=== PATIENT | female | born 2000 | race Caucasian/White ===

== ENCOUNTER 2020-04-26 14:09 | Emergency (ER) | payer MEDICAID, SELFPAY ==
[2020-04-26 14:16] VITALS: PULSE 144; RESP 32; TEMP 36.6; O2SAT 96; BMI 35.7
[2020-04-26 14:23] VITALS: BP 113/53; PULSE 129; RESP 22; O2SAT 96
--- NOTE | 2020-04-26 14:35 | XR_ITS ---
EXAMINATION: XR CHEST CLINICAL INFORMATION: Shortness of breath, wheezing COMPARISON: Chest radiographs 01/05/2020, 10/06/2019 TECHNIQUE: Portable upright AP view of the chest was obtained. FINDINGS: The lungs are clear. The vascularity is normal. There is no overt hyperinflation. No coarsening bronchiolar markings. There is no airspace consolidation or definite groundglass opacity. The costophrenic sulci are clear. The heart is normal in size. The hilar and mediastinal contours and bony structures are unremarkable. XR/XR chest 1V IMPRESSION: Unremarkable examination.
[2020-04-26] MEDS: Albuterol Sulfate (0.083%) 2.5 MG/3 ML VIAL.NEB 7.5 MG INHALE (14:44)
[2020-04-26] MEDS: Ipratropium Bromide 0.5 MG/2.5 ML SOLUTION INHALE (14:44)
[2020-04-26 14:45] VITALS: PULSE 127; O2SAT 93
--- NOTE | 2020-04-26 14:50 | PC.NURSE ---
Patient complaining of asthma exacerbation. Working to breath. Wheezing heard throughout. Patient tried using inhaler and neds at home, but with no improvement. O2 sat high 90s on room air. Skin PWD. Patient alert and oriented. IV established. Patient medicated with solumedrol. RT called for updraft. Swabbed for respiratory panel.
[2020-04-26] MEDS: methylPREDNISolone Sod Succ/PF 125 MG/2 ML VIAL IVPUSH (15:04)
--- NOTE | 2020-04-26 15:14 | ED.ASTHMA ---
HPI - Asthma General Chief Complaint: Asthma Stated Complaint: asthma Time Seen by Provider: 04/26/20 14:34 Source: patient Mode of arrival: ambulatory Limitations: no limitations History of Present Illness HPI Narrative: 20 y/o female with history of asthma who presents with shortness of breath and wheezing that started after she bathed her dog earlier today. She states she usually only requires PRN albuterol for her asthma and that it is relatively well controlled. She she blew dry her dog she started wheezing and coughing. She denies fever, chills, chest pain, COVID exposure. Up to date on flu shot this year. complaint: asthma attack Related Data Previous Rx's Medication Instructions Recorded albuterol sulfate 1.25 mg INHALATION Q8H PRN #15 ml 04/26/20 prednisone 40 mg PO DAILY #10 tab 04/26/20 Allergies Allergy/AdvReac Type Severity Reaction Status Date / Time No Known Allergies Allergy Unverified 02/18/20 16:47 Review of Systems Review of Systems: Constitutional: No Fever, No Chills ENT/Mouth: No sore throat, No Rhinorrhea, No Swallowing Difficulty Cardiovascular: No Chest Pain, No SOB, No Orthopnea, No Edema Respiratory: + Cough, No Sputum, + Wheezing, + dyspnea Gastrointestinal: No Nausea, No Vomiting, No Diarrhea, No abdominal Pain Musculoskeletal: No joint pain, No Myalgias Skin: No Skin Lesions, No rash Neuro: No Weakness, No Numbness, No Dizziness, No Headache Heme/Lymph: No Bruising, No Lymphadenopathy PMFSH Past Medical History Attestation statement: The following information was validated with the patient. Medical History Asthma Social History Social History Alcohol intake: never Smoking Status: Light tobacco smoker Use of substances other than those prescribed or required for medical reasons: No Advance Directives: No Advance Directives Information Provided: Yes Physical Exam Vital Signs: Vital Signs: Last Vital Signs Temp 98 F 04/26/20 14:16 Pulse 127 H 04/26/20 14:45 Resp 22 H 04/26/20 14:23 BP 113/53 L 04/26/20 14:23 Pulse Ox 96 04/26/20 14:23 Body Mass Index 35.7 Appearance: Alert. Oriented X3. No acute distress. Eyes: Pupils equal, round and reactive to light. ENT: Pharynx normal. Neck: Normal inspection. Neck supple. CVS: tachycardic, regular rhythm. Pulses normal. Respiratory: No respiratory distress. end expiratory wheeze in the right middle lobe Abdomen: Soft and nontender. +BS x4 Skin: Skin warm and dry. Normal skin color. Normal skin turgor. No rashes. Extremities: No lower extremity edema. Negative Alli's sign Neuro: Oriented X 3. Non-focal Course Course Course Narrative: 20 y/o female with hx asthma presenting with acute asthma exacerbation provoked by washing her dog. Significant improvement after steroids and hour long nebulizer. CXR negative. She has a neb machine at home but needs some refills. She is stable for discharge. MDM - Asthma Lab Data Labs: Lab Results 04/26/20 Range/Units 15:05 Coronavirus (PCR) NEGATIVE (Negative) Influenza Type A (PCR) NEGATIVE (Negative) Influenza Type B (PCR) NEGATIVE (Negative) RSV RNA Qual (PCR) NEGATIVE (Negative) Critical Care Time Critical Care Time Critical Care Time: No Discharge Plan Discharge Clinical Impression: Asthma with acute exacerbation Patient Disposition: Home, Self-Care Instructions: Asthma (ED) Additional Instructions: Your chest x-ray was negative. Your COVID and influenza tests were negative. You asthma flare was provoked by washing your dog; recommend against this in the future. Take the prescibed steroids to help with the inflammation in your lungs. Use your nebulizer every 4-6 hours as needed at home. Follow up with your doctor this week. If you develop recurrent shortness of breath or difficulty breathing, call 911 or come back to the ER for further evaluation. Prescriptions: New prednisone 20 mg tablet 40 mg PO DAILY Qty: 10 RF: 0 albuterol sulfate 1.25 mg/3 mL solution for nebulization 1.25 mg inhalation Q8H PRN (Reason: shortness of breath or wheezing) Qty: 15 RF: 0
[2020-04-26 15:58] LABS: Influenza A PCR NEGATIVE (Negative); Influenza B PCR NEGATIVE (Negative); Resp Syncy Virus RNA Qual PCR NEGATIVE (Negative); SARS COV2 PCR INHOUSE NEGATIVE (Negative)
[2020-04-26 16:00] VITALS: BP 135/86; PULSE 120; RESP 18; O2SAT 99
--- NOTE | 2020-04-26 16:00 | PC.NURSE ---
Patient with significant improvement in wheezes throughout. Reports feeling much better. Now has regular, even, and nonlabored respirations. Skin pwd. Awaiting discharge.
[2020-04-26 16:23] VITALS: BP 100/66; PULSE 115; RESP 18; O2SAT 96
== END 2020-04-26 16:30 | disposition home or self-care (01) ==
PROVIDERS: Physician Assistant; Emergency Provider Emergency Medicine Emergency Medical Services
DX: J45.901 Unspecified asthma with (acute) exacerbation (principal); Z79.899 Other long term (current) drug therapy; F17.200 Nicotine dependence, unspecified, uncomplicated; Z71.6 Tobacco abuse counseling; Z20.828 Contact with and (suspected) exposure to other viral communicable diseases
CPT/HCPCS: 0241U; 71045; 94640; 94644; 96374; 99284; J2930

== ENCOUNTER 2020-05-26 00:31 | Emergency (ER) | payer MEDICAID, SELFPAY ==
--- NOTE | 2020-05-26 01:20 | ED.ASTHMA ---
HPI - Asthma General Chief Complaint: Dyspnea Stated Complaint: Asthma Time Seen by Provider: 05/26/20 01:18 Source: patient Mode of arrival: ambulatory Limitations: no limitations History of Present Illness HPI Narrative: 20-year-old female with history of longstanding asthma presented with wheezing started about 1 hour ago, no trigger factor, patient used her home medication at home with no relief of wheezing, patient declined any cough, no sneezing, no fever, no chills. Patient also declined any recent travel or hospitalization or prolonged immobilization. Related Data Previous Rx's Medication Instructions Recorded albuterol sulfate 1.25 mg INHALATION Q8H PRN #15 ml 04/26/20 prednisone 40 mg PO DAILY #10 tab 04/26/20 albuterol sulfate 2 puff INHALATION Q6H PRN #8.5 g 05/26/20 albuterol sulfate 2.5 mg INHALATION QID PRN #75 ml 05/26/20 prednisone 20 mg PO BID #10 tab 05/26/20 Allergies Allergy/AdvReac Type Severity Reaction Status Date / Time No Known Allergies Allergy Unverified 02/18/20 16:47 Review of Systems Review of Systems: All other systems are reviewed and are negative Constitutional: Reports as per HPI and Reports no additional constitutional complaints Eyes: Reports as per HPI and Reports no additional eye complaints Reports system reviewed and no additional complaints, except as documented Cardiovascular: Reports as per HPI and Reports no additional cardiovascular complaints Respiratory: Reports as per HPI and Reports no additional respiratory complaints Gastrointestinal: Reports as per HPI and Reports no additional gastrointestinal complaints Genitourinary: Reports no additional female genitourinary complaints Musculoskeletal: Reports no additional musculoskeletal complaints Skin/Breast: Reports system reviewed and no additional complaints, except as docu Psychiatric: Reports no additional psychiatric complaints Endocrine: Reports no additional endocrine complaints Hematologic/Lymphatic: Reports no additional hematologic/lymphatic complaints Allergic/Immunologic: Reports no additional allergic/immunologic complaints Reports system reviewed and no additional complaints, except as documented and Reports Abnormal speech present [facility] Past Medical History Medical History Asthma Social History Social History Alcohol intake: never Smoking Status: Light tobacco smoker Advance Directives: No Advance Directives Information Provided: No Physical Exam Vital Signs: Vital Signs: Vital signs have been reviewed as normal and appeared to be correct. Blood pressure normal. Heart rate normal. Respiration rate normal. Temperature normal. Oxygen saturation normal. Appearance: Alert. Oriented X3. No acute distress. Head: Normal external exam. Normocephalic. Atraumatic. No Gomez signs noted. No raccoon eyes noted Eyes: PERRLA. EOMI. Conjunctiva and sclera normal. Eyelids normal. ENT: EAC normal. TM's Normal. Pharynx normal. Uvula midline. Moist mucous membranes. No trismus noted. No drooling noted. No muffled voice noted. Neck: Normal inspection. Neck supple. FROM. No adenopathy. Thyroid Normal. No meningeal signs. No neck mass noted. CVS: Normal heart rate and rhythm. Heart sound normal. No murmurs noted. Pulses normal throughout. Respiratory: No respiratory distress. Painless inspiration. Breath sounds normal. Mild diffuse expiratory wheezing with prolonged expiration, No rales/rhonchi noted. Chest nontender. No accessory muscle usage noted or decreased air movement noted. Abdomen: Soft and nontender. Bowel sounds normal in all 4 quadrants. No distention noted. No organomegaly noted. No visible injury noted. Back: No CVA tenderness. Full range of motion noted. Skin: Skin warm and dry. Normal skin color. Normal skin turgor. No rashes/lesions/lacerations noted. Extremities: No lower extremity edema. Extremities exhibit normal range of motion. Extremities nontender. Neuro: Oriented X 3. No motor deficit. No sensory deficit. Reflexes normal. MDM - Asthma MDM Narrative Medical decision making narrative: Assessment and plan. 20-year-old female with longstanding history of asthma came in with asthma exacerbation. Patient used home medication with no relief. Will start the patient on prednisone/albuterol discharged home to follow-up with PCP. Discharge Plan Discharge Clinical Impression: Asthma with exacerbation Qualifiers: Asthma severity: mild Asthma persistence: unspecified Qualified Code(s): J45.901 - Unspecified asthma with (acute) exacerbation Patient Disposition: Home, Self-Care Instructions: Asthma (ED) Prescriptions: New albuterol sulfate 90 mcg/actuation HFA aerosol inhaler 2 puff inhalation Q6H PRN (Reason: shortness of breath or wheezing) Qty: 8.5 RF: 0 albuterol sulfate 2.5 mg /3 mL (0.083 %) solution for nebulization 2.5 mg inhalation QID PRN (Reason: shortness of breath or wheezing) Qty: 75 RF: 0 prednisone 20 mg tablet 20 mg PO BID Qty: 10 RF: 0 No Action prednisone 20 mg tablet 40 mg PO DAILY Qty: 10 RF: 0 albuterol sulfate 1.25 mg/3 mL solution for nebulization 1.25 mg inhalation Q8H PRN (Reason: shortness of breath or wheezing) Qty: 15 RF: 0 Referrals: Physician,Unknown [Primary Care Provider] - 2 days
[2020-05-26 01:22] VITALS: PULSE 100; RESP 18; TEMP 36.6; O2SAT 100; BMI 39.2
[2020-05-26] MEDS: predniSONE 20 MG TABLET 60 MG PO (01:29)
[2020-05-26 01:51] VITALS: PULSE 92; O2SAT 99
[2020-05-26] MEDS: Albuterol/Iprat 2.5/0.5MG 3 ML AMPUL.NEB INHALE (01:51)
[2020-05-26] MEDS: Albuterol Sulfate (0.083%) 2.5 MG/3 ML VIAL.NEB 5 MG INHALE (01:51)
[2020-05-26 01:58] VITALS: PULSE 100; RESP 18
== END 2020-05-26 02:58 | disposition home or self-care (01) ==
PROVIDERS: Emergency Provider Emergency Medicine
DX: J45.901 Unspecified asthma with (acute) exacerbation (principal); F17.210 Nicotine dependence, cigarettes, uncomplicated; Z79.899 Other long term (current) drug therapy
CPT/HCPCS: 94640; 99284

== ENCOUNTER → 2020-09-08 10:03 | Outpatient (BNVA) | payer MEDICAID, SELFPAY | PROVIDERS: PCP Nurse Practitioner Family; Visit Provider Internal Medicine Pulmonary Disease | DX: J45.909 Unspecified asthma, uncomplicated (principal); Z91.09 Other allergy status, other than to drugs and biological substances | CPT/HCPCS: 99202 ==

== ENCOUNTER 2020-10-03 08:42 | Outpatient (REF) | payer MEDICAID, SELFPAY ==
[2020-10-03 11:32] LABS: MANUAL DIFF FLAG NO
[2020-10-03 11:41] LABS: Basophils Absolute Auto 0.1 X10*3/uL (0.0-0.2); Basophils Percent Auto 0.7 % (0-2); Eosinophils Absolute Auto 0.4 X10*3/uL (0.0-0.4); Eosinophils Percent Auto 5.9 % (0-4); Hematocrit 40.8 % (37-47); Hemoglobin 13.4 g/dl (12.0-16.0); Imm Gran Abs Auto 0.04 X10*3/uL (0.00-0.03); Imm Gran Pct Auto 0.5 % (0.0-0.4); Lymphocytes Absolute Auto 2.2 X10*3/uL (1.2-4.9); Mean Corpuscular HGB Conc 32.8 g/dl (31.0-35.0); Mean Corpuscular Hemoglobin 28.7 pg (27.0-33.0); Mean Corpuscular Volume 87.4 fL (80-98); Mean Platelet Volume 10.5 fL (9.4-12.3); Monocytes Absolute Auto 0.5 X10*3/uL (0.1-1.2); Monocytes Percent Auto 6.6 % (2-11); Neutrophils Absolute Auto 4.3 X10*3/uL (2.0-8.3); Neutrophils Percent Auto 57.3 % (45-73); Platelet Count 249 X10*3/uL (160-400); Red Blood Count 4.67 X10*6/uL (4.20-5.50); Red Cell Distribution Width 12.6 % (11.0-16.0); White Blood Count 7.5 X10*3/uL (4.8-10.8)
--- NOTE | 2020-10-03 17:36 | PFT_ITS ---
INDICATION: Asthma. SPIROMETRY: The FEV1 to FVC 54% with an FEV1 of 2.25 L, which is 64% predicted and FVC of 4.15 L, which is 104% predicted. Post bronchodilators, the patient did have a significant improvement both in the FVC and the FEV1. The [id number] decreased to 22% predicted prior to bronchodilators. Maximum voluntary ventilation 59% predicted. LUNG VOLUMES: Total lung capacity 113% predicted with a residual volume of 146% predicted. Expiratory reserve volume is 57% predicted, likely secondary to an elevated BMI. DIFFUSION CAPACITY: DLCO 91% predicted. INTERPRETATION: There is an obstructive ventilatory defect consistent with moderate COPD in this case, likely related to uncontrolled severe asthma. The patient did have a significant response to bronchodilators noted. In addition to that, severe small airways disease due to her asthma severity. The patient also has a moderate decrease in maximum voluntary ventilation secondary to deconditioning, also worsening dynamic inspiratory capacity. Lung volumes demonstrate a trend of hyperinflation and significant air trapping due to her significant obstructive airway disease. The decrease in the expiratory reserve volume likely secondary to an elevated BMI. Diffusion capacity is within normal limits. Clinical correlation is warranted. MD ALBERTA Fairbanks/MODL / [id number]
== END 2020-10-03 08:43 | disposition home or self-care (01) ==
LOC: HO.RESP 08:42
PROVIDERS: Visit Provider Internal Medicine Pulmonary Disease
DX: J45.909 Unspecified asthma, uncomplicated (principal); Z91.09 Other allergy status, other than to drugs and biological substances
CPT/HCPCS: 36415; 82785; 85025; 86003; 94060; 94727; 94729; 99212

== ENCOUNTER 2020-11-15 15:06 | Emergency (ER) | payer MEDICAID, SELFPAY ==
--- NOTE | ~2020-11-15 | XR_ITS ---
EXAMINATION: XR CHEST CLINICAL INFORMATION: Cough and shortness of breath. Rule out pneumonia. COMPARISON: Previous chest x-ray April 2020 TECHNIQUE: Frontal view of the chest was obtained. FINDINGS: No significant abnormality is noted involving the heart, lungs, mediastinum, bony thorax or soft tissues. XR/XR chest 1V IMPRESSION: Unremarkable examination.
--- NOTE | 2020-11-15 15:08 | ED.GENADULT ---
HPI - General Adult General Chief complaint: Dyspnea <Elizabeth Arguelles NP - Last Filed: 11/15/20 18:56> Stated complaint: asthma <Elizabeth Arguelles NP - Last Filed: 11/15/20 18:56> Time Seen by Provider: 11/15/20 15:07 <Elizabeth Arguelles NP - Last Filed: 11/15/20 18:56> Source: patient <Elizabeth Arguelles NP - Last Filed: 11/15/20 18:56> Mode of arrival: ambulatory <Elizabeth Arguelles NP - Last Filed: 11/15/20 18:56> Limitations: no limitations <Elizabeth Arguelles NP - Last Filed: 11/15/20 18:56> History of Present Illness HPI narrative: 20 yo female with past medical history of asthma here with complaints of asthma symptoms x 24 hrs which consist of SOB, wheezing and dry cough. History of admissions over once. No history of intubations. No chest pain, leg swelling or pain. No recent travel. No fevers, chills or body aches. She has not received a COVID vaccine <Elizabeth Arguelles NP - Last Filed: 11/15/20 18:56> Related Data Home medications: Previous Rx's Medication Instructions Recorded albuterol sulfate 1.25 mg INHALATION Q8H PRN #15 ml 04/26/20 fluticasone propionate 115 2 puff INHALATION BID 30 Days #1 ea 11/19/20 mcg-salmeterol 21 mcg/actuation HFA inhaler <ANAID Ma Last Filed: 11/15/20 18:56> Allergies/adverse reactions: Allergies Allergy/AdvReac Type Severity Reaction Status Date / Time No Known Allergies Allergy Verified 10/03/20 10:02 <ANAID Ma Last Filed: 11/15/20 18:56> Review of Systems Review of Systems: Yes all other systems are reviewed and are negative <ANAID Ma Last Filed: 11/15/20 18:56> Constitutional: Constitutional: Reports no additional constitutional complaints, Denies body ache(s), Denies chills, Denies fever(s), Denies headache(s) and Denies weakness <Elizabeth Arguelles NP - Last Filed: 11/15/20 18:56> Eyes: Eyes: Reports no additional eye complaints and Denies change in vision <Elizabeth Arguelles NP - Last Filed: 11/15/20 18:56> ENT: Reports system reviewed and no additional complaints, except as documented, Denies dizziness, Denies headache(s), Denies nasal congestion, Denies nasal discharge and Denies neck pain <Elizabeth Arguelles ANGER CONTROL COUNSELOR - Last Filed: 11/15/20 18:56> Cardiovascular: Cardiovascular: Reports no additional cardiovascular complaints, Denies chest pain, Denies leg edema and Reports dyspnea <Elizabeth Arguelles NP - Last Filed: 11/15/20 18:56> Respiratory: Respiratory: Reports no additional respiratory complaints, Reports cough and Reports dyspnea <Elizabeth Arguelles NP - Last Filed: 11/15/20 18:56> Gastrointestinal: Gastrointestinal: Reports no additional gastrointestinal complaints, Denies abdominal pain, Denies diarrhea, Denies nausea and Denies vomiting <Elizabeth Arguelles NP - Last Filed: 11/15/20 18:56> Genitourinary: Genitourinary: Reports no additional female genitourinary complaints and Denies urinary incontinence <Elizabeth Arguelles NP - Last Filed: 11/15/20 18:56> Musculoskeletal: Musculoskeletal: Reports no additional musculoskeletal complaints, Denies back pain, Denies arthralgias, Denies joint swelling, Denies neck pain, Denies numbness and Denies tingling <Elizabeth Arguelles NP - Last Filed: 11/15/20 18:56> Integumentary/Breasts: Skin/Breast: Reports system reviewed and no additional complaints, except as docu and Denies rash <Elizabeth Arguelles NP - Last Filed: 11/15/20 18:56> Neurologic: Reports system reviewed and no additional complaints, except as documented, Denies Abnormal speech present, Denies dizziness, Denies headache(s), Denies numbness, Denies tingling and Denies weakness <Elizabeth Arguelles NP - Last Filed: 11/15/20 18:56> FORMERLY [facility] Past Medical History Attestation statement: The following information was validated with the patient. <Elizabeth Arguelles NP - Last Filed: 11/15/20 18:56> Source: old records reviewed and nursing notes reviewed <Elizabeth Arguelles NP - Last Filed: 11/15/20 18:56> Medical History: Medical History Asthma <Elizabeth Arguelles NP - Last Filed: 11/15/20 18:56> Social History Social History: Social History Alcohol intake: never Patient Tobacco Use Status: Never used Tobacco Use of substances other than those prescribed or required for medical reasons: No Advance Directives: No Advance Directives Information Provided: No Patient : No <Elizabeth Arguelles NP - Last Filed: 11/15/20 18:56> Physical Exam Vital Signs: Vital Signs: Last Vital Signs Temp 98.8 F 11/15/20 15:09 Pulse 99 11/15/20 17:57 Resp 16 11/15/20 17:15 BP 108/65 11/15/20 17:15 Pulse Ox 96 11/15/20 17:15 Body Mass Index 29.9 <Elizabeth Arguelles NP - Last Filed: 11/15/20 18:56> Vital Signs: Last Vital Signs Temp 98.8 F 11/15/20 15:09 Pulse 99 11/15/20 17:57 Resp 16 11/15/20 17:15 BP 108/65 11/15/20 17:15 Pulse Ox 96 11/15/20 17:15 Body Mass Index 29.9 <Nito Kumar MD - Last Filed: 12/24/20 08:57> Const: General: cooperative and in distress (resp distress ) <Elizabeth Arguelles NP - Last Filed: 11/15/20 18:56> Orientation/consciousness: patient oriented x3 <Elizabeth Arguelles NP - Last Filed: 11/15/20 18:56> Limitations: no limitations <Elizabeth Arguelles NP - Last Filed: 11/15/20 18:56> HENMT: Head: Yes normal to inspection <Elizabeth Arguelles NP - Last Filed: 11/15/20 18:56> Ears: hearing grossly normal bilaterally <Elizabeth Arguelles ANGER CONTROL COUNSELOR - Last Filed: 11/15/20 18:56> General nose exam: Normal external nose present <Elizabeth Arguelles NP - Last Filed: 11/15/20 18:56> Face and sinus: Yes normal facial exam <Elizabeth Arguelles ANGER CONTROL COUNSELOR - Last Filed: 11/15/20 18:56> Mouth: Normal oral and palatal mucosa present <Elizabeth Arguelles NP - Last Filed: 11/15/20 18:56> Throat: Yes posterior oropharynx normal <Elizabeth Arguelles NP - Last Filed: 11/15/20 18:56> Eyes: General: appearance normal, both eyes and all related structures <Elizabeth Arguelles NP - Last Filed: 11/15/20 18:56> Pupils: Equal, round and reactive pupils present <Elizabeth Arguelles ANGER CONTROL COUNSELOR - Last Filed: 11/15/20 18:56> Neck: Neck: Yes normal visual inspection <Elizabeth Arguelles NP - Last Filed: 11/15/20 18:56> Chest: Chest palpation & inspection: normal inspection of the chest <Elizabeth Arguelles NP - Last Filed: 11/15/20 18:56> Resp: Other: Leaning forward, speaking short phrases, concern is for wheezing throughout, accessory muscle use <Elizabeth Arguelles ANGER CONTROL COUNSELOR - Last Filed: 11/15/20 18:56> Cardio: Rate: regular rate <Elizabeth Arguelles NP - Last Filed: 11/15/20 18:56> Rhythm: regular rhythm <Elizabeth Arguelles NP - Last Filed: 11/15/20 18:56> Peripheral pulses: Peripheral pulses 2+ throughout <Elizabeth Arguelles NP - Last Filed: 11/15/20 18:56> GI: Inspection: Yes normal to inspection <Elizabeth Arguelles ANGER CONTROL COUNSELOR - Last Filed: 11/15/20 18:56> Palpation (GI): Soft to palpation and nontender <Elizabeth Arguelles NP - Last Filed: 11/15/20 18:56> Auscultation: normal bowel sounds <Elizabeth Arguelles NP - Last Filed: 11/15/20 18:56> Back/Spine/Pelvis: Thoracic/Lumbar Spine: thoracic and lumbar spine normal to inspection <Elizabeth Arguelles NP - Last Filed: 11/15/20 18:56> Skin: General skin exam: no rashes or lesions noted <Elizabeth Arguelles NP - Last Filed: 11/15/20 18:56> Neuro: General: patient oriented x3, no focal motor deficits and normal sensation to monofilament <Elizabeth Arguelles NP - Last Filed: 11/15/20 18:56> Cranial nerves: Yes Equal, round and reactive pupils present <Elizabeth Arguelles NP - Last Filed: 11/15/20 18:56> Cognition (Neuro): normal cognition <Elizabeth Arguelles NP - Last Filed: 11/15/20 18:56> Speech: No Abnormal speech present <Elizabeth Arguelles NP - Last Filed: 11/15/20 18:56> Gait exam (Neuro): Normal gait present <Elizabeth Arguelles NP - Last Filed: 11/15/20 18:56> Motor exam (neuro): 5/5 motor strength present throughout <Elizabeth Arguelles NP - Last Filed: 11/15/20 18:56> Extrem: General: Yes normal to inspection, Yes no pedal edema and Yes no calf tenderness <Elizabeth Arguelles NP - Last Filed: 11/15/20 18:56> Course Course Course Narrative: 1509-Asthma symptoms x 24 hrs unrelieved with home meds. RA saturation 83% improved on 2LNC. I:E wheezing throughout, leaning forward speaking short phrases. Will need immediate bedding. Charge nurse aware. Will order labs, chest x-ray, COVID screen, nebulizer, Solu-Medrol and magnesium. 1630-PATIENT FEELING IMPROVED. OXYGEN SATURATION 96 ON ROOM AIR. WILL MONITOR AND REASSESS 1715-patient ambulated around the ER with oxygen saturation 97% on room air. She is feeling much improved. She tells me her primary care doctor called her and refills for her nebulizer machine. Will send home with prednisone course and refill for her MDI. Reviewed worrisome signs and symptoms and when to return to the emergency department. Comfortable discharge home. <Elizabeth Arguelles NP - Last Filed: 11/15/20 18:56> I have reviewed the chart <Nito Kumar MD - Last Filed: 12/24/20 08:57> Medical Decision Making Medical Records Medical records reviewed: Yes I reviewed the patient's medical records. <Elizabeth Arguelles NP - Last Filed: 11/15/20 18:56> Lab Data Lab results reviewed: Yes I reviewed the patient's lab results. <Elizabeth Arguelles NP - Last Filed: 11/15/20 18:56> Result diagrams: : 11/15/20 15:25 11/15/20 15:25 <Elizabeth Arguelles NP - Last Filed: 11/15/20 18:56> Labs: Lab Results 11/15/20 11/15/20 11/15/20 Range/Units 15:25 15:25 15:28 WBC 8.3 (4.8-10.8) X10*3/uL RBC 4.82 (4.20-5.50) X10*6/uL Hgb 13.8 (12.0-16.0) g/dl Hct 42.4 (37-47) % MCV 88.0 (80-98) fL MCH 28.6 (27.0-33.0) pg MCHC 32.5 (31.0-35.0) g/dl RDW 12.3 (11.0-16.0) % Plt Count 243 (160-400) X10*3/uL MPV 10.0 (9.4-12.3) fL Immature Gran % (Auto) 0.1 (0.0-0.4) % Neut % (Auto) 71.5 (45-73) % Lymph % (Auto) 16.2 L (20-40) % [place] % (Auto) 8.3 (2-11) % Eos % (Auto) 3.4 (0-4) % Baso % (Auto) 0.5 (0-2) % Lymph # (Auto) 1.4 (1.2-4.9) X10*3/uL [place] # (Auto) 0.7 (0.1-1.2) X10*3/uL Eos # (Auto) 0.3 (0.0-0.4) X10*3/uL Baso # (Auto) 0.0 (0.0-0.2) X10*3/uL Abs Immat Gran (auto) 0.01 (0.00-0.03) X10*3/uL Absolute Neuts (auto) 6.0 (2.0-8.3) X10*3/uL Absolute Nucleated RBC 0.000 (0.0-0.012) X10*3/uL Nucleated RBC % (auto) 0.0 (0.0-0.2) /100WBC Sodium 142 (135-145) mmol/L Potassium 4.2 (3.3-5.1) mmol/L Chloride 107 (96-108) mmol/L Carbon Dioxide 26 (22-29) mmol/L Anion Gap 13 (12-20) BUN 7 L (9-16) mg/dL Creatinine 0.73 (0.5-1.4) mg/dL Estim Creat Clear Calc 128.6 Estimated GFR > 60 Random Glucose 91 (60-115) mg/dL Calcium 9.5 (8.4-10.2) mg/dL COVID-19 (MARGRET) Negative (Negative) COVID-19 Clin Com See Note <Elizabeth Arguelles, ANGER CONTROL COUNSELOR - Last Filed: 11/15/20 18:56> Lab Results 11/15/20 11/15/20 11/15/20 Range/Units 15:25 15:25 15:28 WBC 8.3 (4.8-10.8) X10*3/uL RBC 4.82 (4.20-5.50) X10*6/uL Hgb 13.8 (12.0-16.0) g/dl Hct 42.4 (37-47) % MCV 88.0 (80-98) fL MCH 28.6 (27.0-33.0) pg MCHC 32.5 (31.0-35.0) g/dl RDW 12.3 (11.0-16.0) % Plt Count 243 (160-400) X10*3/uL MPV 10.0 (9.4-12.3) fL Immature Gran % (Auto) 0.1 (0.0-0.4) % Neut % (Auto) 71.5 (45-73) % Lymph % (Auto) 16.2 L (20-40) % [place] % (Auto) 8.3 (2-11) % Eos % (Auto) 3.4 (0-4) % Baso % (Auto) 0.5 (0-2) % Lymph # (Auto) 1.4 (1.2-4.9) X10*3/uL [place] # (Auto) 0.7 (0.1-1.2) X10*3/uL Eos # (Auto) 0.3 (0.0-0.4) X10*3/uL Baso # (Auto) 0.0 (0.0-0.2) X10*3/uL Abs Immat Gran (auto) 0.01 (0.00-0.03) X10*3/uL Absolute Neuts (auto) 6.0 (2.0-8.3) X10*3/uL Absolute Nucleated RBC 0.000 (0.0-0.012) X10*3/uL Nucleated RBC % (auto) 0.0 (0.0-0.2) /100WBC Sodium 142 (135-145) mmol/L Potassium 4.2 (3.3-5.1) mmol/L Chloride 107 (96-108) mmol/L Carbon Dioxide 26 (22-29) mmol/L Anion Gap 13 (12-20) BUN 7 L (9-16) mg/dL Creatinine 0.73 (0.5-1.4) mg/dL Estim Creat Clear Calc 128.6 Estimated GFR > 60 Random Glucose 91 (60-115) mg/dL Calcium 9.5 (8.4-10.2) mg/dL COVID-19 (MARGRET) Negative (Negative) COVID-19 Clin Com See Note <Nito Kumar MD - Last Filed: 12/24/20 08:57> Imaging Data Chest x-ray: Attestation: I personally reviewed and interpreted this imaging study as follows: <Elizabeth Arguelles NP - Last Filed: 11/15/20 18:56> Radiologist's impression: [address] [id number] ReportSigned Patient: Marley Servin#: [id number]: 2000Acct:[id number]/Sex: 20 / FADM Date: 11/15/20Loc: HO.EDAttending Dr: Ordering Physician: ELIZABETH ARGUELLES NP Date of Service: 11/15/20 Procedure(s): XR chest 1V Accession Number(s): [id number] cc: ELIZABETH ARGUELLES NP~ EXAMINATION: XR CHEST CLINICAL INFORMATION: Cough and shortness of breath. Rule out pneumonia. COMPARISON: Previous chest x-ray April 2020 TECHNIQUE: Frontal view of the chest was obtained. FINDINGS: No significant abnormality is noted involving the heart, lungs, mediastinum, bony thorax or soft tissues. XR/XR chest 1V IMPRESSION: Unremarkable examination. <Elizabeth Arguelles NP - Last Filed: 11/15/20 18:56> Discharge Plan Discharge Clinical Impression: Asthma with exacerbation <Elizabeth Arguelles NP - Last Filed: 11/15/20 18:56> Patient Disposition: Home, Self-Care <Elizabeth Arguelles NP - Last Filed: 11/15/20 18:56> Instructions: Asthma (ED) <Elizabeth Arguelles NP - Last Filed: 11/15/20 18:56> Additional Instructions: Increase fluids, rest Start prednisone tomorrow <Elizabeth Arguelles NP - Last Filed: 11/15/20 18:56> Prescriptions: No Action Advair HFA 115-21 mcg/actuation HFA aerosol inhaler 2 puff inhalation BID 30 Days Qty: 1 RF: 6 albuterol sulfate 1.25 mg/3 mL solution for nebulization 1.25 mg inhalation Q8H PRN (Reason: shortness of breath or wheezing) Qty: 15 RF: 0 <Elizabeth Arguelles NP - Last Filed: 11/15/20 18:56> Referrals: [facility] [Primary Care Provider] - 2 days <Elizabeth Arguelles NP - Last Filed: 11/15/20 18:56> Interventions: ED Discharge Assessment Last Done: 11/15/20 18:09 <Elizabeth Arguelles NP - Last Filed: 11/15/20 18:56> Discharge Date/Time: 11/15/20 18:11 <Elizabeth Arguelles NP - Last Filed: 11/15/20 18:56>
[2020-11-15 15:09] VITALS: BP 000/000; PULSE 87; RESP 26; TEMP 37.1; O2SAT 83; BMI 29.9
[2020-11-15] MEDS: Albuterol/Iprat 2.5/0.5MG 3 ML AMPUL.NEB INHALE (15:24)
[2020-11-15 15:30] VITALS: PULSE 99; O2SAT 95
[2020-11-15] MEDS: Albuterol Sulfate (0.083%) 2.5 MG/3 ML VIAL.NEB 7.5 MG INHALE (15:32)
[2020-11-15 15:34] LABS: MANUAL DIFF FLAG NO
[2020-11-15] MEDS: methylPREDNISolone Sod Succ 125 MG/2 ML VIAL IVPUSH (15:36)
[2020-11-15] MEDS: Magnesium Sulfate/H2O 2 GM/50 ML PIGGYBACK IV (15:37)
[2020-11-15 15:44] LABS: Basophils Percent Auto 0.5 % (0-2); Eosinophils Absolute Auto 0.3 X10*3/uL (0.0-0.4); Eosinophils Percent Auto 3.4 % (0-4); Hematocrit 42.4 % (37-47); Hemoglobin 13.8 g/dl (12.0-16.0); Imm Gran Abs Auto 0.01 X10*3/uL (0.00-0.03); Imm Gran Pct Auto 0.1 % (0.0-0.4); Lymphocytes Absolute Auto 1.4 X10*3/uL (1.2-4.9); Lymphocytes Percent Auto 16.2 % (20-40); Mean Corpuscular HGB Conc 32.5 g/dl (31.0-35.0); Mean Corpuscular Hemoglobin 28.6 pg (27.0-33.0); Monocytes Absolute Auto 0.7 X10*3/uL (0.1-1.2); Monocytes Percent Auto 8.3 % (2-11); Neutrophils Percent Auto 71.5 % (45-73); Platelet Count 243 X10*3/uL (160-400); Red Blood Count 4.82 X10*6/uL (4.20-5.50); Red Cell Distribution Width 12.3 % (11.0-16.0); White Blood Count 8.3 X10*3/uL (4.8-10.8)
[2020-11-15 15:46] VITALS: PULSE 87; RESP 16; O2SAT 98
[2020-11-15 15:52] LABS: COVID-19 Test Negative (Negative)
[2020-11-15 15:58] LABS: Anion Gap 13 (12-20); Blood Urea Nitrogen 7 mg/dL (9-16); Calcium 9.5 mg/dL (8.4-10.2); Carbon Dioxide 26 mmol/L (22-29); Chloride 107 mmol/L (96-108); Creatinine Clr Calc Pharmacy 128.6; Estimated Glomerular Filt Rate > 60; Glucose Random 91 mg/dL (60-115); Potassium 4.2 mmol/L (3.3-5.1); Sodium 142 mmol/L (135-145)
[2020-11-15 17:15] VITALS: BP 108/65; PULSE 98; RESP 16; O2SAT 96
--- NOTE | 2020-11-15 17:20 | PC.NURSE ---
WALKING 02 SAT AROUND ED REMAINED 96%-98%.
[2020-11-15 17:57] VITALS: PULSE 99; O2SAT 96
[2020-11-15] MEDS: Albuterol Sulfate 90 MCG 8 GM INHALER 2 PUFF INHALE (17:57)
== END 2020-11-15 18:11 | disposition home or self-care (01) ==
PROVIDERS: Nurse Practitioner Family; Emergency Provider Emergency Medicine
DX: J45.901 Unspecified asthma with (acute) exacerbation (principal); Z20.822 Contact with and (suspected) exposure to COVID-19
CPT/HCPCS: 36415; 71045; 80048; 85025; 87635; 94640; 94644; 96365; 96366; 99284; 99285; J2930; J3475

== ENCOUNTER 2021-05-06 19:12 | Emergency (ER) | payer MEDICAID, SELFPAY ==
[2021-05-06 19:44] VITALS: BP 145/81; PULSE 110; RESP 20; TEMP 38.3; O2SAT 98; BMI 31.6
[2021-05-06 20:23] LABS: COVID-19 Test Negative (Negative)
[2021-05-06] MEDS: 0.9 % Sodium Chloride 1,000 ML 999 ML IV (23:53)
[2021-05-06] MEDS: ondansetron HCL 4 MG/2 ML VIAL IVPUSH (23:53)
--- NOTE | 2021-05-06 23:56 | PC.NURSE ---
Iv placed, medicated per Mar.
[2021-05-07 00:22] LABS: Basophils Percent Auto 0.3 % (0-2); Eosinophils Percent Auto 0.3 % (0-4); Hematocrit 37.3 % (37.0-47.0); Hemoglobin 12.2 g/dl (12.0-16.0); Imm Gran Abs Auto 0.03 X10*3/uL (0.00-0.03); Imm Gran Pct Auto 0.3 % (0.0-0.4); Lymphocytes Absolute Auto 2.1 X10*3/uL (1.2-4.9); Lymphocytes Percent Auto 21.5 % (20-40); MANUAL DIFF FLAG NO; Mean Corpuscular HGB Conc 32.7 g/dl (31.0-35.0); Mean Corpuscular Hemoglobin 28.2 pg (27.0-33.0); Mean Corpuscular Volume 86.1 fL (80.0-98.0); Monocytes Absolute Auto 1.2 X10*3/uL (0.1-1.2); Monocytes Percent Auto 11.9 % (2-11); Neutrophils Absolute Auto 6.3 x10*3/uL (2.0-8.3); Neutrophils Percent Auto 65.7 % (45-73); Platelet Count 220 X10*3/uL (160-400); Red Blood Count 4.33 X10*6/uL (4.20-5.50); Red Cell Distribution Width 12.7 % (11.0-16.0); White Blood Count 9.6 X10*3/uL (4.8-10.8)
--- NOTE | 2021-05-07 00:35 | PC.NURSE ---
pt given orange juice po. pt tolerated medication well .
[2021-05-07 00:41] LABS: Alanine Aminotransferase 9 U/L (0-31); Albumin Level 3.8 g/dL (3.5-5.0); Alkaline Phosphatase 53 U/L (39-117); Anion Gap 14 (12-20); Aspartate Amino Transferase 14 U/L (5-31); Bilirubin Total 0.6 mg/dL (0.0-1.0); Blood Urea Nitrogen 9 mg/dL (9-16); Calcium 8.6 mg/dL (8.4-10.2); Carbon Dioxide 21 mmol/L (22-29); Chloride 106 mmol/L (96-108); Creatinine Clr Calc Pharmacy 127.6; Estimated Glomerular Filt Rate > 60; Glucose Random 87 mg/dL (60-115); Potassium 3.4 mmol/L (3.3-5.1); Sodium 138 mmol/L (135-145); Total Protein 6.5 g/dL (6.5-8.0)
--- NOTE | 2021-05-07 01:01 | ED_ITS ---
HPI - Nausea/Vomiting/Diarrhea General Chief complaint: Nausea/Vomiting/Diarrhea Stated complaint: ?Food poisoning/Vomiting Time Seen by Provider: 05/06/21 23:43 Source: patient Mode of arrival: ambulatory Limitations: no limitations History of Present Illness HPI Narrative: Patient comes to the emergency room complaining of nausea, vomiting, diarrhea for 2 days. Patient states it started a few hours after she had [employer] for lunch. Patient states no one else got sick. Patient states that she cannot eat much because her throat hurts but she has been trying to keep up with fluids. However, she has had multiple episodes of vomiting and diarrhea. Related Data Previous Rx's Medication Instructions Recorded albuterol sulfate 1.25 mg/3 mL 1.25 mg (3 mL) INHALATION Q8H PRN 04/26/20 solution for nebulization #15 ml fluticasone propionate 115 2 puff INHALATION BID 30 Days #1 ea 11/19/20 mcg-salmeterol 21 mcg/actuation HFA inhaler (Advair HFA) amoxicillin 875 mg-potassium 1 tab PO BID #19 tab 05/07/21 clavulanate 125 mg tablet (Augmentin) Allergies Allergy/AdvReac Type Severity Reaction Status Date / Time No Known Allergies Allergy Verified 10/03/20 10:02 Review of Systems Review of Systems: Constitutional : No Weight loss, No Fever, No Chills, No Night Sweats, No Fatigue, No Malaise ENT/Mouth : No Hearing loss, No Ear Pain, No Nasal Congestion, No Sinus Pain, No Hoarseness, complaining of sore throat, No Rhinorrhea, No Swallowing Difficulty Eyes: No Eye Pain, No Swelling, No Redness, No Foreign Body, No Discharge, No Vision Changes Cardiovascular : No Chest Pain, No SOB, No Dyspnea on Exertion, No Orthopnea, No Edema, No Palpitations Respiratory : No Cough, No Sputum, No Wheezing, No Smoke Exposure, No Dyspnea Gastrointestinal : Complaining of nausea, vomiting and diarrhea. No Constipation, No abdominal Pain, No Hematochezia, No Melena Genitourinary : no irregular bleeding, No Dysuria, No Urinary Frequency, No Hematuria, No Urinary Incontinence, No Urgency, No Flank Pain, No Urinary Flow Changes, No Hesitancy Musculoskeletal : No joint pain, No Myalgias, No Joint Swelling Skin : No Skin Lesions, No rash Neuro : No Weakness, No Numbness, No Paresthesias, No Loss of Consciousness, No Dizziness, No Headache Psych : No Anxiety/Panic, No Depression, No SI/HI/AH/VH, No Social Issues, Heme/Lymph: No Bruising, No Bleeding,No Lymphadenopathy Endocrine : No Polyuria, No Polydipsia, No Temperature Intolerance PMF Past Medical History Medical History Asthma Social History Social History Alcohol intake: never Patient Tobacco Use Status: Never used Tobacco Use of substances other than those prescribed or required for medical reasons: No Advance Directives: No Advance Directives Information Provided: Yes Patient : No Physical Exam Vital Signs: Vital Signs: Last Vital Signs Temp 98.9 F 05/07/21 01:12 Pulse 89 05/07/21 01:12 Resp 20 05/06/21 19:44 BP 115/51 L 05/07/21 01:12 Pulse Ox 99 05/07/21 01:12 BMI result Body Mass Index 31.6 Const: Other: Appearance: Alert. Oriented X3. No acute distress. Well- appearing Eyes: Pupils equal, round and reactive to light. ENT: Pharynx normal. Neck: Normal inspection. Neck supple. No lymph nodes noted. No crepitus CVS: Normal heart rate and rhythm. Pulses normal. Normal S1 and S2 Respiratory: No respiratory distress. Breath sounds normal. No Wheezing. No rales Abdomen: Soft and nontender. No rigidity. No distention. good BS x4 Skin: Skin warm and dry. Normal skin color. Normal skin turgor. Extremities: No lower extremity edema. No Lacerations. No Rash Neuro: Oriented X 3. No motor deficit. No sensory deficit. Moving all extermities. No slurred speech. Course Course Course Narrative: Patient's rapid strep is negative. However, on physical exam patient has exits. At this time, I do not suspect the patient has mononucleosis. We will go ahead and treat her with antibiotics. Patient received 1 dose of Augmentin in the emergency room, dexamethasone p.o. and viscous lidocaine. I discussed with the patient that the patient's throat cultures come back positive, and she received a phone call, she is already being treated. MDM - Nausea/Vomiting/Diarrhea Lab Data Result diagrams: 05/07/21 00:04 05/07/21 00:04 Labs: Lab Results 05/06/21 05/07/21 05/07/21 Range/Units 19:49 00:04 00:04 WBC 9.6 (4.8-10.8) X10*3/uL RBC 4.33 (4.20-5.50) X10*6/uL Hgb 12.2 (12.0-16.0) g/dl Hct 37.3 (37.0-47.0) % MCV 86.1 (80.0-98.0) fL MCH 28.2 (27.0-33.0) pg MCHC 32.7 (31.0-35.0) g/dl RDW 12.7 (11.0-16.0) % Plt Count 220 (160-400) X10*3/uL MPV 10.0 (9.4-12.3) fL Immature Gran % (Auto) 0.3 (0.0-0.4) % Neut % (Auto) 65.7 (45-73) % Lymph % (Auto) 21.5 (20-40) % [place] % (Auto) 11.9 H (2-11) % Eos % (Auto) 0.3 (0-4) % Baso % (Auto) 0.3 (0-2) % Lymph # (Auto) 2.1 (1.2-4.9) X10*3/uL [place] # (Auto) 1.2 (0.1-1.2) X10*3/uL Eos # (Auto) 0.0 (0.0-0.4) X10*3/uL Baso # (Auto) 0.0 (0.0-0.2) X10*3/uL Abs Immat Gran (auto) 0.03 (0.00-0.03) X10*3/uL Absolute Neuts (auto) 6.3 (2.0-8.3) x10*3/uL Absolute Nucleated RBC 0.000 (0.0-0.012) X10*3/uL Nucleated RBC % (auto) 0.0 (0.0-0.2) /100WBC Sodium 138 (135-145) mmol/L Potassium 3.4 (3.3-5.1) mmol/L Chloride 106 (96-108) mmol/L Carbon Dioxide 21 L (22-29) mmol/L Anion Gap 14 (12-20) BUN 9 (9-16) mg/dL Creatinine 0.75 (0.5-1.4) mg/dL Estim Creat Clear Calc 127.6 Estimated GFR > 60 Random Glucose 87 (60-115) mg/dL Calcium 8.6 D (8.4-10.2) mg/dL Total Bilirubin 0.6 (0.0-1.0) mg/dL AST 14 (5-31) U/L ALT 9 (0-31) U/L Alkaline Phosphatase 53 (39-117) U/L Total Protein 6.5 (6.5-8.0) g/dL Albumin 3.8 (3.5-5.0) g/dL Urine Color Urine Appearance Urine pH (5.0-8.0) Ur Specific [place] (1.005-1.025) Urine Protein (NEG-TRACE) MG/DL Urine Glucose (UA) (NEG) MG/DL Urine Ketones (NEG) MG/DL Urine Blood (NEG) Urine Nitrite (NEG) Ur Leukocyte Esterase (NEG) Urine Test (NEGATIVE) COVID-19 (MARGRET) Negative (Negative) COVID-19 Clin Com See Note S. pyogenes GrpA [place] (Negative) 05/07/21 05/07/21 05/07/21 Range/Units 00:57 00:57 01:21 WBC (4.8-10.8) X10*3/uL RBC (4.20-5.50) X10*6/uL Hgb (12.0-16.0) g/dl Hct (37.0-47.0) % MCV (80.0-98.0) fL MCH (27.0-33.0) pg MCHC (31.0-35.0) g/dl RDW (11.0-16.0) % Plt Count (160-400) X10*3/uL MPV (9.4-12.3) fL Immature Gran % (Auto) (0.0-0.4) % Neut % (Auto) (45-73) % Lymph % (Auto) (20-40) % [place] % (Auto) (2-11) % Eos % (Auto) (0-4) % Baso % (Auto) (0-2) % Lymph # (Auto) (1.2-4.9) X10*3/uL [place] # (Auto) (0.1-1.2) X10*3/uL Eos # (Auto) (0.0-0.4) X10*3/uL Baso # (Auto) (0.0-0.2) X10*3/uL Abs Immat Gran (auto) (0.00-0.03) X10*3/uL Absolute Neuts (auto) (2.0-8.3) x10*3/uL Absolute Nucleated RBC (0.0-0.012) X10*3/uL Nucleated RBC % (auto) (0.0-0.2) /100WBC Sodium (135-145) mmol/L Potassium (3.3-5.1) mmol/L Chloride (96-108) mmol/L Carbon Dioxide (22-29) mmol/L Anion Gap (12-20) BUN (9-16) mg/dL Creatinine (0.5-1.4) mg/dL Estim Creat Clear Calc Estimated GFR Random Glucose (60-115) mg/dL Calcium (8.4-10.2) mg/dL Total Bilirubin (0.0-1.0) mg/dL AST (5-31) U/L ALT (0-31) U/L Alkaline Phosphatase (39-117) U/L Total Protein (6.5-8.0) g/dL Albumin (3.5-5.0) g/dL Urine Color DK YELLOW Urine Appearance HAZY Urine pH 6.0 (5.0-8.0) Ur Specific [place] 1.020 (1.005-1.025) Urine Protein TRACE (NEG-TRACE) MG/DL Urine Glucose (UA) NEG (NEG) MG/DL Urine Ketones >=80 (NEG) MG/DL Urine Blood NEG (NEG) Urine Nitrite NEG (NEG) Ur Leukocyte Esterase NEG (NEG) Urine Test NEGATIVE (NEGATIVE) COVID-19 (MARGRET) (Negative) COVID-19 Clin Com S. pyogenes GrpA [place] Negative (Negative) Discharge Plan Discharge Clinical Impression: Nausea vomiting and diarrhea Pharyngitis Qualifiers: Pharyngitis/tonsillitis etiology: unspecified etiology Qualified Code(s): J02.9 - Acute pharyngitis, unspecified Patient Disposition: Home, Self-Care Instructions: Pharyngitis (ED), Acute Nausea and Vomiting (ED) Additional Instructions: Please follow-up with your primary care physician tomorrow. If you have any worsening or new symptoms, please return to the emergency room or call 911 Prescriptions: New amoxicillin-pot clavulanate [Augmentin] 875-125 mg tablet 1 tab PO BID Qty: 19 RF: 0 No Action Advair HFA 115-21 mcg/actuation HFA aerosol inhaler 2 puff inhalation BID 30 Days Qty: 1 RF: 6 albuterol sulfate 1.25 mg/3 mL solution for nebulization 1.25 mg inhalation Q8H PRN (Reason: shortness of breath or wheezing) Qty: 15 RF: 0
[2021-05-07 01:07] LABS: Appearance Urine HAZY; Color Urine DK YELLOW; Glucose Urine UA NEG (NEG); Leukocyte Esterase Urine NEG (NEG); Nitrite Urine NEG (NEG); Urine Blood NEG (NEG); Urine Ketones >=80 MG/DL (NEG); Urine Protein TRACE MG/DL (NEG-TRACE)
[2021-05-07 01:10] LABS: UPreg QC Valid YES; Urine Pregnancy NEGATIVE (NEGATIVE)
[2021-05-07 01:12] VITALS: BP 115/51; PULSE 89; TEMP 37.2; O2SAT 99
[2021-05-07 01:41] LABS: Strep A Nucleic Acid Negative (Negative)
[2021-05-07] MEDS: dexAMETHasone sod phosphate 4 MG/ML VIAL 6 MG IVPUSH (02:12)
[2021-05-07] MEDS: Amoxicillin/Potassium Clav 875 MG TABLET PO (02:12)
[2021-05-07] MEDS: Lidocaine HCl Viscous 2 % 15 ML SOLUTION MUCOUS MEM (02:13)
[2021-05-07 02:18] VITALS: BP 103/61; PULSE 87; RESP 16; O2SAT 94
== END 2021-05-07 02:25 | disposition home or self-care (01) ==
PROVIDERS: Emergency Provider Emergency Medicine
DX: R11.2 Nausea with vomiting, unspecified (principal); R19.7 Diarrhea, unspecified; Z20.822 Contact with and (suspected) exposure to COVID-19
CPT/HCPCS: 36415; 80053; 81003; 81025; 85025; 87635; 87651; 96361; 96374; 96375; 99284; J1100; J2405

== ENCOUNTER 2021-06-04 02:54 | Emergency (ER) | payer MEDICAID, SELFPAY ==
--- NOTE | ~2021-06-04 | XR_ITS ---
EXAMINATION: XR CHEST CLINICAL INFORMATION: Shortness of breath, cough COMPARISON: 11/15/2020 TECHNIQUE: Frontal view of the chest was obtained. FINDINGS: The lungs are clear with no focal consolidation. No evidence of pneumothorax, pulmonary edema, or pleural effusions. The cardiomediastinal silhouette is unremarkable. No acute osseous findings. XR/XR chest 1V IMPRESSION: No acute cardiopulmonary findings.
[2021-06-04 03:00] VITALS: BP 123/92; PULSE 120; RESP 28; TEMP 36.6; O2SAT 97; BMI 18.1
--- NOTE | 2021-06-04 03:15 | ED_ITS ---
HPI - SOB/Dyspnea General Chief Complaint: Dyspnea Stated Complaint: Diff Breathing Asthma Time Seen by Provider: 06/04/21 03:10 Source: patient Mode of arrival: ambulatory Limitations: no limitations History of Present Illness HPI Narrative: Patient comes emergency room complaining of an asthma exacerbation. Patient states that she has been trying her nebulization treatments at home with no relief. Patient admits to using marijuana prior to arrival. Patient reports not being vaccinated for COVID. Patient also complained of coughing. Patient denies any sick contacts. Related Data Previous Rx's Medication Instructions Recorded albuterol sulfate 1.25 mg/3 mL 1.25 mg (3 mL) INHALATION Q8H PRN 04/26/20 solution for nebulization #15 ml fluticasone propionate 115 2 puff INHALATION BID 30 Days #1 ea 11/19/20 mcg-salmeterol 21 mcg/actuation HFA inhaler (Advair HFA) amoxicillin 875 mg-potassium 1 tab PO BID #19 tab 05/07/21 clavulanate 125 mg tablet (Augmentin) albuterol sulfate 2.5 mg (3 mL) INHALATION Q4-6H PRN 06/04/21 #15 ml albuterol sulfate 90 mcg/actuation 2 puff INHALATION Q4-6H PRN #6.7 g 06/04/21 aerosol inhaler (ProAir HFA) prednisone 50 mg tablet 50 mg PO DAILY #5 tab 06/04/21 Allergies Allergy/AdvReac Type Severity Reaction Status Date / Time No Known Allergies Allergy Verified 06/04/21 02:59 Review of Systems Review of Systems: Constitutional : No Weight loss, No Fever, No Chills, No Night Sweats, No Fatigue, No Malaise ENT/Mouth : No Hearing loss, No Ear Pain, No Nasal Congestion, No Sinus Pain, No Hoarseness, No sore throat, No Rhinorrhea, No Swallowing Difficulty Eyes: No Eye Pain, No Swelling, No Redness, No Foreign Body, No Discharge, No Vision Changes Cardiovascular : No Chest Pain, no orthopnea no palpitations Respiratory : Complaining of cough, wheezing, shortness of breath Gastrointestinal : No Nausea, No Vomiting, No Diarrhea, No Constipation, No abdominal Pain, No Hematochezia, No Melena Genitourinary : no irregular bleeding, No Dysuria, No Urinary Frequency, No Hematuria, No Urinary Incontinence, No Urgency, No Flank Pain, No Urinary Flow Changes, No Hesitancy Musculoskeletal : No joint pain, No Myalgias, No Joint Swelling Skin : No Skin Lesions, No rash Neuro : No Weakness, No Numbness, No Paresthesias, No Loss of Consciousness, No Dizziness, No Headache Psych : No Anxiety/Panic, No Depression, No SI/HI/AH/VH, admits to smoking mar christiana prior to arrival Heme/Lymph: No Bruising, No Bleeding,No Lymphadenopathy Endocrine : No Polyuria, No Polydipsia, No Temperature Intolerance [facility] Past Medical History Medical History Asthma Social History Social History Alcohol intake: never Patient Tobacco Use Status: Never used Tobacco Advance Directives: No Advance Directives Information Provided: No Patient : Yes Physical Exam Vital Signs: Vital Signs: Last Vital Signs Temp 97.9 F 06/04/21 03:00 Pulse 100 06/04/21 03:32 Resp 26 H 06/04/21 03:32 BP 123/92 H 06/04/21 03:00 Pulse Ox 97 06/04/21 03:00 BMI result Body Mass Index 18.1 Const: Other: Appearance: Alert. Oriented X3. Eyes: Pupils equal, round and reactive to light. ENT: Pharynx normal. Neck: Normal inspection. Neck supple. No lymph nodes noted. No crepitus CVS: Normal heart rate and rhythm. Pulses normal. Normal S1 and S2 Respiratory: Moderate respiratory distress, oxygen saturation 97%. Bilateral wheezing, decreased breath sounds bilaterally Abdomen: Soft and nontender. No rigidity. No distention. Skin: Skin warm and dry. Normal skin color. Normal skin turgor. Extremities: No lower extremity edema. No lower extremity edema. No Lacerations. No Rash Neuro: Oriented X 3. No motor deficit. No sensory deficit. Moving all extermities. No slurred speech. Course Course Course Narrative: Patient received IV magnesium, Solu-Medrol, hour long nebulization treatment. Patient's oxygen saturation 98% on room air, asymptomatic. On physical exam prior to discharge patient is not wheezing at all . patient states that she has enough albuterol for today. Patient wants medication to be sent to [facility] which is closed today. Patient states that the only medication that wants to be sent to a [facility] is prednisone. Otherwise she is good until tomorrow MDM - SOB/Dyspnea Lab Data Labs: Lab Results 06/04/21 Range/Units 03:00 COVID-19 (MARGRET) Negative (Negative) COVID-19 Clin Com See Note Imaging Data Chest x-ray: Radiologist's impression: The lungs are clear with no focal consolidation. No evidence of pneumothorax, pulmonary edema, or pleural effusions. The cardiomediastinal silhouette is unremarkable. No acute osseous findings. XR/XR chest 1V IMPRESSION: No acute cardiopulmonary findings. ? Discharge Plan Discharge Clinical Impression: Asthma with exacerbation Patient Disposition: Home, Self-Care Instructions: Asthma (ED) Additional Instructions: Please follow-up with your primary care physician tomorrow. If you have any worsening or new symptoms, please return to the emergency room or call 911 Prescriptions: New albuterol sulfate [ProAir HFA] 90 mcg/actuation HFA aerosol inhaler 2 puff inhalation Q4-6H PRN (Reason: shortness of breath or wheezing) Qty: 6.7 RF: 1 albuterol sulfate 2.5 mg /3 mL (0.083 %) solution for nebulization 2.5 mg inhalation Q4-6H PRN (Reason: shortness of breath or wheezing) Qty: 15 RF: 0 prednisone 50 mg tablet 50 mg PO DAILY Qty: 5 RF: 0 No Action Advair HFA 115-21 mcg/actuation HFA aerosol inhaler 2 puff inhalation BID 30 Days Qty: 1 RF: 6 albuterol sulfate 1.25 mg/3 mL solution for nebulization 1.25 mg inhalation Q8H PRN (Reason: shortness of breath or wheezing) Qty: 15 RF: 0 amoxicillin-pot clavulanate [Augmentin] 875-125 mg tablet 1 tab PO BID Qty: 19 RF: 0
[2021-06-04 03:24] LABS: COVID-19 Test Negative (Negative)
[2021-06-04] MEDS: methylPREDNISolone Sod Succ 125 MG/2 ML VIAL IVPUSH (03:27)
[2021-06-04] MEDS: Magnesium Sulfate/H2O 2 GM/50 ML PIGGYBACK IV (03:29)
[2021-06-04] MEDS: Albuterol Sulfate (0.083%) 2.5 MG/3 ML VIAL.NEB 10 MG INHALE (03:30)
[2021-06-04 03:32] VITALS: PULSE 100; RESP 26; O2SAT 97
[2021-06-04 05:14] VITALS: BP 104/59; PULSE 119; RESP 16; TEMP 36.6; O2SAT 97
== END 2021-06-04 05:21 | disposition home or self-care (01) ==
PROVIDERS: Emergency Provider Emergency Medicine
DX: J45.901 Unspecified asthma with (acute) exacerbation (principal); Z79.899 Other long term (current) drug therapy; Z20.822 Contact with and (suspected) exposure to COVID-19
CPT/HCPCS: 36415; 71045; 87635; 94640; 94644; 96365; 96366; 96375; 99284; J2930; J3475

== ENCOUNTER 2021-07-02 23:51 | Emergency (ER) | payer MEDICAID, SELFPAY ==
--- NOTE | ~2021-07-02 | XR_ITS ---
EXAMINATION: XR CHEST CLINICAL INFORMATION: Asthma attack. COMPARISON: Chest x-ray 06/04/2019 TECHNIQUE: Frontal portable view of the chest was obtained. 12:27 AM FINDINGS: No significant abnormality is noted involving the heart, lungs, mediastinum, bony thorax or soft tissues. XR/XR chest 1V IMPRESSION: Unremarkable examination.
[2021-07-03 00:03] VITALS: BP 123/91; PULSE 127; RESP 24; TEMP 36.9; O2SAT 97; BMI 31.6
--- NOTE | 2021-07-03 00:16 | ED_ITS ---
HPI - Asthma General Chief Complaint: Asthma Stated Complaint: SoB, Asthma Time Seen by Provider: 07/03/21 00:13 Source: patient Mode of arrival: ambulatory Limitations: no limitations History of Present Illness HPI Narrative: Patient is a 21 year old female presenting to the emergency department today with difficulty breathing. Patient states that she has an extensive history of asthma, and has to be seen here often for steroids and a breathing treatment. Patient states she is currently out of her inhaler at home. Patient denies any current dizziness, lightheadedness, abdominal pain, nausea, vomiting, fever, chills, blurry vision, double vision, loss of vision, chest pain, back pain, night sweats, pain with urination, increased urinary frequency, increased urinary urgency, blood in her urine or stool, syncope or a near syncopal episode, recent trauma or falls, bowel incontinence, bladder incontinence, bowel retention, bladder retention, or any other complaints at this time. MD complaint: asthma attack , shortness of breath and wheezing Onset (ago): minute(s) Severity: moderate Context: ran out of meds Associated symptoms: none Asthma History: childhood onset, history of frequent attacks, history of prior ED visit and followed by specialist Related Data Current Asthma Therapy: inhaled bronchodilator Previous Rx's Medication Instructions Recorded albuterol sulfate 1.25 mg/3 mL 1.25 mg (3 mL) INHALATION Q8H PRN 04/26/20 solution for nebulization #15 ml fluticasone propionate 115 2 puff INHALATION BID 30 Days #1 11/19/20 ea mcg-salmeterol 21 mcg/actuation HFA inhaler (Advair HFA) amoxicillin 875 mg-potassium 1 tab PO BID #19 tab 05/07/21 clavulanate 125 mg tablet (Augmentin) albuterol sulfate 2.5 mg (3 mL) INHALATION Q4-6H 06/04/21 PRN #15 ml albuterol sulfate 90 mcg/actuation 2 puff INHALATION Q4-6H PRN #6.7 06/04/21 g aerosol inhaler (ProAir HFA) prednisone 50 mg tablet 50 mg PO DAILY #5 tab 06/04/21 albuterol sulfate 2.5 mg (3 mL) INHALATION Q4-6H 07/03/21 PRN #180 ml albuterol sulfate 90 mcg/actuation 2 inh INHALATION Q6-8H PRN #8.5 g 07/03/21 aerosol inhaler ipratropium 0.5 mg-albuterol 3 mg 3 ml INHALATION Q4-6H PRN #180 ml 07/03/21 (2.5 mg base)/3 mL nebulization soln Allergies Allergy/AdvReac Type Severity Reaction Status Date / Time No Known Allergies Allergy Verified 07/03/21 00:03 Review of Systems Verdana 4l Constitutional: Verdana 4d Constitutional: Verdana 4d Verdana 4d Reports no additional constitutional complaints, Denies chills, Denies fever(s) and Denies night sweats Verdana 4l Eyes: Verdana 4d Verdana 4d Eyes: Verdana 4d Reports no additional eye complaints, Denies blurry vision, Denies change in vision, Denies diplopia, Denies eye discharge, Denies loss of vision and Denies eye pain Verdana 4l ENT: Verdana 4d Denies dizziness Verdana 4l Cardiovascular: Verdana 4d Cardiovascular: Verdana 4d Verdana 4d Reports no additional cardiovascular complaints, Denies chest pain, Denies lightheadedness, Denies Loss of Consciousness and Reports dyspnea Verdana 4l Respiratory: Verdana 4d Verdana 4d Respiratory: Verdana 4d Reports no additional respiratory complaints, Reports dyspnea and Reports wheezing Verdana 4l Gastrointestinal: Verdana 4d Gastrointestinal: Verdana 4d Verdana 4d Reports no additional gastrointestinal complaints, Denies abdominal pain, Denies melena, Denies hematochezia, Denies change in bowel habits and Denies change in stool character Verdana 4l Genitourinary: Verdana 4d Verdana 4d Genitourinary: Verdana 4d Denies hematuria, Denies urinary frequency, Denies dysuria, Denies urinary incontinence, Denies urinary hesitancy and Denies urinary urgency Verdana 4l Musculoskeletal: Verdana 4d Musculoskeletal: Verdana 4d Verdana 4d Reports no additional musculoskeletal complaints, Denies numbness and Denies tingling Verdana 4l Neurologic: Verdana 4d Denies dizziness, Denies loss of vision, Denies numbness and Denies tingling Verdana 4l Psychiatric: Verdana 4d Verdana 4d Psychiatric: Verdana 4d Reports no additional psychiatric complaints Verdana 4l Endocrine: Verdana 4d Verdana 4d Endocrine: Verdana 4d Reports no additional endocrine complaints Verdana 4l Hematologic/Lymphatic: Verdana 4d Hematologic/Lymphatic: Verdana 4d Verdana 4d Reports no additional hematologic/lymphatic complaints Verdana 4l Allergic/Immunologic: Verdana 4d Allergic/Immunologic: Verdana 4d Verdana 4d Reports no additional allergic/immunologic complaints and Reports wheezing PMFSH Past Medical History Attestation statement: The following information was validated with the patient. Source: old records reviewed Medical History Asthma Social History Social History Alcohol intake: never Patient Tobacco Use Status: Never used Tobacco Advance Directives: No Advance Directives Information Provided: Yes Patient : No Physical Exam Verdana 4l Vital Signs: Verdana 4d Verdana 4d Vital Signs: Verdana 4d Verdana 4Bd Last Vital Signs Verdana 4d [employer] New 4d [employer]ite [employer]per New 4d Temp 98.4 F 07/03/21 00:03 [employer]ite [employer]per New 4d Pulse 120 H 07/03/21 00:19 [employer]ite [employer]per New 4d Resp 20 07/03/21 00:19 BP 123/91 H 07/03/21 00:03 Pulse Ox 97 07/03/21 00:03 BMI result Body Mass Index 31.6 Const: General: cooperative, no acute distress, alert and awake Nutritional Appearance: well nourished Orientation/consciousness: patient oriented x3 Limitations: no limitations HENMT: Head: Yes normal to inspection and Yes atraumatic Ears: hearing grossly normal bilaterally and external ears normal General nose exam: Normal external nose present, no nasal discharge noted and no epistaxis Face and sinus: Yes normal facial exam, No abrasion and No laceration Mouth: Normal oral and palatal mucosa present, no drooling and no muffled voice Eyes: General: appearance normal, both eyes and all related structures Periorbital: periorbital findings normal Eyelids: Yes eyelids normal Conjunctivae: conjunctivae normal Pupils: Equal, round and reactive pupils present EOM: EOMs intact bilaterally Neck: Neck: Yes normal visual inspection, Yes full ROM and Yes no lymphadenopathy Chest: Chest palpation & inspection: normal inspection of the chest Resp: Effort & Inspection: abnormal respiratory pattern, audible wheezes, labored and tachypneic Auscultation: wheezes scattered wheezes and throughout Cardio: Rate: regular rate Rhythm: regular rhythm GI: Inspection: Yes normal to inspection Neuro: General: patient oriented x3 and moves all extremities Cranial nerves: Yes Equal, round and reactive pupils present Cognition (Neuro): normal cognition Motor exam (neuro): 5/5 motor strength present throughout Sensory Exam: Normal double simultaneous stimulation for sensation Coordination: [id number] test normal Extrem: General: Yes normal to inspection, Yes full ROM and Yes capillary refill normal Psych: Appearance: grossly normal Mental Status: mental status grossly normal Affect: normal affect Attitude: cooperative Thought process: Normal thought process present Thought content: Normal thought content present Insight: Good insight present (Psych) Course Course Course Narrative: Patient's chest x-ray was interpreted by the radiologist as no acute chest process MDM - Asthma MDM Narrative Medical decision making narrative: Patient is a 21 year old female presenting to the emergency department today with an acute asthma attack. Patient's physical exam initially, showed a 21-year-old female in acute respiratory distress, with audible wheezes bilaterally and diffusely. Patient immediately received IV Solu-Medrol, IV magnesium, and an hour long breathing treatment. Patient was markedly improved, with no wheezes upon re-evaluation. Patient's prescription for DuoNeb nebulizer, albuterol nebulizer, and albuterol inhaler were sent in. Patient's chest x-ray showed no acute process. I explained my physical exam findings as well as all test results to the patient. I answered all questions asked by the patient. I stressed the importance of the patient taking her medication as prescribed. I stressed the importance of the patient following up with her primary care provider. I stressed the importance of the patient returning to the emergency department immediately if her symptoms were to worsen or if she were to develop any dizziness, shortness of breath, difficulty breathing, chest pain, blurry vision, loss of vision, nausea, vomiting, abdominal pain, fever, chills, back pain, or any other complaints. Patient verbalized agreement and understanding with this treatment plan and discharge. Differential Diagnosis Differential diagnosis: Likely Acute exacerbation and Acute asthmatic bronchitis Medical Records Attestation: I reviewed the patient's medical records. Discharge Plan Discharge Clinical Impression: Asthma attack Patient Disposition: Home, Self-Care Instructions: Asthma (ED), Asthma (DC) Prescriptions: New albuterol sulfate 90 mcg/actuation HFA aerosol inhaler 2 inh inhalation Q6-8H PRN (Reason: shortness of breath or wheezing) Qty: 8.5 0RF ipratropium-albuterol 0.5 mg-3 mg(2.5 mg base)/3 mL solution for nebulization 3 ml inhalation Q4-6H PRN (Reason: shortness of breath or wheezing) Qty: 180 0RF albuterol sulfate 2.5 mg /3 mL (0.083 %) solution for nebulization 2.5 mg inhalation Q4-6H PRN (Reason: shortness of breath or wheezing) Qty: 180 0RF No Action Advair HFA 115-21 mcg/actuation HFA aerosol inhaler 2 puff inhalation BID 30 Days Qty: 1 6RF Rx Instructions: administer with spacer albuterol sulfate 1.25 mg/3 mL solution for nebulization 1.25 mg inhalation Q8H PRN (Reason: shortness of breath or wheezing) Qty: 15 0RF albuterol sulfate [ProAir HFA] 90 mcg/actuation HFA aerosol inhaler 2 puff inhalation Q4-6H PRN (Reason: shortness of breath or wheezing) Qty: 6.7 1RF albuterol sulfate 2.5 mg /3 mL (0.083 %) solution for nebulization 2.5 mg inhalation Q4-6H PRN (Reason: shortness of breath or wheezing) Qty: 15 0RF prednisone 50 mg tablet 50 mg PO DAILY Qty: 5 0RF amoxicillin-pot clavulanate [Augmentin] 875-125 mg tablet 1 tab PO BID Qty: 19 0RF Referrals: [facility] [Primary Care Provider] - 2 days Print Language: Icelandic
[2021-07-03 00:19] VITALS: PULSE 120; RESP 20; O2SAT 97
[2021-07-03] MEDS: methylPREDNISolone Sod Succ 125 MG/2 ML VIAL 120 MG IM (00:23)
[2021-07-03] MEDS: Magnesium Sulfate/H2O 2 GM/50 ML PIGGYBACK IV (00:23)
[2021-07-03] MEDS: Albuterol/Iprat 2.5/0.5MG 3 ML AMPUL.NEB INHALE (00:32)
[2021-07-03] MEDS: Albuterol Sulfate (0.083%) 2.5 MG/3 ML VIAL.NEB 7.5 MG INHALE (00:32)
[2021-07-03 01:43] VITALS: BP 130/72; PULSE 127; RESP 19; O2SAT 99
== END 2021-07-03 01:51 | disposition home or self-care (01) ==
PROVIDERS: Emergency Provider Internal Medicine
DX: J45.901 Unspecified asthma with (acute) exacerbation (principal); R06.02 Shortness of breath; Z79.899 Other long term (current) drug therapy
CPT/HCPCS: 71045; 94640; 94644; 96365; 96372; 99284; J2930; J3475

== ENCOUNTER 2021-07-17 13:30 | Emergency (ER) | payer MEDICAID, SELFPAY ==
[2021-07-17 13:40] VITALS: BP 147/80; PULSE 116; RESP 22; TEMP 36.8; O2SAT 99; BMI 31.4
[2021-07-17] MEDS: Albuterol Sulfate (0.083%) 2.5 MG/3 ML VIAL.NEB 10 MG INHALE (13:47)
[2021-07-17 13:49] VITALS: PULSE 113; RESP 14; O2SAT 99
[2021-07-17] MEDS: methylPREDNISolone Sod Succ 125 MG/2 ML VIAL IVPUSH (13:49)
[2021-07-17] MEDS: Magnesium Sulfate/H2O 2 GM/50 ML PIGGYBACK IV (13:49)
--- NOTE | 2021-07-17 13:49 | ED_ITS ---
HPI - SOB/Dyspnea General Chief Complaint: Dyspnea Stated Complaint: diff breathing Time Seen by Provider: 07/17/21 13:31 Source: patient Mode of arrival: wheelchair Limitations: no limitations History of Present Illness HPI Narrative: 21-year-old female with a history of asthma here with reports of cough and wheez ing which began this morning. She has associated shortness of breath. No chest pain, fever, leg swelling or pain. Using her inhaler and nebulizer at home with continued symptoms. No recent cough or fever or recent illnesses. Of note patient has had several ER visits for similar symptoms most recently 07/03/2021 requiring a 5 day course of prednisone. Related Data Previous Rx's Medication Instructions Recorded albuterol sulfate 1.25 mg/3 mL 1.25 mg (3 mL) INHALATION Q8H PRN 04/26/20 solution for nebulization #15 ml fluticasone propionate 115 2 puff INHALATION BID 30 Days #1 ea 11/19/20 mcg-salmeterol 21 mcg/actuation HFA inhaler (Advair HFA) amoxicillin 875 mg-potassium 1 tab PO BID #19 tab 05/07/21 clavulanate 125 mg tablet (Augmentin) albuterol sulfate 2.5 mg (3 mL) INHALATION Q4-6H PRN 06/04/21 #15 ml albuterol sulfate 90 mcg/actuation 2 puff INHALATION Q4-6H PRN #6.7 g 06/04/21 aerosol inhaler (ProAir HFA) prednisone 50 mg tablet 50 mg PO DAILY #5 tab 06/04/21 albuterol sulfate 2.5 mg (3 mL) INHALATION Q4-6H PRN 07/03/21 #180 ml albuterol sulfate 90 mcg/actuation 2 inh INHALATION Q6-8H PRN #8.5 g 07/03/21 aerosol inhaler ipratropium 0.5 mg-albuterol 3 mg 3 ml INHALATION Q4-6H PRN #180 ml 07/03/21 (2.5 mg base)/3 mL nebulization soln prednisone 20 mg tablet 60 mg PO DAILY 4 Days #12 tab 07/17/21 Allergies Allergy/AdvReac Type Severity Reaction Status Date / Time No Known Allergies Allergy Verified 07/03/21 00:03 Review of Systems Review of Systems: Yes all other systems are reviewed and are negative Constitutional: Constitutional: Reports no additional constitutional complaints, Denies body ache(s), Denies chills, Denies fever(s), Denies headache(s) and Denies weakness Eyes: Eyes: Reports no additional eye complaints and Denies change in vision ENT: Reports system reviewed and no additional complaints, except as documented, Denies dizziness, Denies headache(s), Denies nasal congestion, Denies nasal discharge and Denies neck pain Cardiovascular: Cardiovascular: Reports no additional cardiovascular complaints, Denies chest pain, Denies leg edema and Reports dyspnea Respiratory: Respiratory: Reports no additional respiratory complaints, Reports cough, Reports dyspnea and Reports wheezing Gastrointestinal: Gastrointestinal: Reports no additional gastrointestinal complaints, Denies abdominal pain, Denies diarrhea, Denies nausea and Denies vomiting Genitourinary: Genitourinary: Reports no additional female genitourinary complaints and Denies urinary incontinence Musculoskeletal: Musculoskeletal: Reports no additional musculoskeletal complaints, Denies back pain, Denies arthralgias, Denies joint swelling, Denies neck pain, Denies numbness and Denies tingling Integumentary/Breasts: Skin/Breast: Reports system reviewed and no additional complaints, except as docu and Denies rash Neurologic: Reports system reviewed and no additional complaints, except as documented, Denies Abnormal speech present, Denies dizziness, Denies headache (s), Denies numbness, Denies tingling and Denies weakness Allergic/Immunologic: Allergic/Immunologic: Reports wheezing PMFSH Past Medical History Attestation statement: The following information was validated with the patient. Source: old records reviewed and nursing notes reviewed Medical History Asthma Social History Social History Alcohol intake: never Patient Tobacco Use Status: Never used Tobacco Advance Directives: No Advance Directives Information Provided: Yes Physical Exam Vital Signs: Vital Signs: Last Vital Signs Temp 98.2 F 07/17/21 13:40 Pulse 113 H 07/17/21 13:49 Resp 14 07/17/21 13:49 BP 147/80 H 07/17/21 13:40 Pulse Ox 99 07/17/21 13:40 Oxygen Flow Rate 2 07/17/21 13:40 BMI result Body Mass Index 31.4 Const: General: alert and in distress Orientation/consciousness: patient oriented x3 Limitations: no limitations HENMT: Head: Yes normal to inspection Ears: hearing grossly normal bilaterally General nose exam: Normal external nose present Face and sinus: Yes normal facial exam Mouth: Normal oral and palatal mucosa present Throat: Yes posterior oropharynx normal Eyes: General: appearance normal, both eyes and all related structures Pupils: Equal, round and reactive pupils present Neck: Neck: Yes normal visual inspection Chest: Chest palpation & inspection: normal inspection of the chest Resp: Other: Inspiratory and expiratory wheezing throughout 1 word sentences Tripod position Cardio: Rate: regular rate Rhythm: regular rhythm Peripheral pulses: Peripheral pulses 2+ throughout GI: Inspection: Yes normal to inspection Palpation (GI): Soft to palpation and nontender Auscultation: normal bowel sounds Back/Spine/Pelvis: Thoracic/Lumbar Spine: thoracic and lumbar spine normal to inspection Skin: General skin exam: no rashes or lesions noted Neuro: General: patient oriented x3, no focal motor deficits and normal sensation to monofilament Cranial nerves: Yes Equal, round and reactive pupils present Cognition (Neuro): normal cognition Speech: No Abnormal speech present Gait exam (Neuro): Normal gait present Motor exam (neuro): 5/5 motor strength present throughout Extrem: General: Yes normal to inspection Course Course Course Narrative: 21-year-old female with history of asthma here with reports of cough, wheezing and shortness of breath which began this morning. On arrival the patient is in respiratory distress with wheezing throughout, tripod positioning and speaking 1 word sentences. She was immediately placed into a room. She was given 10 mg of albuterol, 125 mg of Solu-Medrol, magnesium 2G. Will check labs, COVID screen. 1515-patient feeling improved overall. Patient has some mild tachycardia which is secondary to albuterol use. Her respiratory rate is now 16. She is able to speak full sentences. She has mild expiratory wheezing throughout but overall improved aeration. Her oxygen saturation is 98% on room air. Patient reports she has asthma triggers of stress, cold, allergies. She is taking an allergy medication daily. She is also taking Singulair daily. She is not on any daily controlling medications and uses albuterol MDI and nebulizer as needed. She has been referred to pulmonology in the past but did not follow-up. I will refer her back to pulmonology. Will give her brief course of prednisone. She has adequate refills on her other medications. We discussed avoiding triggers. She was also given a resource to follow-up with [facility]. -reviewed worrisome signs and symptoms of when to return to the emergency department. Comfortable discharge home. MDM - SOB/Dyspnea Differential Diagnosis Differential diagnosis: Likely asthma with exacerbation Medical Records Attestation: I reviewed the patient's medical records. Lab Data Attestation: I reviewed the patient's lab results. Result diagrams: 07/17/21 13:48 07/17/21 13:48 Labs: Lab Results 07/17/21 07/17/21 07/17/21 Range/Units 13:48 13:48 13:55 WBC 7.7 (4.8-10.8) X10*3/uL RBC 4.73 (4.20-5.50) X10*6/uL Hgb 13.2 (12.0-16.0) g/dl Hct 41.0 (37.0-47.0) % MCV 86.7 (80.0-98.0) fL MCH 27.9 (27.0-33.0) pg MCHC 32.2 (31.0-35.0) g/dl RDW 13.4 (11.0-16.0) % Plt Count 237 (160-400) X10*3/uL MPV 9.8 (9.4-12.3) fL Immature Gran % (Auto) 0.3 (0.0-0.4) % Neut % (Auto) 59.5 (45-73) % Lymph % (Auto) 27.0 (20-40) % [place] % (Auto) 6.8 (2-11) % Eos % (Auto) 6.0 H (0-4) % Baso % (Auto) 0.4 (0-2) % Lymph # (Auto) 2.1 (1.2-4.9) X10*3/uL [place] # (Auto) 0.5 (0.1-1.2) X10*3/uL Eos # (Auto) 0.5 H (0.0-0.4) X10*3/uL Baso # (Auto) 0.0 (0.0-0.2) X10*3/uL Abs Immat Gran (auto) 0.02 (0.00-0.03) X10*3/uL Absolute Neuts (auto) 4.6 (2.0-8.3) x10*3/uL Absolute Nucleated RBC 0.000 (0.0-0.012) X10*3/uL Nucleated RBC % (auto) 0.0 (0.0-0.2) /100WBC Sodium 144 (135-145) mmol/L Potassium 3.8 (3.3-5.1) mmol/L Chloride 108 (96-108) mmol/L Carbon Dioxide 29 (22-29) mmol/L Anion Gap 11 L (12-20) BUN 10 (9-16) mg/dL Creatinine 0.75 (0.5-1.4) mg/dL Estim Creat Clear Calc 127.2 Estimated GFR > 60 Random Glucose 104 (60-115) mg/dL Calcium 9.5 D (8.4-10.2) mg/dL COVID-19 (MARGRET) Negative (Negative) COVID-19 Clin Com See Note Discharge Plan Discharge Clinical Impression: Asthma with exacerbation Patient Disposition: Home, Self-Care Instructions: Asthma (DC) Additional Instructions: Start prednisone tomorrow Continue your home medications Follow-up with a director of email marketing as discussed You were given a referral sheet to set up outpatient therapy Prescriptions: New prednisone 20 mg tablet 60 mg PO DAILY 4 Days Qty: 12 0RF No Action Advair HFA 115-21 mcg/actuation HFA aerosol inhaler 2 puff inhalation BID 30 Days Qty: 1 6RF Rx Instructions: administer with spacer albuterol sulfate 1.25 mg/3 mL solution for nebulization 1.25 mg inhalation Q8H PRN (Reason: shortness of breath or wheezing) Qty: 15 0RF albuterol sulfate [ProAir HFA] 90 mcg/actuation HFA aerosol inhaler 2 puff inhalation Q4-6H PRN (Reason: shortness of breath or wheezing) Qty: 6.7 1RF albuterol sulfate 2.5 mg /3 mL (0.083 %) solution for nebulization 2.5 mg inhalation Q4-6H PRN (Reason: shortness of breath or wheezing) Qty: 15 0RF prednisone 50 mg tablet 50 mg PO DAILY Qty: 5 0RF amoxicillin-pot clavulanate [Augmentin] 875-125 mg tablet 1 tab PO BID Qty: 19 0RF albuterol sulfate 90 mcg/actuation HFA aerosol inhaler 2 inh inhalation Q6-8H PRN (Reason: shortness of breath or wheezing) Qty: 8.5 0RF ipratropium-albuterol 0.5 mg-3 mg(2.5 mg base)/3 mL solution for nebulization 3 ml inhalation Q4-6H PRN (Reason: shortness of breath or wheezing) Qty: 180 0RF albuterol sulfate 2.5 mg /3 mL (0.083 %) solution for nebulization 2.5 mg inhalation Q4-6H PRN (Reason: shortness of breath or wheezing) Qty: 180 0RF Referrals: Miguel Carmen MD [Physician] - 1 week Stand Alone Forms: Work/School Release
[2021-07-17 13:55] LABS: MANUAL DIFF FLAG NO
[2021-07-17 13:58] LABS: Basophils Percent Auto 0.4 % (0-2); Eosinophils Absolute Auto 0.5 X10*3/uL (0.0-0.4); Hemoglobin 13.2 g/dl (12.0-16.0); Imm Gran Abs Auto 0.02 X10*3/uL (0.00-0.03); Imm Gran Pct Auto 0.3 % (0.0-0.4); Lymphocytes Absolute Auto 2.1 X10*3/uL (1.2-4.9); Mean Corpuscular HGB Conc 32.2 g/dl (31.0-35.0); Mean Corpuscular Hemoglobin 27.9 pg (27.0-33.0); Mean Corpuscular Volume 86.7 fL (80.0-98.0); Mean Platelet Volume 9.8 fL (9.4-12.3); Monocytes Absolute Auto 0.5 X10*3/uL (0.1-1.2); Monocytes Percent Auto 6.8 % (2-11); Neutrophils Absolute Auto 4.6 x10*3/uL (2.0-8.3); Neutrophils Percent Auto 59.5 % (45-73); Platelet Count 237 X10*3/uL (160-400); Red Blood Count 4.73 X10*6/uL (4.20-5.50); Red Cell Distribution Width 13.4 % (11.0-16.0); White Blood Count 7.7 X10*3/uL (4.8-10.8)
[2021-07-17 14:10] LABS: Anion Gap 11 (12-20); Blood Urea Nitrogen 10 mg/dL (9-16); Calcium 9.5 mg/dL (8.4-10.2); Carbon Dioxide 29 mmol/L (22-29); Chloride 108 mmol/L (96-108); Creatinine Clr Calc Pharmacy 127.2; Estimated Glomerular Filt Rate > 60; Glucose Random 104 mg/dL (60-115); Potassium 3.8 mmol/L (3.3-5.1); Sodium 144 mmol/L (135-145)
[2021-07-17 14:17] LABS: IDNOW Serial# 55D5AD1C
[2021-07-17 14:18] LABS: COVID-19 Test Negative (Negative)
== END 2021-07-17 15:42 | disposition home or self-care (01) ==
PROVIDERS: Nurse Practitioner Family; Emergency Provider Emergency Medicine
DX: J45.901 Unspecified asthma with (acute) exacerbation (principal); Z20.822 Contact with and (suspected) exposure to COVID-19; Z79.52 Long term (current) use of systemic steroids; Z79.51 Long term (current) use of inhaled steroids
CPT/HCPCS: 36415; 80048; 85025; 87635; 94640; 94644; 96365; 96366; 96375; 99283; 99284; J2930; J3475

== ENCOUNTER → 2021-09-01 14:48 | Outpatient (BNVA) | payer MEDICAID, SELFPAY | PROVIDERS: PCP Nurse Practitioner; Visit Provider Internal Medicine Pulmonary Disease | DX: J45.909 Unspecified asthma, uncomplicated (principal); Z91.09 Other allergy status, other than to drugs and biological substances | CPT/HCPCS: 99212 ==

== ENCOUNTER 2021-10-04 10:41 | Outpatient (REF) | payer MEDICAID, SELFPAY | END 2021-10-04 10:42 | disposition home or self-care (01) | LOC: HO.MDS 10:41 | PROVIDERS: Visit Provider Internal Medicine Pulmonary Disease | DX: J45.50 Severe persistent asthma, uncomplicated (principal) | CPT/HCPCS: 96372; J2357 ==

== ENCOUNTER 2021-11-01 12:58 | Outpatient (REF) | payer MEDICAID, SELFPAY | END 2021-11-01 12:59 | disposition home or self-care (01) | LOC: HO.MDS 12:58 | PROVIDERS: Visit Provider Internal Medicine Pulmonary Disease | DX: J45.50 Severe persistent asthma, uncomplicated (principal) | CPT/HCPCS: 96372; J2357 ==

== ENCOUNTER 2021-11-05 02:26 | Emergency (ER) | payer MEDICAID, SELFPAY ==
[2021-11-05 02:28] VITALS: BP 147/84; PULSE 114; RESP 30; TEMP 36.2; O2SAT 94; BMI 31.6
[2021-11-05] MEDS: Albuterol Sulfate (0.083%) 2.5 MG/3 ML VIAL.NEB 10 MG INHALE (02:43)
[2021-11-05 02:44] VITALS: PULSE 93; RESP 18; O2SAT 94
--- NOTE | 2021-11-05 03:26 | ED.ASTHMA ---
HPI - Asthma General Chief Complaint: Asthma Stated Complaint: Asthmatic Time Seen by Provider: 11/05/21 02:29 History of Present Illness HPI Narrative: 21-year-old female with a history of asthma history of coughing generalized malaise wheezing patient has been admitted to the hospital few years ago. Patient has no history of smoking. Not vaccinated for COVID. She is from home. Does not think she is . History of similar symptoms in the past. No fever no chills. No headache. No GI symptoms. Patient is from home. No travel history not smoking Related Data Previous Rx's Medication Instructions Recorded fluticasone propionate 115 2 puff INHALATION BID 30 Days #1 ea 11/19/20 mcg-salmeterol 21 mcg/actuation HFA inhaler (Advair HFA) albuterol sulfate 2.5 mg (3 mL) INHALATION Q4-6H PRN 07/03/21 #180 ml albuterol sulfate 90 mcg/actuation 2 inh INHALATION Q6-8H PRN #8.5 g 07/03/21 aerosol inhaler ipratropium 0.5 mg-albuterol 3 mg 3 ml INHALATION Q4-6H PRN #180 ml 07/03/21 (2.5 mg base)/3 mL nebulization soln omalizumab 150 mg subcutaneous 300 mg SUBCUT Q4W 28 Days #2 ea 09/26/21 solution (Xolair) prednisone 20 mg tablet 40 mg PO DAILY #10 tab 11/05/21 Allergies Allergy/AdvReac Type Severity Reaction Status Date / Time No Known Allergies Allergy Verified 09/01/21 14:50 Review of Systems Review of Systems: Positive wheezing Positive coughing upper respiratory symptoms Yes all other systems are reviewed and are negative [facility] Past Medical History Attestation statement: The following information was validated with the patient. Medical History Asthma Social History Social History Alcohol intake: never Patient Tobacco Use Status: Never used Tobacco Advance Directives: No Advance Directives Information Provided: No Physical Exam Vital Signs: Vital Signs: Last Vital Signs Temp 97.2 F 11/05/21 02:28 Pulse 93 11/05/21 02:44 Resp 18 11/05/21 02:44 BP 147/84 H 11/05/21 02:28 Pulse Ox 94 11/05/21 02:28 BMI result Body Mass Index 31.6 Appearance: Alert. Oriented X3. No acute distress. Eyes: Pupils equal, round and reactive to light. ENT: Pharynx normal. Neck: Normal inspection. Neck supple. No lymph nodes noted. No crepitus CVS: Normal heart rate and rhythm. Pulses normal. Normal S1 and S2 Respiratory: No respiratory distress. Breath sounds normal. Positive Wheezing. No rales Abdomen: Soft and nontender. No rigidity. No distention. good BS x4 Skin: Skin warm and dry. Normal skin color. Normal skin turgor. Extremities: No lower extremity edema. Neurovascular intact to all extremities. No Lacerations. No Rash Neuro: Oriented X 3. No motor deficit. No sensory deficit. Moving all extermities. No slurred speech MDM - Asthma MDM Narrative Medical decision making narrative: Patient given albuterol treatment steroid with good results. On repeat check patient's lungs are clear. Feels comfortable being discharged. COVID test was negative. In stable condition Lab Data Attestation: I reviewed the patient's lab results. Labs: Lab Results 11/05/21 Range/Units 04:08 Influenza Type A (PCR) NEGATIVE (Negative) Influenza Type B (PCR) NEGATIVE (Negative) RSV RNA Qual (PCR) NEGATIVE (Negative) SARS-CoV-2 RNA (RT-PCR) NEGATIVE (Negative) Discharge Plan Discharge Clinical Impression: Asthma Patient Disposition: Home, Self-Care Instructions: Asthma (ED) Prescriptions: New prednisone 20 mg tablet 40 mg PO DAILY Qty: 10 0RF No Action Advair HFA 115-21 mcg/actuation HFA aerosol inhaler 2 puff inhalation BID 30 Days Qty: 1 6RF Rx Instructions: administer with spacer Xolair 150 mg recon soln 300 mg subcut Q4W 28 Days Qty: 2 12RF Rx Instructions: requires multiple injection sites; do not exceed 150 mg per injection site albuterol sulfate 90 mcg/actuation HFA aerosol inhaler 2 inh inhalation Q6-8H PRN (Reason: shortness of breath or wheezing) Qty: 8.5 0RF ipratropium-albuterol 0.5 mg-3 mg(2.5 mg base)/3 mL solution for nebulization 3 ml inhalation Q4-6H PRN (Reason: shortness of breath or wheezing) Qty: 180 0RF albuterol sulfate 2.5 mg /3 mL (0.083 %) solution for nebulization 2.5 mg inhalation Q4-6H PRN (Reason: shortness of breath or wheezing) Qty: 180 0RF Referrals: Physician,Unknown J [Primary Care Provider] -
[2021-11-05] MEDS: predniSONE 20 MG TABLET 60 MG PO (04:07)
[2021-11-05 04:49] LABS: Influenza A PCR NEGATIVE (Negative); Influenza B PCR NEGATIVE (Negative); Resp Syncy Virus RNA Qual PCR NEGATIVE (Negative); SARS COV2 PCR INHOUSE NEGATIVE (Negative)
== END 2021-11-05 05:17 | disposition home or self-care (01) ==
PROVIDERS: Emergency Provider Emergency Medicine Emergency Medical Services
DX: J45.909 Unspecified asthma, uncomplicated (principal); Z20.822 Contact with and (suspected) exposure to COVID-19; R53.81 Other malaise
CPT/HCPCS: 0241U; 94640; 94644; 99284

== ENCOUNTER 2022-03-07 22:08 | Emergency (ER) | payer MEDICAID, SELFPAY ==
--- NOTE | ~2022-03-07 | XR_ITS ---
EXAMINATION: XR CHEST CLINICAL INFORMATION: COVID. COMPARISON: 07/03/2021 chest radiograph. TECHNIQUE: Frontal view of the chest was obtained. FINDINGS: No significant abnormality is noted involving the heart, lungs, mediastinum, bony thorax or soft tissues. XR/XR chest 1V IMPRESSION: No acute cardiopulmonary process.
[2022-03-07 22:10] VITALS: PULSE 130; RESP 26; O2SAT 89; BMI 32.4
[2022-03-07 22:17] VITALS: BP 158/127; PULSE 134; RESP 30; TEMP 36.6; O2SAT 94
--- NOTE | 2022-03-07 22:27 | PC.NURSE ---
Pt. wheezing and in active respiratory distress. Sats 88% on RA. 2L via NC applied and sats improved immediately to 94%. IV access x2 placed in [facility]. Awaiting MD at this time
[2022-03-07 22:29] LABS: COVID-19 Test Positive (Negative)
[2022-03-07 22:31] VITALS: BP 103/59; PULSE 111; RESP 18; O2SAT 92
--- NOTE | 2022-03-07 22:36 | ED.ASTHMA ---
HPI - Asthma General Chief Complaint: Asthma Stated Complaint: SOB Time Seen by Provider: 03/07/22 22:32 Source: patient Mode of arrival: ambulatory Limitations: no limitations History of Present Illness HPI Narrative: Patient With history of asthma with increased short of breath since early today with wheezing ran out of her nebulizing treatment use inhaler without response patient is not vaccinated against COVID no fever no chills occasional dry cough no other family member sick Related Data Previous Rx's Medication Instructions Recorded fluticasone propionate 115 2 puff inhalation BID 30 days #1 ea 11/19/20 mcg-salmeterol 21 mcg/actuation HFA inhaler (Advair HFA) albuterol sulfate 2.5 mg/3 mL 2.5 mg (3 mL) inhalation Q4-6H PRN 07/03/21 (0.083 %) solution for nebulization shortness of breath or wheezing #180 mL albuterol sulfate 90 mcg/actuation 2 inh inhalation Q6-8H PRN 07/03/21 aerosol inhaler shortness of breath or wheezing #8.5 grams ipratropium 0.5 mg-albuterol 3 mg 3 ml inhalation Q4-6H PRN 07/03/21 (2.5 mg base)/3 mL nebulization shortness of breath or wheezing soln #180 mL omalizumab 150 mg subcutaneous 300 mg subcut Q4W 28 days #2 ea 09/26/21 solution (Xolair) prednisone 20 mg tablet 40 mg PO DAILY #10 tabs 11/05/21 albuterol sulfate 2.5 mg/3 mL 2.5 mg (3 mL) inhalation Q4-6H PRN 03/08/22 (0.083 %) solution for nebulization shortness of breath or wheezing #180 mL dexamethasone 6 mg tablet 6 mg PO DAILY #7 tabs 03/08/22 (Decadron) Allergies Allergy/AdvReac Type Severity Reaction Status Date / Time No Known Allergies Allergy Verified 09/01/21 14:50 Review of Systems Review of Systems: Yes all other systems are reviewed and are negative PMFSH Past Medical History Medical History Asthma Social History Social History Alcohol intake: never Patient Tobacco Use Status: Never used Tobacco Use of substances other than those prescribed or required for medical reasons: No Advance Directives: No Advance Directives Information Provided: No Patient : No Physical Exam Vital Signs: Vital Signs: Last Vital Signs Temp 98.8 F 03/08/22 00:17 Pulse 114 H 03/08/22 01:00 Resp 20 03/08/22 01:00 BP 139/65 03/08/22 01:00 Pulse Ox 100 03/08/22 01:00 O2 Del Method 03/08/22 01:00 O2 Flow Rate 2 03/07/22 22:31 BMI result Body Mass Index 32.4 Appearance: Alert. Oriented X3. In moderate distress Eyes: PERRLA, No Nystagmus ENT: Pharynx normal. Oral Mucosa moist Neck: Normal inspection. Neck supple. CVS: Normal heart rate and rhythm. Pulses normal. Respiratory: Moderate respiratory distress. Equal air entry bilateral, bilateral wheezing Abdomen: Soft and nontender. Bowel sounds are present, no mass palpable, no CVA tenderness Skin: Skin warm and dry. Normal skin color. Normal skin turgor. Extremities: No lower extremity edema. No calf tenderness Neuro: Oriented X 3. MDM - Asthma MDM Narrative Medical decision making narrative: 2239 Patient COVID positive with history of asthma not vaccinated against COVID saturating 96% at room air but with distress get a chest x-ray IV steroids and IV magnesium Patient improved after 2 continues our long nebulizing treatment feeling much better now will discharge patient home Lab Data Attestation: I reviewed the patient's lab results. Labs: Lab Results 03/07/22 Range/Units 22:10 COVID-19 ([facility]ARGRET) Positive A (Negative) COVID-19 Clin Com See Note Critical Care Time Critical Care Time Total Critical Care Time: 55 Attestation: I spent 55 minutes of critical care, with interventions, assessments, speaking to patient, consultants, and family. Discharge Plan Discharge Clinical Impression: Asthma with acute exacerbation, COVID-19 Patient Disposition: Home, Self-Care Instructions: Asthma (ED), COVID-19 (Coronavirus Disease 2019) (ED) Additional Instructions: Continue to use nebulizing treatment every 4 hours as needed Social distancing as advised Decadron as prescribed Report to the ER if increased shortness of breath Prescriptions: New dexamethasone [Decadron] 6 mg tablet 6 mg PO DAILY Qty: 7 0RF albuterol sulfate 2.5 mg /3 mL (0.083 %) solution for nebulization 2.5 mg inhalation Q4-6H PRN (Reason: shortness of breath or wheezing) Qty: 180 0RF No Action Advair HFA 115-21 mcg/actuation HFA aerosol inhaler 2 puff inhalation BID 30 Days Qty: 1 6RF Rx Instructions: administer with spacer Xolair 150 mg recon soln 300 mg subcut Q4W 28 Days Qty: 2 12RF Rx Instructions: requires multiple injection sites; do not exceed 150 mg per injection site albuterol sulfate 90 mcg/actuation HFA aerosol inhaler 2 inh inhalation Q6-8H PRN (Reason: shortness of breath or wheezing) Qty: 8.5 0RF ipratropium-albuterol 0.5 mg-3 mg(2.5 mg base)/3 mL solution for nebulization 3 ml inhalation Q4-6H PRN (Reason: shortness of breath or wheezing) Qty: 180 0RF albuterol sulfate 2.5 mg /3 mL (0.083 %) solution for nebulization 2.5 mg inhalation Q4-6H PRN (Reason: shortness of breath or wheezing) Qty: 180 0RF prednisone 20 mg tablet 40 mg PO DAILY Qty: 10 0RF Interventions: ED Discharge Assessment Last Done: 03/08/22 01:07 Discharge Date/Time: 03/08/22 01:08
[2022-03-07] MEDS: Magnesium Sulfate/H2O 2 GM/50 ML PIGGYBACK IV (22:46)
[2022-03-07] MEDS: dexAMETHasone sod phosphate 10 MG/ML VIAL IVPUSH (22:46)
[2022-03-07] MEDS: Albuterol Sulfate 7.5 MG, Albuterol/Iprat 2.5/0.5MG 3 ML 3 ML INHALE (22:57)
[2022-03-07 22:58] VITALS: PULSE 117; RESP 20; O2SAT 97
[2022-03-08 00:17] VITALS: BP 127/74; PULSE 95; RESP 16; TEMP 37.1; O2SAT 95
[2022-03-08] MEDS: Albuterol Sulfate 2.5 MG, Albuterol Sulfate (0.083%) 2.5 MG 5 MG INHALE (00:39)
[2022-03-08 01:00] VITALS: BP 139/65; PULSE 114; RESP 20; O2SAT 100
== END 2022-03-08 01:08 | disposition home or self-care (01) ==
PROVIDERS: Emergency Provider Internal Medicine
DX: U07.1 COVID-19 (principal); J45.901 Unspecified asthma with (acute) exacerbation; R06.02 Shortness of breath; Z79.899 Other long term (current) drug therapy
CPT/HCPCS: 71045; 87635; 94640; 96365; 96375; 99284; 99285; J1100; J3475

== ENCOUNTER 2022-03-19 00:28 | Emergency (ER) | payer MEDICAID, SELFPAY ==
--- NOTE | ~2022-03-19 | XR_ITS ---
EXAMINATION: XR CHEST CLINICAL INFORMATION: Shortness of breath COMPARISON: 03/07/2022 TECHNIQUE: Frontal view of the chest was obtained. FINDINGS: The lungs are clear with no focal consolidation. No evidence of pneumothorax, pulmonary edema, or pleural effusions. The cardiomediastinal silhouette is unremarkable. No acute osseous findings. XR/XR chest 1V IMPRESSION: No acute cardiopulmonary findings.
[2022-03-19 00:34] VITALS: BP 170/74; PULSE 57; O2SAT 100
[2022-03-19] MEDS: methylPREDNISolone Sod Succ 125 MG/2 ML VIAL IVPUSH (00:36)
[2022-03-19 00:37] VITALS: PULSE 109; RESP 24; O2SAT 100
[2022-03-19] MEDS: Albuterol Sulfate 7.5 MG, Albuterol Sulfate (0.083%) 2.5 MG 10 MG INHALE ×3 (00:37→02:24)
[2022-03-19] MEDS: Magnesium Sulfate/H2O 2 GM/50 ML PIGGYBACK IV (00:41)
[2022-03-19 00:44] VITALS: BP 170/74; PULSE 113; RESP 24; O2SAT 99; BMI 32.4
[2022-03-19 01:07] LABS: Basophils Absolute Auto 0.1 X10*3/uL (0.0-0.2); Basophils Percent Auto 0.9 % (0-2); Eosinophils Absolute Auto 0.6 X10*3/uL (0.0-0.4); Eosinophils Percent Auto 5.8 % (0-4); Hematocrit 39.4 % (37.0-47.0); Hemoglobin 13.1 g/dl (12.0-16.0); Imm Gran Abs Auto 0.03 X10*3/uL (0.00-0.03); Imm Gran Pct Auto 0.3 % (0.0-0.4); Lymphocytes Absolute Auto 3.3 X10*3/uL (1.2-4.9); MANUAL DIFF FLAG NO; Mean Corpuscular HGB Conc 33.2 g/dl (31.0-35.0); Mean Corpuscular Hemoglobin 28.4 pg (27.0-33.0); Mean Corpuscular Volume 85.5 fL (80.0-98.0); Mean Platelet Volume 9.2 fL (9.4-12.3); Monocytes Absolute Auto 0.8 X10*3/uL (0.1-1.2); Monocytes Percent Auto 7.7 % (2-11); Neutrophils Percent Auto 51.3 % (45-73); Platelet Count 278 X10*3/uL (160-400); Red Blood Count 4.61 X10*6/uL (4.20-5.50); Red Cell Distribution Width 12.3 % (11.0-16.0); White Blood Count 9.7 X10*3/uL (4.8-10.8)
[2022-03-19 01:13] VITALS: PULSE 107; RESP 18; O2SAT 100
--- NOTE | 2022-03-19 01:13 | ED.ASTHMA ---
HPI - Asthma General Chief Complaint: Asthma Stated Complaint: asthma attack Time Seen by Provider: 03/19/22 00:32 Source: patient Mode of arrival: ambulatory History of Present Illness HPI Narrative: 21-year-old female who presents with acute respiratory distress, history of asthma with difficulty providing history. She is able to shake her head when questioned regarding fever or chills. Related Data Previous Rx's Medication Instructions Recorded fluticasone propionate 115 2 puff inhalation BID 30 days #1 ea 11/19/20 mcg-salmeterol 21 mcg/actuation HFA inhaler (Advair HFA) albuterol sulfate 2.5 mg/3 mL 2.5 mg (3 mL) inhalation Q4-6H PRN 07/03/21 (0.083 %) solution for nebulization shortness of breath or wheezing #180 mL albuterol sulfate 90 mcg/actuation 2 inh inhalation Q6-8H PRN 07/03/21 aerosol inhaler shortness of breath or wheezing #8.5 grams ipratropium 0.5 mg-albuterol 3 mg 3 ml inhalation Q4-6H PRN 07/03/21 (2.5 mg base)/3 mL nebulization shortness of breath or wheezing soln #180 mL omalizumab 150 mg subcutaneous 300 mg subcut Q4W 28 days #2 ea 09/26/21 solution (Xolair) prednisone 20 mg tablet 40 mg PO DAILY #10 tabs 11/05/21 albuterol sulfate 2.5 mg/3 mL 2.5 mg (3 mL) inhalation Q4-6H PRN 03/08/22 (0.083 %) solution for nebulization shortness of breath or wheezing #180 mL dexamethasone 6 mg tablet 6 mg PO DAILY #7 tabs 03/08/22 (Decadron) Allergies Allergy/AdvReac Type Severity Reaction Status Date / Time No Known Allergies Allergy Verified 09/01/21 14:50 Review of Systems Review of Systems: Pertinent positives and negatives as stated in HPI 10 point review of systems is otherwise negative. PMFSH Past Medical History Source: nursing notes reviewed Medical History Asthma Social History Social History Alcohol intake: never Patient Tobacco Use Status: Never used Tobacco Advance Directives: No Advance Directives Information Provided: No Physical Exam Vital Signs: Vital Signs: Last Vital Signs Pulse 98 03/19/22 02:24 Resp 16 03/19/22 02:24 BP 170/74 H 03/19/22 00:44 Pulse Ox 99 03/19/22 00:44 O2 Del Method 03/19/22 00:44 O2 Flow Rate 2 03/19/22 00:34 Oxygen Flow Rate 2 03/19/22 00:44 BMI result Body Mass Index 32.4 VITAL SIGNS: Reviewed. GENERAL: Well developed, well nourished, in no acute distress. HEAD: Normocephalic/atraumatic EYES: PERRLA, EOMI EARS: Ext canals without abnormality OROPHARYNX: no oral lesions noted, posterior pharynx clear LUNGS: Decreased breath sounds, increased work of breathing, retractions, tachypnea, unable to complete full sentences. SpO2<92> CARDIOVASCULAR: Regular rate and rhythm without noted murmurs ABDOMEN: Soft, non-tender, non-distended with bowel sounds. MUSCULOSKELETAL: No tenderness, deformities, or effusions noted on gross inspection. EXTREMITIES: No cyanosis, clubbing or edema. SKIN: Inspection of the skin reveals no rashes NEUROLOGIC: Alert and oriented x 4. Strength and sensation to light touch were grossly intact x 4. Course Course Course Narrative: 21-year-old female with history and clinical presentation consistent with acute asthma exacerbation. 10 mg albuterol, Solu-Medrol, magnesium sulfate started. Patient also placed on supplemental nasal cannula. 0125: On re-evaluation patient states that she feels much improved and clearly has improved respiratory rate but on auscultation of lungs there is bilateral expiratory wheeze. On review and re-evaluation patient has had 3 hour long albuterol treatments, steroids, magnesium sulfate and although she is able to complete full sentences and her work of breathing has significantly improved her oxygenation is borderline given her age at around 93-94%. I discussed this case with the inpatient hospitalist who accepts admission. MDM - Asthma Lab Data Result diagrams: 03/19/22 00:59 03/19/22 00:59 Labs: Lab Results 03/19/22 03/19/22 03/19/22 Range/Units 00:59 00:59 00:59 WBC 9.7 (4.8-10.8) X10*3/uL RBC 4.61 (4.20-5.50) X10*6/uL Hgb 13.1 (12.0-16.0) g/dl Hct 39.4 (37.0-47.0) % MCV 85.5 (80.0-98.0) fL MCH 28.4 (27.0-33.0) pg MCHC 33.2 (31.0-35.0) g/dl RDW 12.3 (11.0-16.0) % Plt Count 278 (160-400) X10*3/uL MPV 9.2 L (9.4-12.3) fL Immature Gran % (Auto) 0.3 (0.0-0.4) % Neut % (Auto) 51.3 (45-73) % Lymph % (Auto) 34.0 (20-40) % [place] % (Auto) 7.7 (2-11) % Eos % (Auto) 5.8 H (0-4) % Baso % (Auto) 0.9 (0-2) % Lymph # (Auto) 3.3 (1.2-4.9) X10*3/uL [place] # (Auto) 0.8 (0.1-1.2) X10*3/uL Eos # (Auto) 0.6 H (0.0-0.4) X10*3/uL Baso # (Auto) 0.1 (0.0-0.2) X10*3/uL Abs Immat Gran (auto) 0.03 (0.00-0.03) X10*3/uL Absolute Neuts (auto) 5.0 (2.0-8.3) x10*3/uL Absolute Nucleated RBC 0.000 (0.0-0.012) X10*3/uL Nucleated RBC % (auto) 0.0 (0.0-0.2) /100WBC Sodium 143 (135-145) mmol/L Potassium 3.8 (3.3-5.1) mmol/L Chloride 106 (96-108) mmol/L Carbon Dioxide 24 (22-29) mmol/L Anion Gap 17 (12-20) BUN 11 (9-16) mg/dL Creatinine 0.75 (0.5-1.4) mg/dL Estim Creat Clear Calc 129.2 Estimated GFR > 60 Random Glucose 114 (60-115) mg/dL Calcium 9.1 (8.4-10.2) mg/dL Total Bilirubin 0.5 (0.0-1.0) mg/dL AST 13 (5-31) U/L ALT 13 (0-31) U/L Alkaline Phosphatase 53 (39-117) U/L Total Protein 6.8 (6.5-8.0) g/dL Albumin 4.3 (3.5-5.0) g/dL COVID-19 (MARGRET) Negative (Negative) COVID-19 Clin Com See Note Critical Care Time Critical Care Time Critical Care Time: Yes Total Critical Care Time: 30 Attestation: I personally attest to this time spent taking care of the patient. Discharge Plan Discharge Clinical Impression: Acute asthma exacerbation Patient Disposition: Admitted As Inpatient Prescriptions: No Action Advair HFA 115-21 mcg/actuation HFA aerosol inhaler 2 puff inhalation BID 30 Days Qty: 1 6RF Rx Instructions: administer with spacer Xolair 150 mg recon soln 300 mg subcut Q4W 28 Days Qty: 2 12RF Rx Instructions: requires multiple injection sites; do not exceed 150 mg per injection site dexamethasone [Decadron] 6 mg tablet 6 mg PO DAILY Qty: 7 0RF albuterol sulfate 2.5 mg /3 mL (0.083 %) solution for nebulization 2.5 mg inhalation Q4-6H PRN (Reason: shortness of breath or wheezing) Qty: 180 0RF albuterol sulfate 90 mcg/actuation HFA aerosol inhaler 2 inh inhalation Q6-8H PRN (Reason: shortness of breath or wheezing) Qty: 8.5 0RF ipratropium-albuterol 0.5 mg-3 mg(2.5 mg base)/3 mL solution for nebulization 3 ml inhalation Q4-6H PRN (Reason: shortness of breath or wheezing) Qty: 180 0RF albuterol sulfate 2.5 mg /3 mL (0.083 %) solution for nebulization 2.5 mg inhalation Q4-6H PRN (Reason: shortness of breath or wheezing) Qty: 180 0RF prednisone 20 mg tablet 40 mg PO DAILY Qty: 10 0RF
[2022-03-19 01:20] LABS: COVID-19 Test Negative (Negative)
[2022-03-19 01:32] LABS: Alanine Aminotransferase 13 U/L (0-31); Albumin Level 4.3 g/dL (3.5-5.0); Alkaline Phosphatase 53 U/L (39-117); Anion Gap 17 (12-20); Aspartate Amino Transferase 13 U/L (5-31); Bilirubin Total 0.5 mg/dL (0.0-1.0); Blood Urea Nitrogen 11 mg/dL (9-16); Calcium 9.1 mg/dL (8.4-10.2); Carbon Dioxide 24 mmol/L (22-29); Chloride 106 mmol/L (96-108); Creatinine Clr Calc Pharmacy 129.2; Estimated Glomerular Filt Rate > 60; Glucose Random 114 mg/dL (60-115); Potassium 3.8 mmol/L (3.3-5.1); Sodium 143 mmol/L (135-145); Total Protein 6.8 g/dL (6.5-8.0)
[2022-03-19 02:24] VITALS: PULSE 98; RESP 16; O2SAT 99
--- NOTE | 2022-03-19 03:43 | PM.EVENT ---
Event Note Date of Service: 03/19/22 Event Note: This is a 21-year-old female with pertinent history of asthma who presented to the ER for dyspnea and tachypnea. Patient received DuoNebs, IV steroids and magnesium sulfate in the ER. Was asked to evaluate the patient by ER physician. Upon my examination, patient able to talk in full sentences without dyspnea or tachypnea. Maintaining normal oxygen saturation on room air. Patient is moving good air bilaterally and has minimal wheezing. Patient stated that she knows her body and she feels that she is back to baseline and wants to go home. Does not want to be admitted. This is reasonable and discussed with ER physician.
== END 2022-03-19 03:59 | disposition home or self-care (01) ==
PROVIDERS: Emergency Provider Student in an Organized Health Care Education/Training Program
DX: J45.901 Unspecified asthma with (acute) exacerbation (principal); Z20.822 Contact with and (suspected) exposure to COVID-19
CPT/HCPCS: 36415; 71045; 80053; 85025; 87635; 94640; 96365; 96366; 96375; 99284; 99285; J2930; J3475

== ENCOUNTER 2022-04-09 18:07 | Emergency (ER) | payer MEDICAID, SELFPAY ==
--- NOTE | ~2022-04-09 | XR_ITS ---
EXAMINATION: XR CHEST CLINICAL INFORMATION: Chest pain COMPARISON: 03/19/2022 TECHNIQUE: Frontal view of the chest was obtained. FINDINGS: No significant abnormality is noted involving the heart, lungs, mediastinum, bony thorax or soft tissues. XR/XR chest 1V IMPRESSION: Unremarkable examination.
[2022-04-09 18:08] VITALS: BP 130/80; PULSE 140; RESP 20; TEMP 36.8; O2SAT 94; BMI 31.4
--- NOTE | 2022-04-09 18:20 | ED.ASTHMA ---
HPI - Asthma General Chief Complaint: Asthma Stated Complaint: diff breathing Time Seen by Provider: 04/09/22 18:17 Source: patient Mode of arrival: ambulatory History of Present Illness HPI Narrative: This is a 22 years old female asthmatic arrived to the emergency department in acute respiratory distress tachycardic tachypneic unable to speak she was brought right away to treatment room 22, she was examined by me was started on continuous albuterol IV was established. The patient on several emergency room visits in the past for asthma exacerbation, she never been intubated. MD complaint: asthma attack Onset (ago): day(s) (1) Severity: severe Context: none known Associated symptoms: none Related Data Previous Rx's Medication Instructions Recorded fluticasone propionate 115 2 puff inhalation BID 30 days #1 ea 11/19/20 mcg-salmeterol 21 mcg/actuation HFA inhaler (Advair HFA) albuterol sulfate 2.5 mg/3 mL 2.5 mg (3 mL) inhalation Q4-6H PRN 07/03/21 (0.083 %) solution for nebulization shortness of breath or wheezing #180 mL albuterol sulfate 90 mcg/actuation 2 inh inhalation Q6-8H PRN 07/03/21 aerosol inhaler shortness of breath or wheezing #8.5 grams ipratropium 0.5 mg-albuterol 3 mg 3 ml inhalation Q4-6H PRN 07/03/21 (2.5 mg base)/3 mL nebulization shortness of breath or wheezing soln #180 mL omalizumab 150 mg subcutaneous 300 mg subcut Q4W 28 days #2 ea 09/26/21 solution (Xolair) prednisone 20 mg tablet 40 mg PO DAILY #10 tabs 11/05/21 albuterol sulfate 2.5 mg/3 mL 2.5 mg (3 mL) inhalation Q4-6H PRN 03/08/22 (0.083 %) solution for nebulization shortness of breath or wheezing #180 mL dexamethasone 6 mg tablet 6 mg PO DAILY #7 tabs 03/08/22 (Decadron) prednisone 50 mg tablet 50 mg PO DAILY 4 days #4 tabs 03/19/22 prednisone 20 mg tablet 60 mg PO DAILY #12 tabs 04/09/22 Allergies Allergy/AdvReac Type Severity Reaction Status Date / Time No Known Allergies Allergy Verified 09/01/21 14:50 Review of Systems Constitutional: Constitutional: Reports no additional constitutional complaints Eyes: Eyes: Reports no additional eye complaints Cardiovascular: Cardiovascular: Reports no additional cardiovascular complaints and Reports dyspnea Respiratory: Respiratory: Reports dyspnea and Reports wheezing Gastrointestinal: Gastrointestinal: Reports no additional gastrointestinal complaints Allergic/Immunologic: Allergic/Immunologic: Reports wheezing [facility] Past Medical History [facility] Narrative: asthma Medical History Asthma Social History Social History Alcohol intake: never Patient Tobacco Use Status: Never used Tobacco Advance Directives: No Advance Directives Information Provided: No Physical Exam Vital Signs: Vital Signs: Last Vital Signs Temp 98.2 F 04/09/22 21:46 Pulse 99 04/09/22 21:46 Resp 18 04/09/22 21:46 BP 107/54 L 04/09/22 21:46 Pulse Ox 94 04/09/22 21:46 O2 Del Method 04/09/22 21:46 BMI result Body Mass Index 31.4 Const: General: acute distress, in distress and anxious Nutritional Appearance: average body habitus and well nourished Orientation/consciousness: patient oriented x3 HEENT: Head: Yes normal to inspection General nose exam: Normal external nose present Face and sinus: Yes normal facial exam Mouth: Normal oral and palatal mucosa present Throat: Yes posterior oropharynx normal Neck: Neck: Yes normal visual inspection and Yes full ROM Chest: Chest palpation & inspection: normal inspection of the chest Resp: Auscultation: rhonchi and wheezes Cardio: Jugular venous distension: no JVD Rate: regular rate Rhythm: regular rhythm GI: Inspection: Yes normal to inspection Palpation (GI): Soft to palpation, not firm and nontender Skin: General skin exam: no rashes or lesions noted and elasticity normal Rashes: no rashes Neuro: General: patient oriented x3 Cranial nerves: Yes CN's II-XII intact bilaterally Course Reevaluation(s) Reevaluation #1: doing much better at this time able to talk full sentences Time: 19:28 Reevaluation #2: She is feeling back to the baseline , saturation is 94% on room air, lungs are clear now, she wants to go home she refused to be admitted Time: 21:33 Medications Administered Discontinued Medications Generic Name Dose Route Start Last Admin Trade Name Daylin PRN Reason Stop Dose Admin Albuterol Sulfate 7.5 mg/ 10 mg 04/09/22 18:17 04/09/22 18:26 Albuterol Sulfate 2.5 mg INHALE 04/09/22 18:18 10 mg ONCE ONE Administration Albuterol Sulfate 7.5 mg/ 10 mg 04/09/22 18:39 04/09/22 18:41 Albuterol Sulfate 2.5 mg INHALE 04/09/22 18:40 10 mg ONCE ONE Administration Magnesium Sulfate 2 gm in 50 mls @ 25 mls/hr 04/09/22 18:25 04/09/22 18:34 Magnesium Sulfate/H2o IV 04/09/22 20:24 25 mls/hr ONCE ONE Administration Methylprednisolone Sodium Succinate 125 mg 04/09/22 18:17 04/09/22 18:35 Methylprednisolone Sod Succ 125 Mg/2 Ml Vial IVPUSH 04/09/22 18:18 125 mg ONCE ONE Administration MDM - Asthma Lab Data Result diagrams: 04/09/22 18:23 04/09/22 18:23 Labs: Lab Results 04/09/22 04/09/22 04/09/22 Range/Units 18:23 18:23 18:23 WBC 8.8 (4.8-10.8) X10*3/uL RBC 4.34 (4.20-5.50) X10*6/uL Hgb 12.6 (12.0-16.0) g/dl Hct 37.4 (37.0-47.0) % MCV 86.2 (80.0-98.0) fL MCH 29.0 (27.0-33.0) pg MCHC 33.7 (31.0-35.0) g/dl RDW 12.8 (11.0-16.0) % Plt Count 251 (160-400) X10*3/uL MPV 9.5 (9.4-12.3) fL Immature Gran % (Auto) 0.2 (0.0-0.4) % Neut % (Auto) 48.7 (45-73) % Lymph % (Auto) 38.4 (20-40) % [place] % (Auto) 6.1 (2-11) % Eos % (Auto) 6.1 H (0-4) % Baso % (Auto) 0.5 (0-2) % Lymph # (Auto) 3.4 (1.2-4.9) X10*3/uL [place] # (Auto) 0.5 (0.1-1.2) X10*3/uL Eos # (Auto) 0.5 H (0.0-0.4) X10*3/uL Baso # (Auto) 0.0 (0.0-0.2) X10*3/uL Abs Immat Gran (auto) 0.02 (0.00-0.03) X10*3/uL Absolute Neuts (auto) 4.3 (2.0-8.3) x10*3/uL Absolute Nucleated RBC 0.000 (0.0-0.012) X10*3/uL Nucleated RBC % (auto) 0.0 (0.0-0.2) /100WBC VBG pH (7.32-7.43) VBG pCO2 mmHg VBG pO2 mmHg VBG HCO3 (22-26) mmol/L VBG O2 Saturation % VBG Base Excess mmol/L Sodium 146 H (135-145) mmol/L Potassium 4.0 (3.3-5.1) mmol/L Chloride 107 (96-108) mmol/L Carbon Dioxide 28 (22-29) mmol/L Anion Gap 15 (12-20) BUN 11 (9-16) mg/dL Creatinine 0.82 (0.5-1.4) mg/dL Estim Creat Clear Calc 115.3 Estimated GFR > 60 Random Glucose 105 (60-115) mg/dL Calcium 9.3 (8.4-10.2) mg/dL Total Bilirubin < 0.2 (0.0-1.0) mg/dL AST 13 (5-31) U/L ALT 16 (0-31) U/L Alkaline Phosphatase 55 (39-117) U/L Troponin I High Sens < 3.5 (<3.5-17.0) ng/L Total Protein 6.9 (6.5-8.0) g/dL Albumin 4.4 (3.5-5.0) g/dL 04/09/22 Range/Units 18:28 WBC (4.8-10.8) X10*3/uL RBC (4.20-5.50) X10*6/uL Hgb (12.0-16.0) g/dl Hct (37.0-47.0) % MCV (80.0-98.0) fL MCH (27.0-33.0) pg MCHC (31.0-35.0) g/dl RDW (11.0-16.0) % Plt Count (160-400) X10*3/uL MPV (9.4-12.3) fL Immature Gran % (Auto) (0.0-0.4) % Neut % (Auto) (45-73) % Lymph % (Auto) (20-40) % [place] % (Auto) (2-11) % Eos % (Auto) (0-4) % Baso % (Auto) (0-2) % Lymph # (Auto) (1.2-4.9) X10*3/uL [place] # (Auto) (0.1-1.2) X10*3/uL Eos # (Auto) (0.0-0.4) X10*3/uL Baso # (Auto) (0.0-0.2) X10*3/uL Abs Immat Gran (auto) (0.00-0.03) X10*3/uL Absolute Neuts (auto) (2.0-8.3) x10*3/uL Absolute Nucleated RBC (0.0-0.012) X10*3/uL Nucleated RBC % (auto) (0.0-0.2) /100WBC VBG pH 7.33 (7.32-7.43) VBG pCO2 53 mmHg VBG pO2 49 mmHg VBG HCO3 28 H (22-26) mmol/L VBG O2 Saturation 74.0 % VBG Base Excess 1.5 mmol/L Sodium (135-145) mmol/L Potassium (3.3-5.1) mmol/L Chloride (96-108) mmol/L Carbon Dioxide (22-29) mmol/L Anion Gap (12-20) BUN (9-16) mg/dL Creatinine (0.5-1.4) mg/dL Estim Creat Clear Calc Estimated GFR Random Glucose (60-115) mg/dL Calcium (8.4-10.2) mg/dL Total Bilirubin (0.0-1.0) mg/dL AST (5-31) U/L ALT (0-31) U/L Alkaline Phosphatase (39-117) U/L Troponin I High Sens (<3.5-17.0) ng/L Total Protein (6.5-8.0) g/dL Albumin (3.5-5.0) g/dL Imaging Data Chest x-ray: Radiologist's impression: EXAMINATION: XR CHEST CLINICAL INFORMATION: Chest pain COMPARISON: 03/19/2022 TECHNIQUE: Frontal view of the chest was obtained. FINDINGS: No significant abnormality is noted involving the heart, lungs, mediastinum, bony thorax or soft tissues. XR/XR chest 1V IMPRESSION: Unremarkable examination. ? Critical Care Time Critical Care Time Critical Care Time: Yes Total Critical Care Time: 60 Attestation: multiple nebs back to back Discharge Plan Discharge Clinical Impression: Asthma exacerbation Patient Disposition: Home, Self-Care Instructions: Asthma (ED) Additional Instructions: Follow-up with your primary care physician tomorrow return if you worse Prescriptions: New prednisone 20 mg tablet 60 mg PO DAILY Qty: 12 0RF No Action Advair HFA 115-21 mcg/actuation HFA aerosol inhaler 2 puff inhalation BID 30 Days Qty: 1 6RF Rx Instructions: administer with spacer Xolair 150 mg recon soln 300 mg subcut Q4W 28 Days Qty: 2 12RF Rx Instructions: requires multiple injection sites; do not exceed 150 mg per injection site dexamethasone [Decadron] 6 mg tablet 6 mg PO DAILY Qty: 7 0RF albuterol sulfate 2.5 mg /3 mL (0.083 %) solution for nebulization 2.5 mg inhalation Q4-6H PRN (Reason: shortness of breath or wheezing) Qty: 180 0RF prednisone 50 mg tablet 50 mg PO DAILY 4 Days Qty: 4 0RF albuterol sulfate 90 mcg/actuation HFA aerosol inhaler 2 inh inhalation Q6-8H PRN (Reason: shortness of breath or wheezing) Qty: 8.5 0RF ipratropium-albuterol 0.5 mg-3 mg(2.5 mg base)/3 mL solution for nebulization 3 ml inhalation Q4-6H PRN (Reason: shortness of breath or wheezing) Qty: 180 0RF albuterol sulfate 2.5 mg /3 mL (0.083 %) solution for nebulization 2.5 mg inhalation Q4-6H PRN (Reason: shortness of breath or wheezing) Qty: 180 0RF prednisone 20 mg tablet 40 mg PO DAILY Qty: 10 0RF Referrals: [place],[facility] [Primary Care Provider] - 1 day Stand Alone Forms: Work/School Release Interventions: ED Discharge Assessment Last Done: 04/09/22 21:50 Discharge Date/Time: 04/09/22 21:50
[2022-04-09] MEDS: Albuterol Sulfate 7.5 MG, Albuterol Sulfate (0.083%) 2.5 MG 10 MG INHALE ×2 (18:26→18:41)
[2022-04-09 18:27] VITALS: PULSE 123; RESP 22; O2SAT 96
[2022-04-09 18:28] LABS: MANUAL DIFF FLAG NO
[2022-04-09 18:31] LABS: Basophils Percent Auto 0.5 % (0-2); Eosinophils Absolute Auto 0.5 X10*3/uL (0.0-0.4); Eosinophils Percent Auto 6.1 % (0-4); Hematocrit 37.4 % (37.0-47.0); Hemoglobin 12.6 g/dl (12.0-16.0); Imm Gran Abs Auto 0.02 X10*3/uL (0.00-0.03); Imm Gran Pct Auto 0.2 % (0.0-0.4); Lymphocytes Absolute Auto 3.4 X10*3/uL (1.2-4.9); Lymphocytes Percent Auto 38.4 % (20-40); Mean Corpuscular HGB Conc 33.7 g/dl (31.0-35.0); Mean Corpuscular Volume 86.2 fL (80.0-98.0); Mean Platelet Volume 9.5 fL (9.4-12.3); Monocytes Absolute Auto 0.5 X10*3/uL (0.1-1.2); Monocytes Percent Auto 6.1 % (2-11); Neutrophils Absolute Auto 4.3 x10*3/uL (2.0-8.3); Neutrophils Percent Auto 48.7 % (45-73); Platelet Count 251 X10*3/uL (160-400); Red Blood Count 4.34 X10*6/uL (4.20-5.50); Red Cell Distribution Width 12.8 % (11.0-16.0); White Blood Count 8.8 X10*3/uL (4.8-10.8)
[2022-04-09 18:33] VITALS: PULSE 140; RESP 20; O2SAT 98
[2022-04-09] MEDS: Magnesium Sulfate/H2O 2 GM/50 ML PIGGYBACK IV (18:34)
[2022-04-09] MEDS: methylPREDNISolone Sod Succ 125 MG/2 ML VIAL IVPUSH (18:35)
[2022-04-09 18:37] LABS: VBG Base Excess 1.5 mmol/L; VBG HCO3 28 mmol/L (22-26); VBG pCO2 53 mmHg; VBG pH 7.33 (7.32-7.43); VBG pO2 49 mmHg
[2022-04-09 18:40] LABS: Venous Blood Gas Refer to POC result
[2022-04-09 18:49] LABS: Alanine Aminotransferase 16 U/L (0-31); Albumin Level 4.4 g/dL (3.5-5.0); Alkaline Phosphatase 55 U/L (39-117); Anion Gap 15 (12-20); Aspartate Amino Transferase 13 U/L (5-31); Bilirubin Total < 0.2 mg/dL (0.0-1.0); Blood Urea Nitrogen 11 mg/dL (9-16); Calcium 9.3 mg/dL (8.4-10.2); Carbon Dioxide 28 mmol/L (22-29); Chloride 107 mmol/L (96-108); Creatinine Clr Calc Pharmacy 115.3; Estimated Glomerular Filt Rate > 60; Glucose Random 105 mg/dL (60-115); Sodium 146 mmol/L (135-145); Total Protein 6.9 g/dL (6.5-8.0)
[2022-04-09 18:55] LABS: Troponin-I High Sensitivity < 3.5 ng/L (<3.5-17.0)
[2022-04-09 21:02] VITALS: BP 107/54; PULSE 109; RESP 27; TEMP 36.8; O2SAT 93
[2022-04-09 21:46] VITALS: BP 107/54; PULSE 99; RESP 18; TEMP 36.8; O2SAT 94
== END 2022-04-09 21:50 | disposition home or self-care (01) ==
PROVIDERS: Emergency Provider Emergency Medicine
DX: J45.901 Unspecified asthma with (acute) exacerbation (principal)
CPT/HCPCS: 36415; 71045; 80053; 82803; 84484; 85025; 94640; 96374; 96375; 99284; J2930; J3475

== ENCOUNTER 2022-05-09 19:40 | Emergency (ER) | payer MEDICAID, SELFPAY ==
--- NOTE | ~2022-05-09 | XR_ITS ---
EXAMINATION: XR CHEST CLINICAL INFORMATION: Wheezing COMPARISON: 04/09/2022 TECHNIQUE: Frontal view of the chest was obtained. FINDINGS: No focal consolidation, pulmonary edema, or pleural effusion. Stable cardiomediastinal silhouette. XR/XR chest 1V IMPRESSION: Unremarkable examination.
[2022-05-09 19:47] VITALS: PULSE 124; RESP 16; TEMP 36.4; O2SAT 99; BMI 32.3
--- NOTE | 2022-05-09 19:47 | ED.ASTHMA ---
HPI - Asthma General Chief Complaint: Dyspnea <Kathleen Felix MD - Last Filed: 05/09/22 19:49> Stated Complaint: asthma attack <Kathleen Felix MD - Last Filed: 05/09/22 19:49> Time Seen by Provider: 05/09/22 20:07 <Kathleen Felix MD - Last Filed: 05/09/22 19:49> Source: patient and RN notes reviewed <MALU Torres - Last Filed: 05/09/22 23:55> Mode of arrival: ambulatory <MALU Torres - Last Filed: 05/09/22 23:55> Limitations: no limitations <MALU Torres - Last Filed: 05/09/22 23:55> History of Present Illness HPI Narrative: 22 yo female w/ PMHx significant for asthma presenting to ED c/o one hour of cough, SOB, and wheezing unresolved with albuterol rescue inhaler at home. Reports mild chest discomfort with cough. Denies fevers, chills, headache, dizziness, abd pain, N/V/D, muscle aches, leg swelling, recent travel, rashes or skin changes. Denies smoking cigarettes, marijuana, vaping, or other sources of smoke inhalation. <MALU Torres - Last Filed: 05/09/22 23:55> MD complaint: asthma attack , shortness of breath and wheezing <MALU Torres - Last Filed: 05/09/22 23:55> Onset (ago): hour(s) (2) <MALU Torres - Last Filed: 05/09/22 23:55> Severity: mild <MALU Torres - Last Filed: 05/09/22 23:55> Context: none known <MALU Torres - Last Filed: 05/09/22 23:55> Associated symptoms: dry cough <MALU Torres - Last Filed: 05/09/22 23:55> Asthma History: childhood onset <MALU Torres - Last Filed: 05/09/22 23:55> Treatments Prior to Arrival: inhaled bronchodilator <MALU Torres - Last Filed: 12/07/22 23:55> Related Data Current Asthma Therapy: recent oral steroid <MALU Torres - Last Filed: 05/09/22 23:55> Home Medications: Previous Rx's Medication Instructions Recorded fluticasone propionate 115 2 puff inhalation BID 30 days #1 ea 11/19/20 mcg-salmeterol 21 mcg/actuation HFA inhaler (Advair HFA) albuterol sulfate 2.5 mg/3 mL 2.5 mg (3 mL) inhalation Q4-6H PRN 07/03/21 (0.083 %) solution for nebulization shortness of breath or wheezing #180 mL albuterol sulfate 90 mcg/actuation 2 inh inhalation Q6-8H PRN 07/03/21 aerosol inhaler shortness of breath or wheezing #8.5 grams ipratropium 0.5 mg-albuterol 3 mg 3 ml inhalation Q4-6H PRN 07/03/21 (2.5 mg base)/3 mL nebulization shortness of breath or wheezing soln #180 mL omalizumab 150 mg subcutaneous 300 mg subcut Q4W 28 days #2 ea 09/26/21 solution (Xolair) prednisone 20 mg tablet 40 mg PO DAILY #10 tabs 11/05/21 albuterol sulfate 2.5 mg/3 mL 2.5 mg (3 mL) inhalation Q4-6H PRN 03/08/22 (0.083 %) solution for nebulization shortness of breath or wheezing #180 mL dexamethasone 6 mg tablet 6 mg PO DAILY #7 tabs 03/08/22 (Decadron) prednisone 50 mg tablet 50 mg PO DAILY 4 days #4 tabs 03/19/22 prednisone 20 mg tablet 60 mg PO DAILY #12 tabs 04/09/22 albuterol sulfate 2.5 mg/0.5 mL 5 mg inhalation Q4H PRN shortness 05/09/22 solution for nebulization of breath or wheezing #30 ea albuterol sulfate 90 mcg/actuation 2 puff inhalation Q4-6H PRN 05/09/22 aerosol inhaler shortness of breath or wheezing #6.7 grams prednisone 20 mg tablet 40 mg PO DAILY 5 days #10 tabs 05/09/22 <Kathleen Felix MD - Last Filed: 05/09/22 19:49> Allergies/Adverse Reactions: Allergies Allergy/AdvReac Type Severity Reaction Status Date / Time No Known Allergies Allergy Verified 09/01/21 14:50 <Kathleen Felix MD - Last Filed: 05/09/22 19:49> Review of Systems Review of Systems: Constitutional: No Weight loss, No Fever, No Chills ENT/Mouth: No Ear Pain, No Nasal Congestion, No Sinus Pain, No Hoarseness, No sore throat, No Rhinorrhea, No Swallowing Difficulty Cardiovascular: + Chest discomfort w/ coughing, + SOB Respiratory: + Cough, No Sputum, + Wheezing Gastrointestinal: No Nausea, No Vomiting, No Diarrhea, No Constipation, No Abdominal pain Genitourinary: No Dysuria, No Urinary Frequency, No Flank Pain Musculoskeletal: No joint pain, No Myalgias, No Joint Swelling Skin: No Skin Lesions, No rash Neuro: No Weakness, No Numbness <MALU Torres - Last Filed: 05/09/22 23:55> Yes all other systems are reviewed and are negative <MALU Torres - Last Filed: 05/09/22 23:55> Constitutional: Constitutional: Reports as per HPI <MALU Torres - Last Filed: 05/09/22 23:55> [facility] Past Medical History Attestation statement: The following information was validated with the patient. <MALU Torres - Last Filed: 05/09/22 23:55> Medical History: Medical History Asthma <Kathleen Felix MD - Last Filed: 05/09/22 19:49> Social History Social History: Social History Alcohol intake: never Patient Tobacco Use Status: Never used Tobacco Advance Directives: No Advance Directives Information Provided: Yes <Kathleen Felix MD - Last Filed: 05/09/22 19:49> Physical Exam Vital Signs: Vital Signs: Last Vital Signs Temp 97.6 F 05/09/22 19:47 Pulse 93 05/09/22 23:01 Resp 18 05/09/22 23:01 Pulse Ox 99 05/09/22 19:47 O2 Del Method 05/09/22 19:47 BMI result Body Mass Index 32.3 <Kathleen Felix MD - Last Filed: 05/09/22 19:49> Vital Signs: Last Vital Signs Temp 97.6 F 05/09/22 19:47 Pulse 93 05/09/22 23:01 Resp 18 05/09/22 23:01 Pulse Ox 99 05/09/22 19:47 O2 Del Method 05/09/22 19:47 BMI result Body Mass Index 32.3 <MALU Torres - Last Filed: 05/09/22 23:55> Const: General: healthy appearing and no acute distress <MALU Torres - Last Filed: 05/09/22 23:55> Orientation/consciousness: patient oriented x3 <MALU Torres - Last Filed: 05/09/22 23:55> Limitations: no limitations <MALU Torres - Last Filed: 05/09/22 23:55> HEENT: Head: Yes normal to inspection <MALU Torres - Last Filed: 05/09/22 23:55> Ears: hearing grossly normal bilaterally <MALU Torres - Last Filed: 05/09/22 23:55> General nose exam: Normal external nose present <MALU Torres - Last Filed: 05/09/22 23:55> Face and sinus: Yes normal facial exam <MALU Torres - Last Filed: 05/09/22 23:55> Eyes: General: appearance normal, both eyes and all related structures <MALU Torres - Last Filed: 05/09/22 23:55> EOM: EOMs intact bilaterally <MALU Torres - Last Filed: 05/09/22 23:55> Neck: Neck: Yes normal visual inspection and Yes no lymphadenopathy <MALU Torres - Last Filed: 05/09/22 23:55> Chest: Chest palpation & inspection: normal inspection of the chest <MALU Torres - Last Filed: 05/09/22 23:55> Resp: Effort & Inspection: able to speak in complete sentences, audible wheezes, Actively coughing Quality: dry and not labored <MALU Torres - Last Filed: 05/09/22 23:55> Auscultation: no crackles, no rhonchi and wheezes expiratory wheezes and throughout <Mary Quiroga PA - Last Filed: 05/09/22 23:55> Cardio: Rate: tachycardic <Mary Quiroga PA - Last Filed: 05/09/22 23:55> Rhythm: regular rhythm <Mary Quiroga PA - Last Filed: 05/09/22 23:55> Heart sounds: S1 normal heart sound present and S2 normal heart sound present <Mary Poulcindy PA - Last Filed: 05/09/22 23:55> Peripheral pulses: Peripheral pulses 2+ throughout <Mary Quiroga PA - Last Filed: 05/09/22 23:55> GI: Inspection: Yes normal to inspection <Mary Quiroga PA - Last Filed: 05/09/22 23:55> Palpation (GI): Soft to palpation, not firm, nontender, no guarding and not rigid <Mary Quiroga PA - Last Filed: 05/09/22 23:55> Skin: General skin exam: no rashes or lesions noted <Mary Quiroga PA - Last Filed: 05/09/22 23:55> Rashes: no rashes <Mary Quiroga PA - Last Filed: 05/09/22 23:55> Wounds: no wounds <Mary Quiroga PA - Last Filed: 05/09/22 23:55> Neuro: General: patient oriented x3 <Mary Quiroga PA - Last Filed: 05/09/22 23:55> Gait exam (Neuro): Normal gait present <Mary Quiroga PA - Last Filed: 05/09/22 23:55> Extrem: General: Yes normal to inspection, Yes no pedal edema and Yes no calf tenderness <Mary Quiroga PA - Last Filed: 05/09/22 23:55> Course Course Course Narrative: Patient is a 22-year-old female not vaccinated for COVID. No history of COVID infection in the past. Presented today with having coughing shortness of breath symptoms started about an hour ago. Has a history of asthma. Patient does not think she is . Her menstruation is normal timing and duration. Patient had been to the emergency department for asthma in the past. Never been intubated. Nebs steroids ordered. Patient is being bring back to the ED <Kathleen Felix MD - Last Filed: 05/09/22 19:49> Patient is a 22-year-old female not vaccinated for COVID. No history of COVID infection in the past. Presented today with having coughing shortness of breath symptoms started about an hour ago. Has a history of asthma. Patient does not think she is . Her menstruation is normal timing and duration. Patient had been to the emergency department for asthma in the past. Never been intubated. Nebs steroids ordered. Patient is being bring back to the ED -COVID-19/influenza/RSV negative -2226--on re-evaluation patient with better air movement, still mild residual end-expiratory wheeze will give additional DuoNeb -2325--on re-evaluation lungs CTA. Patient reports symptomatic improvement. Results discussed with patient including worrisome signs and symptoms and strict return precautions, and when to return to the emergency department. They verbalized understanding and feel safe for discharge at this time. <MALU Torres - Last Filed: 05/09/22 23:55> Medications Administered Discontinued Medications Generic Name Dose Route Start Last Admin Trade Name Rollyq PRN Reason Stop Dose Admin Albuterol Sulfate 2.5 mg 05/09/22 19:46 05/09/22 20:06 Albuterol Sulfate (0.083%) 2.5 Mg/3 Ml Vial.Neb INHALE 05/09/22 19:47 2.5 mg ONCE ONE Administration Albuterol Sulfate 2.5 mg/ 5 mg 05/09/22 21:33 05/09/22 21:46 Albuterol Sulfate 2.5 mg INHALE 05/09/22 21:34 5 mg ONCE ONE Administration Albuterol Sulfate 7.5 mg/ 10 mg 05/09/22 22:11 05/09/22 23:00 Albuterol Sulfate 2.5 mg INHALE 05/09/22 22:12 10 mg ONCE ONE Administration Albuterol/Ipratropium 3 ml 05/09/22 19:46 05/09/22 20:04 Albuterol/Iprat 2.5/0.5mg 3 Ml Ampul.Neb INHALE 05/09/22 19:47 3 ml ONCE ONE Administration Albuterol/Ipratropium 3 ml 05/09/22 21:04 05/09/22 21:48 Albuterol/Iprat 2.5/0.5mg 3 Ml Ampul.Neb INHALE 05/09/22 21:05 3 ml ONCE ONE Administration Benzonatate 100 mg 05/09/22 21:34 05/09/22 21:43 Benzonatate 100 Mg Capsule PO 05/09/22 21:35 100 mg ONCE ONE Administration Prednisone 60 mg 05/09/22 19:46 05/09/22 19:57 Prednisone 20 Mg Tablet PO 05/09/22 19:47 60 mg ONCE ONE Administration <Kathleen Felix MD - Last Filed: 05/09/22 19:49> Medications Administered Discontinued Medications Generic Name Dose Route Start Last Admin Trade Name Freq PRN Reason Stop Dose Admin Albuterol Sulfate 2.5 mg 05/09/22 19:46 05/09/22 20:06 Albuterol Sulfate (0.083%) 2.5 Mg/3 Ml Vial.Neb INHALE 05/09/22 19:47 2.5 mg ONCE ONE Administration Albuterol Sulfate 2.5 mg/ 5 mg 05/09/22 21:33 05/09/22 21:46 Albuterol Sulfate 2.5 mg INHALE 05/09/22 21:34 5 mg ONCE ONE Administration Albuterol Sulfate 7.5 mg/ 10 mg 05/09/22 22:11 05/09/22 23:00 Albuterol Sulfate 2.5 mg INHALE 05/09/22 22:12 10 mg ONCE ONE Administration Albuterol/Ipratropium 3 ml 05/09/22 19:46 05/09/22 20:04 Albuterol/Iprat 2.5/0.5mg 3 Ml Ampul.Neb INHALE 05/09/22 19:47 3 ml ONCE ONE Administration Albuterol/Ipratropium 3 ml 05/09/22 21:04 05/09/22 21:48 Albuterol/Iprat 2.5/0.5mg 3 Ml Ampul.Neb INHALE 05/09/22 21:05 3 ml ONCE ONE Administration Benzonatate 100 mg 05/09/22 21:34 05/09/22 21:43 Benzonatate 100 Mg Capsule PO 05/09/22 21:35 100 mg ONCE ONE Administration Prednisone 60 mg 05/09/22 19:46 05/09/22 19:57 Prednisone 20 Mg Tablet PO 05/09/22 19:47 60 mg ONCE ONE Administration <MALU Torres - Last Filed: 05/09/22 23:55> Medical Decision Making Medical Decision Making MDM Narrative: 22 yo female w/ PMHx significant for asthma presenting to ED c/o one hour of cough, SOB, and wheezing unresolved with albuterol rescue inhaler at home. On exam tachycardic likely from using albuterol [employer], expiratory wheeze noted throughout, talking in complete sentences, no calf tenderness/pedal edema. Concern for asthma exacerbation. Lower suspicion for pneumonia/ACS or PE. Rule out viral syndrome Plan: CXR, COVID 19/influenza/RSV testing, p.o. prednisone, DuoNeb <MALU Torres - Last Filed: 05/09/22 23:55> Differential Diagnoses: Differential diagnosis (as above) <MALU Torres - Last Filed: 05/09/22 23:55> Lab Attestation: I reviewed the patient's lab results. <MLAU Torres - Last Filed: 05/09/22 23:55> Independent interpretation of EKG, rhythm strip, radiology study: Independent interp EKG,rhythm strip, radiology study I performed an independent interpretation of the: Plain X-Ray My interpretation is unremarkable <MALU Torres - Last Filed: 05/09/22 23:55> Discharge Plan Discharge Clinical Impression: Asthma with exacerbation <Kathleen Felix MD - Last Filed: 05/09/22 19:49> Patient Disposition: Home, Self-Care <Kathleen Felix MD - Last Filed: 05/09/22 19:49> Instructions: Asthma (ED) <Kathleen Felix MD - Last Filed: 05/09/22 19:49> Additional Instructions: your x-ray was unremarkable. You tested negative for COVID-19, the flu, and RSV. Were having asthma exacerbation Continue to use her inhalers at home. Please use your nebulizer machine. In addition take prednisone Follow up with her doctor If symptoms persist or worsen return to the emergency department <Kathleen Felix MD - Last Filed: 05/09/22 19:49> Prescriptions: New prednisone 20 mg tablet 40 mg PO DAILY 5 Days Qty: 10 0RF albuterol sulfate 90 mcg/actuation HFA aerosol inhaler 2 puff inhalation Q4-6H PRN (Reason: shortness of breath or wheezing) Qty: 6.7 0RF albuterol sulfate 2.5 mg/0.5 mL solution for nebulization 5 mg inhalation Q4H PRN (Reason: shortness of breath or wheezing) Qty: 30 0RF No Action Advair HFA 115-21 mcg/actuation HFA aerosol inhaler 2 puff inhalation BID 30 Days Qty: 1 6RF Rx Instructions: administer with spacer Xolair 150 mg recon soln 300 mg subcut Q4W 28 Days Qty: 2 12RF Rx Instructions: requires multiple injection sites; do not exceed 150 mg per injection site dexamethasone [Decadron] 6 mg tablet 6 mg PO DAILY Qty: 7 0RF albuterol sulfate 2.5 mg /3 mL (0.083 %) solution for nebulization 2.5 mg inhalation Q4-6H PRN (Reason: shortness of breath or wheezing) Qty: 180 0RF prednisone 50 mg tablet 50 mg PO DAILY 4 Days Qty: 4 0RF albuterol sulfate 90 mcg/actuation HFA aerosol inhaler 2 inh inhalation Q6-8H PRN (Reason: shortness of breath or wheezing) Qty: 8.5 0RF ipratropium-albuterol 0.5 mg-3 mg(2.5 mg base)/3 mL solution for nebulization 3 ml inhalation Q4-6H PRN (Reason: shortness of breath or wheezing) Qty: 180 0RF albuterol sulfate 2.5 mg /3 mL (0.083 %) solution for nebulization 2.5 mg inhalation Q4-6H PRN (Reason: shortness of breath or wheezing) Qty: 180 0RF prednisone 20 mg tablet 40 mg PO DAILY Qty: 10 0RF prednisone 20 mg tablet 60 mg PO DAILY Qty: 12 0RF <Kathleen Felix MD - Last Filed: 05/09/22 19:49> Referrals: [facility] [Primary Care Provider] - <Kathleen Felix MD - Last Filed: 05/09/22 19:49> Stand Alone Forms: Work/School Release <Kathleen Felix MD - Last Filed: 05/09/22 19:49>
[2022-05-09] MEDS: predniSONE 20 MG TABLET 60 MG PO (19:57)
[2022-05-09] MEDS: Albuterol/Iprat 2.5/0.5MG 3 ML AMPUL.NEB INHALE ×2 (20:04→21:48)
[2022-05-09] MEDS: Albuterol Sulfate (0.083%) 2.5 MG/3 ML VIAL.NEB INHALE (20:06)
[2022-05-09 20:07] VITALS: PULSE 107; RESP 20; O2SAT 94
--- NOTE | 2022-05-09 20:11 | PC.NURSE ---
patient brought from triage to [facility]. skin pale, warm, dry, resp even and labored. sitting upright on stretcher in tripod position. i/e wheezing throughout. IV established, branding specialist in place. ST via tele. medicated as ordered. RT to bedside for tx.
[2022-05-09 20:45] LABS: Influenza A PCR NEGATIVE (Negative); Influenza B PCR NEGATIVE (Negative); Resp Syncy Virus RNA Qual PCR NEGATIVE (Negative); SARS COV2 PCR INHOUSE NEGATIVE (Negative)
[2022-05-09] MEDS: Benzonatate 100 MG CAPSULE PO (21:43)
[2022-05-09 21:46] VITALS: PULSE 95; RESP 18; O2SAT 97
[2022-05-09] MEDS: Albuterol Sulfate 2.5 MG, Albuterol Sulfate (0.083%) 2.5 MG 5 MG INHALE (21:46)
[2022-05-09] MEDS: Albuterol Sulfate 7.5 MG, Albuterol Sulfate (0.083%) 2.5 MG 10 MG INHALE (23:00)
[2022-05-09 23:01] VITALS: PULSE 93; RESP 18; O2SAT 95
[2022-05-10 00:05] VITALS: BP 104/55; PULSE 99; RESP 16; O2SAT 96
== END 2022-05-10 00:11 | disposition home or self-care (01) ==
PROVIDERS: Emergency Medicine Emergency Medical Services; Emergency Provider Internal Medicine
DX: J45.901 Unspecified asthma with (acute) exacerbation (principal); R06.02 Shortness of breath; R05.9 Cough, unspecified; Z20.822 Contact with and (suspected) exposure to COVID-19; Z79.899 Other long term (current) drug therapy
CPT/HCPCS: 0241U; 71045; 94640; 99284; 99285

== ENCOUNTER 2022-05-18 21:52 | Emergency (ER) | payer MEDICAID, SELFPAY ==
--- NOTE | ~2022-05-18 | XR_ITS ---
EXAMINATION: PORTABLE CHEST 1 VIEW CLINICAL INFORMATION: sob . COMPARISON: 05/09/2022. TECHNIQUE: Portable frontal view of the chest was obtained. FINDINGS: The lungs are well expanded. No focal infiltrate, effusion, edema, or pneumothorax. Cardiac and mediastinal silhouettes are within normal limits for technique. No acute bony abnormality seen. XR/XR chest 1V IMPRESSION: No evidence of acute disease.
[2022-05-18 21:55] VITALS: BP 123/75; PULSE 122; RESP 28; TEMP 36.4; O2SAT 94; BMI 31.9
[2022-05-18] MEDS: Albuterol Sulfate (0.083%) 2.5 MG/3 ML VIAL.NEB 10 MG INHALE (22:08)
[2022-05-18 22:13] LABS: MANUAL DIFF FLAG NO
[2022-05-18 22:15] LABS: Basophils Absolute Auto 0.1 X10*3/uL (0.0-0.2); Basophils Percent Auto 0.5 % (0-2); Eosinophils Absolute Auto 0.5 X10*3/uL (0.0-0.4); Eosinophils Percent Auto 4.1 % (0-4); Hematocrit 38.9 % (37.0-47.0); Hemoglobin 13.3 g/dl (12.0-16.0); Imm Gran Abs Auto 0.04 X10*3/uL (0.00-0.03); Imm Gran Pct Auto 0.4 % (0.0-0.4); Lymphocytes Percent Auto 27.7 % (20-40); Mean Corpuscular HGB Conc 34.2 g/dl (31.0-35.0); Mean Corpuscular Hemoglobin 28.9 pg (27.0-33.0); Mean Corpuscular Volume 84.6 fL (80.0-98.0); Mean Platelet Volume 9.4 fL (9.4-12.3); Monocytes Absolute Auto 0.8 X10*3/uL (0.1-1.2); Monocytes Percent Auto 7.7 % (2-11); Neutrophils Absolute Auto 6.5 x10*3/uL (2.0-8.3); Neutrophils Percent Auto 59.6 % (45-73); Platelet Count 270 X10*3/uL (160-400); Red Cell Distribution Width 12.5 % (11.0-16.0); White Blood Count 10.9 X10*3/uL (4.8-10.8)
[2022-05-18] MEDS: methylPREDNISolone Sod Succ 125 MG/2 ML VIAL IVPUSH (22:17)
[2022-05-18] MEDS: Magnesium Sulfate/H2O 2 GM/50 ML PIGGYBACK IV (22:18)
[2022-05-18 22:35] LABS: Anion Gap 16 (12-20); Blood Urea Nitrogen 10 mg/dL (9-16); Calcium 9.2 mg/dL (8.4-10.2); Carbon Dioxide 25 mmol/L (22-29); Chloride 105 mmol/L (96-108); Creatinine Clr Calc Pharmacy 117.7; Estimated Glomerular Filt Rate > 60; Glucose Random 110 mg/dL (60-115); Potassium 3.5 mmol/L (3.3-5.1); Sodium 142 mmol/L (135-145)
[2022-05-18 22:56] LABS: Influenza A PCR NEGATIVE (Negative); Influenza B PCR NEGATIVE (Negative); Resp Syncy Virus RNA Qual PCR NEGATIVE (Negative); SARS COV2 PCR INHOUSE NEGATIVE (Negative)
[2022-05-18 23:59] VITALS: BP 124/67; PULSE 107; RESP 20; TEMP 36.7; O2SAT 95
[2022-05-19] MEDS: Albuterol Sulfate (0.083%) 2.5 MG/3 ML VIAL.NEB 10 MG INHALE (00:04)
--- NOTE | 2022-05-19 00:04 | ED_ITS ---
HPI - SOB/Dyspnea General Chief Complaint: Dyspnea Stated Complaint: sob asthma Time Seen by Provider: 05/18/22 21:56 Source: patient Mode of arrival: ambulatory Limitations: no limitations History of Present Illness HPI Narrative: Patient comes to the emergency room complaining of shortness of breath. Patient complaining of an asthma exacerbation. Patient has been using her albuterol but today has not been working. Patient too short of breath to give any history, speaking in 1 word work sentence. Patient has recurrent asthma exacerbations. Patient denies any recent illnesses Related Data Previous Rx's Medication Instructions Recorded fluticasone propionate 115 2 puff inhalation BID 30 days #1 ea 11/19/20 mcg-salmeterol 21 mcg/actuation HFA inhaler (Advair HFA) albuterol sulfate 2.5 mg/3 mL 2.5 mg (3 mL) inhalation Q4-6H PRN 07/03/21 (0.083 %) solution for nebulization shortness of breath or wheezing #180 mL albuterol sulfate 90 mcg/actuation 2 inh inhalation Q6-8H PRN 07/03/21 aerosol inhaler shortness of breath or wheezing #8.5 grams ipratropium 0.5 mg-albuterol 3 mg 3 ml inhalation Q4-6H PRN 07/03/21 (2.5 mg base)/3 mL nebulization shortness of breath or wheezing soln #180 mL omalizumab 150 mg subcutaneous 300 mg subcut Q4W 28 days #2 ea 09/26/21 solution (Xolair) prednisone 20 mg tablet 40 mg PO DAILY #10 tabs 11/05/21 albuterol sulfate 2.5 mg/3 mL 2.5 mg (3 mL) inhalation Q4-6H PRN 03/08/22 (0.083 %) solution for nebulization shortness of breath or wheezing #180 mL dexamethasone 6 mg tablet 6 mg PO DAILY #7 tabs 03/08/22 (Decadron) prednisone 50 mg tablet 50 mg PO DAILY 4 days #4 tabs 03/19/22 prednisone 20 mg tablet 60 mg PO DAILY #12 tabs 04/09/22 albuterol sulfate 2.5 mg/0.5 mL 5 mg inhalation Q4H PRN shortness 05/09/22 solution for nebulization of breath or wheezing #30 ea albuterol sulfate 90 mcg/actuation 2 puff inhalation Q4-6H PRN 05/09/22 aerosol inhaler shortness of breath or wheezing #6.7 grams prednisone 20 mg tablet 40 mg PO DAILY 5 days #10 tabs 05/09/22 prednisone 50 mg tablet 50 mg PO DAILY #5 tabs 05/19/22 Allergies Allergy/AdvReac Type Severity Reaction Status Date / Time No Known Allergies Allergy Verified 09/01/21 14:50 Review of Systems Review of Systems: Constitutional : No Weight loss, No Fever, No Chills, No Night Sweats, No Fatigue, No Malaise ENT/Mouth : No Hearing loss, No Ear Pain, No Nasal Congestion, No Sinus Pain, No Hoarseness, No sore throat, No Rhinorrhea, No Swallowing Difficulty Eyes: No Eye Pain, No Swelling, No Redness, No Foreign Body, No Discharge, No Vision Changes Cardiovascular : No Chest Pain, No SOB, No Dyspnea on Exertion, No Orthopnea, No Edema, No Palpitations Respiratory : Complaining of cough, wheezing and shortness of breath Gastrointestinal : No Nausea, No Vomiting, No Diarrhea, No Constipation, No abdominal Pain, No Hematochezia, No Melena Genitourinary : no irregular bleeding, No Dysuria, No Urinary Frequency, No Hematuria, No Urinary Incontinence, No Urgency, No Flank Pain, No Urinary Flow Changes, No Hesitancy Musculoskeletal : No joint pain, No Myalgias, No Joint Swelling Skin : No Skin Lesions, No rash Neuro : No Weakness, No Numbness, No Paresthesias, No Loss of Consciousness, No Dizziness, No Headache Psych : No Anxiety/Panic, No Depression, No SI/HI/AH/VH, No Social Issues, Heme/Lymph: No Bruising, No Bleeding,No Lymphadenopathy Endocrine : No Polyuria, No Polydipsia, No Temperature Intolerance PMFSH Past Medical History Medical History Asthma Social History Social History Alcohol intake: never Patient Tobacco Use Status: Never used Tobacco Advance Directives: No Advance Directives Information Provided: No Physical Exam Vital Signs: Vital Signs: Last Vital Signs Temp 98.0 F 05/18/22 23:59 Pulse 107 H 05/18/22 23:59 Resp 20 05/18/22 23:59 BP 124/67 05/18/22 23:59 Pulse Ox 95 05/18/22 23:59 O2 Del Method 05/18/22 23:59 BMI result Body Mass Index 31.9 Const: Other: Appearance: Alert. Oriented X3. In moderate respiratory distress Eyes: Pupils equal, round and reactive to light. ENT: Pharynx normal. Neck: Normal inspection. Neck supple. No lymph nodes noted. No crepitus CVS: Normal heart rate and rhythm. Pulses normal. Normal S1 and S2 Respiratory: Tachypneic, wheezing, decreased air movement Abdomen: Soft and nontender. No rigidity. No distention. Skin: Skin warm and dry. Normal skin color. Normal skin turgor. Extremities: No lower extremity edema. No Lacerations. No Rash Neuro: Oriented X 3. No motor deficit. No sensory deficit. Moving all extremities. No slurred speech. CN 2 through 12 grossly intact Psych: calm, cooperative, normal affect Course Course Course Narrative: On arrival, patient was given an hour long neb, Solu-Medrol Chest x-rays unremarkable After initial treatment, patient still wheezing. Saturating 95%, no speaking in full sentences. Patient receiving 1 more nebulization treatment. Patient already emergency room, a saturation 94% on room air. Patient feeling well, but short of breath, no wheezing. Patient states that she has enough albuterol at home, both palms and for her inhaler. 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 I discussed with the patient to return to emergency room if she has any issues Medications Administered Discontinued Medications Generic Name Dose Route Start Last Admin Trade Name Freq PRN Reason Stop Dose Admin Albuterol Sulfate 10 mg 05/18/22 21:56 05/18/22 22:08 Albuterol Sulfate (0.083%) 2.5 Mg/3 Ml Vial.Neb INHALE 05/18/22 21:57 10 mg ONCE ONE Administration Albuterol Sulfate 10 mg 05/18/22 23:59 05/19/22 00:04 Albuterol Sulfate (0.083%) 2.5 Mg/3 Ml Vial.Neb INHALE 05/19/22 00:00 10 mg ONCE ONE Administration Magnesium Sulfate 2 gm in 50 mls @ 25 mls/hr 05/18/22 21:56 05/19/22 00:20 Magnesium Sulfate/H2o IV 05/18/22 23:55 Infused ONCE ONE Infusion Methylprednisolone Sodium Succinate 125 mg 05/18/22 21:56 05/18/22 22:17 Methylprednisolone Sod Succ 125 Mg/2 Ml Vial IVPUSH 05/18/22 21:57 125 mg ONCE ONE Administration Medical Decision Making Differential Diagnosis Differential Diagnoses: The differential diagnosis associated with the presentation includes (Asthma exacerbation, pneumonia, bronchitis) Admission/Observation Consideration of admission/observation: Escalation of care including admission/observation considered (Patient was significantly tachypneic, had decreased breath sounds and wheezing, initially, observation/admission was considered upon arrival. However, after the initial treatment, patient improved significantly. Patient receiving 1 more does) Lab Data MDM Lab Attestation statement: I reviewed the patient's lab results. Result Diagrams: 05/18/22 22:09 05/18/22 22:09 Labs: Lab Results 05/18/22 05/18/22 05/18/22 Range/Units 22:09 22:09 22:09 WBC 10.9 H (4.8-10.8) X10*3/uL RBC 4.60 (4.20-5.50) X10*6/uL Hgb 13.3 (12.0-16.0) g/dl Hct 38.9 (37.0-47.0) % MCV 84.6 (80.0-98.0) fL MCH 28.9 (27.0-33.0) pg MCHC 34.2 (31.0-35.0) g/dl RDW 12.5 (11.0-16.0) % Plt Count 270 (160-400) X10*3/uL MPV 9.4 (9.4-12.3) fL Immature Gran % (Auto) 0.4 (0.0-0.4) % Neut % (Auto) 59.6 (45-73) % Lymph % (Auto) 27.7 (20-40) % Boundary % (Auto) 7.7 (2-11) % Eos % (Auto) 4.1 H (0-4) % Baso % (Auto) 0.5 (0-2) % Lymph # (Auto) 3.0 (1.2-4.9) X10*3/uL Boundary # (Auto) 0.8 (0.1-1.2) X10*3/uL Eos # (Auto) 0.5 H (0.0-0.4) X10*3/uL Baso # (Auto) 0.1 (0.0-0.2) X10*3/uL Abs Immat Gran (auto) 0.04 H (0.00-0.03) X10*3/uL Absolute Neuts (auto) 6.5 (2.0-8.3) x10*3/uL Absolute Nucleated RBC 0.000 (0.0-0.012) X10*3/uL Nucleated RBC % (auto) 0.0 (0.0-0.2) /100WBC Sodium 142 (135-145) mmol/L Potassium 3.5 (3.3-5.1) mmol/L Chloride 105 (96-108) mmol/L Carbon Dioxide 25 (22-29) mmol/L Anion Gap 16 (12-20) BUN 10 (9-16) mg/dL Creatinine 0.81 (0.5-1.4) mg/dL Estim Creat Clear Calc 117.7 Estimated GFR > 60 Random Glucose 110 (60-115) mg/dL Calcium 9.2 (8.4-10.2) mg/dL Influenza Type A (PCR) NEGATIVE (Negative) Influenza Type B (PCR) NEGATIVE (Negative) RSV RNA Qual (PCR) NEGATIVE (Negative) SARS-CoV-2 RNA (RT-PCR) NEGATIVE (Negative) Independent Interpretation I performed an independent interpretation of an: Plain X-Ray (Chest x-ray, my interpretation, no infiltrates) Radiology Impression Discussion of test interpretation with radiology: I have reviewed the radiologist's reading. Radiologist Impression: The lungs are well expanded. No focal infiltrate, effusion, edema, or pneumothorax. Cardiac and mediastinal silhouettes are within normal limits for technique. No acute bony abnormality seen. XR/XR chest 1V IMPRESSION: No evidence of acute disease. Critical Care Time Critical Care Time Critical Care Time: Yes Total Critical Care Time: 30 Attestation: I have personally provided critical care time. Time includes review of lab data, radiology results, discussion with consultants, and monitoring for potential decompensation. Intervention performed as documented. Discharge Plan Discharge Clinical Impression: Asthma with exacerbation Patient Disposition: Home, Self-Care Instructions: Asthma (ED) Additional Instructions: Please follow-up with your primary care physician tomorrow. If you have any worsening or new symptoms, please return to the emergency room or call 911 Prescriptions: New prednisone 50 mg tablet 50 mg PO DAILY Qty: 5 0RF No Action Advair HFA 115-21 mcg/actuation HFA aerosol inhaler 2 puff inhalation BID 30 Days Qty: 1 6RF Rx Instructions: administer with spacer Xolair 150 mg recon soln 300 mg subcut Q4W 28 Days Qty: 2 12RF Rx Instructions: requires multiple injection sites; do not exceed 150 mg per injection site dexamethasone [Decadron] 6 mg tablet 6 mg PO DAILY Qty: 7 0RF albuterol sulfate 2.5 mg /3 mL (0.083 %) solution for nebulization 2.5 mg inhalation Q4-6H PRN (Reason: shortness of breath or wheezing) Qty: 180 0RF prednisone 50 mg tablet 50 mg PO DAILY 4 Days Qty: 4 0RF prednisone 20 mg tablet 40 mg PO DAILY 5 Days Qty: 10 0RF albuterol sulfate 90 mcg/actuation HFA aerosol inhaler 2 puff inhalation Q4-6H PRN (Reason: shortness of breath or wheezing) Qty: 6.7 0RF albuterol sulfate 2.5 mg/0.5 mL solution for nebulization 5 mg inhalation Q4H PRN (Reason: shortness of breath or wheezing) Qty: 30 0RF albuterol sulfate 90 mcg/actuation HFA aerosol inhaler 2 inh inhalation Q6-8H PRN (Reason: shortness of breath or wheezing) Qty: 8.5 0RF ipratropium-albuterol 0.5 mg-3 mg(2.5 mg base)/3 mL solution for nebulization 3 ml inhalation Q4-6H PRN (Reason: shortness of breath or wheezing) Qty: 180 0RF albuterol sulfate 2.5 mg /3 mL (0.083 %) solution for nebulization 2.5 mg inhalation Q4-6H PRN (Reason: shortness of breath or wheezing) Qty: 180 0RF prednisone 20 mg tablet 40 mg PO DAILY Qty: 10 0RF prednisone 20 mg tablet 60 mg PO DAILY Qty: 12 0RF
[2022-05-19 00:05] VITALS: O2SAT 92
--- NOTE | 2022-05-19 01:10 | PC.NURSE ---
Patient ambulated with Taylor, technical support specialist about 60 ft-patient maintained stable O2 Sat- 94%on RA, no dyspnea, no s/s of respiratory distress noted with ambulation. Dr. Shelton notified.
== END 2022-05-19 01:30 | disposition home or self-care (01) ==
PROVIDERS: Emergency Provider Emergency Medicine
DX: J45.901 Unspecified asthma with (acute) exacerbation (principal); Z20.822 Contact with and (suspected) exposure to COVID-19
CPT/HCPCS: 0241U; 71045; 80048; 85025; 94640; 96365; 96366; 96375; 99284; 99285; J2930; J3475

== ENCOUNTER 2022-05-26 15:08 | Emergency (ER) | payer MEDICAID, SELFPAY ==
[2022-05-26 15:09] VITALS: BP 140/81; PULSE 115; RESP 20; O2SAT 99; BMI 30.7
--- NOTE | 2022-05-26 15:13 | ECG_ITS ---
Test Reason : DYSPNEA Blood Pressure : / mmHG Vent. Rate : 094 BPM Atrial Rate : 094 BPM P-R Int : 140 ms QRS Dur : 084 ms QT Int : 374 ms P-R-T Axes : 058 053 043 degrees QTc Int : 467 ms Normal sinus rhythm with sinus arrhythmia Possible Left atrial enlargement Nonspecific ST abnormality Abnormal ECG When compared with ECG of 05-JAN-2020 21:40, No significant change was found Referred By: Generic ED Physician Electronically Signed By:Juan Oneil
--- NOTE | 2022-05-26 15:30 | PC.NURSE ---
patient a/ox4 . pearrla . breathing labored , use of auxiliary muscles . patient tripod position . O2 level 97 % on room air . wheezes noted throughout airway and tightness noted . patient placed on weight training instructor . R.T contacted . patient placed on weight training instructor . IV placed in left A.C . Solumedral IVP given and Magnesium as ordered . Skin pink warm and dry . patient aware of plan of care .
--- NOTE | 2022-05-26 15:31 | ED.SOB ---
HPI - SOB/Dyspnea General Chief Complaint: Dyspnea Stated Complaint: difficulty breathing Time Seen by Provider: 05/26/22 15:25 Source: patient Mode of arrival: ambulatory Limitations: no limitations History of Present Illness HPI Narrative: 22-year-old female with a history of asthma presents with wheezing and shortness of breath for the last 1 hour unrelieved with nebulizer at home. Patient reports that she is usually triggered by being sick, change in weather, stress. she denies any recent illnesses, fevers, coughs or colds. She did use nebulizer x3 at home with continued symptoms prompting her ER visit. No chest pain, fever, leg swelling or leg pain Related Data Previous Rx's Medication Instructions Recorded fluticasone propionate 115 2 puff inhalation BID 30 days #1 ea 11/19/20 mcg-salmeterol 21 mcg/actuation HFA inhaler (Advair HFA) albuterol sulfate 2.5 mg/3 mL 2.5 mg (3 mL) inhalation Q4-6H PRN 07/03/21 (0.083 %) solution for nebulization shortness of breath or wheezing #180 mL albuterol sulfate 90 mcg/actuation 2 inh inhalation Q6-8H PRN 07/03/21 aerosol inhaler shortness of breath or wheezing #8.5 grams ipratropium 0.5 mg-albuterol 3 mg 3 ml inhalation Q4-6H PRN 07/03/21 (2.5 mg base)/3 mL nebulization shortness of breath or wheezing soln #180 mL omalizumab 150 mg subcutaneous 300 mg subcut Q4W 28 days #2 ea 09/26/21 solution (Xolair) prednisone 20 mg tablet 40 mg PO DAILY #10 tabs 11/05/21 albuterol sulfate 2.5 mg/3 mL 2.5 mg (3 mL) inhalation Q4-6H PRN 03/08/22 (0.083 %) solution for nebulization shortness of breath or wheezing #180 mL dexamethasone 6 mg tablet 6 mg PO DAILY #7 tabs 03/08/22 (Decadron) prednisone 50 mg tablet 50 mg PO DAILY 4 days #4 tabs 03/19/22 prednisone 20 mg tablet 60 mg PO DAILY #12 tabs 04/09/22 albuterol sulfate 2.5 mg/0.5 mL 5 mg inhalation Q4H PRN shortness 05/09/22 solution for nebulization of breath or wheezing #30 ea albuterol sulfate 90 mcg/actuation 2 puff inhalation Q4-6H PRN 05/09/22 aerosol inhaler shortness of breath or wheezing #6.7 grams prednisone 20 mg tablet 40 mg PO DAILY 5 days #10 tabs 05/09/22 prednisone 50 mg tablet 50 mg PO DAILY #5 tabs 05/19/22 prednisone 20 mg tablet 60 mg PO DAILY #12 tabs 05/26/22 Allergies Allergy/AdvReac Type Severity Reaction Status Date / Time No Known Allergies Allergy Verified 09/01/21 14:50 Review of Systems Review of Systems: Yes all other systems are reviewed and are negative Constitutional: Constitutional: Reports no additional constitutional complaints, Denies body ache(s), Denies chills, Denies fever(s), Denies headache(s) and Denies weakness Eyes: Eyes: Reports no additional eye complaints and Denies change in vision ENT: Reports system reviewed and no additional complaints, except as documented, Denies dizziness, Denies headache(s), Denies nasal congestion, Denies nasal discharge and Denies neck pain Cardiovascular: Cardiovascular: Reports no additional cardiovascular complaints, Denies chest pain, Denies leg edema and Reports dyspnea Respiratory: Respiratory: Reports no additional respiratory complaints, Denies cough, Reports dyspnea and Reports wheezing Gastrointestinal: Gastrointestinal: Reports no additional gastrointestinal complaints, Denies abdominal pain, Denies diarrhea, Denies nausea and Denies vomiting Genitourinary: Genitourinary: Reports no additional female genitourinary complaints and Denies urinary incontinence Musculoskeletal: Musculoskeletal: Reports no additional musculoskeletal complaints, Denies back pain, Denies arthralgias, Denies joint swelling, Denies neck pain, Denies numbness and Denies tingling Integumentary/Breasts: Skin/Breast: Reports system reviewed and no additional complaints, except as docu and Denies rash Neurologic: Reports system reviewed and no additional complaints, except as documented, Denies Abnormal speech present, Denies dizziness, Denies headache(s), Denies numbness, Denies tingling and Denies weakness Allergic/Immunologic: Allergic/Immunologic: Reports wheezing PMFSH Past Medical History Attestation statement: The following information was validated with the patient. Source: old records reviewed and nursing notes reviewed Medical History Asthma Social History Social History Alcohol intake: never Patient Tobacco Use Status: Never used Tobacco Advance Directives: No Advance Directives Information Provided: No Patient : No Physical Exam Vital Signs: Vital Signs: Last Vital Signs Pulse 108 H 05/26/22 15:46 Resp 13 05/26/22 15:46 BP 140/81 H 05/26/22 15:09 Pulse Ox 99 05/26/22 15:09 O2 Del Method 05/26/22 15:09 BMI result Body Mass Index 30.7 Const: Other: leaning forward, tachypneic, pursed lip breathing, speaking short phrases General: alert and in distress Orientation/consciousness: patient oriented x3 Limitations: no limitations HEENT: Head: Yes normal to inspection Ears: hearing grossly normal bilaterally General nose exam: Normal external nose present Face and sinus: Yes normal facial exam Mouth: Normal oral and palatal mucosa present Throat: Yes posterior oropharynx normal Eyes: General: appearance normal, both eyes and all related structures Pupils: Equal, round and reactive pupils present Neck: Neck: Yes normal visual inspection Chest: Chest palpation & inspection: normal inspection of the chest Resp: Effort & Inspection: labored, pursed lip breathing, respiratory distress and tachypneic Auscultation: wheezes ( inspiratory and expiratory wheezing throughou) Cardio: Rate: regular rate Rhythm: regular rhythm Peripheral pulses: Peripheral pulses 2+ throughout GI: Inspection: Yes normal to inspection Palpation (GI): Soft to palpation and nontender Auscultation: normal bowel sounds Back/Spine/Pelvis: Thoracic/Lumbar Spine: thoracic and lumbar spine normal to inspection Skin: General skin exam: no rashes or lesions noted Neuro: General: patient oriented x3, no focal motor deficits and normal sensation to monofilament Cranial nerves: Yes Equal, round and reactive pupils present Cognition (Neuro): normal cognition Speech: No Abnormal speech present Gait exam (Neuro): Normal gait present Motor exam (neuro): 5/5 motor strength present throughout Extrem: General: Yes normal to inspection, Yes no pedal edema and Yes no calf tenderness Course Course Course Narrative: +itching after solumedrol/magnesium. No obvious rash. Given benadryl IV Reevaluation(s) Reevaluation #1: testing for flu, COVID, RSV are negative. Chest x-ray shows no signs of infection. Patient feeling significantly improved and repeat lung exam clear lungs throughout. Vitals are stable. Patient is mildly tachycardic with heart rate 120 but received multiple nebulizers prior to arrival as well as albuterol here. Likely secondary to albuterol. Patient will be discharged home on prednisone course. Recommend she follow-up with her pathology tech at [facility] pulmonology. Reviewed worrisome signs and symptoms of when to return to the emergency room. Comfortable plan for discharge home. Medications Administered Discontinued Medications Generic Name Dose Route Start Last Admin Trade Name Freq PRN Reason Stop Dose Admin Albuterol Sulfate 7.5 mg/ 0 mg 05/26/22 15:30 05/26/22 15:45 Albuterol/Ipratropium 3 ml INHALE 05/26/22 15:31 7.5 each ONCE ONE Administration Diphenhydramine HCl 25 mg 05/26/22 15:51 05/26/22 15:55 Diphenhydramine Hcl 50 Mg/Ml Vial IVPUSH 05/26/22 15:52 25 mg ONCE ONE Administration Magnesium Sulfate 2 gm in 50 mls @ 25 mls/hr 05/26/22 15:28 05/26/22 17:43 Magnesium Sulfate/H2o IV 05/26/22 17:27 Infused ONCE ONE Infusion Methylprednisolone Sodium Succinate 125 mg 05/26/22 15:28 05/26/22 15:35 Methylprednisolone Sod Succ 125 Mg/2 Ml Vial IVPUSH 05/26/22 15:29 125 mg ONCE ONE Administration Medical Decision Making Medical Decision Making [facility] Narrative: 22-year-old female with a history of asthma here with wheezing and shortness of breath for the last 1 hour unrelieved with home medications. On arrival patient is in respiratory distress, speaking short phrases, leaning forward, tachypneic with wheezing throughout. Patient is tachycardic. This is likely secondary to work of breathing. Oxygen saturation is normal. Will give albuterol 10 mg with ipatropium 0.5 mg, Solu-Medrol, magnesium IV. will check chest x-ray, viral testing, labs, EKG Differential Diagnosis Differential Diagnoses: The differential diagnosis associated with the presentation includes asthma exacerbation, viral syndrome Lab Data [facility] Lab Attestation statement: I reviewed the patient's lab results. Result Diagrams: 05/26/22 16:19 05/26/22 16:19 Labs: Lab Results 05/26/22 05/26/22 05/26/22 Range/Units 16:19 16:19 16:19 WBC 9.2 (4.8-10.8) X10*3/uL RBC 4.98 (4.20-5.50) X10*6/uL Hgb 14.2 (12.0-16.0) g/dl Hct 42.8 (37.0-47.0) % MCV 85.9 (80.0-98.0) fL MCH 28.5 (27.0-33.0) pg MCHC 33.2 (31.0-35.0) g/dl RDW 12.8 (11.0-16.0) % Plt Count 234 (160-400) X10*3/uL MPV 9.4 (9.4-12.3) fL Immature Gran % (Auto) 0.4 (0.0-0.4) % Neut % (Auto) 79.2 H (45-73) % Lymph % (Auto) 16.1 L (20-40) % [place] % (Auto) 2.6 (2-11) % Eos % (Auto) 1.0 (0-4) % Baso % (Auto) 0.7 (0-2) % Lymph # (Auto) 1.5 (1.2-4.9) X10*3/uL [place] # (Auto) 0.2 (0.1-1.2) X10*3/uL Eos # (Auto) 0.1 (0.0-0.4) X10*3/uL Baso # (Auto) 0.1 (0.0-0.2) X10*3/uL Abs Immat Gran (auto) 0.04 H (0.00-0.03) X10*3/uL Absolute Neuts (auto) 7.3 (2.0-8.3) x10*3/uL Absolute Nucleated RBC 0.000 (0.0-0.012) X10*3/uL Nucleated RBC % (auto) 0.0 (0.0-0.2) /100WBC Sodium 141 (135-145) mmol/L Potassium 3.4 (3.3-5.1) mmol/L Chloride 106 (96-108) mmol/L Carbon Dioxide 25 (22-29) mmol/L Anion Gap 13 (12-20) BUN 10 (9-16) mg/dL Creatinine 0.77 (0.5-1.4) mg/dL Estim Creat Clear Calc 125.6 Estimated GFR > 60 Random Glucose 131 H (60-115) mg/dL Calcium 9.1 (8.4-10.2) mg/dL Total Bilirubin 0.6 (0.0-1.0) mg/dL Direct Bilirubin 0.2 (0.0-0.5) mg/dL AST 15 (5-31) U/L ALT 14 (0-31) U/L Alkaline Phosphatase 49 (39-117) U/L Total Protein 6.9 (6.5-8.0) g/dL Albumin 4.4 (3.5-5.0) g/dL Influenza Type A (PCR) NEGATIVE (Negative) Influenza Type B (PCR) NEGATIVE (Negative) RSV RNA Qual (PCR) NEGATIVE (Negative) SARS-CoV-2 RNA (RT-PCR) NEGATIVE (Negative) Radiology Impression Discussion of test interpretation with radiology: I have reviewed the radiologist's reading. Radiologist Impression: I reviewed the radiologist's reading and independently interpreted the chest x-ray FINDINGS: Symmetrically expanded bilateral clear lung ceballos. The cardiac mediastinal silhouette is within normal limits. No evidence of any pleural effusion or pneumothorax. The visualized upper abdomen is unremarkable. No significant change. XR/XR chest 1V IMPRESSION: No radiographic evidence of acute cardiopulmonary disease, unchanged since 05/18/2022. ? Discharge Plan Discharge Clinical Impression: Asthma with exacerbation Patient Disposition: Home, Self-Care Instructions: Asthma (ED) Additional Instructions: continue your home medications follow-up with your pathology tech start your prednisone tomorrow Prescriptions: New prednisone 20 mg tablet 60 mg PO DAILY Qty: 12 0RF No Action Advair HFA 115-21 mcg/actuation HFA aerosol inhaler 2 puff inhalation BID 30 Days Qty: 1 6RF Rx Instructions: administer with spacer Xolair 150 mg recon soln 300 mg subcut Q4W 28 Days Qty: 2 12RF Rx Instructions: requires multiple injection sites; do not exceed 150 mg per injection site dexamethasone [Decadron] 6 mg tablet 6 mg PO DAILY Qty: 7 0RF albuterol sulfate 2.5 mg /3 mL (0.083 %) solution for nebulization 2.5 mg inhalation Q4-6H PRN (Reason: shortness of breath or wheezing) Qty: 180 0RF prednisone 50 mg tablet 50 mg PO DAILY 4 Days Qty: 4 0RF prednisone 20 mg tablet 40 mg PO DAILY 5 Days Qty: 10 0RF albuterol sulfate 90 mcg/actuation HFA aerosol inhaler 2 puff inhalation Q4-6H PRN (Reason: shortness of breath or wheezing) Qty: 6.7 0RF albuterol sulfate 2.5 mg/0.5 mL solution for nebulization 5 mg inhalation Q4H PRN (Reason: shortness of breath or wheezing) Qty: 30 0RF albuterol sulfate 90 mcg/actuation HFA aerosol inhaler 2 inh inhalation Q6-8H PRN (Reason: shortness of breath or wheezing) Qty: 8.5 0RF ipratropium-albuterol 0.5 mg-3 mg(2.5 mg base)/3 mL solution for nebulization 3 ml inhalation Q4-6H PRN (Reason: shortness of breath or wheezing) Qty: 180 0RF albuterol sulfate 2.5 mg /3 mL (0.083 %) solution for nebulization 2.5 mg inhalation Q4-6H PRN (Reason: shortness of breath or wheezing) Qty: 180 0RF prednisone 20 mg tablet 40 mg PO DAILY Qty: 10 0RF prednisone 20 mg tablet 60 mg PO DAILY Qty: 12 0RF prednisone 50 mg tablet 50 mg PO DAILY Qty: 5 0RF Referrals: Kalli Aguilera [Primary Care Provider] - 1 week
[2022-05-26 15:46] VITALS: PULSE 108; RESP 13; O2SAT 98
--- NOTE | 2022-05-26 15:57 | PC.NURSE ---
patient reports increased itching after neb treatment given 25mg Benadryl as ordered by provider . patient aware of plan of care .
[2022-05-26 16:26] LABS: MANUAL DIFF FLAG NO
[2022-05-26 16:29] LABS: Basophils Absolute Auto 0.1 X10*3/uL (0.0-0.2); Basophils Percent Auto 0.7 % (0-2); Eosinophils Absolute Auto 0.1 X10*3/uL (0.0-0.4); Hematocrit 42.8 % (37.0-47.0); Hemoglobin 14.2 g/dl (12.0-16.0); Imm Gran Abs Auto 0.04 X10*3/uL (0.00-0.03); Imm Gran Pct Auto 0.4 % (0.0-0.4); Lymphocytes Absolute Auto 1.5 X10*3/uL (1.2-4.9); Lymphocytes Percent Auto 16.1 % (20-40); Mean Corpuscular HGB Conc 33.2 g/dl (31.0-35.0); Mean Corpuscular Hemoglobin 28.5 pg (27.0-33.0); Mean Corpuscular Volume 85.9 fL (80.0-98.0); Mean Platelet Volume 9.4 fL (9.4-12.3); Monocytes Absolute Auto 0.2 X10*3/uL (0.1-1.2); Monocytes Percent Auto 2.6 % (2-11); Neutrophils Absolute Auto 7.3 x10*3/uL (2.0-8.3); Neutrophils Percent Auto 79.2 % (45-73); Platelet Count 234 X10*3/uL (160-400); Red Blood Count 4.98 X10*6/uL (4.20-5.50); Red Cell Distribution Width 12.8 % (11.0-16.0); White Blood Count 9.2 X10*3/uL (4.8-10.8)
[2022-05-26 16:52] LABS: Alanine Aminotransferase 14 U/L (0-31); Albumin Level 4.4 g/dL (3.5-5.0); Alkaline Phosphatase 49 U/L (39-117); Anion Gap 13 (12-20); Aspartate Amino Transferase 15 U/L (5-31); Bilirubin Direct 0.2 mg/dL (0.0-0.5); Bilirubin Total 0.6 mg/dL (0.0-1.0); Blood Urea Nitrogen 10 mg/dL (9-16); Calcium 9.1 mg/dL (8.4-10.2); Carbon Dioxide 25 mmol/L (22-29); Chloride 106 mmol/L (96-108); Creatinine Clr Calc Pharmacy 125.6; Estimated Glomerular Filt Rate > 60; Glucose Random 131 mg/dL (60-115); Potassium 3.4 mmol/L (3.3-5.1); Sodium 141 mmol/L (135-145); Total Protein 6.9 g/dL (6.5-8.0)
[2022-05-26 17:12] LABS: Influenza A PCR NEGATIVE (Negative); Influenza B PCR NEGATIVE (Negative); Resp Syncy Virus RNA Qual PCR NEGATIVE (Negative); SARS COV2 PCR INHOUSE NEGATIVE (Negative)
--- NOTE | 2022-05-26 17:43 | PC.NURSE ---
patients breathing improved after treatments and medication , wheezing and tightness has diminished . patient reports feeling much better . 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 patient is aware of plan of care .
== END 2022-05-26 18:35 | disposition home or self-care (01) ==
PROVIDERS: Student in an Organized Health Care Education/Training Program; Emergency Provider Internal Medicine; PCP Nurse Practitioner
DX: J45.901 Unspecified asthma with (acute) exacerbation (principal); Z20.828 Contact with and (suspected) exposure to other viral communicable diseases
CPT/HCPCS: 0241U; 36415; 71045; 80053; 82248; 85025; 93005; 94640; 96365; 96366; 96375; 99284; 99285; J1200; J2930; J3475

== ENCOUNTER 2022-08-05 19:00 | Emergency (ER) | payer MEDICAID, SELFPAY ==
[2022-08-05] VITALS (8 sets, daily range): BP systolic 136–152; BP diastolic 88–90; PULSE 90–119; RESP 16–32; TEMP 36.6–37.1; O2SAT 91–100; BMI 67.8
--- NOTE | ~2022-08-05 | XR_ITS ---
EXAMINATION: XR CHEST CLINICAL INFORMATION: Shortness of breath. COMPARISON: Chest radiograph 05/26/2022. TECHNIQUE: Frontal view of the chest was obtained. FINDINGS: No significant abnormality is noted involving the heart, lungs, mediastinum, bony thorax or soft tissues. XR/XR chest 1V IMPRESSION: Unremarkable examination.
--- NOTE | 2022-08-05 19:17 | PC.NURSE ---
pt walked in from waiting room, asthma exacerbation, states this has happened in the past. Used albuterol with no success
--- NOTE | 2022-08-05 19:22 | ED_ITS ---
HPI - Asthma General Chief Complaint: Asthma Stated Complaint: cant breathe Time Seen by Provider: 08/05/22 19:22 Source: patient Mode of arrival: ambulatory Limitations: no limitations History of Present Illness HPI Narrative: 22-year-old female presents with asthma attack. States that she is had 1 day of shortness of breath, wheezing, and has not had any relief while taking her albuterol. She did not report fevers or chills, and does not report any sick contacts. MD complaint: asthma attack Onset (ago): day(s) (1) Severity: moderate Associated symptoms: dry cough and other (Wheezing) Asthma History: childhood onset Treatments Prior to Arrival: inhaled bronchodilator Related Data Current Asthma Therapy: inhaled bronchodilator Previous Rx's Medication Instructions Recorded fluticasone propionate 115 2 puff inhalation BID 30 days #1 ea 11/19/20 mcg-salmeterol 21 mcg/actuation HFA inhaler (Advair HFA) albuterol sulfate 2.5 mg/3 mL 2.5 mg (3 mL) inhalation Q4-6H PRN 07/03/21 (0.083 %) solution for nebulization shortness of breath or wheezing #180 mL albuterol sulfate 90 mcg/actuation 2 inh inhalation Q6-8H PRN 07/03/21 aerosol inhaler shortness of breath or wheezing #8.5 grams ipratropium 0.5 mg-albuterol 3 mg 3 ml inhalation Q4-6H PRN 07/03/21 (2.5 mg base)/3 mL nebulization shortness of breath or wheezing soln #180 mL omalizumab 150 mg subcutaneous 300 mg subcut Q4W 28 days #2 ea 09/26/21 solution (Xolair) prednisone 20 mg tablet 40 mg PO DAILY #10 tabs 11/05/21 albuterol sulfate 2.5 mg/3 mL 2.5 mg (3 mL) inhalation Q4-6H PRN 03/08/22 (0.083 %) solution for nebulization shortness of breath or wheezing #180 mL dexamethasone 6 mg tablet 6 mg PO DAILY #7 tabs 03/08/22 (Decadron) prednisone 50 mg tablet 50 mg PO DAILY 4 days #4 tabs 03/19/22 prednisone 20 mg tablet 60 mg PO DAILY #12 tabs 11/07/22 albuterol sulfate 2.5 mg/0.5 mL 5 mg inhalation Q4H PRN shortness 05/09/22 solution for nebulization of breath or wheezing #30 ea albuterol sulfate 90 mcg/actuation 2 puff inhalation Q4-6H PRN 05/09/22 aerosol inhaler shortness of breath or wheezing #6.7 grams prednisone 20 mg tablet 40 mg PO DAILY 5 days #10 tabs 05/09/22 prednisone 50 mg tablet 50 mg PO DAILY #5 tabs 05/19/22 prednisone 20 mg tablet 60 mg PO DAILY #12 tabs 05/26/22 albuterol sulfate 2.5 mg/3 mL 2.5 mg (3 mL) inhalation Q4-6H PRN 08/05/22 (0.083 %) solution for nebulization shortness of breath or wheezing #75 mL albuterol sulfate 90 mcg/actuation 2 puff inhalation Q4-6H PRN 08/05/22 aerosol inhaler shortness of breath or wheezing #6.7 grams prednisone 20 mg tablet 40 mg PO DAILY 5 days #10 tabs 08/05/22 Allergies Allergy/AdvReac Type Severity Reaction Status Date / Time No Known Allergies Allergy Verified 09/01/21 14:50 Review of Systems Review of Systems: Constitutional: No Fever, No Chills ENT/Mouth: No Hoarseness, No sore throat, No Rhinorrhea Eyes: No Redness, No Discharge, No Vision Changes Cardiovascular: No Chest Pain, positive SOB, positive Dyspnea on Exertion, No Edema Respiratory: positive Cough, No Sputum, positive Wheezing, Gastrointestinal: No Nausea, No Vomiting, No Diarrhea, No abdominal Pain Neuro: No Weakness, No Numbness, No Headache Yes all other systems are reviewed and are negative [facility] Past Medical History Attestation statement: The following information was validated with the patient. Source: old records reviewed Medical History Asthma Social History Social History Alcohol intake: never Patient Tobacco Use Status: Never used Tobacco Advance Directives: No Advance Directives Information Provided: No Physical Exam Vital Signs: Vital Signs: Last Vital Signs Temp 98.7 F 08/05/22 22:14 Pulse 103 H 08/05/22 23:04 Resp 16 08/05/22 22:44 BP 136/89 08/05/22 23:04 Pulse Ox 96 08/05/22 23:04 O2 Del Method 08/05/22 23:04 BMI result Body Mass Index 67.8 Appearance: Alert. Oriented X3. Moderate distress. Eyes: Pupils equal, round and reactive to light. ENT: Pharynx normal. Neck: Normal inspection. Neck supple. CVS: Tachycardic heart rate and rhythm. Respiratory: Moderate respiratory distress. Expiratory wheezing throughout, poor air flow Skin: Skin warm and dry. Normal skin color. Normal skin turgor. Extremities: No lower extremity edema. Gait well-balanced well coordinated. Neuro: No motor deficit. No sensory deficit. Cranial nerves 2-12 intact Course Course Course Narrative: 22-year-old female presents with asthma attack. Patient is an orthoptic position. Unable to speak in complete sentences. Hour long neb started upon arrival. Order for magnesium, Solu-Medrol, and chest x-ray. 20:10 x-rays negative for acute findings. 20:32 lung sounds continue to be coarse with expiratory wheezing. Order for 2nd albuterol hour long. 21:15 patient able to give health history, states that she has had childhood onset of asthma. Does not report any contacts sick contacts. Has never been intubated for asthma in the past. States to feel much better, able to take full breath and feels more relaxed. 21:45 lung continue to sound coarse however improved airflow. Patient continues to speak in complete sentences 22:15 significant improvement to lung sounds. Patient agrees to follow-up with her instructional design manager at [facility]. Plan of care is to discharge home. Patient verbalized understanding of and agrees plan of care discharge home. Verbalized understanding signs symptoms indicating need for emergent intervention. Medications Administered Discontinued Medications Generic Name Dose Route Start Last Admin Trade Name Freq PRN Reason Stop Dose Admin Albuterol Sulfate 10 mg 08/05/22 20:33 08/05/22 20:52 Albuterol Sulfate (0.083%) 2.5 Mg/3 Ml Vial.Neb INHALE 08/05/22 20:34 10 mg ONCE ONE Administration Albuterol Sulfate 2 puff 08/05/22 22:23 08/05/22 22:29 Albuterol Sulfate 90 Mcg 8 Gm Inhaler INHALE 08/05/22 22:24 2 puff ONCE ONE Administration Albuterol Sulfate 10 mg/ 0 mg 08/05/22 19:14 08/05/22 19:19 Ipratropium [place] 0.5 mg INHALE 08/05/22 19:15 1 each ONCE ONE Administration Magnesium Sulfate 2 gm in 50 mls @ 25 mls/hr 08/05/22 19:23 08/05/22 21:28 Magnesium Sulfate/H2o IV 08/05/22 21:22 Infused ONCE ONE Infusion Methylprednisolone Sodium Succinate 125 mg 08/05/22 19:23 08/05/22 19:28 Methylprednisolone Sod Succ 125 Mg/2 Ml Vial IVPUSH 08/05/22 19:24 125 mg ONCE ONE Administration Medical Decision Making Differential Diagnosis Differential Diagnoses: The differential diagnosis associated with the presentation includes Asthma exacerbation, COVID, influenza, RSV, pneumonia Admission/Observation Consideration of admission/observation: Escalation of care including admission/observation considered Admission may be considered if O2 sats do not maintain above 90% on ambulation Lab Data MDM Lab Attestation statement: I reviewed the patient's lab results. 08/05/22 19:25 08/05/22 19:25 Labs: Lab Results 08/05/22 08/05/22 08/05/22 Range/Units 19:25 19:25 19:48 WBC 7.0 (4.8-10.8) X10*3/uL RBC 4.65 (4.20-5.50) X10*6/uL Hgb 13.1 (12.0-16.0) g/dl Hct 39.7 (37.0-47.0) % MCV 85.4 (80.0-98.0) fL MCH 28.2 (27.0-33.0) pg MCHC 33.0 (31.0-35.0) g/dl RDW 12.5 (11.0-16.0) % Plt Count 256 (160-400) X10*3/uL MPV 9.3 L (9.4-12.3) fL Immature Gran % (Auto) 0.1 (0.0-0.4) % Neut % (Auto) 61.7 (45-73) % Lymph % (Auto) 26.6 (20-40) % Nash % (Auto) 4.6 (2-11) % Eos % (Auto) 6.1 H (0-4) % Baso % (Auto) 0.9 (0-2) % Lymph # (Auto) 1.9 (1.2-4.9) X10*3/uL Nash # (Auto) 0.3 (0.1-1.2) X10*3/uL Eos # (Auto) 0.4 (0.0-0.4) X10*3/uL Baso # (Auto) 0.1 (0.0-0.2) X10*3/uL Abs Immat Gran (auto) 0.01 (0.00-0.03) X10*3/uL Absolute Neuts (auto) 4.3 (2.0-8.3) x10*3/uL Absolute Nucleated RBC 0.000 (0.0-0.012) X10*3/uL Nucleated RBC % (auto) 0.0 (0.0-0.2) /100WBC Sodium 145 (135-145) mmol/L Potassium 3.9 (3.3-5.1) mmol/L Chloride 109 H (96-108) mmol/L Carbon Dioxide 24 (22-29) mmol/L Anion Gap 16 (12-20) BUN 14 (9-16) mg/dL Creatinine 0.75 (0.5-1.4) mg/dL Estim Creat Clear Calc 199.2 Estimated GFR > 60 Random Glucose 121 H (60-115) mg/dL Calcium 9.0 (8.4-10.2) mg/dL Influenza Type A (PCR) NEGATIVE (Negative) Influenza Type B (PCR) NEGATIVE (Negative) RSV RNA Qual (PCR) NEGATIVE (Negative) SARS-CoV-2 RNA (RT-PCR) NEGATIVE (Negative) Independent Interpretation I performed an independent interpretation of an: Plain X-Ray Radiology Impression Discussion of test interpretation with radiology: I have reviewed the radiologist's reading. Radiologist Impression: EXAMINATION: XR CHEST CLINICAL INFORMATION: Shortness of breath. COMPARISON: Chest radiograph 05/26/2022. TECHNIQUE: Frontal view of the chest was obtained. FINDINGS: No significant abnormality is noted involving the heart, lungs, mediastinum, bony thorax or soft tissues. XR/XR chest 1V IMPRESSION: Unremarkable examination. ? Independent Historian Clinical information obtained from an independent historian. History obtained from or confirmed by: Parent External Record Review External record reviewed: Inpatient record, Outpatient record and Prior outpatient labs Critical Care Time Critical Care Time Critical Care Time: Yes Total Critical Care Time: 45 Attestation: I have personally provided critical care time exclusive of time spent on separately billable procedures. Time includes review of laboratory data, radiology results, discussion with consultants, and monitoring for potential decompensation. Interventions were performed as documented. Discharge Plan Discharge Clinical Impression: Asthma with acute exacerbation Patient Disposition: Home, Self-Care Instructions: Asthma (ED) Additional Instructions: You were evaluated for asthma exacerbation. Please use albuterol inhaler 2 puffs every 4-6 hours as needed. Use albuterol nebs as needed for rescue inhaler fails. Take prednisone 40 mg daily for next 5 days. Please follow-up with the instructional design manager. Thank you for choosing this emergency department for evaluation. Please follow-up with primary care physician as needed. Return to the emergency department for any new, concerning, or worsening symptoms. Prescriptions: New albuterol sulfate 90 mcg/actuation HFA aerosol inhaler 2 puff inhalation Q4-6H PRN (Reason: shortness of breath or wheezing) Qty: 6.7 2RF Rx Instructions: May dispense medication equivalent Accepted by patient's insurance albuterol sulfate 2.5 mg /3 mL (0.083 %) solution for nebulization 2.5 mg inhalation Q4-6H PRN (Reason: shortness of breath or wheezing) Qty: 75 2RF prednisone 20 mg tablet 40 mg PO DAILY 5 Days Qty: 10 0RF No Action Advair HFA 115-21 mcg/actuation HFA aerosol inhaler 2 puff inhalation BID 30 Days Qty: 1 6RF Rx Instructions: administer with spacer Xolair 150 mg recon soln 300 mg subcut Q4W 28 Days Qty: 2 12RF Rx Instructions: requires multiple injection sites; do not exceed 150 mg per injection site dexamethasone [Decadron] 6 mg tablet 6 mg PO DAILY Qty: 7 0RF albuterol sulfate 2.5 mg /3 mL (0.083 %) solution for nebulization 2.5 mg inhalation Q4-6H PRN (Reason: shortness of breath or wheezing) Qty: 180 0RF prednisone 50 mg tablet 50 mg PO DAILY 4 Days Qty: 4 0RF prednisone 20 mg tablet 40 mg PO DAILY 5 Days Qty: 10 0RF albuterol sulfate 90 mcg/actuation HFA aerosol inhaler 2 puff inhalation Q4-6H PRN (Reason: shortness of breath or wheezing) Qty: 6.7 0RF albuterol sulfate 2.5 mg/0.5 mL solution for nebulization 5 mg inhalation Q4H PRN (Reason: shortness of breath or wheezing) Qty: 30 0RF albuterol sulfate 90 mcg/actuation HFA aerosol inhaler 2 inh inhalation Q6-8H PRN (Reason: shortness of breath or wheezing) Qty: 8.5 0RF ipratropium-albuterol 0.5 mg-3 mg(2.5 mg base)/3 mL solution for nebulization 3 ml inhalation Q4-6H PRN (Reason: shortness of breath or wheezing) Qty: 180 0RF albuterol sulfate 2.5 mg /3 mL (0.083 %) solution for nebulization 2.5 mg inhalation Q4-6H PRN (Reason: shortness of breath or wheezing) Qty: 180 0RF prednisone 20 mg tablet 40 mg PO DAILY Qty: 10 0RF prednisone 20 mg tablet 60 mg PO DAILY Qty: 12 0RF prednisone 50 mg tablet 50 mg PO DAILY Qty: 5 0RF prednisone 20 mg tablet 60 mg PO DAILY Qty: 12 0RF Stand Alone Forms: Work/School Release Interventions: ED Discharge Assessment Last Done: 08/05/22 23:59 Discharge Date/Time: 08/06/22 00:00
[2022-08-05] MEDS: Magnesium Sulfate/H2O 2 GM/50 ML PIGGYBACK IV (19:28)
[2022-08-05] MEDS: methylPREDNISolone Sod Succ 125 MG/2 ML VIAL IVPUSH (19:28)
[2022-08-05 19:38] LABS: MANUAL DIFF FLAG NO
[2022-08-05 19:39] LABS: Basophils Absolute Auto 0.1 X10*3/uL (0.0-0.2); Basophils Percent Auto 0.9 % (0-2); Eosinophils Absolute Auto 0.4 X10*3/uL (0.0-0.4); Eosinophils Percent Auto 6.1 % (0-4); Hematocrit 39.7 % (37.0-47.0); Hemoglobin 13.1 g/dl (12.0-16.0); Imm Gran Abs Auto 0.01 X10*3/uL (0.00-0.03); Imm Gran Pct Auto 0.1 % (0.0-0.4); Lymphocytes Absolute Auto 1.9 X10*3/uL (1.2-4.9); Lymphocytes Percent Auto 26.6 % (20-40); Mean Corpuscular Hemoglobin 28.2 pg (27.0-33.0); Mean Corpuscular Volume 85.4 fL (80.0-98.0); Mean Platelet Volume 9.3 fL (9.4-12.3); Monocytes Absolute Auto 0.3 X10*3/uL (0.1-1.2); Monocytes Percent Auto 4.6 % (2-11); Neutrophils Absolute Auto 4.3 x10*3/uL (2.0-8.3); Neutrophils Percent Auto 61.7 % (45-73); Platelet Count 256 X10*3/uL (160-400); Red Blood Count 4.65 X10*6/uL (4.20-5.50); Red Cell Distribution Width 12.5 % (11.0-16.0)
[2022-08-05 19:49] LABS: Anion Gap 16 (12-20); Blood Urea Nitrogen 14 mg/dL (9-16); Carbon Dioxide 24 mmol/L (22-29); Chloride 109 mmol/L (96-108); Creatinine Clr Calc Pharmacy 199.2; Estimated Glomerular Filt Rate > 60; Glucose Random 121 mg/dL (60-115); Potassium 3.9 mmol/L (3.3-5.1); Sodium 145 mmol/L (135-145)
--- NOTE | 2022-08-05 20:12 | PC.NURSE ---
20 g Iv placed in LAC, blood work obtained, respiratory started duoneb on pt,pt tolerating well thus far with no complaints. awaiting new provider orders
[2022-08-05 20:52] LABS: Influenza A PCR NEGATIVE (Negative); Influenza B PCR NEGATIVE (Negative); Resp Syncy Virus RNA Qual PCR NEGATIVE (Negative); SARS COV2 PCR INHOUSE NEGATIVE (Negative)
[2022-08-05] MEDS: Albuterol Sulfate (0.083%) 2.5 MG/3 ML VIAL.NEB 10 MG INHALE (20:52)
[2022-08-05] MEDS: Albuterol Sulfate 90 MCG 8 GM INHALER 2 PUFF INHALE (22:29)
== END 2022-08-06 | disposition home or self-care (01) ==
PROVIDERS: Nurse Practitioner Family; Emergency Provider Emergency Medicine
DX: J45.901 Unspecified asthma with (acute) exacerbation (principal); R06.02 Shortness of breath; Z20.822 Contact with and (suspected) exposure to COVID-19; Z20.828 Contact with and (suspected) exposure to other viral communicable diseases; Z79.899 Other long term (current) drug therapy
CPT/HCPCS: 0241U; 36415; 71045; 80048; 85025; 94640; 96365; 96366; 96375; 99284; J2930; J3475

== ENCOUNTER 2022-08-17 23:11 | Emergency (ER) | payer MEDICAID, SELFPAY ==
[2022-08-17 23:17] VITALS: BP 101/54; PULSE 126; RESP 22; TEMP 36.8; O2SAT 93; BMI 30.7
--- NOTE | 2022-08-17 23:30 | PC.NURSE ---
Pt ambulated to room, A&Ox4. Pt only answering yes or no questions, anxious, Pt sitting up in the tripod position, WOB noted. 92% on RA, RR 24, HR 130's, Lung sounds wheezing throughout. No cyanosis noted. IV line placed, meds given as documented. Respiratory therapist at bedside.
[2022-08-17] MEDS: Albuterol Sulfate (0.083%) 2.5 MG/3 ML VIAL.NEB 10 MG INHALE (23:36)
[2022-08-17] MEDS: Magnesium Sulfate/H2O 2 GM/50 ML PIGGYBACK IV (23:37)
[2022-08-17] MEDS: methylPREDNISolone Sod Succ 125 MG/2 ML VIAL IVPUSH (23:37)
[2022-08-17 23:38] VITALS: PULSE 121; RESP 24; O2SAT 94
[2022-08-17 23:50] VITALS: BP 123/95; PULSE 111; RESP 20; TEMP 36.8; O2SAT 94
--- NOTE | 2022-08-17 23:56 | MHC.EDTECH ---
0000 rounding done ,vitals sign taken ,pt is getting a breathing treatment ,pt boy friend at bedside .
[2022-08-18 00:23] VITALS: PULSE 126; RESP 22; O2SAT 95
--- NOTE | 2022-08-18 01:07 | ED.ASTHMA ---
HPI - Asthma General Chief Complaint: Asthma Stated Complaint: Asthma Time Seen by Provider: 08/17/22 23:23 Source: patient Mode of arrival: ambulatory Limitations: no limitations History of Present Illness HPI Narrative: Patient comes to the emergency room complaining of an asthma exacerbation. Patient states she tried her pump at home without any relief. Patient is chest pain, no recent URI or UTIs. Related Data Previous Rx's Medication Instructions Recorded fluticasone propionate 115 2 puff inhalation BID 30 days #1 ea 11/19/20 mcg-salmeterol 21 mcg/actuation HFA inhaler (Advair HFA) albuterol sulfate 2.5 mg/3 mL 2.5 mg (3 mL) inhalation Q4-6H PRN 07/03/21 (0.083 %) solution for nebulization shortness of breath or wheezing #180 mL albuterol sulfate 90 mcg/actuation 2 inh inhalation Q6-8H PRN 07/03/21 aerosol inhaler shortness of breath or wheezing #8.5 grams ipratropium 0.5 mg-albuterol 3 mg 3 ml inhalation Q4-6H PRN 07/03/21 (2.5 mg base)/3 mL nebulization shortness of breath or wheezing soln #180 mL omalizumab 150 mg subcutaneous 300 mg subcut Q4W 28 days #2 ea 09/26/21 solution (Xolair) prednisone 20 mg tablet 40 mg PO DAILY #10 tabs 11/05/21 albuterol sulfate 2.5 mg/3 mL 2.5 mg (3 mL) inhalation Q4-6H PRN 03/08/22 (0.083 %) solution for nebulization shortness of breath or wheezing #180 mL dexamethasone 6 mg tablet 6 mg PO DAILY #7 tabs 03/08/22 (Decadron) prednisone 50 mg tablet 50 mg PO DAILY 4 days #4 tabs 03/19/22 prednisone 20 mg tablet 60 mg PO DAILY #12 tabs 04/09/22 albuterol sulfate 2.5 mg/0.5 mL 5 mg inhalation Q4H PRN shortness 05/09/22 solution for nebulization of breath or wheezing #30 ea albuterol sulfate 90 mcg/actuation 2 puff inhalation Q4-6H PRN 05/09/22 aerosol inhaler shortness of breath or wheezing #6.7 grams prednisone 20 mg tablet 40 mg PO DAILY 5 days #10 tabs 05/09/22 prednisone 50 mg tablet 50 mg PO DAILY #5 tabs 05/19/22 prednisone 20 mg tablet 60 mg PO DAILY #12 tabs 05/26/22 albuterol sulfate 2.5 mg/3 mL 2.5 mg (3 mL) inhalation Q4-6H PRN 08/05/22 (0.083 %) solution for nebulization shortness of breath or wheezing #75 mL albuterol sulfate 90 mcg/actuation 2 puff inhalation Q4-6H PRN 08/05/22 aerosol inhaler shortness of breath or wheezing #6.7 grams prednisone 20 mg tablet 40 mg PO DAILY 5 days #10 tabs 08/05/22 prednisone 50 mg tablet 50 mg PO DAILY #5 tabs 08/18/22 Allergies Allergy/AdvReac Type Severity Reaction Status Date / Time No Known Allergies Allergy Verified 09/01/21 14:50 Review of Systems Review of Systems: Constitutional : No Weight loss, No Fever, No Chills, No Night Sweats, No Fatigue, No Malaise ENT/Mouth : No Hearing loss, No Ear Pain, No Nasal Congestion, No Sinus Pain, No Hoarseness, No sore throat, No Rhinorrhea, No Swallowing Difficulty Eyes: No Eye Pain, No Swelling, No Redness, No Foreign Body, No Discharge, No Vision Changes Cardiovascular : No Chest Pain, No SOB, No Dyspnea on Exertion, No Orthopnea, No Edema, No Palpitations Respiratory : No Cough, No Sputum, complaining of wheezing, No Smoke Exposure, No Dyspnea Gastrointestinal : No Nausea, No Vomiting, No Diarrhea, No Constipation, No abdominal Pain, No Hematochezia, No Melena Genitourinary : no irregular bleeding, No Dysuria, No Urinary Frequency, No Hematuria, No Urinary Incontinence, No Urgency, No Flank Pain, No Urinary Flow Changes, No Hesitancy Musculoskeletal : No joint pain, No Myalgias, No Joint Swelling Skin : No Skin Lesions, No rash Neuro : No Weakness, No Numbness, No Paresthesias, No Loss of Consciousness, No Dizziness, No Headache Psych : No Anxiety/Panic, No Depression, No SI/HI/AH/VH, No Social Issues, Heme/Lymph: No Bruising, No Bleeding,No Lymphadenopathy Endocrine : No Polyuria, No Polydipsia, No Temperature Intolerance [facility] Past Medical History Medical History Asthma Social History Social History Alcohol intake: never Patient Tobacco Use Status: Never used Tobacco Advance Directives: No Advance Directives Information Provided: No Physical Exam Vital Signs: Vital Signs: Last Vital Signs Temp 98.3 F 08/17/22 23:50 Pulse 126 H 08/18/22 00:23 Resp 22 H 08/18/22 00:23 BP 123/95 H 08/17/22 23:50 Pulse Ox 95 08/18/22 00:23 O2 Del Method 08/18/22 00:23 BMI result Body Mass Index 30.7 Const: Other: Appearance: Alert. Oriented X3. No acute distress. Eyes: Pupils equal, round and reactive to light. ENT: Pharynx normal. Neck: Normal inspection. Neck supple. No lymph nodes noted. No crepitus CVS: Normal heart rate and rhythm. Pulses normal. Normal S1 and S2 Respiratory: Wheezing bilaterally, diminished breath sounds , decreased air movement Abdomen: Soft and nontender. No rigidity. No distention. Skin: Skin warm and dry. Normal skin color. Normal skin turgor. Extremities: No lower extremity edema. No Lacerations. No Rash Neuro: Oriented X 3. No motor deficit. No sensory deficit. Moving all extremities. No slurred speech. CN 2 through 12 grossly intact Psych: calm, cooperative, normal affect Course Course Course Narrative: -patient receiving IV Solu-Medrol, magnesium, our long nebulization treatment Medications Administered Discontinued Medications Generic Name Dose Route Start Last Admin Trade Name Freq PRN Reason Stop Dose Admin Albuterol Sulfate 10 mg 08/17/22 23:26 08/17/22 23:36 Albuterol Sulfate (0.083%) 2.5 Mg/3 Ml Vial.Neb INHALE 08/17/22 23:27 10 mg ONCE ONE Administration Albuterol Sulfate 5 mg 08/18/22 01:09 08/18/22 01:17 Albuterol Sulfate (0.083%) 2.5 Mg/3 Ml Vial.Neb INHALE 08/18/22 01:10 5 mg ONCE ONE Administration Magnesium Sulfate 2 gm in 50 mls @ 25 mls/hr 08/17/22 23:26 08/17/22 23:37 Magnesium Sulfate/H2o IV 08/18/22 01:25 25 mls/hr ONCE ONE Administration Methylprednisolone Sodium Succinate 125 mg 08/17/22 23:26 08/17/22 23:37 Methylprednisolone Sod Succ 125 Mg/2 Ml Vial IVPUSH 08/17/22 23:27 125 mg ONCE ONE Administration Medical Decision Making Medical Decision Making MDM Narrative: -after the initial treatment, patient states that she feels much better, is still slightly wheezing, oxygen saturation 97% on room air. Patient will receive 1 more dose of albuterol, and then will reassess oxygenation. -patient's oxygen saturation 94% on room air. -patient states that she has enough albuterol pumps and albuterol for her neb machine. No prescription needed per patient. However, patient will need prednisone. I discussed with the patient tomorrow her pharmacy will be close. I offered to the patient sending her prednisone to a different pharmacy that is opened either 24 hours or at least open tomorrow. Patient declined, patient states that she has insurance issues any time that we sent prescriptions to any other pharmacy that her own. I discussed with the patient that if she has any respiratory issues, she needs to return to the emergency room Differential Diagnosis Differential Diagnoses: The differential diagnosis associated with the presentation includes (Asthma, viral syndrome) Discharge Plan Discharge Clinical Impression: Asthma Patient Disposition: Home, Self-Care Instructions: Asthma (ED) Additional Instructions: Please follow-up with your primary care physician tomorrow. If you have any worsening or new symptoms, please return to the emergency room or call 911 Prescriptions: New prednisone 50 mg tablet 50 mg PO DAILY Qty: 5 0RF No Action Advair HFA 115-21 mcg/actuation HFA aerosol inhaler 2 puff inhalation BID 30 Days Qty: 1 6RF Rx Instructions: administer with spacer Xolair 150 mg recon soln 300 mg subcut Q4W 28 Days Qty: 2 12RF Rx Instructions: requires multiple injection sites; do not exceed 150 mg per injection site dexamethasone [Decadron] 6 mg tablet 6 mg PO DAILY Qty: 7 0RF albuterol sulfate 2.5 mg /3 mL (0.083 %) solution for nebulization 2.5 mg inhalation Q4-6H PRN (Reason: shortness of breath or wheezing) Qty: 180 0RF prednisone 50 mg tablet 50 mg PO DAILY 4 Days Qty: 4 0RF prednisone 20 mg tablet 40 mg PO DAILY 5 Days Qty: 10 0RF albuterol sulfate 90 mcg/actuation HFA aerosol inhaler 2 puff inhalation Q4-6H PRN (Reason: shortness of breath or wheezing) Qty: 6.7 0RF albuterol sulfate 2.5 mg/0.5 mL solution for nebulization 5 mg inhalation Q4H PRN (Reason: shortness of breath or wheezing) Qty: 30 0RF albuterol sulfate 90 mcg/actuation HFA aerosol inhaler 2 inh inhalation Q6-8H PRN (Reason: shortness of breath or wheezing) Qty: 8.5 0RF ipratropium-albuterol 0.5 mg-3 mg(2.5 mg base)/3 mL solution for nebulization 3 ml inhalation Q4-6H PRN (Reason: shortness of breath or wheezing) Qty: 180 0RF albuterol sulfate 2.5 mg /3 mL (0.083 %) solution for nebulization 2.5 mg inhalation Q4-6H PRN (Reason: shortness of breath or wheezing) Qty: 180 0RF prednisone 20 mg tablet 40 mg PO DAILY Qty: 10 0RF prednisone 20 mg tablet 60 mg PO DAILY Qty: 12 0RF prednisone 50 mg tablet 50 mg PO DAILY Qty: 5 0RF prednisone 20 mg tablet 60 mg PO DAILY Qty: 12 0RF albuterol sulfate 90 mcg/actuation HFA aerosol inhaler 2 puff inhalation Q4-6H PRN (Reason: shortness of breath or wheezing) Qty: 6.7 2RF Rx Instructions: May dispense medication equivalent Accepted by patient's insurance albuterol sulfate 2.5 mg /3 mL (0.083 %) solution for nebulization 2.5 mg inhalation Q4-6H PRN (Reason: shortness of breath or wheezing) Qty: 75 2RF prednisone 20 mg tablet 40 mg PO DAILY 5 Days Qty: 10 0RF
[2022-08-18] MEDS: Albuterol Sulfate (0.083%) 2.5 MG/3 ML VIAL.NEB 5 MG INHALE (01:17)
--- NOTE | 2022-08-18 01:45 | PC.NURSE ---
Pt speaking in full sentences, states I feel a lot better . No WOB noted, RR 18, o2 sat 97% on RA. Lung sounds slightly wheezing.
[2022-08-18 01:47] VITALS: BP 112/69; PULSE 109; RESP 18; TEMP 36.7; O2SAT 98
--- NOTE | 2022-08-18 01:48 | MHC.EDTECH ---
0200 rounding done ,vitals sign taken pt waiting for discharge paper work .
== END 2022-08-18 02:10 | disposition home or self-care (01) ==
PROVIDERS: Emergency Provider Emergency Medicine; PCP Nurse Practitioner
DX: J45.909 Unspecified asthma, uncomplicated (principal)
CPT/HCPCS: 94640; 96365; 96366; 96375; 99284; 99285; J2930; J3475

== ENCOUNTER 2022-09-15 00:40 | Emergency (ER) | payer MEDICAID, SELFPAY ==
--- NOTE | ~2022-09-15 | XR_ITS ---
EXAMINATION: XR CHEST CLINICAL INFORMATION: Shortness of breath COMPARISON: 08/05/2022 TECHNIQUE: Frontal view of the chest was obtained. FINDINGS: The lungs are well expanded. There is no focal consolidation, edema, or effusion. No pneumothorax. The cardiomediastinal silhouette is within normal limits. No acute osseous abnormality. XR/XR chest 1V IMPRESSION: Clear lungs.
[2022-09-15 00:43] VITALS: BP 129/68; PULSE 111; RESP 24; O2SAT 94; BMI 30.7
--- NOTE | 2022-09-15 00:49 | ECG_ITS ---
Test Reason : SOB Blood Pressure : / mmHG Vent. Rate : 096 BPM Atrial Rate : 096 BPM P-R Int : 152 ms QRS Dur : 066 ms QT Int : 358 ms P-R-T Axes : 070 065 060 degrees QTc Int : 452 ms Normal sinus rhythm with sinus arrhythmia Possible Left atrial enlargement Septal infarct , age undetermined Abnormal ECG When compared with ECG of 26-MAY-2022 17:03, No significant change was found Referred By: Generic ED Physician Electronically Signed By:RONNIE CIFUENTES MD
[2022-09-15 00:53] VITALS: BP 129/68; PULSE 98; RESP 16; O2SAT 94
[2022-09-15 00:55] LABS: MANUAL DIFF FLAG NO
[2022-09-15 00:58] LABS: Basophils Absolute Auto 0.1 X10*3/uL (0.0-0.2); Basophils Percent Auto 0.5 % (0-2); Eosinophils Absolute Auto 0.3 X10*3/uL (0.0-0.4); Eosinophils Percent Auto 2.4 % (0-4); Hematocrit 38.2 % (37.0-47.0); Imm Gran Abs Auto 0.03 X10*3/uL (0.00-0.03); Imm Gran Pct Auto 0.3 % (0.0-0.4); Lymphocytes Absolute Auto 1.4 X10*3/uL (1.2-4.9); Lymphocytes Percent Auto 12.5 % (20-40); Mean Corpuscular Hemoglobin 28.6 pg (27.0-33.0); Mean Corpuscular Volume 84.1 fL (80.0-98.0); Mean Platelet Volume 9.5 fL (9.4-12.3); Monocytes Absolute Auto 0.4 X10*3/uL (0.1-1.2); Monocytes Percent Auto 3.4 % (2-11); Neutrophils Absolute Auto 8.8 x10*3/uL (2.0-8.3); Neutrophils Percent Auto 80.9 % (45-73); Platelet Count 251 X10*3/uL (160-400); Red Blood Count 4.54 X10*6/uL (4.20-5.50); Red Cell Distribution Width 12.6 % (11.0-16.0); White Blood Count 10.9 X10*3/uL (4.8-10.8)
[2022-09-15 01:14] LABS: Anion Gap 17 (12-20); Blood Urea Nitrogen 13 mg/dL (9-16); Calcium 9.2 mg/dL (8.4-10.2); Carbon Dioxide 23 mmol/L (22-29); Chloride 107 mmol/L (96-108); Creatinine Clr Calc Pharmacy 108.8; Estimated Glomerular Filt Rate > 60; Glucose Random 93 mg/dL (60-115); Potassium 3.9 mmol/L (3.3-5.1); Sodium 143 mmol/L (135-145)
[2022-09-15 01:36] LABS: Troponin-I High Sensitivity < 2.7 ng/L (<3.5-17.0)
[2022-09-15 02:09] LABS: UPreg QC Valid YES; Urine Pregnancy NEGATIVE (NEGATIVE)
[2022-09-15 03:02] VITALS: BP 117/69; PULSE 86; RESP 17; TEMP 36.4; O2SAT 92
--- NOTE | 2022-09-15 04:38 | ED.SOB ---
HPI - SOB/Dyspnea General Chief Complaint: Dyspnea Stated Complaint: Hard time breathing Time Seen by Provider: 09/15/22 04:37 Source: patient Mode of arrival: ambulatory Limitations: no limitations History of Present Illness HPI Narrative: Patient with asthma was cleaning her house came with increased shortness of breath just prior to arrival with wheezing saturating 92% at room air no prior intubation or admission for asthma Related Data Previous Rx's Medication Instructions Recorded fluticasone propionate 115 2 puff inhalation BID 30 days #1 ea 11/19/20 mcg-salmeterol 21 mcg/actuation HFA inhaler (Advair HFA) albuterol sulfate 2.5 mg/3 mL 2.5 mg (3 mL) inhalation Q4-6H PRN 07/03/21 (0.083 %) solution for nebulization shortness of breath or wheezing #180 mL albuterol sulfate 90 mcg/actuation 2 inh inhalation Q6-8H PRN 07/03/21 aerosol inhaler shortness of breath or wheezing #8.5 grams ipratropium 0.5 mg-albuterol 3 mg 3 ml inhalation Q4-6H PRN 07/03/21 (2.5 mg base)/3 mL nebulization shortness of breath or wheezing soln #180 mL omalizumab 150 mg subcutaneous 300 mg subcut Q4W 28 days #2 ea 09/26/21 solution (Xolair) prednisone 20 mg tablet 40 mg PO DAILY #10 tabs 11/05/21 albuterol sulfate 2.5 mg/3 mL 2.5 mg (3 mL) inhalation Q4-6H PRN 03/08/22 (0.083 %) solution for nebulization shortness of breath or wheezing #180 mL dexamethasone 6 mg tablet 6 mg PO DAILY #7 tabs 03/08/22 (Decadron) prednisone 50 mg tablet 50 mg PO DAILY 4 days #4 tabs 03/19/22 prednisone 20 mg tablet 60 mg PO DAILY #12 tabs 04/09/22 albuterol sulfate 2.5 mg/0.5 mL 5 mg inhalation Q4H PRN shortness 05/09/22 solution for nebulization of breath or wheezing #30 ea albuterol sulfate 90 mcg/actuation 2 puff inhalation Q4-6H PRN 05/09/22 aerosol inhaler shortness of breath or wheezing #6.7 grams prednisone 20 mg tablet 40 mg PO DAILY 5 days #10 tabs 05/09/22 prednisone 50 mg tablet 50 mg PO DAILY #5 tabs 05/19/22 prednisone 20 mg tablet 60 mg PO DAILY #12 tabs 05/26/22 albuterol sulfate 2.5 mg/3 mL 2.5 mg (3 mL) inhalation Q4-6H PRN 08/05/22 (0.083 %) solution for nebulization shortness of breath or wheezing #75 mL albuterol sulfate 90 mcg/actuation 2 puff inhalation Q4-6H PRN 08/05/22 aerosol inhaler shortness of breath or wheezing #6.7 grams prednisone 20 mg tablet 40 mg PO DAILY 5 days #10 tabs 08/05/22 prednisone 50 mg tablet 50 mg PO DAILY #5 tabs 08/18/22 albuterol sulfate 2.5 mg/3 mL 2.5 mg (3 mL) inhalation Q4-6H PRN 09/15/22 (0.083 %) solution for nebulization shortness of breath or wheezing #90 mL albuterol sulfate 90 mcg/actuation 2 puff inhalation Q4-6H PRN 09/15/22 aerosol inhaler (ProAir HFA) shortness of breath or wheezing #8.5 grams prednisone 20 mg tablet 40 mg PO DAILY #10 tabs 09/15/22 Allergies Allergy/AdvReac Type Severity Reaction Status Date / Time No Known Allergies Allergy Verified 09/01/21 14:50 Review of Systems Review of Systems: Yes all other systems are reviewed and are negative PMFSH Past Medical History Medical History Asthma Social History Social History Alcohol intake: never Patient Tobacco Use Status: Never used Tobacco Smoked in Last 30 Days: No Use of substances other than those prescribed or required for medical reasons: No Advance Directives: No Advance Directives Information Provided: Yes Patient : No Physical Exam Vital Signs: Vital Signs: Last Vital Signs Temp 97.6 F 09/15/22 03:02 Pulse 86 09/15/22 04:58 Resp 16 09/15/22 04:58 BP 117/69 09/15/22 03:02 Pulse Ox 92 09/15/22 03:02 O2 Del Method Room Air 09/15/22 03:02 BMI result Body Mass Index 30.7 Appearance: Alert. Oriented X3. No acute distress. Eyes: No pallor/ icterus ENT: Pharynx normal. Oral Mucosa moist Neck: Normal inspection. Neck supple. CVS: Normal heart rate and rhythm. Pulses normal. Respiratory: No respiratory distress. Equal air entry bilateral, prolonged expiration with wheezing Abdomen: Soft and nontender. Bowel sounds are present, no mass palpable, no CVA tenderness Skin: Skin warm and dry. Normal skin color. Normal skin turgor. Extremities: No lower extremity edema. No calf tenderness Neuro: Oriented X 3. No motor deficit. No sensory deficit.No cerebellar signs , cranial nerves II-XII intact Medications Administered Discontinued Medications Generic Name Dose Route Start Last Admin Trade Name Freq PRN Reason Stop Dose Admin Albuterol Sulfate 7.5 mg/ 0 mg 09/15/22 04:42 09/15/22 04:55 Albuterol/Ipratropium 3 ml INHALE 09/15/22 04:43 1 each ONCE ONE Administration Magnesium Sulfate 2 gm in 50 mls @ 100 mls/hr 09/15/22 04:42 09/15/22 05:28 Magnesium Sulfate/H2o IV 09/15/22 05:11 Infused ONCE ONE Infusion Methylprednisolone Sodium Succinate 125 mg 09/15/22 04:42 09/15/22 04:49 Methylprednisolone Sod Succ 125 Mg/2 Ml Vial IVPUSH 09/15/22 04:43 125 mg ONCE ONE Administration Medical Decision Making Medical Decision Making [facility] Narrative: Patient with severe asthma with nebulizing treatments and steroids saturating 93% on ambulation at room air discharge patient home Lab Data [facility] Lab Attestation statement: I reviewed the patient's lab results. 09/15/22 00:51 09/15/22 00:51 Labs: Lab Results 09/15/22 09/15/22 09/15/22 Range/Units 00:51 00:51 00:51 WBC 10.9 H (4.8-10.8) X10*3/uL RBC 4.54 (4.20-5.50) X10*6/uL Hgb 13.0 (12.0-16.0) g/dl Hct 38.2 (37.0-47.0) % MCV 84.1 (80.0-98.0) fL MCH 28.6 (27.0-33.0) pg MCHC 34.0 (31.0-35.0) g/dl RDW 12.6 (11.0-16.0) % Plt Count 251 (160-400) X10*3/uL MPV 9.5 (9.4-12.3) fL Immature Gran % (Auto) 0.3 (0.0-0.4) % Neut % (Auto) 80.9 H (45-73) % Lymph % (Auto) 12.5 L (20-40) % [place] % (Auto) 3.4 (2-11) % Eos % (Auto) 2.4 (0-4) % Baso % (Auto) 0.5 (0-2) % Lymph # (Auto) 1.4 (1.2-4.9) X10*3/uL [place] # (Auto) 0.4 (0.1-1.2) X10*3/uL Eos # (Auto) 0.3 (0.0-0.4) X10*3/uL Baso # (Auto) 0.1 (0.0-0.2) X10*3/uL Abs Immat Gran (auto) 0.03 (0.00-0.03) X10*3/uL Absolute Neuts (auto) 8.8 H (2.0-8.3) x10*3/uL Absolute Nucleated RBC 0.000 (0.0-0.012) X10*3/uL Nucleated RBC % (auto) 0.0 (0.0-0.2) /100WBC Sodium 143 (135-145) mmol/L Potassium 3.9 (3.3-5.1) mmol/L Chloride 107 (96-108) mmol/L Carbon Dioxide 23 (22-29) mmol/L Anion Gap 17 (12-20) BUN 13 (9-16) mg/dL Creatinine 0.86 (0.5-1.4) mg/dL Estim Creat Clear Calc 108.8 Estimated GFR > 60 Random Glucose 93 (60-115) mg/dL Calcium 9.2 (8.4-10.2) mg/dL Troponin I High Sens < 2.7 (<3.5-17.0) ng/L Urine Test (NEGATIVE) 09/15/22 Range/Units 01:32 WBC (4.8-10.8) X10*3/uL RBC (4.20-5.50) X10*6/uL Hgb (12.0-16.0) g/dl Hct (37.0-47.0) % MCV (80.0-98.0) fL MCH (27.0-33.0) pg MCHC (31.0-35.0) g/dl RDW (11.0-16.0) % Plt Count (160-400) X10*3/uL MPV (9.4-12.3) fL Immature Gran % (Auto) (0.0-0.4) % Neut % (Auto) (45-73) % Lymph % (Auto) (20-40) % [place] % (Auto) (2-11) % Eos % (Auto) (0-4) % Baso % (Auto) (0-2) % Lymph # (Auto) (1.2-4.9) X10*3/uL [place] # (Auto) (0.1-1.2) X10*3/uL Eos # (Auto) (0.0-0.4) X10*3/uL Baso # (Auto) (0.0-0.2) X10*3/uL Abs Immat Gran (auto) (0.00-0.03) X10*3/uL Absolute Neuts (auto) (2.0-8.3) x10*3/uL Absolute Nucleated RBC (0.0-0.012) X10*3/uL Nucleated RBC % (auto) (0.0-0.2) /100WBC Sodium (135-145) mmol/L Potassium (3.3-5.1) mmol/L Chloride (96-108) mmol/L Carbon Dioxide (22-29) mmol/L Anion Gap (12-20) BUN (9-16) mg/dL Creatinine (0.5-1.4) mg/dL Estim Creat Clear Calc Estimated GFR Random Glucose (60-115) mg/dL Calcium (8.4-10.2) mg/dL Troponin I High Sens (<3.5-17.0) ng/L Urine Test NEGATIVE (NEGATIVE) Discharge Plan Discharge Clinical Impression: Asthma with exacerbation Patient Disposition: Home, Self-Care Instructions: Asthma (ED) Additional Instructions: Continue to use your inhalers and nebulizing treatment Prednisone as prescribed Avoid working in [employer] as it may flare up your asthma Prescriptions: New albuterol sulfate 2.5 mg /3 mL (0.083 %) solution for nebulization 2.5 mg inhalation Q4-6H PRN (Reason: shortness of breath or wheezing) Qty: 90 0RF prednisone 20 mg tablet 40 mg PO DAILY Qty: 10 0RF albuterol sulfate [ProAir HFA] 90 mcg/actuation HFA aerosol inhaler 2 puff inhalation Q4-6H PRN (Reason: shortness of breath or wheezing) Qty: 8.5 0RF No Action Advair HFA 115-21 mcg/actuation HFA aerosol inhaler 2 puff inhalation BID 30 Days Qty: 1 6RF Rx Instructions: administer with spacer Xolair 150 mg recon soln 300 mg subcut Q4W 28 Days Qty: 2 12RF Rx Instructions: requires multiple injection sites; do not exceed 150 mg per injection site dexamethasone [Decadron] 6 mg tablet 6 mg PO DAILY Qty: 7 0RF albuterol sulfate 2.5 mg /3 mL (0.083 %) solution for nebulization 2.5 mg inhalation Q4-6H PRN (Reason: shortness of breath or wheezing) Qty: 180 0RF prednisone 50 mg tablet 50 mg PO DAILY 4 Days Qty: 4 0RF prednisone 20 mg tablet 40 mg PO DAILY 5 Days Qty: 10 0RF albuterol sulfate 90 mcg/actuation HFA aerosol inhaler 2 puff inhalation Q4-6H PRN (Reason: shortness of breath or wheezing) Qty: 6.7 0RF albuterol sulfate 2.5 mg/0.5 mL solution for nebulization 5 mg inhalation Q4H PRN (Reason: shortness of breath or wheezing) Qty: 30 0RF prednisone 50 mg tablet 50 mg PO DAILY Qty: 5 0RF albuterol sulfate 90 mcg/actuation HFA aerosol inhaler 2 inh inhalation Q6-8H PRN (Reason: shortness of breath or wheezing) Qty: 8.5 0RF ipratropium-albuterol 0.5 mg-3 mg(2.5 mg base)/3 mL solution for nebulization 3 ml inhalation Q4-6H PRN (Reason: shortness of breath or wheezing) Qty: 180 0RF albuterol sulfate 2.5 mg /3 mL (0.083 %) solution for nebulization 2.5 mg inhalation Q4-6H PRN (Reason: shortness of breath or wheezing) Qty: 180 0RF prednisone 20 mg tablet 40 mg PO DAILY Qty: 10 0RF prednisone 20 mg tablet 60 mg PO DAILY Qty: 12 0RF prednisone 50 mg tablet 50 mg PO DAILY Qty: 5 0RF prednisone 20 mg tablet 60 mg PO DAILY Qty: 12 0RF albuterol sulfate 90 mcg/actuation HFA aerosol inhaler 2 puff inhalation Q4-6H PRN (Reason: shortness of breath or wheezing) Qty: 6.7 2RF Rx Instructions: May dispense medication equivalent Accepted by patient's insurance albuterol sulfate 2.5 mg /3 mL (0.083 %) solution for nebulization 2.5 mg inhalation Q4-6H PRN (Reason: shortness of breath or wheezing) Qty: 75 2RF prednisone 20 mg tablet 40 mg PO DAILY 5 Days Qty: 10 0RF
[2022-09-15] MEDS: methylPREDNISolone Sod Succ 125 MG/2 ML VIAL IVPUSH (04:49)
[2022-09-15] MEDS: Magnesium Sulfate/H2O 2 GM/50 ML PIGGYBACK IV (04:49)
[2022-09-15 04:58] VITALS: PULSE 86; RESP 16; O2SAT 93
--- NOTE | 2022-09-15 06:14 | PC.NURSE ---
Pt ambulated in the hallway, O2 stayed above 93% and pt reported no trouble breathing.
== END 2022-09-15 06:25 | disposition home or self-care (01) ==
PROVIDERS: Emergency Provider Internal Medicine; PCP Nurse Practitioner
DX: J45.901 Unspecified asthma with (acute) exacerbation (principal); R06.02 Shortness of breath; Z91.09 Other allergy status, other than to drugs and biological substances; Z79.899 Other long term (current) drug therapy
CPT/HCPCS: 36415; 71045; 80048; 81025; 84484; 85025; 93005; 94640; 96365; 96375; 99284; 99285; J2930; J3475

== ENCOUNTER 2022-09-29 09:19 | Emergency (ER) | payer MEDICAID, SELFPAY ==
--- NOTE | ~2022-09-29 | XR_ITS ---
EXAMINATION: XR CHEST CLINICAL INFORMATION: Shortness of breath COMPARISON: None available. TECHNIQUE: Frontal view of the chest was obtained. FINDINGS: No significant abnormality is noted involving the heart, lungs, mediastinum, bony thorax or soft tissues. XR/XR chest 1V IMPRESSION: Normal portable chest x-ray. No evidence of acute infiltrates or failure.
[2022-09-29 09:20] VITALS: BP 111/90; PULSE 121; RESP 26; TEMP 37; O2SAT 96; BMI 30.7
--- NOTE | 2022-09-29 09:27 | ECG_ITS ---
Test Reason : DYSPNEA Blood Pressure : / mmHG Vent. Rate : 106 BPM Atrial Rate : 106 BPM P-R Int : 122 ms QRS Dur : 080 ms QT Int : 350 ms P-R-T Axes : 074 067 022 degrees QTc Int : 464 ms Sinus tachycardia Otherwise normal ECG When compared with ECG of 15-SEP-2022 00:56, No significant change was found Referred By: Tanna Hassan Electronically Signed By:Juan Oneil
[2022-09-29 09:28] VITALS: O2SAT 97
--- NOTE | 2022-09-29 09:34 | ED_ITS ---
HPI - SOB/Dyspnea General Chief Complaint: Dyspnea Stated Complaint: asthma Time Seen by Provider: 09/29/22 09:27 Source: patient Mode of arrival: ambulatory Limitations: no limitations History of Present Illness HPI Narrative: 22-year-old female history of asthma presented with shortness of breath and dyspnea. Patient is nonsmoker, no history of recent sickness, no exposure to sick contacts, no recent travel, no lower extremities swelling, no history of DVT or PE. Patient presented with her typical asthma exacerbation used her home inhaler albuterol with no relief of her symptoms. No clear precipitating factors. Related Data Previous Rx's Medication Instructions Recorded fluticasone propionate 115 2 puff inhalation BID 30 days #1 ea 11/19/20 mcg-salmeterol 21 mcg/actuation HFA inhaler (Advair HFA) albuterol sulfate 2.5 mg/3 mL 2.5 mg (3 mL) inhalation Q4-6H PRN 07/03/21 (0.083 %) solution for nebulization shortness of breath or wheezing #180 mL albuterol sulfate 90 mcg/actuation 2 inh inhalation Q6-8H PRN 07/03/21 aerosol inhaler shortness of breath or wheezing #8.5 grams ipratropium 0.5 mg-albuterol 3 mg 3 ml inhalation Q4-6H PRN 07/03/21 (2.5 mg base)/3 mL nebulization shortness of breath or wheezing soln #180 mL omalizumab 150 mg subcutaneous 300 mg subcut Q4W 28 days #2 ea 09/26/21 solution (Xolair) prednisone 20 mg tablet 40 mg PO DAILY #10 tabs 11/05/21 albuterol sulfate 2.5 mg/3 mL 2.5 mg (3 mL) inhalation Q4-6H PRN 03/08/22 (0.083 %) solution for nebulization shortness of breath or wheezing #180 mL dexamethasone 6 mg tablet 6 mg PO DAILY #7 tabs 03/08/22 (Decadron) prednisone 50 mg tablet 50 mg PO DAILY 4 days #4 tabs 03/19/22 prednisone 20 mg tablet 60 mg PO DAILY #12 tabs 04/09/22 albuterol sulfate 2.5 mg/0.5 mL 5 mg inhalation Q4H PRN shortness 05/09/22 solution for nebulization of breath or wheezing #30 ea albuterol sulfate 90 mcg/actuation 2 puff inhalation Q4-6H PRN 05/09/22 aerosol inhaler shortness of breath or wheezing #6.7 grams prednisone 20 mg tablet 40 mg PO DAILY 5 days #10 tabs 05/09/22 prednisone 50 mg tablet 50 mg PO DAILY #5 tabs 05/19/22 prednisone 20 mg tablet 60 mg PO DAILY #12 tabs 05/26/22 albuterol sulfate 2.5 mg/3 mL 2.5 mg (3 mL) inhalation Q4-6H PRN 08/05/22 (0.083 %) solution for nebulization shortness of breath or wheezing #75 mL albuterol sulfate 90 mcg/actuation 2 puff inhalation Q4-6H PRN 08/05/22 aerosol inhaler shortness of breath or wheezing #6.7 grams prednisone 20 mg tablet 40 mg PO DAILY 5 days #10 tabs 08/05/22 prednisone 50 mg tablet 50 mg PO DAILY #5 tabs 08/18/22 albuterol sulfate 2.5 mg/3 mL 2.5 mg (3 mL) inhalation Q4-6H PRN 09/15/22 (0.083 %) solution for nebulization shortness of breath or wheezing #90 mL albuterol sulfate 90 mcg/actuation 2 puff inhalation Q4-6H PRN 09/15/22 aerosol inhaler (ProAir HFA) shortness of breath or wheezing #8.5 grams prednisone 20 mg tablet 40 mg PO DAILY #10 tabs 09/15/22 prednisone 20 mg tablet 20 mg PO BID #10 tabs 09/29/22 Allergies Allergy/AdvReac Type Severity Reaction Status Date / Time No Known Allergies Allergy Verified 09/01/21 14:50 Review of Systems Review of Systems: All other systems are reviewed and are negative Constitutional: Reports as per HPI and Reports no additional constitutional complaints Eyes: Reports as per HPI and Reports no additional eye complaints Reports system reviewed and no additional complaints, except as documented Cardiovascular: Reports as per HPI and Reports no additional cardiovascular complaints Respiratory: Reports as per HPI and Reports no additional respiratory complaints Gastrointestinal: Reports as per HPI and Reports no additional gastrointestinal complaints Genitourinary: Reports no additional female genitourinary complaints Musculoskeletal: Reports no additional musculoskeletal complaints Skin/Breast: Reports system reviewed and no additional complaints, except as docu Psychiatric: Reports no additional psychiatric complaints Endocrine: Reports no additional endocrine complaints Hematologic/Lymphatic: Reports no additional hematologic/lymphatic complaints Allergic/Immunologic: Reports no additional allergic/immunologic complaints Reports system reviewed and no additional complaints, except as documented and R eports Abnormal speech present [facility] Past Medical History Medical History Asthma Social History Social History Alcohol intake: never Patient Tobacco Use Status: Never used Tobacco Advance Directives: No Advance Directives Information Provided: No Physical Exam Vital Signs: Vital Signs: Last Vital Signs Temp 98.6 F 09/29/22 09:20 Pulse 104 H 09/29/22 09:40 Resp 17 09/29/22 09:40 BP 111/90 H 09/29/22 09:20 Pulse Ox 97 09/29/22 09:28 O2 Del Method Nasal Cannula 09/29/22 09:28 O2 Flow Rate 2 09/29/22 09:28 BMI result Body Mass Index 30.7 Vital signs have been reviewed as appeared to be correct. Blood pressure normal. Heart rate normal. Respiration rate normal. Temperature normal. Oxygen saturation normal. Appearance: Alert. Oriented X3. No acute distress. Head: Normal external exam. Normocephalic. Atraumatic. No Gomez signs noted. No raccoon eyes noted Eyes: PERRLA. EOMI. Conjunctiva and sclera normal. Eyelids normal. ENT: TM's Normal. Pharynx normal. Uvula midline. Moist mucous membranes. No trismus noted. No drooling noted. No muffled voice noted. Neck: Normal inspection. Neck supple. FROM. No adenopathy. Thyroid Normal. No meningeal signs. No neck mass noted. CVS: Normal heart rate and rhythm. Heart sound normal. No murmurs noted. Pulses normal throughout. Respiratory: Mild respiratory distress. Painless inspiration. Breath sounds normal. Diffuse expiratory wheezing with prolonged expiration. Chest nontender. No accessory muscle usage noted or decreased air movement noted. Abdomen: Soft and nontender. Bowel sounds normal in all 4 quadrants. No distention noted. No organomegaly noted. No visible injury noted. Back: No CVA tenderness. Full range of motion noted. Skin: Skin warm and dry. Normal skin color. Normal skin turgor. No rashes/lesions/lacerations noted. Extremities: No lower extremity edema. Extremities exhibit normal range of motion. Extremities nontender. Neuro: Oriented X 3. Cranial nerve exam: II-XII are grossly intact No motor deficit. No sensory deficit. Reflexes normal. Medications Administered Discontinued Medications Generic Name Dose Route Start Last Admin Trade Name Freq PRN Reason Stop Dose Admin Albuterol Sulfate 7.5 mg 09/29/22 09:30 09/29/22 09:39 Albuterol Sulfate (0.083%) 2.5 Mg/3 Ml Vial.Neb INHALE 09/29/22 09:31 7.5 mg ONCE ONE Administration Albuterol/Ipratropium 3 ml 09/29/22 09:30 09/29/22 09:39 Albuterol/Iprat 2.5/0.5mg 3 Ml Ampul.Neb INHALE 09/29/22 09:31 3 ml ONCE ONE Administration Methylprednisolone Sodium Succinate 125 mg 09/29/22 09:32 09/29/22 10:13 Methylprednisolone Sod Succ 125 Mg/2 Ml Vial IVPUSH 09/29/22 09:33 125 mg ONCE ONE Administration Medical Decision Making Medical Decision Making [facility] Narrative: 22-year-old female history of asthma, came in with asthma exacerbation patient responded well to bronchodilator therapy in the emergency department and 1 dose of IV steroid. Will discharge the patient on bronchodilator and short course of prednisone. Differential Diagnosis Differential Diagnoses: The differential diagnosis associated with the presentation includes (Asthma exacerbation, pneumonia, viral infection, pneumothorax.) Lab Data [facility] Lab Attestation statement: I reviewed the patient's lab results. 09/29/22 10:11 09/29/22 10:11 Labs: Lab Results 09/29/22 09/29/22 09/29/22 Range/Units 10:09 10:11 10:11 WBC 5.8 (4.8-10.8) X10*3/uL RBC 4.52 (4.20-5.50) X10*6/uL Hgb 12.8 (12.0-16.0) g/dl Hct 38.9 (37.0-47.0) % MCV 86.1 (80.0-98.0) fL MCH 28.3 (27.0-33.0) pg MCHC 32.9 (31.0-35.0) g/dl RDW 12.6 (11.0-16.0) % Plt Count 204 (160-400) X10*3/uL MPV 9.6 (9.4-12.3) fL Immature Gran % (Auto) 0.2 (0.0-0.4) % Neut % (Auto) 66.0 (45-73) % Lymph % (Auto) 24.5 (20-40) % [place] % (Auto) 4.8 (2-11) % Eos % (Auto) 3.6 (0-4) % Baso % (Auto) 0.9 (0-2) % Lymph # (Auto) 1.4 (1.2-4.9) X10*3/uL [place] # (Auto) 0.3 (0.1-1.2) X10*3/uL Eos # (Auto) 0.2 (0.0-0.4) X10*3/uL Baso # (Auto) 0.1 (0.0-0.2) X10*3/uL Abs Immat Gran (auto) 0.01 (0.00-0.03) X10*3/uL Absolute Neuts (auto) 3.9 (2.0-8.3) x10*3/uL Absolute Nucleated RBC 0.000 (0.0-0.012) X10*3/uL Nucleated RBC % (auto) 0.0 (0.0-0.2) /100WBC Sodium 145 (135-145) mmol/L Potassium 3.7 (3.3-5.1) mmol/L Chloride 112 H (96-108) mmol/L Carbon Dioxide 25 (22-29) mmol/L Anion Gap 12 (12-20) BUN 10 (9-16) mg/dL Creatinine 0.78 (0.5-1.4) mg/dL Estim Creat Clear Calc 119.9 Estimated GFR > 60 Random Glucose 124 H (60-115) mg/dL Calcium 8.9 (8.4-10.2) mg/dL B-Natriuretic Peptide (<100) pg/mL Influenza Type A (PCR) NEGATIVE (Negative) Influenza Type B (PCR) NEGATIVE (Negative) RSV RNA Qual (PCR) NEGATIVE (Negative) SARS-CoV-2 RNA (RT-PCR) NEGATIVE (Negative) 09/29/22 Range/Units 10:11 WBC (4.8-10.8) X10*3/uL RBC (4.20-5.50) X10*6/uL Hgb (12.0-16.0) g/dl Hct (37.0-47.0) % MCV (80.0-98.0) fL MCH (27.0-33.0) pg MCHC (31.0-35.0) g/dl RDW (11.0-16.0) % Plt Count (160-400) X10*3/uL MPV (9.4-12.3) fL Immature Gran % (Auto) (0.0-0.4) % Neut % (Auto) (45-73) % Lymph % (Auto) (20-40) % [place] % (Auto) (2-11) % Eos % (Auto) (0-4) % Baso % (Auto) (0-2) % Lymph # (Auto) (1.2-4.9) X10*3/uL [place] # (Auto) (0.1-1.2) X10*3/uL Eos # (Auto) (0.0-0.4) X10*3/uL Baso # (Auto) (0.0-0.2) X10*3/uL Abs Immat Gran (auto) (0.00-0.03) X10*3/uL Absolute Neuts (auto) (2.0-8.3) x10*3/uL Absolute Nucleated RBC (0.0-0.012) X10*3/uL Nucleated RBC % (auto) (0.0-0.2) /100WBC Sodium (135-145) mmol/L Potassium (3.3-5.1) mmol/L Chloride (96-108) mmol/L Carbon Dioxide (22-29) mmol/L Anion Gap (12-20) BUN (9-16) mg/dL Creatinine (0.5-1.4) mg/dL Estim Creat Clear Calc Estimated GFR Random Glucose (60-115) mg/dL Calcium (8.4-10.2) mg/dL B-Natriuretic Peptide 23 (<100) pg/mL Influenza Type A (PCR) (Negative) Influenza Type B (PCR) (Negative) RSV RNA Qual (PCR) (Negative) SARS-CoV-2 RNA (RT-PCR) (Negative) Independent Interpretation I performed an independent interpretation of an: Plain X-Ray (No acute intrathoracic pathology.) Radiology Impression Discussion of test interpretation with radiology: I have reviewed the radiologist's reading. Discharge Plan Discharge Clinical Impression: Asthma with exacerbation Patient Disposition: Home, Self-Care Instructions: Asthma (ED) Additional Instructions: Follow-up with your mortgage loan counselor/PCP. Prescriptions: New prednisone 20 mg tablet 20 mg PO BID Qty: 10 0RF No Action Advair HFA 115-21 mcg/actuation HFA aerosol inhaler 2 puff inhalation BID 30 Days Qty: 1 6RF Rx Instructions: administer with spacer Xolair 150 mg recon soln 300 mg subcut Q4W 28 Days Qty: 2 12RF Rx Instructions: requires multiple injection sites; do not exceed 150 mg per injection site dexamethasone [Decadron] 6 mg tablet 6 mg PO DAILY Qty: 7 0RF albuterol sulfate 2.5 mg /3 mL (0.083 %) solution for nebulization 2.5 mg inhalation Q4-6H PRN (Reason: shortness of breath or wheezing) Qty: 180 0RF prednisone 50 mg tablet 50 mg PO DAILY 4 Days Qty: 4 0RF prednisone 20 mg tablet 40 mg PO DAILY 5 Days Qty: 10 0RF albuterol sulfate 90 mcg/actuation HFA aerosol inhaler 2 puff inhalation Q4-6H PRN (Reason: shortness of breath or wheezing) Qty: 6.7 0RF albuterol sulfate 2.5 mg/0.5 mL solution for nebulization 5 mg inhalation Q4H PRN (Reason: shortness of breath or wheezing) Qty: 30 0RF prednisone 50 mg tablet 50 mg PO DAILY Qty: 5 0RF albuterol sulfate 90 mcg/actuation HFA aerosol inhaler 2 inh inhalation Q6-8H PRN (Reason: shortness of breath or wheezing) Qty: 8.5 0RF ipratropium-albuterol 0.5 mg-3 mg(2.5 mg base)/3 mL solution for nebulization 3 ml inhalation Q4-6H PRN (Reason: shortness of breath or wheezing) Qty: 180 0RF albuterol sulfate 2.5 mg /3 mL (0.083 %) solution for nebulization 2.5 mg inhalation Q4-6H PRN (Reason: shortness of breath or wheezing) Qty: 180 0RF prednisone 20 mg tablet 40 mg PO DAILY Qty: 10 0RF prednisone 20 mg tablet 60 mg PO DAILY Qty: 12 0RF prednisone 50 mg tablet 50 mg PO DAILY Qty: 5 0RF prednisone 20 mg tablet 60 mg PO DAILY Qty: 12 0RF albuterol sulfate 90 mcg/actuation HFA aerosol inhaler 2 puff inhalation Q4-6H PRN (Reason: shortness of breath or wheezing) Qty: 6.7 2RF Rx Instructions: May dispense medication equivalent Accepted by patient's insurance albuterol sulfate 2.5 mg /3 mL (0.083 %) solution for nebulization 2.5 mg inhalation Q4-6H PRN (Reason: shortness of breath or wheezing) Qty: 75 2RF prednisone 20 mg tablet 40 mg PO DAILY 5 Days Qty: 10 0RF albuterol sulfate 2.5 mg /3 mL (0.083 %) solution for nebulization 2.5 mg inhalation Q4-6H PRN (Reason: shortness of breath or wheezing) Qty: 90 0RF prednisone 20 mg tablet 40 mg PO DAILY Qty: 10 0RF albuterol sulfate [ProAir HFA] 90 mcg/actuation HFA aerosol inhaler 2 puff inhalation Q4-6H PRN (Reason: shortness of breath or wheezing) Qty: 8.5 0RF
[2022-09-29] MEDS: Albuterol Sulfate (0.083%) 2.5 MG/3 ML VIAL.NEB 7.5 MG INHALE (09:39)
[2022-09-29] MEDS: Albuterol/Iprat 2.5/0.5MG 3 ML AMPUL.NEB INHALE (09:39)
[2022-09-29 09:40] VITALS: PULSE 104; RESP 17; O2SAT 96
[2022-09-29] MEDS: methylPREDNISolone Sod Succ 125 MG/2 ML VIAL IVPUSH (10:13)
[2022-09-29 10:15] LABS: MANUAL DIFF FLAG NO
[2022-09-29 10:16] LABS: Basophils Absolute Auto 0.1 X10*3/uL (0.0-0.2); Basophils Percent Auto 0.9 % (0-2); Eosinophils Absolute Auto 0.2 X10*3/uL (0.0-0.4); Eosinophils Percent Auto 3.6 % (0-4); Hematocrit 38.9 % (37.0-47.0); Hemoglobin 12.8 g/dl (12.0-16.0); Imm Gran Abs Auto 0.01 X10*3/uL (0.00-0.03); Imm Gran Pct Auto 0.2 % (0.0-0.4); Lymphocytes Absolute Auto 1.4 X10*3/uL (1.2-4.9); Lymphocytes Percent Auto 24.5 % (20-40); Mean Corpuscular HGB Conc 32.9 g/dl (31.0-35.0); Mean Corpuscular Hemoglobin 28.3 pg (27.0-33.0); Mean Corpuscular Volume 86.1 fL (80.0-98.0); Mean Platelet Volume 9.6 fL (9.4-12.3); Monocytes Absolute Auto 0.3 X10*3/uL (0.1-1.2); Monocytes Percent Auto 4.8 % (2-11); Neutrophils Absolute Auto 3.9 x10*3/uL (2.0-8.3); Platelet Count 204 X10*3/uL (160-400); Red Blood Count 4.52 X10*6/uL (4.20-5.50); Red Cell Distribution Width 12.6 % (11.0-16.0); White Blood Count 5.8 X10*3/uL (4.8-10.8)
[2022-09-29 10:39] LABS: Anion Gap 12 (12-20); Blood Urea Nitrogen 10 mg/dL (9-16); Calcium 8.9 mg/dL (8.4-10.2); Carbon Dioxide 25 mmol/L (22-29); Chloride 112 mmol/L (96-108); Creatinine Clr Calc Pharmacy 119.9; Estimated Glomerular Filt Rate > 60; Glucose Random 124 mg/dL (60-115); Potassium 3.7 mmol/L (3.3-5.1); Sodium 145 mmol/L (135-145)
[2022-09-29 10:47] LABS: B Type Natriuretic Peptide 23 pg/mL (<100)
[2022-09-29 10:52] LABS: Influenza A PCR NEGATIVE (Negative); Influenza B PCR NEGATIVE (Negative); Resp Syncy Virus RNA Qual PCR NEGATIVE (Negative); SARS COV2 PCR INHOUSE NEGATIVE (Negative)
== END 2022-09-29 11:56 | disposition home or self-care (01) ==
PROVIDERS: Emergency Provider Emergency Medicine; PCP Nurse Practitioner
DX: J45.901 Unspecified asthma with (acute) exacerbation (principal); R06.02 Shortness of breath; Z20.822 Contact with and (suspected) exposure to COVID-19; Z20.828 Contact with and (suspected) exposure to other viral communicable diseases
CPT/HCPCS: 0241U; 36415; 71045; 80048; 83880; 85025; 93005; 94640; 96374; 99284; J2930

== ENCOUNTER 2022-10-29 23:11 | Emergency (ER) | payer MEDICAID, SELFPAY ==
--- NOTE | ~2022-10-29 | XR_ITS ---
EXAMINATION: XR CHEST CLINICAL INFORMATION: Shortness of breath COMPARISON: 09/29/2022 TECHNIQUE: Frontal view of the chest was obtained. FINDINGS: No significant abnormality is noted involving the heart, lungs, mediastinum, bony thorax or soft tissues. XR/XR chest 1V IMPRESSION: Unremarkable examination.
[2022-10-29 23:16] VITALS: O2SAT 90; BMI 32.4
[2022-10-29 23:22] VITALS: PULSE 108; RESP 20; O2SAT 98
[2022-10-29] MEDS: Magnesium Sulfate/D5W 1 GM/100 ML PIGGYBACK IV (23:25)
[2022-10-29] MEDS: methylPREDNISolone Sod Succ 125 MG/2 ML VIAL IVPUSH (23:25)
[2022-10-29 23:28] LABS: Basophils Absolute Auto 0.1 X10*3/uL (0.0-0.2); Basophils Percent Auto 0.8 % (0-2); Eosinophils Absolute Auto 0.5 X10*3/uL (0.0-0.4); Eosinophils Percent Auto 5.2 % (0-4); Hematocrit 43.2 % (37.0-47.0); Hemoglobin 14.6 g/dl (12.0-16.0); Imm Gran Abs Auto 0.02 X10*3/uL (0.00-0.03); Imm Gran Pct Auto 0.2 % (0.0-0.4); Lymphocytes Absolute Auto 3.1 X10*3/uL (1.2-4.9); Lymphocytes Percent Auto 31.2 % (20-40); MANUAL DIFF FLAG NO; Mean Corpuscular HGB Conc 33.8 g/dl (31.0-35.0); Mean Corpuscular Hemoglobin 28.5 pg (27.0-33.0); Mean Corpuscular Volume 84.4 fL (80.0-98.0); Mean Platelet Volume 9.3 fL (9.4-12.3); Monocytes Absolute Auto 0.7 X10*3/uL (0.1-1.2); Monocytes Percent Auto 6.7 % (2-11); Neutrophils Absolute Auto 5.6 x10*3/uL (2.0-8.3); Neutrophils Percent Auto 55.9 % (45-73); Platelet Count 272 X10*3/uL (160-400); Red Blood Count 5.12 X10*6/uL (4.20-5.50); Red Cell Distribution Width 12.3 % (11.0-16.0); White Blood Count 10.1 X10*3/uL (4.8-10.8)
--- NOTE | 2022-10-29 23:40 | ED_ITS ---
HPI - General Adult General Chief complaint: Dyspnea Stated complaint: Asthma Time Seen by Provider: 10/29/22 23:16 Source: patient, RN notes reviewed and old records reviewed Mode of arrival: ambulatory Limitations: no limitations History of Present Illness HPI narrative: 22-year-old female with past medical history significant for asthma presents for evaluation of shortness of breath. Patient reports that she started to feel increasing shortness of breath yesterday. She states that her symptoms worsened today and she ran out of her nebulizers today Denies any fevers or chills. Patient is unsure if she is because her last menstrual period was last month and she feels that she is overdue Denies any chest pain Denies any leg swelling Related Data Previous Rx's Medication Instructions Recorded fluticasone propionate 115 2 puff inhalation BID 30 days #1 ea 11/19/20 mcg-salmeterol 21 mcg/actuation HFA inhaler (Advair HFA) albuterol sulfate 2.5 mg/3 mL 2.5 mg (3 mL) inhalation Q4-6H PRN 07/03/21 (0.083 %) solution for nebulization shortness of breath or wheezing #180 mL albuterol sulfate 90 mcg/actuation 2 inh inhalation Q6-8H PRN 07/03/21 aerosol inhaler shortness of breath or wheezing #8.5 grams ipratropium 0.5 mg-albuterol 3 mg 3 ml inhalation Q4-6H PRN 07/03/21 (2.5 mg base)/3 mL nebulization shortness of breath or wheezing soln #180 mL omalizumab 150 mg subcutaneous 300 mg subcut Q4W 28 days #2 ea 09/26/21 solution (Xolair) prednisone 20 mg tablet 40 mg PO DAILY #10 tabs 11/05/21 albuterol sulfate 2.5 mg/3 mL 2.5 mg (3 mL) inhalation Q4-6H PRN 03/08/22 (0.083 %) solution for nebulization shortness of breath or wheezing #180 mL dexamethasone 6 mg tablet 6 mg PO DAILY #7 tabs 03/08/22 (Decadron) prednisone 50 mg tablet 50 mg PO DAILY 4 days #4 tabs 03/19/22 prednisone 20 mg tablet 60 mg PO DAILY #12 tabs 04/09/22 albuterol sulfate 2.5 mg/0.5 mL 5 mg inhalation Q4H PRN shortness 05/09/22 solution for nebulization of breath or wheezing #30 ea albuterol sulfate 90 mcg/actuation 2 puff inhalation Q4-6H PRN 05/09/22 aerosol inhaler shortness of breath or wheezing #6.7 grams prednisone 20 mg tablet 40 mg PO DAILY 5 days #10 tabs 05/09/22 prednisone 50 mg tablet 50 mg PO DAILY #5 tabs 05/19/22 prednisone 20 mg tablet 60 mg PO DAILY #12 tabs 05/26/22 albuterol sulfate 2.5 mg/3 mL 2.5 mg (3 mL) inhalation Q4-6H PRN 08/05/22 (0.083 %) solution for nebulization shortness of breath or wheezing #75 mL albuterol sulfate 90 mcg/actuation 2 puff inhalation Q4-6H PRN 08/05/22 aerosol inhaler shortness of breath or wheezing #6.7 grams prednisone 20 mg tablet 40 mg PO DAILY 5 days #10 tabs 08/05/22 prednisone 50 mg tablet 50 mg PO DAILY #5 tabs 08/18/22 albuterol sulfate 2.5 mg/3 mL 2.5 mg (3 mL) inhalation Q4-6H PRN 09/15/22 (0.083 %) solution for nebulization shortness of breath or wheezing #90 mL albuterol sulfate 90 mcg/actuation 2 puff inhalation Q4-6H PRN 09/15/22 aerosol inhaler (ProAir HFA) shortness of breath or wheezing #8.5 grams prednisone 20 mg tablet 40 mg PO DAILY #10 tabs 09/15/22 prednisone 20 mg tablet 20 mg PO BID #10 tabs 09/29/22 albuterol sulfate 2.5 mg/0.5 mL 5 mg inhalation Q6H PRN shortness 10/30/22 solution for nebulization of breath or wheezing #15 ea albuterol sulfate 90 mcg/actuation 1 inh inhalation QID PRN shortness 10/30/22 aerosol inhaler of breath or wheezing #6.7 grams prednisone 20 mg tablet 40 mg PO DAILY #10 tabs 10/30/22 Allergies Allergy/AdvReac Type Severity Reaction Status Date / Time No Known Allergies Allergy Verified 10/29/22 23:16 Review of Systems Constitutional: Constitutional: Denies body ache(s), Denies chills, Denies fatigue, Denies fever(s) and Denies headache(s) ENT: Denies headache(s) Cardiovascular: Cardiovascular: Denies chest pain and Reports dyspnea Respiratory: Respiratory: Reports cough, Reports dyspnea and Reports wheezing Gastrointestinal: Gastrointestinal: Denies abdominal pain, Denies constipation and Denies vomiting Genitourinary: Genitourinary: Denies dysuria Neurologic: Denies headache(s) and Denies focal weakness Endocrine: Endocrine: Denies fatigue Allergic/Immunologic: Allergic/Immunologic: Reports wheezing PMFSH Past Medical History Medical History Asthma Social History Social History Alcohol intake: never Patient Tobacco Use Status: Never used Tobacco Advance Directives: No Advance Directives Information Provided: Yes Physical Exam ED Vital Signs: Vital Signs - 24 hr 10/29/22 23:16 10/29/22 23:22 Pulse Rate 108 H Respiratory Rate 20 Pulse Oximetry 90 L Oxygen Delivery Method Room Air BMI result Body Mass Index 32.4 Const General: healthy appearing, comfortable, no acute distress, alert and awake Nutritional Appearance: well nourished Orientation/consciousness: patient oriented x3 HENMT Head: Yes normocephalic and Yes atraumatic Throat: Yes posterior oropharynx normal Eyes Eyelids: Yes eyelids normal Conjunctivae: conjunctivae normal Sclerae: sclerae normal Corneas: corneas normal Pupils: Equal, round and reactive pupils present EOM: EOMs intact bilaterally Neck Neck: Yes full ROM Resp Other: Increased respiratory effort and prolonged expiratory phase. Effort & Inspection: abnormal respiratory effort and not able to speak in complete sentences Auscultation: not clear to auscultation bilaterally and wheezes (Diffuse expiratory wheeze) Cardio Rate: regular rate Rhythm: regular rhythm GI Inspection: No distended Palpation (GI): Soft to palpation, not firm, nontender, no guarding and not rigid Auscultation: normoactive bowel sounds Skin General skin exam: no rashes or lesions noted and elasticity normal Neuro General: patient oriented x3 Cranial nerves: Yes Equal, round and reactive pupils present and Yes Bilaterally intact EOM present Cognition (Neuro): normal cognition Extrem Other: Moving all extremities well without any obvious deformities Course Reevaluation(s) Reevaluation #1: Patient's oxygen saturation now 100% on room air after her breathing treatment. Time: 23:57 Reevaluation #2: Patient reports feeling much better. She continues to sat 96-100% on room air. Her respiratory rate is around 20. Will discharge the patient with prednisone sent to pharmacy. She believes she may have her refills of albuterol nebulizer and inhaler from her doctor, will give her paper prescriptions just in case she does not have them yet. Time: 01:01 Medications Administered Discontinued Medications Generic Name Dose Route Start Last Admin Trade Name Freq PRN Reason Stop Dose Admin Albuterol Sulfate 7.5 mg/ 0 mg 10/29/22 23:16 10/29/22 23:21 Albuterol/Ipratropium 3 ml INHALE 10/29/22 23:17 1 each ONCE ONE Administration Magnesium Sulfate/Dextrose 1 gm in 100 mls @ 100 mls/hr 10/29/22 23:16 10/29/22 23:50 Magnesium Sulfate/D5w IV 10/30/22 00:15 Infused ONCE ONE Infusion Methylprednisolone Sodium Succinate 125 mg 10/29/22 23:16 10/29/22 23:25 Methylprednisolone Sod Succ 125 Mg/2 Ml Vial IVPUSH 10/29/22 23:17 125 mg ONCE ONE Administration Medical Decision Making Medical Decision Making MDM Narrative: Patient found to be without oxygen saturation 90% on room air. She has a history of asthma and is wheezing exam. She ran out of her nebulizer earlier today. Will start with Solu-Medrol magnesium and a 10 mg reduction with Atrovent. Will get a portable chest x-ray if her test is negative. Differential Diagnosis Acute asthma exacerbation Bronchitis Pneumonia Seasonal allergies CHF less likely Lab Data 10/29/22 23:24 10/29/22 23:24 Labs: Lab Results 10/29/22 10/29/22 10/30/22 Range/Units 23:24 23:24 00:00 WBC 10.1 (4.8-10.8) X10*3/uL RBC 5.12 (4.20-5.50) X10*6/uL Hgb 14.6 (12.0-16.0) g/dl Hct 43.2 (37.0-47.0) % MCV 84.4 (80.0-98.0) fL MCH 28.5 (27.0-33.0) pg MCHC 33.8 (31.0-35.0) g/dl RDW 12.3 (11.0-16.0) % Plt Count 272 D (160-400) X10*3/uL MPV 9.3 L (9.4-12.3) fL Immature Gran % (Auto) 0.2 (0.0-0.4) % Neut % (Auto) 55.9 (45-73) % Lymph % (Auto) 31.2 (20-40) % [place] % (Auto) 6.7 (2-11) % Eos % (Auto) 5.2 H (0-4) % Baso % (Auto) 0.8 (0-2) % Lymph # (Auto) 3.1 (1.2-4.9) X10*3/uL [place] # (Auto) 0.7 (0.1-1.2) X10*3/uL Eos # (Auto) 0.5 H (0.0-0.4) X10*3/uL Baso # (Auto) 0.1 (0.0-0.2) X10*3/uL Abs Immat Gran (auto) 0.02 (0.00-0.03) X10*3/uL Absolute Neuts (auto) 5.6 (2.0-8.3) x10*3/uL Absolute Nucleated RBC 0.000 (0.0-0.012) X10*3/uL Nucleated RBC % (auto) 0.0 (0.0-0.2) /100WBC Sodium 141 (135-145) mmol/L Potassium 3.6 (3.3-5.1) mmol/L Chloride 109 H (96-108) mmol/L Carbon Dioxide 24 (22-29) mmol/L Anion Gap 12 (12-20) BUN 13 (9-16) mg/dL Creatinine 0.87 (0.5-1.4) mg/dL Estim Creat Clear Calc 110.4 Estimated GFR > 60 Random Glucose 112 (60-115) mg/dL Calcium 9.0 (8.4-10.2) mg/dL Beta HCG, Quant < 2 mIU/mL COVID-19 (MARGRET) Negative (Negative) COVID-19 Clin Com See Note Discharge Plan Discharge Clinical Impression: Acute asthma exacerbation Patient Disposition: Home, Self-Care Instructions: Asthma (ED) Additional Instructions: Take all your medications as prescribed Return for new or worsening symptoms Follow-up with your primary doctor Prescriptions: New prednisone 20 mg tablet 40 mg PO DAILY Qty: 10 0RF albuterol sulfate 90 mcg/actuation HFA aerosol inhaler 1 inh inhalation QID PRN (Reason: shortness of breath or wheezing) Qty: 6.7 0RF albuterol sulfate 2.5 mg/0.5 mL solution for nebulization 5 mg inhalation Q6H PRN (Reason: shortness of breath or wheezing) Qty: 15 0RF No Action Advair HFA 115-21 mcg/actuation HFA aerosol inhaler 2 puff inhalation BID 30 Days Qty: 1 6RF Rx Instructions: administer with spacer Xolair 150 mg recon soln 300 mg subcut Q4W 28 Days Qty: 2 12RF Rx Instructions: requires multiple injection sites; do not exceed 150 mg per injection site dexamethasone [Decadron] 6 mg tablet 6 mg PO DAILY Qty: 7 0RF albuterol sulfate 2.5 mg /3 mL (0.083 %) solution for nebulization 2.5 mg inhalation Q4-6H PRN (Reason: shortness of breath or wheezing) Qty: 18 0 0RF prednisone 50 mg tablet 50 mg PO DAILY 4 Days Qty: 4 0RF prednisone 20 mg tablet 40 mg PO DAILY 5 Days Qty: 10 0RF albuterol sulfate 90 mcg/actuation HFA aerosol inhaler 2 puff inhalation Q4-6H PRN (Reason: shortness of breath or wheezing) Qty: 6.7 0RF albuterol sulfate 2.5 mg/0.5 mL solution for nebulization 5 mg inhalation Q4H PRN (Reason: shortness of breath or wheezing) Qty: 30 0RF prednisone 50 mg tablet 50 mg PO DAILY Qty: 5 0RF albuterol sulfate 90 mcg/actuation HFA aerosol inhaler 2 inh inhalation Q6-8H PRN (Reason: shortness of breath or wheezing) Qty: 8.5 0RF ipratropium-albuterol 0.5 mg-3 mg(2.5 mg base)/3 mL solution for nebulization 3 ml inhalation Q4-6H PRN (Reason: shortness of breath or wheezing) Qty: 180 0RF albuterol sulfate 2.5 mg /3 mL (0.083 %) solution for nebulization 2.5 mg inhalation Q4-6H PRN (Reason: shortness of breath or wheezing) Qty: 180 0RF prednisone 20 mg tablet 40 mg PO DAILY Qty: 10 0RF prednisone 20 mg tablet 60 mg PO DAILY Qty: 12 0RF prednisone 50 mg tablet 50 mg PO DAILY Qty: 5 0RF prednisone 20 mg tablet 60 mg PO DAILY Qty: 12 0RF albuterol sulfate 90 mcg/actuation HFA aerosol inhaler 2 puff inhalation Q4-6H PRN (Reason: shortness of breath or wheezing) Qty: 6.7 2RF Rx Instructions: May dispense medication equivalent Accepted by patient's insurance albuterol sulfate 2.5 mg /3 mL (0.083 %) solution for nebulization 2.5 mg inhalation Q4-6H PRN (Reason: shortness of breath or wheezing) Qty: 75 2RF prednisone 20 mg tablet 40 mg PO DAILY 5 Days Qty: 10 0RF albuterol sulfate 2.5 mg /3 mL (0.083 %) solution for nebulization 2.5 mg inhalation Q4-6H PRN (Reason: shortness of breath or wheezing) Qty: 90 0RF prednisone 20 mg tablet 40 mg PO DAILY Qty: 10 0RF albuterol sulfate [ProAir HFA] 90 mcg/actuation HFA aerosol inhaler 2 puff inhalation Q4-6H PRN (Reason: shortness of breath or wheezing) Qty: 8.5 0RF prednisone 20 mg tablet 20 mg PO BID Qty: 10 0RF Stand Alone Forms: Work/School Release
[2022-10-29 23:44] LABS: COVID-19 Test Negative (Negative); IDNOW Serial# 6674DD1D
[2022-10-30 00:30] LABS: Anion Gap 12 (12-20); Blood Urea Nitrogen 13 mg/dL (9-16); Carbon Dioxide 24 mmol/L (22-29); Chloride 109 mmol/L (96-108); Creatinine Clr Calc Pharmacy 110.4; Estimated Glomerular Filt Rate > 60; Glucose Random 112 mg/dL (60-115); Potassium 3.6 mmol/L (3.3-5.1); Sodium 141 mmol/L (135-145)
[2022-10-30 00:32] LABS: HCG Quantitative < 2 mIU/mL
[2022-10-30 01:13] VITALS: BP 106/66; PULSE 111; RESP 16; O2SAT 96
== END 2022-10-30 01:14 | disposition home or self-care (01) ==
PROVIDERS: Physician Assistant; Emergency Provider Emergency Medicine
DX: J45.901 Unspecified asthma with (acute) exacerbation (principal); R06.02 Shortness of breath; Z20.822 Contact with and (suspected) exposure to COVID-19; Z20.828 Contact with and (suspected) exposure to other viral communicable diseases; Z79.899 Other long term (current) drug therapy
CPT/HCPCS: 71045; 80048; 84702; 85025; 87635; 94640; 96365; 96375; 99284; J2930; J3475

== ENCOUNTER 2022-10-30 02:47 | Observation (INO) | payer MEDICAID, SELFPAY ==
[2022-10-30] VITALS (14 sets, daily range): BP systolic 106–139; BP diastolic 54–72; PULSE 75–132; RESP 16–28; TEMP 36.2–37.1; O2SAT 94–97; BMI 30.8
[2022-10-30] MEDS: Albuterol Sulfate (0.083%) 2.5 MG/3 ML VIAL.NEB 10 MG INHALE (03:13)
--- NOTE | 2022-10-30 03:19 | ED_ITS ---
HPI - SOB/Dyspnea General Chief Complaint: Dyspnea Stated Complaint: SOB Time Seen by Provider: 10/30/22 03:04 Source: patient Mode of arrival: ambulatory Limitations: no limitations History of Present Illness HPI Narrative: Patient history of asthma does get 2 or 3 attacks a month patient just seen in the ER and discharged after magnesium and Solu-Medrol and DuoNeb treatment comes back with increased wheezing patient been having shortness of breath for last 2 days. No chest pain or palpitation Related Data Previous Rx's Medication Instructions Recorded fluticasone propionate 115 2 puff inhalation BID 30 days #1 ea 11/19/20 mcg-salmeterol 21 mcg/actuation HFA inhaler (Advair HFA) albuterol sulfate 2.5 mg/3 mL 2.5 mg (3 mL) inhalation Q4-6H PRN 07/03/21 (0.083 %) solution for nebulization shortness of breath or wheezing #180 mL albuterol sulfate 90 mcg/actuation 2 inh inhalation Q6-8H PRN 07/03/21 aerosol inhaler shortness of breath or wheezing #8.5 grams ipratropium 0.5 mg-albuterol 3 mg 3 ml inhalation Q4-6H PRN 07/03/21 (2.5 mg base)/3 mL nebulization shortness of breath or wheezing soln #180 mL omalizumab 150 mg subcutaneous 300 mg subcut Q4W 28 days #2 ea 09/26/21 solution (Xolair) prednisone 20 mg tablet 40 mg PO DAILY #10 tabs 11/05/21 albuterol sulfate 2.5 mg/3 mL 2.5 mg (3 mL) inhalation Q4-6H PRN 03/08/22 (0.083 %) solution for nebulization shortness of breath or wheezing #180 mL dexamethasone 6 mg tablet 6 mg PO DAILY #7 tabs 03/08/22 (Decadron) prednisone 50 mg tablet 50 mg PO DAILY 4 days #4 tabs 03/19/22 prednisone 20 mg tablet 60 mg PO DAILY #12 tabs 04/09/22 albuterol sulfate 2.5 mg/0.5 mL 5 mg inhalation Q4H PRN shortness 05/09/22 solution for nebulization of breath or wheezing #30 ea albuterol sulfate 90 mcg/actuation 2 puff inhalation Q4-6H PRN 05/09/22 aerosol inhaler shortness of breath or wheezing #6.7 grams prednisone 20 mg tablet 40 mg PO DAILY 5 days #10 tabs 05/09/22 prednisone 50 mg tablet 50 mg PO DAILY #5 tabs 05/19/22 prednisone 20 mg tablet 60 mg PO DAILY #12 tabs 05/26/22 albuterol sulfate 2.5 mg/3 mL 2.5 mg (3 mL) inhalation Q4-6H PRN 08/05/22 (0.083 %) solution for nebulization shortness of breath or wheezing #75 mL albuterol sulfate 90 mcg/actuation 2 puff inhalation Q4-6H PRN 08/05/22 aerosol inhaler shortness of breath or wheezing #6.7 grams prednisone 20 mg tablet 40 mg PO DAILY 5 days #10 tabs 08/05/22 prednisone 50 mg tablet 50 mg PO DAILY #5 tabs 08/18/22 albuterol sulfate 2.5 mg/3 mL 2.5 mg (3 mL) inhalation Q4-6H PRN 09/15/22 (0.083 %) solution for nebulization shortness of breath or wheezing #90 mL albuterol sulfate 90 mcg/actuation 2 puff inhalation Q4-6H PRN 09/15/22 aerosol inhaler (ProAir HFA) shortness of breath or wheezing #8.5 grams prednisone 20 mg tablet 40 mg PO DAILY #10 tabs 09/15/22 prednisone 20 mg tablet 20 mg PO BID #10 tabs 09/29/22 albuterol sulfate 2.5 mg/0.5 mL 5 mg inhalation Q6H PRN shortness 10/30/22 solution for nebulization of breath or wheezing #15 ea albuterol sulfate 90 mcg/actuation 1 inh inhalation QID PRN shortness 10/30/22 aerosol inhaler of breath or wheezing #6.7 grams prednisone 20 mg tablet 40 mg PO DAILY #10 tabs 10/30/22 Allergies Allergy/AdvReac Type Severity Reaction Status Date / Time No Known Allergies Allergy Verified 10/30/22 03:03 Review of Systems Review of Systems: Yes all other systems are reviewed and are negative PMFSH Past Medical History Medical History Asthma Social History Social History Alcohol intake: current Alcohol intake frequency: holidays/special occasions on ly Patient Tobacco Use Status: Never used Tobacco Smoked in Last 30 Days: No Use of substances other than those prescribed or required for medical reasons: No Advance Directives: No Advance Directives Information Provided: Yes Nutrition Risks: No Nutritional Risk Patient : No Physical Exam Vital Signs: Vital Signs: Last Vital Signs Temp 97.8 F 10/30/22 03:00 Pulse 132 H 10/30/22 04:16 Resp 17 10/30/22 04:16 BP 113/72 10/30/22 04:16 Pulse Ox 95 10/30/22 04:16 O2 Del Method Room Air 10/30/22 03:00 O2 Flow Rate 6 10/30/22 04:16 BMI result Body Mass Index 30.8 Appearance: Alert. Oriented X3. In moderate respiratory distress Eyes: PERRLA, No Nystagmus ENT: Pharynx normal. Oral Mucosa moist Neck: Normal inspection. Neck supple. CVS: Normal heart rate and rhythm. Pulses normal. Respiratory: Moderate respiratory distress. Equal air entry bilateral, bilateral wheezing Abdomen: Soft and nontender. Bowel sounds are present, no mass palpable, no CVA tenderness Skin: Skin warm and dry. Normal skin color. Normal skin turgor. Extremities: No lower extremity edema. No calf tenderness Neuro: Oriented X 3. No motor deficit. Medications Administered Discontinued Medications Generic Name Dose Route Start Last Admin Trade Name Freq PRN Reason Stop Dose Admin Albuterol Sulfate 10 mg 10/30/22 03:04 10/30/22 03:13 Albuterol Sulfate (0.083%) 2.5 Mg/3 Ml Vial.Neb INHALE 10/30/22 03:05 10 mg ONCE ONE Administration Medical Decision Making Medical Decision Making [facility] Narrative: Patient with status asthmaticus admit patient for IV nebulizing treatments steroids. Consult Healthcare Provider Management of the patient was discussed with: Hospitalist Lab Data MDM Lab Attestation statement: I reviewed the patient's lab results. 10/30/22 05:12 10/30/22 05:12 Discharge Plan Discharge Clinical Impression: Asthma with status asthmaticus Patient Disposition: Admitted As Inpatient
--- NOTE | 2022-10-30 03:47 | PM.IMHP ---
History of Present Illness Date of Service: 10/30/22 Chief Complaint: Dyspnea This is a 22-year-old female with pertinent history of asthma presents to the emergency department for evaluation of dyspnea. Patient states she started having wheezing and dyspnea, worse with exertion on the day of presentation. 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 Also had associating dyspnea. It felt like her asthma attacks which gets about 2 to 3 times a month. Patient tried her home inhaler but without relief. She denies fever, chills, chest discomfort, palpitations, abdominal pain, changes in urinary or bowel habits. The emergency department, patient with wheezing after multiple DuoNeb treatments. Review of Systems Constitutional: Constitutional: Reports no additional constitutional complaints Cardiovascular: Cardiovascular: Reports dyspnea on exertion Respiratory: Respiratory: Reports dyspnea on exertion and Reports wheezing Gastrointestinal: Gastrointestinal: Reports no additional gastrointestinal complaints Genitourinary: Genitourinary: Reports no additional female genitourinary complaints Allergic/Immunologic: Allergic/Immunologic: Reports wheezing [facility] Medical History Asthma Pertinent family history: No family history of early CAD Social History Alcohol intake: never Patient Tobacco Use Status: Never used Tobacco Advance Directives: No Advance Directives Information Provided: Yes Meds Allergies Allergy/AdvReac Type Severity Reaction Status Date / Time No Known Allergies Allergy Verified 10/30/22 03:03 Active Medications: Current Medications Acetaminophen (Acetaminophen 325 Mg Tablet) 650 mg PO Q6H PRN PRN Reason: Pain, Mild (Pain Scale 1-3) Melatonin (Melatonin 3 Mg Tablet) 6 mg PO BEDTIME PRN PRN Reason: Insomnia Ondansetron HCl (Ondansetron Hcl 4 Mg/2 Ml Vial) 4 mg IVPUSH Q8H PRN PRN Reason: Nausea and Vomiting Sodium Chloride (0.9 % Sodium Chloride Flush 3 Ml Syringe) 3 ml IVFLUSH QSHIFT KELLY Physical Exam Vital Signs and Narrative: Vital Signs: Last Vital Signs Temp 97.8 F 10/30/22 03:00 Pulse 115 H 10/30/22 03:16 Resp 23 H 10/30/22 03:16 BP 116/62 10/30/22 03:00 Pulse Ox 94 10/30/22 03:00 O2 Del Method Room Air 10/30/22 03:00 BMI result Body Mass Index 30.8 Young female lying in bed in mild distress Neck supple, no JVD Tachycardic with regular rhythm, S1-S2 heard Bilateral wheezing without crackles Abdomen soft nontender, no guarding, no rigidity Patient is awake, alert and oriented to self, place, time and person ; no focal motor deficit Psych: Normal mood No pedal edema Assessment and Plan (1) Acute asthma exacerbation: Status: Acute Plan This is a 22-year-old female with pertinent history of asthma presents to the emergency department for evaluation of dyspnea. #. Acute respiratory distress due to Acute exacerbation of asthma. Will admit patient for observation. Schedule and p.r.n. DuGregorybs. Initiating systemic steroids. Continue home inhaler. DVT prophylaxis. None. Patient is ambulatory Full code Regular diet Time Spent With Patient Time: Total time managing care of this patient today ____ minutes. Quality Stroke Does the patient have a stroke diagnosis?: No VTE Prior VTE?: No VTE Risk Level:: Medical - low VTE Device Contraindication: Treatment Not Indicated VTE Drug Contraindication: Treatment Not Indicated
[2022-10-30 05:23] LABS: Basophils Percent Auto 0.2 % (0-2); Hematocrit 38.3 % (37.0-47.0); Hemoglobin 13.1 g/dl (12.0-16.0); Imm Gran Abs Auto 0.04 X10*3/uL (0.00-0.03); Imm Gran Pct Auto 0.4 % (0.0-0.4); Lymphocytes Absolute Auto 0.3 X10*3/uL (1.2-4.9); MANUAL DIFF FLAG SCAN; Mean Corpuscular HGB Conc 34.2 g/dl (31.0-35.0); Mean Corpuscular Hemoglobin 29.2 pg (27.0-33.0); Mean Corpuscular Volume 85.5 fL (80.0-98.0); Mean Platelet Volume 9.8 fL (9.4-12.3); Monocytes Percent Auto 0.4 % (2-11); Neutrophils Absolute Auto 9.3 x10*3/uL (2.0-8.3); Platelet Count 233 X10*3/uL (160-400); Red Blood Count 4.48 X10*6/uL (4.20-5.50); Red Cell Distribution Width 12.4 % (11.0-16.0); SCAN SMEAR FLAG 1; White Blood Count 9.7 X10*3/uL (4.8-10.8)
[2022-10-30 05:45] LABS: Anion Gap 13 (12-20); Blood Urea Nitrogen 15 mg/dL (9-16); Carbon Dioxide 20 mmol/L (22-29); Chloride 111 mmol/L (96-108); Creatinine Clr Calc Pharmacy 90.9; Estimated Glomerular Filt Rate > 60; Glucose Random 253 mg/dL (60-115); Potassium 3.5 mmol/L (3.3-5.1); Sodium 140 mmol/L (135-145)
[2022-10-30 05:48] LABS: SLIDE REVIEW VERIFIED
[2022-10-30] MEDS: Acetaminophen 325 MG TABLET 650 MG PO ×2 (05:53→15:44)
[2022-10-30 07:36] LABS: Glucose, Whole Blood 257 mg/dL (60-115)
[2022-10-30] MEDS: Albuterol/Iprat 2.5/0.5MG 3 ML AMPUL.NEB INHALE ×4 (08:38→23:55)
[2022-10-30] MEDS: methylPREDNISolone Sod Succ 40 MG/ML VIAL IVPUSH (08:54)
[2022-10-30] MEDS: 0.9 % Sodium Chloride Flush 3 ML SYRINGE IVFLUSH ×3 (08:55→20:35)
--- NOTE | 2022-10-30 08:59 | PHA.MEDREC ---
Pharmacy Consult ? Medication Reconciliation Pharmacy has completed the medication reconciliation. Confirmed meds with patient. Spoke to her about her Xolair which she states she used to take but that it was helping her at the time. She says the doctor stopped making her appointments but she would like to go back on it.Even though claim history shows montelukast hasn't been filled in over 9 months, she says she still takes it.
--- NOTE | 2022-10-30 09:12 | MHC.CM.PN ---
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
[2022-10-30 11:26] LABS: Glucose, Whole Blood 240 mg/dL (60-115)
[2022-10-30 11:35] LABS: Estimated Average Glucose 100 mg/dL; Hemoglobin A1c % 5.1 %
[2022-10-30 16:08] LABS: Glucose, Whole Blood 166 mg/dL (60-115)
--- NOTE | 2022-10-30 16:34 | PM.EVENT ---
Event Note Date of Service: 10/30/22 Event Note: This patient is seen and examined by hospitalist team this morning, seen and examined again. Shortness of breath seems slightly improving, seems still short of breath with exertion as well as a significant wheezing Physical exam and assessment and plan coordinated h&p note, Agree with the plan in addition: ?Acute exacerbation of asthma-continue nebs ,steriods ,hba1c added due to hyperglycemia Time Spent With Patient Time: Total time managing care of this patient today ____ minutes.
[2022-10-30 20:27] LABS: Glucose, Whole Blood 184 mg/dL (60-115)
[2022-10-31 03:44] VITALS: BP 122/56; PULSE 93; RESP 20; TEMP 36.7; O2SAT 96
[2022-10-31 06:49] VITALS: PULSE 93; RESP 20; O2SAT 96
[2022-10-31] MEDS: Albuterol/Iprat 2.5/0.5MG 3 ML AMPUL.NEB INHALE ×2 (06:49→11:32)
[2022-10-31 07:08] VITALS: BP 116/64; PULSE 84; RESP 20; TEMP 36.3; O2SAT 98
[2022-10-31 07:34] LABS: Glucose, Whole Blood 114 mg/dL (60-115)
[2022-10-31] MEDS: Montelukast Sodium 10 MG TABLET PO (08:19)
[2022-10-31] MEDS: 0.9 % Sodium Chloride Flush 3 ML SYRINGE IVFLUSH (08:19)
[2022-10-31] MEDS: Loratadine 10 MG TABLET PO (08:19)
[2022-10-31] MEDS: predniSONE 20 MG TABLET 40 MG PO (08:19)
[2022-10-31 11:06] VITALS: BP 116/62; PULSE 84; RESP 20; TEMP 36.7; O2SAT 95
[2022-10-31 11:22] LABS: Glucose, Whole Blood 178 mg/dL (60-115)
--- NOTE | 2022-10-31 11:30 | MHC.CM.PN ---
Pt medically cleared for D/C home today, pts family will transport.
[2022-10-31 11:33] VITALS: PULSE 84; RESP 20; O2SAT 95
--- NOTE | 2022-11-03 08:24 | P.DS_ITS ---
DS: Providers Provider Date of Service: 11/03/22 Date of admission: 10/30/22 03:45 Date of discharge: 11/03/22 Primary care physician: [facility] Attending physician on discharge: Rica Lujan Discharging clinician: Rica Lujan DS: Diagnosis Discharge Diagnosis (1) Acute asthma exacerbation: Status: Inactive DS: Summary Hospital Course Hospital Course: Date of service and discharge: 10/31/2022. 22-year-old female with pertinent history of asthma presents to the emergency department for evaluation of dyspnea.? Patient states she started having wheezing and dyspnea, worse with exertion on the day of presentation.? 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 Also had associating dyspnea.? It felt like her asthma attacks which gets about 2 to 3 times a month.? Patient tried her home inhaler but without relief.? She denies fever, chills, chest discomfort, palpitations, abdominal pain, changes in urinary or bowel habits. The emergency department, patient with wheezing after multiple DuoNeb treatments. Hospital course: Patient came to the hospital because of shortness of breath found to have asthma exacerbation-started on nebs, steroids seems to be improving significantly going home with p.o. steroids. Continue home asthma medications. Continue loratadine also. Follow-up with PCP outpatient. plan: Complete prednisone course, continue home asthma medications. Above management discussed with the patient in detail length she understand and in agreement with the above plan, time spent 50 minutes and 50% time spent on counseling. Time Spent with Patient Time attestation: Total time managing care of this patient today ____ minutes. Discharge coordination time: Greater than 30 minutes Quality: Safe Use of Opioids Does Pt have an Active Cancer Diagnosis on the Problem List?: No Quality: Stroke Does the patient have a stroke diagnosis?: No Physical Exam Vital Signs: Vital Signs: Last Vital Signs Temp 98.1 F 10/31/22 11:06 Pulse 84 10/31/22 11:33 Resp 20 10/31/22 11:33 BP 116/62 10/31/22 11:06 Pulse Ox 95 10/31/22 11:06 O2 Del Method Room Air 10/31/22 11:06 O2 Flow Rate 6 10/30/22 04:16 BMI result Body Mass Index 30.8 lying in bed in mild distress Neck supple, no JVD Heart: rrr, S1-S2 heard Pulmonary: air entry fair ,no rales or wheezing Abdomen: soft nontender, no guarding, no rigidity Neuro: Patient is awake, alert and oriented to self, place, time and person ; no focal motor deficit Psych: Normal mood No pedal edema Discharge Plan Discharge Anticipated Discharge Date/Time: 10/31/22 11:18 Patient Disposition: Home, Self-Care Discharge Diagnosis: Asthma exacerbation Referrals: [place] [Primary Care Provider] - 1 Week Discharge Medications: New prednisone 20 mg tablet 40 mg PO DAILY Qty: 6 0RF Continued albuterol sulfate 2.5 mg /3 mL (0.083 %) solution for nebulization 2.5 mg inhalation Q4-6H PRN (Reason: wheezing) albuterol sulfate [Proventil HFA] 90 mcg/actuation HFA aerosol inhaler 2 puff INHALATION Q4-6H PRN (Reason: wheezing) fluticasone propion-salmeterol [Advair HFA] 230-21 mcg/actuation HFA aerosol inhaler 2 puff inhalation BID Incruse Ellipta 62.5 mcg/actuation blister with device 1 inh inhalation DAILY montelukast 10 mg tablet 10 mg PO DAILY loratadine 10 mg Tablet 10 mg PO DAILY Discharge Orders: Discharge Order (Routine); Ordered 10/31/22 Ordered By: Rica Lujan Diet: Advance to usual diet Activity on Discharge: As tolerated Stand Alone Forms: Patient Portal Discharge page, Work/School Release Care Plan Goals: Patient came to the hospital because of shortness of breath found to have asthma exacerbation-started on nebs, steroids seems to be improving significantly going home with p.o. steroids. Continue home asthma medications. Continue loratadine also. Follow-up with PCP outpatient. Health Concerns: As above. Plan of Treatment: As above. Assessment: As above. Discharge Date/Time: 10/31/22 12:52
== END 2022-10-31 12:52 | disposition home or self-care (01) ==
LOC: HO.ED 03:51 → HO.EDOVER 03:59 → HO.IMC 04:20
PROVIDERS: Admitting Provider Student in an Organized Health Care Education/Training Program; Emergency Provider Internal Medicine; Visit Provider Internal Medicine
DX: J45.901 Unspecified asthma with (acute) exacerbation (principal); R06.03 Acute respiratory distress; R06.02 Shortness of breath; Z79.899 Other long term (current) drug therapy
CPT/HCPCS: 36415; 80048; 82947; 83036; 85025; 94640; 96374; 99222; 99285; J2920

== ENCOUNTER 2022-11-05 23:32 | Emergency (ER) | payer MEDICAID, SELFPAY ==
[2022-11-05 23:40] VITALS: BP 122/89; PULSE 117; RESP 20; TEMP 36.7; O2SAT 92; BMI 30.8
[2022-11-05 23:57] VITALS: BP 116/65; PULSE 103; RESP 25; TEMP 37; O2SAT 96
--- NOTE | 2022-11-06 01:22 | ED_ITS ---
HPI - SOB/Dyspnea General Chief Complaint: Dyspnea Stated Complaint: asthma exacerbation, diff breathing Time Seen by Provider: 11/05/22 23:45 History of Present Illness HPI Narrative: Patient is a 22-year-old female with a history of asthma. Patient was admitted to the hospital last week. Safe for 2 days. Never been intubated in the past. Patient felt short of breath. Had treatment on the way in had no other treatment prior to me evaluating patient. Symptomatic clear ready feels much relief. Was carrying on a complete conversation on the phone when I evaluated her. She felt much improved. Related Data Home Medications Medication Instructions Recorded Confirmed albuterol sulfate 2.5 mg/3 mL 2.5 mg inhalation Q4-6H PRN 10/30/22 10/30/22 (0.083 %) solution for nebulization wheezing albuterol sulfate 90 mcg/actuation 2 puff inhalation Q4-6H PRN 10/30/22 10/30/22 aerosol inhaler (Proventil HFA) wheezing fluticasone propionate 230 2 puff inhalation BID 10/30/22 10/30/22 mcg-salmeterol 21 mcg/actuation HFA inhaler (Advair HFA) loratadine 10 mg tablet 10 mg PO DAILY 10/30/22 10/30/22 montelukast 10 mg tablet 10 mg PO DAILY 10/30/22 10/30/22 umeclidinium 62.5 mcg/actuation 1 inh inhalation DAILY 10/30/22 10/30/22 blister powder for inhalation (Incruse Ellipta) Previous Rx's Medication Instructions Recorded prednisone 20 mg tablet 40 mg PO DAILY #6 tabs 10/31/22 prednisone 20 mg tablet 40 mg PO DAILY #10 tabs 11/06/22 Allergies Allergy/AdvReac Type Severity Reaction Status Date / Time No Known Allergies Allergy Verified 10/30/22 03:03 Review of Systems Review of Systems: Positive shortness of breath positive wheezing Yes all other systems are reviewed and are negative PMFSH Past Medical History Attestation statement: The following information was validated with the patient. Medical History Asthma Social History Social History Alcohol intake: never Patient Tobacco Use Status: Never used Tobacco Smoked in Last 30 Days: No Second Hand Smoke Exposure: No Use of substances other than those prescribed or required for medical reasons: No Advance Directives: No Advance Directives Information Provided: Yes Patient : No service: No Current occupational status: employed Physical Exam Vital Signs: Vital Signs: Last Vital Signs Temp 98.6 F 11/05/22 23:57 Pulse 103 H 11/05/22 23:57 Resp 25 H 11/05/22 23:57 BP 116/65 11/05/22 23:57 Pulse Ox 96 11/05/22 23:57 O2 Del Method Nasal Cannula 11/05/22 23:57 O2 Flow Rate 1 11/05/22 23:57 BMI result Body Mass Index 30.8 Appearance: Alert. Oriented X3. No acute distress. Eyes: Pupils equal, round and reactive to light. ENT: Pharynx normal. Neck: Normal inspection. Neck supple. No lymph nodes noted. No crepitus CVS: Normal heart rate and rhythm. Pulses normal. Normal S1 and S2 Respiratory: No respiratory distress. Positive minimal wheezing noted bilaterally. Abdomen: Soft and nontender. No rigidity. No distention. good BS x4 Skin: Skin warm and dry. Normal skin color. Normal skin turgor. Extremities: No lower extremity edema. Neurovascular intact to all extremities. No Lacerations. No Rash Neuro: Oriented X 3. No motor deficit. No sensory deficit. Moving all extermities. No slurred speech Medical Decision Making Medical Decision Making MDM Narrative: Patient well appearing no acute distress. Lungs show good air movement with small amount of wheezing. History of the same symptoms in the past. History of asthma. History of hospitalization in the past. Never been intubated. Given patient's improvement well appearing will discharge patient home. Started patient on prednisone. Will have patient follow-up on an outpatient basis. In stable condition. Differential Diagnosis Differential Diagnoses: The differential diagnosis associated with the presentation includes Asthma, upper respiratory infection Admission/Observation Consideration of admission/observation: Escalation of care including admission/observation considered No need for admission the patient's lungs are moving good amount of air minimal wheezing only. O2 sat is 97% on room air. Patient is able to carry out a complete conversation on the phone without any difficulties. Lab Data [facility] Lab Attestation statement: I reviewed the patient's lab results. Discharge Plan Discharge Clinical Impression: Asthma with exacerbation Patient Disposition: Home, Self-Care Instructions: Asthma (DC) Prescriptions: New prednisone 20 mg tablet 40 mg PO DAILY Qty: 10 0RF No Action albuterol sulfate 2.5 mg /3 mL (0.083 %) solution for nebulization 2.5 mg inhalation Q4-6H PRN (Reason: wheezing) albuterol sulfate [Proventil HFA] 90 mcg/actuation HFA aerosol inhaler 2 puff INHALATION Q4-6H PRN (Reason: wheezing) fluticasone propion-salmeterol [Advair HFA] 230-21 mcg/actuation HFA aerosol inhaler 2 puff inhalation BID Incruse Ellipta 62.5 mcg/actuation blister with device 1 inh inhalation DAILY montelukast 10 mg tablet 10 mg PO DAILY loratadine 10 mg Tablet 10 mg PO DAILY prednisone 20 mg tablet 40 mg PO DAILY Qty: 6 0RF Referrals: [facility] [Primary Care Provider] -
[2022-11-06] MEDS: predniSONE 20 MG TABLET 40 MG PO (01:25)
== END 2022-11-06 01:48 | disposition home or self-care (01) ==
PROVIDERS: Emergency Provider Emergency Medicine Emergency Medical Services
DX: J45.901 Unspecified asthma with (acute) exacerbation (principal); R06.02 Shortness of breath; Z79.899 Other long term (current) drug therapy
CPT/HCPCS: 99283; 99284

== ENCOUNTER 2023-02-20 16:46 | Outpatient (REF) | payer MEDICAID, SELFPAY ==
[2023-02-20 17:29] LABS: MANUAL DIFF FLAG NO
[2023-02-20 17:35] LABS: Basophils Absolute Auto 0.1 X10*3/uL (0.0-0.2); Basophils Percent Auto 0.9 % (0-2); Eosinophils Absolute Auto 0.5 X10*3/uL (0.0-0.4); Eosinophils Percent Auto 5.2 % (0-4); Hematocrit 41.5 % (37.0-47.0); Hemoglobin 14.1 g/dl (12.0-16.0); Imm Gran Abs Auto 0.02 X10*3/uL (0.00-0.03); Imm Gran Pct Auto 0.2 % (0.0-0.4); Lymphocytes Absolute Auto 2.2 X10*3/uL (1.2-4.9); Lymphocytes Percent Auto 24.4 % (20-40); Mean Corpuscular Hemoglobin 28.4 pg (27.0-33.0); Mean Corpuscular Volume 83.5 fL (80.0-98.0); Mean Platelet Volume 9.6 fL (9.4-12.3); Monocytes Absolute Auto 0.6 X10*3/uL (0.1-1.2); Monocytes Percent Auto 6.2 % (2-11); Neutrophils Absolute Auto 5.7 x10*3/uL (2.0-8.3); Neutrophils Percent Auto 63.1 % (45-73); Platelet Count 288 X10*3/uL (160-400); Red Blood Count 4.97 X10*6/uL (4.20-5.50); Red Cell Distribution Width 12.5 % (11.0-16.0)
[2023-02-20 18:10] LABS: Estimated Average Glucose 100 mg/dL; Hemoglobin A1c % 5.1 % (<6.0)
[2023-02-20 18:26] LABS: Alanine Aminotransferase 12 U/L (0-31); Albumin Level 4.5 g/dL (3.5-5.0); Alkaline Phosphatase 59 U/L (39-117); Anion Gap 15 (12-20); Aspartate Amino Transferase 15 U/L (5-31); Bilirubin Total 0.7 mg/dL (0.0-1.0); Blood Urea Nitrogen 9 mg/dL (9-16); Calcium 9.3 mg/dL (8.4-10.2); Carbon Dioxide 21 mmol/L (22-29); Chloride 109 mmol/L (96-108); Cholesterol 174 mg/dL (<200); Estimated Glomerular Filt Rate > 60; Glucose Random 84 mg/dL (60-115); HDL Cholesterol 59 mg/dL (>40); LDL Cholesterol Calculated 100 mg/dL (<100); Potassium 3.8 mmol/L (3.3-5.1); Sodium 141 mmol/L (135-145); Total Protein 7.6 g/dL (6.5-8.0); Triglycerides 79 mg/dL (<150)
[2023-02-21 04:35] LABS: CT PCR NOT DETECTED (Not Detect.); NG PCR NOT DETECTED (Not Detect.)
[2023-02-22 08:03] LABS: Syphilis Screen Nonreactive (Nonreactive)
[2023-02-26 13:03] LABS: VITAMIN D (1,25 OH) D3 44 pg/mL; Vit D (1,25-Dihydroxy) Total 44 pg/mL (18-72); Vitamin D (1,25 OH) D2 <8 pg/mL
== END 2023-02-20 16:47 | disposition home or self-care (01) ==
LOC: HO.HHCL 16:46
PROVIDERS: Visit Provider Student in an Organized Health Care Education/Training Program
DX: Z00.00 Encounter for general adult medical examination without abnormal findings (principal); Z11.3 Encounter for screening for infections with a predominantly sexual mode of transmission
CPT/HCPCS: 0353U; 80053; 80061; 82652; 83036; 84443; 85025; 86780

== ENCOUNTER 2023-04-09 23:29 | Emergency (ER) | payer MEDICAID, SELFPAY ==
--- NOTE | ~2023-04-09 | XR_ITS ---
EXAMINATION: XR CHEST CLINICAL INFORMATION: Dyspnea. COMPARISON: None available. TECHNIQUE: Frontal view of the chest was obtained. FINDINGS: No significant abnormality is noted involving the heart, lungs, mediastinum, bony thorax or soft tissues. XR/XR chest 1V IMPRESSION: Unremarkable examination.
[2023-04-09 23:31] VITALS: BP 133/69; PULSE 124; RESP 28; TEMP 37; O2SAT 97; BMI 33.6
--- NOTE | 2023-04-09 23:38 | ECG_ITS ---
Test Reason : SOB Blood Pressure : / mmHG Vent. Rate : 112 BPM Atrial Rate : 112 BPM P-R Int : 128 ms QRS Dur : 080 ms QT Int : 376 ms P-R-T Axes : 075 068 061 degrees QTc Int : 513 ms Sinus tachycardia Possible Left atrial enlargement Nonspecific ST abnormality Abnormal ECG When compared with ECG of 29-SEP-2022 10:01, No significant change was found Referred By: Cassidy Grover Electronically Signed By:FLORENCE FITZPATRICK MD
[2023-04-09 23:48] VITALS: PULSE 101; RESP 28; O2SAT 98
[2023-04-09] MEDS: Albuterol Sulfate 2.5 MG/0.5 ML VIAL.NEB 10 MG INHALE (23:48)
[2023-04-09] MEDS: Magnesium Sulfate/H2O 2 GM/50 ML PIGGYBACK IV (23:49)
[2023-04-09] MEDS: methylPREDNISolone Sod Succ 125 MG/2 ML VIAL IVPUSH (23:49)
[2023-04-09 23:51] LABS: MANUAL DIFF FLAG NO
[2023-04-09 23:52] VITALS: BP 136/73; PULSE 109; RESP 16; O2SAT 100
[2023-04-09] MEDS: 0.9 % Sodium Chloride 1,000 ML 999 ML IV (23:52)
[2023-04-09 23:53] LABS: Basophils Absolute Auto 0.1 X10*3/uL (0.0-0.2); Basophils Percent Auto 0.8 % (0-2); Eosinophils Absolute Auto 0.5 X10*3/uL (0.0-0.4); Eosinophils Percent Auto 5.1 % (0-4); Hematocrit 39.7 % (37.0-47.0); Hemoglobin 13.6 g/dl (12.0-16.0); Imm Gran Abs Auto 0.03 X10*3/uL (0.00-0.03); Imm Gran Pct Auto 0.3 % (0.0-0.4); Lymphocytes Absolute Auto 2.7 X10*3/uL (1.2-4.9); Lymphocytes Percent Auto 25.5 % (20-40); Mean Corpuscular HGB Conc 34.3 g/dl (31.0-35.0); Mean Corpuscular Hemoglobin 28.8 pg (27.0-33.0); Mean Corpuscular Volume 83.9 fL (80.0-98.0); Mean Platelet Volume 9.6 fL (9.4-12.3); Monocytes Absolute Auto 0.7 X10*3/uL (0.1-1.2); Monocytes Percent Auto 6.3 % (2-11); Neutrophils Absolute Auto 6.6 x10*3/uL (2.0-8.3); Platelet Count 250 X10*3/uL (160-400); Red Blood Count 4.73 X10*6/uL (4.20-5.50); Red Cell Distribution Width 12.5 % (11.0-16.0); White Blood Count 10.7 X10*3/uL (4.8-10.8)
--- NOTE | 2023-04-09 23:59 | MHC.EDTECH ---
Pt is currently receiving a breathing treatment by respiratory. THis Tech attempted to get an EKG but couldnt due to shakiness from the treatment. Will attempt EKG again after treatment is done
--- NOTE | 2023-04-10 | ED.ASTHMA ---
HPI - Asthma General Chief Complaint: Dyspnea Stated Complaint: Asthma Time Seen by Provider: 04/09/23 23:38 Source: patient and old records reviewed Mode of arrival: ambulatory Limitations: no limitations History of Present Illness HPI Narrative: 23 yo female with PMH of asthma but no prior intubations here with c/o 1 hour of acute onset of wheezing. No known triggers of fevers or URI. She states she was not smoking. Has neb at home. Cannot remember when she was on prednisone. MD complaint: asthma attack , shortness of breath and wheezing Onset (ago): hour(s) (1) Severity: severe Context: none known Associated symptoms: dry cough Asthma History: childhood onset Related Data Home Medications Medication Instructions Recorded Confirmed albuterol sulfate 2.5 mg/3 mL 2.5 mg inhalation Q4-6H PRN 10/30/22 10/30/22 (0.083 %) solution for nebulization wheezing albuterol sulfate 90 mcg/actuation 2 puff inhalation Q4-6H PRN 10/30/22 10/30/22 aerosol inhaler (Proventil HFA) wheezing fluticasone propionate 230 2 puff inhalation BID 10/30/22 10/30/22 mcg-salmeterol 21 mcg/actuation HFA inhaler (Advair HFA) loratadine 10 mg tablet 10 mg PO DAILY 10/30/22 10/30/22 montelukast 10 mg tablet 10 mg PO DAILY 10/30/22 10/30/22 umeclidinium 62.5 mcg/actuation 1 inh inhalation DAILY 10/30/22 10/30/22 blister powder for inhalation (Incruse Ellipta) Previous Rx's Medication Instructions Recorded prednisone 20 mg tablet 40 mg (2 x 20 mg) PO DAILY #6 tabs 10/31/22 prednisone 20 mg tablet 40 mg (2 x 20 mg) PO DAILY #10 tabs 11/06/22 prednisone 20 mg tablet 40 mg (2 x 20 mg) PO DAILY 5 days 04/10/23 #10 tabs Allergies Allergy/AdvReac Type Severity Reaction Status Date / Time No Known Allergies Allergy Verified 10/30/22 03:03 Review of Systems Review of Systems: Constitutional : No Fever, No Chills ENT/Mouth : No Hoarseness, No sore throat, No Rhinorrhea Eyes: No Redness, No Discharge, No Vision Changes Cardiovascular : No Chest Pain, positive SOB, positive Dyspnea on Exertion, No Edema Respiratory : positive Cough, No Sputum, positive Wheezing, Gastrointestinal : No Nausea, No Vomiting, No Diarrhea, No abdominal Pain Genitourinary : No Dysuria, No Hematuria Musculoskeletal : No joint pain, No Myalgias Skin : No rash Neuro : No Weakness, No Numbness, No Headache Psych : No anxiety, depression Heme/Lymph: No Bruising, No Bleeding Endocrine : No Polyuria, No Polydipsia All other systems reviewed and are negative [facility] Past Medical History Attestation statement: The following information was validated with the patient. Source: old records reviewed Medical History Asthma Social History Social History Alcohol intake: never Patient Tobacco Use Status: Never used Tobacco Smoked in Last 30 Days: No Second Hand Smoke Exposure: No Use of substances other than those prescribed or required for medical reasons: No Advance Directives: No Advance Directives Information Provided: Yes Patient : No service: No Current occupational status: employed Physical Exam Vital Signs: Vital Signs: Last Vital Signs Temp 98.6 F 04/09/23 23:31 Pulse 118 H 04/10/23 01:48 Resp 20 04/10/23 01:48 BP 129/78 04/10/23 01:48 Pulse Ox 95 04/10/23 01:48 O2 Del Method Room Air 04/10/23 01:48 O2 Flow Rate 6 04/09/23 23:52 BMI result Body Mass Index 33.6 Appearance: Alert. Oriented X3. Moderate acute distress. Eyes: Pupils equal, round and reactive to light. ENT: Pharynx normal. Neck: Normal inspection. Neck supple. CVS: Normal heart rate and rhythm. Pulses normal. Respiratory: No respiratory distress. Breath sounds normal. Abdomen: Soft and nontender. Skin: Skin warm and dry. Normal skin color. Normal skin turgor. Extremities: No lower extremity edema. No calf ttp Neuro: Oriented X 3. No motor deficit. No sensory deficit. Course Course Course Narrative: 3rd neb ordered she is improving Reevaluation(s) Reevaluation #1: vastly improved - does not want to stay but will attempt to discuss her to stay Medications Administered Discontinued Medications Generic Name Dose Route Start Last Admin Trade Name Daylin PRN Reason Stop Dose Admin Albuterol Sulfate 10 mg 04/09/23 23:38 04/09/23 23:48 Albuterol Sulfate 2.5 Mg/0.5 Ml Vial.Neb INHALE 04/09/23 23:39 10 mg ONCE ONE Administration Albuterol/Ipratropium 3 ml 04/10/23 00:36 04/10/23 00:38 Albuterol/Iprat 2.5/0.5mg 3 Ml Ampul.Neb INHALE 04/10/23 00:37 3 ml ONCE ONE Administration Albuterol Sulfate 2.5 mg/ 0 mg 04/10/23 00:02 04/10/23 00:05 Albuterol/Ipratropium 3 ml INHALE 04/10/23 00:03 2 dose ONCE ONE Administration Magnesium Sulfate 2 gm in 50 mls @ 150 mls/hr 04/09/23 23:38 04/10/23 01:51 Magnesium Sulfate/H2o IV 04/09/23 23:57 Infused ONCE ONE Infusion Sodium Chloride 1,000 mls @ 999 mls/hr 04/09/23 23:45 04/10/23 01:51 Ns IV 04/10/23 00:45 Infused .Q1H1M KELLY Infusion Methylprednisolone Sodium Succinate 125 mg 04/09/23 23:38 04/09/23 23:49 Methylprednisolone Sod Succ 125 Mg/2 Ml Vial IVPUSH 04/09/23 23:39 125 mg ONCE ONE Administration Medical Decision Making Medical Decision Making MDM Narrative: 23 yo female with PMH of asthma but no prior intubations here with c/o abrupt onset asthma attack without known trigger at this time will need basic labs, CXR, hour long nebs, IV steroids/magnesium. Viral panel, anticipate admission if she does not turn around - has chest pain but likely due to asthma she is wheezing I do not suspect VTE or ACS. Differential Diagnosis Differential Diagnoses: The differential diagnosis associated with the presentation includes asthma, bronchitis Admission/Observation Consideration of admission/observation: Escalation of care including admission/observation considered I want to admit the patient but she does not want to stay Patient is clinically sober, has no significant distracting injury, and they appear to have intact judgement, insight and reason. In my clinical opinion they have medical decision making capacity. Signs and symptoms discussed with patient. They express understanding of signs/symptoms as explained to them and they repeated it back to me. Risks and benefits discussed with patient to include but not limited to , terminal clerk disability or loss of significant bodily functions. Alternatives to treatment plan discussed and offered. Patient encouraged to return should they change their mind. Close followup strongly encouraged in case they choose not to return. The patient wants leave Against Medical Advise at this time Lab Data MDM Lab Attestation statement: I reviewed the patient's lab results. 04/09/23 23:45 04/09/23 23:45 Labs: Lab Results 04/09/23 Range/Units 23:45 WBC 10.7 (4.8-10.8) X10*3/uL RBC 4.73 (4.20-5.50) X10*6/uL Hgb 13.6 (12.0-16.0) g/dl Hct 39.7 (37.0-47.0) % MCV 83.9 (80.0-98.0) fL MCH 28.8 (27.0-33.0) pg MCHC 34.3 (31.0-35.0) g/dl RDW 12.5 (11.0-16.0) % Plt Count 250 (160-400) X10*3/uL MPV 9.6 (9.4-12.3) fL Immature Gran % (Auto) 0.3 (0.0-0.4) % Neut % (Auto) 62.0 (45-73) % Lymph % (Auto) 25.5 (20-40) % [place] % (Auto) 6.3 (2-11) % Eos % (Auto) 5.1 H (0-4) % Baso % (Auto) 0.8 (0-2) % Lymph # (Auto) 2.7 (1.2-4.9) X10*3/uL [place] # (Auto) 0.7 (0.1-1.2) X10*3/uL Eos # (Auto) 0.5 H (0.0-0.4) X10*3/uL Baso # (Auto) 0.1 (0.0-0.2) X10*3/uL Abs Immat Gran (auto) 0.03 (0.00-0.03) X10*3/uL Absolute Neuts (auto) 6.6 (2.0-8.3) x10*3/uL Absolute Nucleated RBC 0.000 (0.0-0.012) X10*3/uL Nucleated RBC % (auto) 0.0 (0.0-0.2) /100WBC PT 13.6 H (11.1-13.3) SEC INR 1.1 (0.9-1.1) Sodium 144 (135-145) mmol/L Potassium 3.8 (3.3-5.1) mmol/L Chloride 110 H (96-108) mmol/L Carbon Dioxide 24 (22-29) mmol/L Anion Gap 14 (12-20) BUN 10 (9-16) mg/dL Creatinine 0.83 (0.5-1.4) mg/dL Estim Creat Clear Calc 116.9 Estimated GFR > 60 Random Glucose 102 (60-115) mg/dL Calcium 9.1 (8.4-10.2) mg/dL Beta HCG, Quant < 2 mIU/mL Influenza Type A (PCR) NEGATIVE (Negative) Influenza Type B (PCR) NEGATIVE (Negative) RSV RNA Qual (PCR) NEGATIVE (Negative) SARS-CoV-2 RNA (RT-PCR) NEGATIVE (Negative) Independent Interpretation I performed an independent interpretation of an: EKG and Plain X-Ray (no pneumonia) Interpretation: Rate: 112 Rhythm: sinus tachycardia [place]: normal Normal P waves. Normal KYUNG. Normal QRS complex. ST T wave : nonspecific no SHIELA qTC: prolonged prior studies: no acute ischemia The study has been interpreted contemporaneously by me. . Radiology Impression Discussion of test interpretation with radiology: I have reviewed the radiologist's reading. External Record Review External record reviewed: Inpatient record Prescription Management I considered prescription management with: Other Critical Care Time Critical Care Time Critical Care Time: Yes Total Critical Care Time: 60 Attestation: repeat hour long nebs, IV magnesium I attest to this time spent taking care of the patient Discharge Plan Discharge Clinical Impression: Asthma with status asthmaticus Qualifiers: Asthma severity: moderate Asthma persistence: persistent Qualified Code(s): J45.42 - Moderate persistent asthma with status asthmaticus Patient Disposition: Home, Self-Care Instructions: Asthma (ED) Additional Instructions: you were offered admission but refused. you can return at any time please take another treatment tonight. you are high risk for return. return for any issues or concerns or if you feel worse Prescriptions: New prednisone 20 mg tablet 40 mg PO DAILY 5 Days Qty: 10 0RF No Action albuterol sulfate 2.5 mg /3 mL (0.083 %) solution for nebulization 2.5 mg inhalation Q4-6H PRN (Reason: wheezing) albuterol sulfate [Proventil HFA] 90 mcg/actuation HFA aerosol inhaler 2 puff INHALATION Q4-6H PRN (Reason: wheezing) fluticasone propion-salmeterol [Advair HFA] 230-21 mcg/actuation HFA aerosol inhaler 2 puff inhalation BID Incruse Ellipta 62.5 mcg/actuation blister with device 1 inh inhalation DAILY montelukast 10 mg tablet 10 mg PO DAILY loratadine 10 mg Tablet 10 mg PO DAILY prednisone 20 mg tablet 40 mg PO DAILY Qty: 6 0RF prednisone 20 mg tablet 40 mg PO DAILY Qty: 10 0RF Stand Alone Forms: Work/School Release
[2023-04-10 00:02] LABS: INTERNATIONAL NORM RATIO 1.1 (0.9-1.1); Prothrombin Time 13.6 SEC (11.1-13.3)
[2023-04-10] MEDS: Albuterol Sulfate 2.5 MG, Albuterol/Iprat 2.5/0.5MG 3 ML 3 ML INHALE (00:05)
[2023-04-10 00:08] VITALS: PULSE 119; RESP 18; O2SAT 100
[2023-04-10 00:15] LABS: Anion Gap 14 (12-20); Blood Urea Nitrogen 10 mg/dL (9-16); Calcium 9.1 mg/dL (8.4-10.2); Carbon Dioxide 24 mmol/L (22-29); Chloride 110 mmol/L (96-108); Glucose Random 102 mg/dL (60-115); HCG Quantitative < 2 mIU/mL; Potassium 3.8 mmol/L (3.3-5.1); Sodium 144 mmol/L (135-145)
[2023-04-10 00:38] LABS: Influenza A PCR NEGATIVE (Negative); Influenza B PCR NEGATIVE (Negative); Resp Syncy Virus RNA Qual PCR NEGATIVE (Negative); SARS COV2 PCR INHOUSE NEGATIVE (Negative)
[2023-04-10] MEDS: Albuterol/Iprat 2.5/0.5MG 3 ML AMPUL.NEB INHALE (00:38)
[2023-04-10 00:43] VITALS: PULSE 128; RESP 16; O2SAT 100
[2023-04-10 00:59] LABS: Creatinine Clr Calc Pharmacy 116.9; Estimated Glomerular Filt Rate > 60
[2023-04-10 01:48] VITALS: BP 129/78; PULSE 118; RESP 20; O2SAT 95
--- NOTE | 2023-04-10 01:55 | PC.NURSE ---
Pt is sitting up in bed, speaking in full sentences. Pt stating she feels much better and does not want to stay. Dr Grover aware. Pt IV was pulled out, bleeding controlled and bandaged
== END 2023-04-10 02:06 | disposition home or self-care (01) ==
PROVIDERS: Emergency Provider Emergency Medicine
DX: J45.42 Moderate persistent asthma with status asthmaticus (principal); Z20.822 Contact with and (suspected) exposure to COVID-19; Z20.828 Contact with and (suspected) exposure to other viral communicable diseases; R06.02 Shortness of breath; Z79.899 Other long term (current) drug therapy
CPT/HCPCS: 0241U; 36415; 71045; 80048; 84702; 85025; 85610; 93005; 94640; 96361; 96365; 96366; 96375; 99285; J2930; J3475

== ENCOUNTER 2023-04-12 17:55 | Observation (INO) | payer MEDICAID, SELFPAY ==
[2023-04-12] VITALS (8 sets, daily range): BP systolic 111–151; BP diastolic 64–84; PULSE 97–125; RESP 16–31; TEMP 36.6–37.1; O2SAT 90–96; BMI 35.9; BMI 37.3
--- NOTE | ~2023-04-12 | XR_ITS ---
EXAMINATION: XR CHEST CLINICAL INFORMATION: Shortness of breath, rule out pneumonia. COMPARISON: Chest radiograph 04/10/2023. TECHNIQUE: AP view of the chest was obtained. FINDINGS: Normal appearance of the cardiomediastinal silhouette. No focal airspace opacity, pleural effusion or pneumothorax. No acute osseous findings. Visualized upper abdomen is within normal limits. XR/XR chest 1V IMPRESSION: No acute cardiopulmonary findings.
--- NOTE | 2023-04-12 18:15 | ED.ASTHMA ---
HPI - Asthma General Chief Complaint: Asthma Stated Complaint: Asthma Time Seen by Provider: 04/12/23 18:14 Source: patient Mode of arrival: ambulatory Limitations: no limitations History of Present Illness HPI Narrative: 23-year-old female with history of asthma who presents emergency department for evaluation of shortness of breath. The patient states that she woke up this morning short of breath. She was using her inhalers with no relief for symptoms. Patient was here 2 days prior with an asthma exacerbation. In reviewing that visit she was treated with albuterol 10 mg, DuoNeb 3 mL, magnesium 2 g IV, Solu-Medrol 125 mg IV. She was discharged on prednisone 40 mg once a day for 5 days and she states she still taking this medication. Patient states she has never been intubated but was hospitalized 2 months prior. In reviewing the record she was admitted from 10/30/2022 until 11/03/2022, she was treated with nebulizers and steroids. Patient denied fever or chills. She states she has a cough which is productive of thin mucus. She complains of chest pain and tightness which is worse with breathing. Related Data Home Medications Medication Instructions Recorded Confirmed albuterol sulfate 2.5 mg/3 mL 2.5 mg inhalation Q4-6H PRN 10/30/22 10/30/22 (0.083 %) solution for nebulization wheezing albuterol sulfate 90 mcg/actuation 2 puff inhalation Q4-6H PRN 10/30/22 10/30/22 aerosol inhaler (Proventil HFA) wheezing fluticasone propionate 230 2 puff inhalation BID 10/30/22 10/30/22 mcg-salmeterol 21 mcg/actuation HFA inhaler (Advair HFA) loratadine 10 mg tablet 10 mg PO DAILY 10/30/22 10/30/22 montelukast 10 mg tablet 10 mg PO DAILY 10/30/22 10/30/22 umeclidinium 62.5 mcg/actuation 1 inh inhalation DAILY 10/30/22 10/30/22 blister powder for inhalation (Incruse Ellipta) Previous Rx's Medication Instructions Recorded prednisone 20 mg tablet 40 mg (2 x 20 mg) PO DAILY #6 tabs 10/31/22 prednisone 20 mg tablet 40 mg (2 x 20 mg) PO DAILY #10 tabs 11/06/22 prednisone 20 mg tablet 40 mg (2 x 20 mg) PO DAILY 5 days 04/10/23 #10 tabs Allergies Allergy/AdvReac Type Severity Reaction Status Date / Time No Known Allergies Allergy Verified 04/12/23 18:07 Review of Systems Review of Systems: Yes all other systems are reviewed and are negative [facility] Past Medical History [facility] Narrative: Past medical history: Asthma. Social history: She denies tobacco use. She occasionally drinks alcohol. He denies drug use. Medical History Asthma Social History Social History Alcohol intake: never Patient Tobacco Use Status: Never used Tobacco Smoked in Last 30 Days: No Second Hand Smoke Exposure: No Use of substances other than those prescribed or required for medical reasons: No Advance Directives: No Advance Directives Information Provided: No Patient : No service: No Current occupational status: employed Physical Exam Vital Signs: Vital Signs: Last Vital Signs Temp 98.6 F 04/12/23 19:01 Pulse 122 H 04/12/23 19:01 Resp 16 04/12/23 19:01 BP 111/79 04/12/23 19:01 Pulse Ox 95 04/12/23 19:01 O2 Del Method Nasal Cannula 04/12/23 19:01 O2 Flow Rate 2 04/12/23 19:01 BMI result Body Mass Index 35.9 Vital signs revealed tachypnea with a respiratory of 26 elevated heart rate 121, O2 saturation on room air was 95% Exam: General: Awake, alert , tachypneic, using accessory muscles to breathe able to talk but has to pause frequently to catch her breath. Head: Normocephalic, atraumatic EENT: PERRL, Lids normal, sclera normal, conjunctiva normal, nose normal , ears normal, throat without erythema or exudates Neck: Supple, no adenopathy, no trachea midline or C-spine tenderness Lung: breath sounds diminished bilaterally but symmetric, diffuse wheezing and rhonchi with poor inspiratory and expiratory flow Chest: symmetric movement, nontender Heart: Tachycardia with a regular rhythm, normal S1, S2 no murmurs or rubs Abdomen: soft, non-tender, nondistended, normal bowel sounds Back: no vertebral tenderness, no CVAT Extremities: no deformities, moves all extremities symmetrically Neuro: Awake, alert, oriented, moves all extremities symmetrically Psych: Pleasant, cooperative Medications Administered Generic Name Dose Route Start Last Admin Trade Name Freq PRN Reason Stop Dose Admin Magnesium Sulfate 2 gm in 50 mls @ 25 mls/hr 04/12/23 18:23 04/12/23 18:39 Magnesium Sulfate/H2o IV 04/12/23 20:22 25 mls/hr ONCE ONE Administration Discontinued Medications Generic Name Dose Route Start Last Admin Trade Name Freq PRN Reason Stop Dose Admin Albuterol Sulfate 10 mg 04/12/23 18:23 04/12/23 18:28 Albuterol Sulfate (0.083%) 2.5 Mg/3 Ml Vial.Neb INHALE 04/12/23 18:24 10 mg ONCE ONE Administration Methylprednisolone Sodium Succinate 125 mg 04/12/23 18:24 04/12/23 18:39 Methylprednisolone Sod Succ 125 Mg/2 Ml Vial IVPUSH 04/12/23 18:25 125 mg ONCE ONE Administration Medical Decision Making Medical Decision Making [facility] Narrative: 23-year-old female with history of asthma, never been intubated, last hospitalized end of October 2022 4 days, seen 2 days prior with asthma exacerbation, currently taking prednisone 40 mg daily, who woke up this morning with shortness of breath not relieved by her outpatient medication regimen. On presentation the patient was tachypneic and tachycardic. Patient's breath sounds were diminished but symmetric bilaterally with diffuse wheezing and rhonchi. Patient was placed on a laborer pipeline and O2 saturation monitor. Following evaluation was ordered: CBC, CMP, quantitative beta-hCG, chest x-ray one view. She was treated with an albuterol nebulizer 10 mg, magnesium 2 g IV, Solu-Medrol 125 mg IV. 1943: Laboratory evaluation [place] [address] but this could be secondary to prednisone use. My interpretation of the patient's one-view chest x-ray is no acute disease-radiology reading is pending. I did re-evaluate the patient after the above treatment, she does look improved however she continues to have diffuse wheezing. As per the bronchodilator protocol she was ordered to get a 2nd albuterol nebulizer 2.5 mg. I did discuss the patient's presentation with the covering hospitalist, Dr. Lino , he evaluated the patient in the emergency department and the patient will be admitted for further treatment. Differential Diagnosis Differential Diagnoses: The differential diagnosis associated with the presentation includes Differential diagnosis includes was not limited to pneumonia, asthma exacerbation, pneumothorax Admission/Observation Consideration of admission/observation: Escalation of care including admission/observation considered Consult Healthcare Provider Management of the patient was discussed with: Hospitalist (Dr. Lino) Lab Data MDM Lab Attestation statement: I reviewed the patient's lab results. My interpretation patient's laboratory evaluation as follows: WBC elevated 16,800-this could be secondary to steroids. Chloride elevated 110. Venous pH was normal at 7.42 with a normal pCO2 of 38. Patient's COVID-19, influenza and RSV were negative. Quantitative beta-hCG was negative. 04/12/23 18:24 04/12/23 18:24 Labs: Lab Results 04/12/23 04/12/23 04/12/23 Range/Units 18:24 18:27 18:33 WBC 16.8 H (4.8-10.8) X10*3/uL RBC 5.00 (4.20-5.50) X10*6/uL Hgb 14.3 (12.0-16.0) g/dl Hct 42.0 (37.0-47.0) % MCV 84.0 (80.0-98.0) fL MCH 28.6 (27.0-33.0) pg MCHC 34.0 (31.0-35.0) g/dl RDW 12.9 (11.0-16.0) % Plt Count 285 (160-400) X10*3/uL MPV 9.5 (9.4-12.3) fL Immature Gran % (Auto) 0.5 H (0.0-0.4) % Neut % (Auto) 83.4 H (45-73) % Lymph % (Auto) 11.0 L (20-40) % [place] % (Auto) 3.4 (2-11) % Eos % (Auto) 1.2 (0-4) % Baso % (Auto) 0.5 (0-2) % Lymph # (Auto) 1.9 (1.2-4.9) X10*3/uL [place] # (Auto) 0.6 (0.1-1.2) X10*3/uL Eos # (Auto) 0.2 (0.0-0.4) X10*3/uL Baso # (Auto) 0.1 (0.0-0.2) X10*3/uL Abs Immat Gran (auto) 0.08 H (0.00-0.03) X10*3/uL Absolute Neuts (auto) 14.0 H (2.0-8.3) x10*3/uL Absolute Nucleated RBC 0.000 (0.0-0.012) X10*3/uL Nucleated RBC % (auto) 0.0 (0.0-0.2) /100WBC VBG pH 7.42 (7.32-7.43) VBG pCO2 38 mmHg VBG pO2 52 mmHg VBG HCO3 25 (22-26) mmol/L VBG O2 Saturation 84.0 % VBG Base Excess 1.2 mmol/L Sodium 143 (135-145) mmol/L Potassium 3.7 (3.3-5.1) mmol/L Chloride 110 H (96-108) mmol/L Carbon Dioxide 25 (22-29) mmol/L Anion Gap 12 (12-20) BUN 16 (9-16) mg/dL Creatinine 0.77 (0.5-1.4) mg/dL Estim Creat Clear Calc 130.5 Estimated GFR > 60 Random Glucose 109 (60-115) mg/dL Calcium 9.6 (8.4-10.2) mg/dL Total Bilirubin 0.7 (0.0-1.0) mg/dL AST 13 (5-31) U/L ALT 13 (0-31) U/L Alkaline Phosphatase 60 (39-117) U/L Total Protein 7.9 (6.5-8.0) g/dL Albumin 4.6 (3.5-5.0) g/dL Beta HCG, Quant < 2 mIU/mL Influenza Type A (PCR) NEGATIVE (Negative) Influenza Type B (PCR) NEGATIVE (Negative) RSV RNA Qual (PCR) NEGATIVE (Negative) SARS-CoV-2 RNA (RT-PCR) NEGATIVE (Negative) Independent Interpretation I performed an independent interpretation of an: Plain X-Ray Interpretation: My independent interpretation patient's one-view chest x-ray is as follows: No acute disease. External Record Review External record reviewed: Inpatient record Chronic Conditions Patient?s care impacted by: Other (Asthma) Critical Care Time Critical Care Time Critical Care Time: Yes Total Critical Care Time: 45 Attestation: Critical Care: The patient was critically ill with a high probability of imminent or life threatening deterioration. I spent greater than 30 minutes of discontinuous time evaluating the patient,delivering critical care at the bedside, discussing and evaluating pertinent data with consultants. Critical care time does not include time spent performing separately billable procedures or teaching. Total time spent performing critical care was 45 minutes. Discharge Plan Discharge Clinical Impression: Asthma exacerbation Prescriptions: No Action albuterol sulfate 2.5 mg /3 mL (0.083 %) solution for nebulization 2.5 mg inhalation Q4-6H PRN (Reason: wheezing) albuterol sulfate [Proventil HFA] 90 mcg/actuation HFA aerosol inhaler 2 puff INHALATION Q4-6H PRN (Reason: wheezing) fluticasone propion-salmeterol [Advair HFA] 230-21 mcg/actuation HFA aerosol inhaler 2 puff inhalation BID Incruse Ellipta 62.5 mcg/actuation blister with device 1 inh inhalation DAILY montelukast 10 mg tablet 10 mg PO DAILY loratadine 10 mg Tablet 10 mg PO DAILY prednisone 20 mg tablet 40 mg PO DAILY Qty: 6 0RF prednisone 20 mg tablet 40 mg PO DAILY Qty: 10 0RF prednisone 20 mg tablet 40 mg PO DAILY 5 Days Qty: 10 0RF
[2023-04-12 18:28] LABS: MANUAL DIFF FLAG NO
[2023-04-12] MEDS: Albuterol Sulfate (0.083%) 2.5 MG/3 ML VIAL.NEB 10 MG INHALE (18:28)
[2023-04-12 18:32] LABS: Venous Blood Gas Refer to POC result
[2023-04-12 18:32] LABS: VBG Base Excess 1.2 mmol/L; VBG HCO3 25 mmol/L (22-26); VBG pCO2 38 mmHg; VBG pH 7.42 (7.32-7.43); VBG pO2 52 mmHg
[2023-04-12 18:35] LABS: Basophils Absolute Auto 0.1 X10*3/uL (0.0-0.2); Basophils Percent Auto 0.5 % (0-2); Eosinophils Absolute Auto 0.2 X10*3/uL (0.0-0.4); Eosinophils Percent Auto 1.2 % (0-4); Hemoglobin 14.3 g/dl (12.0-16.0); Imm Gran Abs Auto 0.08 X10*3/uL (0.00-0.03); Imm Gran Pct Auto 0.5 % (0.0-0.4); Lymphocytes Absolute Auto 1.9 X10*3/uL (1.2-4.9); Mean Corpuscular Hemoglobin 28.6 pg (27.0-33.0); Mean Platelet Volume 9.5 fL (9.4-12.3); Monocytes Absolute Auto 0.6 X10*3/uL (0.1-1.2); Monocytes Percent Auto 3.4 % (2-11); Neutrophils Percent Auto 83.4 % (45-73); Platelet Count 285 X10*3/uL (160-400); Red Cell Distribution Width 12.9 % (11.0-16.0); White Blood Count 16.8 X10*3/uL (4.8-10.8)
[2023-04-12] MEDS: Magnesium Sulfate/H2O 2 GM/50 ML PIGGYBACK IV (18:39)
[2023-04-12] MEDS: methylPREDNISolone Sod Succ 125 MG/2 ML VIAL IVPUSH (18:39)
[2023-04-12 18:51] LABS: Alanine Aminotransferase 13 U/L (0-31); Albumin Level 4.6 g/dL (3.5-5.0); Alkaline Phosphatase 60 U/L (39-117); Anion Gap 12 (12-20); Aspartate Amino Transferase 13 U/L (5-31); Bilirubin Total 0.7 mg/dL (0.0-1.0); Blood Urea Nitrogen 16 mg/dL (9-16); Calcium 9.6 mg/dL (8.4-10.2); Carbon Dioxide 25 mmol/L (22-29); Chloride 110 mmol/L (96-108); Creatinine Clr Calc Pharmacy 130.5; Estimated Glomerular Filt Rate > 60; Glucose Random 109 mg/dL (60-115); HCG Quantitative < 2 mIU/mL; Potassium 3.7 mmol/L (3.3-5.1); Sodium 143 mmol/L (135-145); Total Protein 7.9 g/dL (6.5-8.0)
[2023-04-12 19:18] LABS: Influenza A PCR NEGATIVE (Negative); Influenza B PCR NEGATIVE (Negative); Resp Syncy Virus RNA Qual PCR NEGATIVE (Negative); SARS COV2 PCR INHOUSE NEGATIVE (Negative)
--- NOTE | 2023-04-12 19:47 | PM.IMHP ---
History of Present Illness Date of Service: 04/12/23 Chief Complaint: Dyspnea This is a 23-year-old female with pertinent history of asthma not on home oxygen who presents to the emergency department for evaluation of dyspnea. Patient states the symptoms started 2 days prior to presentation. She presented to the ER with discharged home on p.o. prednisone. Patient states she is compliant with p.o. prednisone and home inhaler but her symptoms have progressed. She continues to have progressive dyspnea which is worse with exertion. Also has a nonproductive cough with wheezing. No fever, chills, chest discomfort, palpitations, nausea, vomiting, abdominal pain, changes in urinary or bowel habits. Does not smoke cigarettes. Although she is exposed to tobacco smoke from family members. In the emergency department, patient with wheezing after multiple DuoNeb treatments. Review of Systems Constitutional: Constitutional: Reports fatigue and Reports lethargy Cardiovascular: Cardiovascular: Reports no additional cardiovascular complaints and Reports dyspnea on exertion Respiratory: Respiratory: Reports cough, Reports dyspnea on exertion and Reports wheezing Gastrointestinal: Gastrointestinal: Reports no additional gastrointestinal complaints Genitourinary: Genitourinary: Reports no additional female genitourinary complaints Endocrine: Endocrine: Reports fatigue Allergic/Immunologic: Allergic/Immunologic: Reports wheezing [facility] Medical History Asthma Pertinent family history: No family history of early CAD Social History Alcohol intake: never Patient Tobacco Use Status: Never used Tobacco Smoked in Last 30 Days: No Second Hand Smoke Exposure: No Use of substances other than those prescribed or required for medical reasons: No Advance Directives: No Advance Directives Information Provided: No Patient : No service: No Current occupational status: employed Meds Allergies Allergy/AdvReac Type Severity Reaction Status Date / Time No Known Allergies Allergy Verified 04/12/23 18:07 Active Medications: Current Medications Magnesium Sulfate (Magnesium Sulfate/H2o) 2 gm in 50 mls @ 25 mls/hr IV ONCE ONE Stop: 04/12/23 20:22 Last Admin: 04/12/23 18:39 Dose: 25 mls/hr Home Medications Medication Instructions Recorded Confirmed Last Taken Type albuterol sulfate 2.5 mg/3 mL 2.5 mg inhalation Q4-6H PRN 10/30/22 10/30/22 Unknown History (0.083 %) solution for nebulization wheezing albuterol sulfate 90 mcg/actuation 2 puff inhalation Q4-6H PRN 10/30/22 10/30/22 Unknown History aerosol inhaler (Proventil HFA) wheezing fluticasone propionate 230 2 puff inhalation BID 10/30/22 10/30/22 Unknown History mcg-salmeterol 21 mcg/actuation HFA inhaler (Advair HFA) loratadine 10 mg tablet 10 mg PO DAILY 10/30/22 10/30/22 Unknown History montelukast 10 mg tablet 10 mg PO DAILY 10/30/22 10/30/22 Unknown History umeclidinium 62.5 mcg/actuation 1 inh inhalation DAILY 10/30/22 10/30/22 Unknown History blister powder for inhalation (Incruse Ellipta) Physical Exam Vital Signs and Narrative: Vital Signs: Last Vital Signs Temp 98.6 F 04/12/23 19:01 Pulse 122 H 04/12/23 19:44 Resp 16 04/12/23 19:44 BP 111/79 04/12/23 19:01 Pulse Ox 95 04/12/23 19:01 O2 Del Method Nasal Cannula 04/12/23 19:01 O2 Flow Rate 2 04/12/23 19:01 BMI result Body Mass Index 35.9 Young female lying in bed in mild distress Neck supple, no JVD Tachycardic with regular rhythm, S1-S2 heard Bilateral wheezing without crackles Abdomen soft nontender, no guarding, no rigidity Patient is awake, alert and oriented to self, place, time and person ; no focal motor deficit Psych: Normal mood No pedal edema Results Labs 04/12/23 18:24 04/12/23 18:24 Labs: Laboratory Results - last 24 hr 04/12/23 04/12/23 04/12/23 18:24 18:27 18:33 MCV 84.0 MCH 28.6 MCHC 34.0 RDW 12.9 Plt Count 285 MPV 9.5 Immature Gran % (Auto) 0.5 H Neut % (Auto) 83.4 H Lymph % (Auto) 11.0 L [place] % (Auto) 3.4 Eos % (Auto) 1.2 Baso % (Auto) 0.5 Lymph # (Auto) 1.9 [place] # (Auto) 0.6 Eos # (Auto) 0.2 Baso # (Auto) 0.1 Abs Immat Gran (auto) 0.08 H Absolute Neuts (auto) 14.0 H Absolute Nucleated RBC 0.000 Nucleated RBC % (auto) 0.0 VBG pH 7.42 VBG pCO2 38 VBG pO2 52 VBG HCO3 25 VBG O2 Saturation 84.0 VBG Base Excess 1.2 Anion Gap 12 Estim Creat Clear Calc 130.5 Estimated GFR > 60 Random Glucose 109 Calcium 9.6 Total Bilirubin 0.7 AST 13 ALT 13 Alkaline Phosphatase 60 Total Protein 7.9 Albumin 4.6 Beta HCG, Quant < 2 Influenza Type A (PCR) NEGATIVE Influenza Type B (PCR) NEGATIVE RSV RNA Qual (PCR) NEGATIVE SARS-CoV-2 RNA (RT-PCR) NEGATIVE Assessment and Plan (1) Asthma exacerbation: Qualifiers: Asthma persistence: persistent Asthma severity: severe Qualified Code(s): J45.51 - Severe persistent asthma with (acute) exacerbation Status: Acute Plan This is a 23-year-old female with pertinent history of asthma not on home oxygen who presents to the emergency department for evaluation of dyspnea. #. Acute respiratory distress due to Acute exacerbation of asthma. Will admit patient for observation. Scheduled and p.r.n. DuoNebs. Initiating systemic steroids. Continue home inhaler. Tachycardia and tachypnea due to exacerbation of obstructive lung disease, no sepsis #. Reactive leukocytosis: Defer antibiotics DVT prophylaxis: Lovenox Full code Regular diet Quality Stroke Does the patient have a stroke diagnosis?: No VTE Prior VTE?: No VTE Risk Level:: Medical - moderate - high VTE Device Contraindication: Treatment Not Indicated VTE Drug Contraindication: N/A - Med Ordered
[2023-04-12] MEDS: Albuterol Sulfate 5 MG, Albuterol/Iprat 2.5/0.5MG 3 ML 3 ML INHALE (19:49)
--- NOTE | 2023-04-12 19:50 | PC.NURSE ---
This proposal manager writer assumed care of pt at 1900, AOx3, Pt denying pain. Reporting some SOB, pt respirations unlabored and equal, lung sounds wheezy on inhale and exhale. Pt speaking in full sentences. IV line in place LAC, dry and intact. Pt aware of plan of care.
[2023-04-12] MEDS: Albuterol/Iprat 2.5/0.5MG 3 ML AMPUL.NEB INHALE (19:53)
--- NOTE | 2023-04-12 20:22 | PHA.MEDREC ---
Pharmacy Consult ? Medication Reconciliation Pharmacy has completed the medication reconciliation. Spoke to patient at bedside, able to name most medications. Says she takes a once daily inhale on top of her albuterolr, wasn't sure of the name. Based on claim history I put in the Incruse inhaler, pt stated that sounded right
[2023-04-12] MEDS: Enoxaparin Sodium 40 MG/0.4 ML SYRINGE SUBCUT (21:21)
--- NOTE | 2023-04-12 22:29 | PC.NURSE ---
RN to RN report given to Lou Pt will be transported to room 454, pt aware of plan of care.
[2023-04-12] MEDS: 0.9 % Sodium Chloride Flush 3 ML SYRINGE IVFLUSH (22:52)
[2023-04-13] VITALS (10 sets, daily range): BP systolic 122–168; BP diastolic 63–74; PULSE 74–102; RESP 16–20; TEMP 36.2–36.8; O2SAT 92–99
[2023-04-13] MEDS: Benzonatate 100 MG CAPSULE 200 MG PO (02:56)
[2023-04-13 06:01] LABS: MANUAL DIFF FLAG NO
[2023-04-13 06:04] LABS: Basophils Percent Auto 0.1 % (0-2); Hematocrit 37.4 % (37.0-47.0); Hemoglobin 12.7 g/dl (12.0-16.0); Imm Gran Abs Auto 0.06 X10*3/uL (0.00-0.03); Imm Gran Pct Auto 0.7 % (0.0-0.4); Lymphocytes Absolute Auto 0.8 X10*3/uL (1.2-4.9); Lymphocytes Percent Auto 10.1 % (20-40); Mean Corpuscular Hemoglobin 28.6 pg (27.0-33.0); Mean Corpuscular Volume 84.2 fL (80.0-98.0); Mean Platelet Volume 9.8 fL (9.4-12.3); Monocytes Absolute Auto 0.3 X10*3/uL (0.1-1.2); Monocytes Percent Auto 3.7 % (2-11); Neutrophils Percent Auto 85.4 % (45-73); Platelet Count 252 X10*3/uL (160-400); Red Blood Count 4.44 X10*6/uL (4.20-5.50); Red Cell Distribution Width 12.9 % (11.0-16.0); White Blood Count 8.2 X10*3/uL (4.8-10.8)
[2023-04-13 06:20] LABS: Anion Gap 13 (12-20); Blood Urea Nitrogen 12 mg/dL (9-16); Calcium 9.2 mg/dL (8.4-10.2); Carbon Dioxide 22 mmol/L (22-29); Chloride 108 mmol/L (96-108); Estimated Glomerular Filt Rate > 60; Glucose Random 256 mg/dL (60-115); Potassium 4.2 mmol/L (3.3-5.1); Sodium 139 mmol/L (135-145)
[2023-04-13] MEDS: methylPREDNISolone Sod Succ 40 MG/ML VIAL IVPUSH ×2 (06:23→17:12)
[2023-04-13] MEDS: Albuterol/Iprat 2.5/0.5MG 3 ML AMPUL.NEB INHALE ×4 (07:48→18:42)
--- NOTE | 2023-04-13 09:45 | MHC.CM.PN ---
BRAYAN 04/13. Pt lives at home wiht her parents, is self-care. DCP is to return home self-care when medically cleared. Pt will transport herself home (car is in lot). HCP completed with pt, now on file. PCP: Dr. Sasha Redman
[2023-04-13] MEDS: 0.9 % Sodium Chloride Flush 3 ML SYRINGE IVFLUSH ×3 (09:58→21:02)
[2023-04-13] MEDS: Acetaminophen 325 MG TABLET 650 MG PO ×2 (10:08→21:01)
--- NOTE | 2023-04-13 10:53 | P.PNIM_ITS ---
Subjective Subjective Date of Service: 04/13/23 Review of Systems Follow up asthma exacerbation still wheezing Physical Exam 2 Vital Signs: Vital Signs: Last Vital Signs Temp 97.5 F 04/13/23 08:00 Pulse 92 04/13/23 08:00 Resp 16 04/13/23 08:00 BP 128/63 04/13/23 08:00 Pulse Ox 95 04/13/23 08:00 O2 Del Method Room Air 04/13/23 08:00 O2 Flow Rate 2 04/12/23 19:01 BMI result Body Mass Index 37.3 Appearing in no acute distress lung sounds exp wheezing heart regular rate rhythm, clear S1, S2 positive bowel sounds, abdomen is soft, nontender neuro patient is alert x3, no focal deficits Objective Data Active Medications Acetaminophen (Acetaminophen 325 Mg Tablet) 650 mg PO Q6H PRN PRN Reason: Pain, Mild (Pain Scale 1-3) Last Admin: 04/13/23 10:08 Dose: 650 mg Documented By: RICARDA Albuterol/Ipratropium (Albuterol/Iprat 2.5/0.5mg 3 Ml Ampul.Neb) 3 ml INHALE RQ4H WHILE AWAKE [facility] Last Admin: 04/13/23 07:48 Dose: 3 ml Documented By: ONEYDA Albuterol/Ipratropium (Albuterol/Iprat 2.5/0.5mg 3 Ml Ampul.Neb) 3 ml INHALE Q4H PRN PRN Reason: Wheezing Benzonatate (Benzonatate 100 Mg Capsule) 200 mg PO TID PRN PRN Reason: Cough Last Admin: 04/13/23 02:56 Dose: 200 mg Documented By: SUMI Enoxaparin Sodium (Enoxaparin Sodium 40 Mg/0.4 Ml Syringe) 40 mg SUBCUT Q24H [facility] Last Admin: 04/12/23 21:21 Dose: 40 mg Documented By: SANDRO Influenza Virus Vaccine (Flu Vacc [id number](6mos Up)/Pf 0.5 Ml Syringe) 0.5 ml IM .ONCE ONE Stop: 04/13/23 11:01 Last Admin: 04/13/23 09:59 Dose: 0.5 ml Documented By: RICARDA Melatonin (Melatonin 3 Mg Tablet) 6 mg PO BEDTIME PRN PRN Reason: Insomnia Methylprednisolone Sodium Succinate (Methylprednisolone Sod Succ 40 Mg/Ml Vial) 40 mg IVPUSH Q12H [facility] Last Admin: 04/13/23 06:23 Dose: 40 mg Documented By: SUMI Ondansetron HCl (Ondansetron Hcl 4 Mg/2 Ml Vial) 4 mg IVPUSH Q8H PRN PRN Reason: Nausea and Vomiting Sodium Chloride (0.9 % Sodium Chloride Flush 3 Ml Syringe) 3 ml IVFLUSH QSHIFT [facility] Last Admin: 04/13/23 09:58 Dose: 3 ml Documented By: RICARDA Labs 04/13/23 05:39 04/13/23 05:39 Labs: Laboratory Results - last 24 hr 04/12/23 04/12/23 04/12/23 18:24 18:27 18:33 MCV 84.0 MCH 28.6 MCHC 34.0 RDW 12.9 Plt Count 285 MPV 9.5 Immature Gran % (Auto) 0.5 H Neut % (Auto) 83.4 H Lymph % (Auto) 11.0 L [place] % (Auto) 3.4 Eos % (Auto) 1.2 Baso % (Auto) 0.5 Lymph # (Auto) 1.9 [place] # (Auto) 0.6 Eos # (Auto) 0.2 Baso # (Auto) 0.1 Abs Immat Gran (auto) 0.08 H Absolute Neuts (auto) 14.0 H Absolute Nucleated RBC 0.000 Nucleated RBC % (auto) 0.0 VBG pH 7.42 VBG pCO2 38 VBG pO2 52 VBG HCO3 25 VBG O2 Saturation 84.0 VBG Base Excess 1.2 Anion Gap 12 Estim Creat Clear Calc 130.5 Estimated GFR > 60 Random Glucose 109 Calcium 9.6 Total Bilirubin 0.7 AST 13 ALT 13 Alkaline Phosphatase 60 Total Protein 7.9 Albumin 4.6 Beta HCG, Quant < 2 Influenza Type A (PCR) NEGATIVE Influenza Type B (PCR) NEGATIVE RSV RNA Qual (PCR) NEGATIVE SARS-CoV-2 RNA (RT-PCR) NEGATIVE 04/13/23 05:39 MCV 84.2 MCH 28.6 MCHC 34.0 RDW 12.9 Plt Count 252 MPV 9.8 Immature Gran % (Auto) 0.7 H Neut % (Auto) 85.4 H Lymph % (Auto) 10.1 L [place] % (Auto) 3.7 Eos % (Auto) 0.0 Baso % (Auto) 0.1 Lymph # (Auto) 0.8 L [place] # (Auto) 0.3 Eos # (Auto) 0.0 Baso # (Auto) 0.0 Abs Immat Gran (auto) 0.06 H Absolute Neuts (auto) 7.0 Absolute Nucleated RBC 0.000 Nucleated RBC % (auto) 0.0 VBG pH VBG pCO2 VBG pO2 VBG HCO3 VBG O2 Saturation VBG Base Excess Anion Gap 13 Estim Creat Clear Calc 122.0 Estimated GFR > 60 Random Glucose 256 H Calcium 9.2 Total Bilirubin AST ALT Alkaline Phosphatase Total Protein Albumin Beta HCG, Quant Influenza Type A (PCR) Influenza Type B (PCR) RSV RNA Qual (PCR) SARS-CoV-2 RNA (RT-PCR) Assessment and Plan (1) Asthma exacerbation: Status: Acute Plan This is a 23-year-old female with pertinent history of asthma not on home oxygen who presents to the emergency department for evaluation of dyspnea. Acute respiratory distress due to Acute exacerbation of asthma. Scheduled and p.r.n. DuoNebs. systemic steroids. Tachycardia and tachypnea due to exacerbation of obstructive lung disease, no sepsis Reactive leukocytosis Defer antibiotics DVT prophylaxis with Lovenox Attending Dr. Barone Full code Quality Stroke Does the patient have a stroke diagnosis?: No VTE Prior VTE?: No VTE Risk Level:: Medical - moderate - high VTE Device Contraindication: Treatment Not Indicated VTE Drug Contraindication: N/A - Med Ordered
[2023-04-13] MEDS: Enoxaparin Sodium 40 MG/0.4 ML SYRINGE SUBCUT (21:01)
[2023-04-14 03:39] VITALS: BP 106/55; PULSE 67; RESP 16; TEMP 37.1; O2SAT 95
[2023-04-14] MEDS: methylPREDNISolone Sod Succ 40 MG/ML VIAL IVPUSH (06:00)
[2023-04-14] MEDS: Albuterol/Iprat 2.5/0.5MG 3 ML AMPUL.NEB INHALE (07:25)
--- NOTE | 2023-04-14 07:25 | P.DS_ITS ---
DS: Providers Provider Date of Service: 04/14/23 Date of admission: 04/12/23 19:45 Primary care physician: [facility] DS: Diagnosis Discharge Diagnosis (1) Asthma exacerbation: Status: Acute DS: Summary Hospital Course Hospital Course: This is a 23-year-old female with pertinent history of asthma not on home oxygen who presents to the emergency department for evaluation of dyspnea. Patient states the symptoms started 2 days prior to presentation. She presented to the ER with discharged home on p.o. prednisone. Patient states she is compliant with p.o. prednisone and home inhaler but her symptoms have progressed. She continues to have progressive dyspnea which is worse with exertion. Also has a nonproductive cough with wheezing. No fever, chills, chest discomfort, palpitations, nausea, vomiting, abdominal pain, changes in urinary or bowel portillo bits. Does not smoke cigarettes. Although she is exposed to tobacco smoke from family members. In the emergency department, patient with wheezing after multiple DuoNeb treatments. 23-year-old woman treated for acute asthma exacerbation with scheduled steroids and DuoNeb treatments. No indication for antibiotics as no pneumonia seen on chest x-ray. Patient has no hypoxia and no shortness of breath with exertion. Plan is to complete short prednisone taper and continue home medications as needed. She was noted to have reactive leukocytosis likely secondary to asthma exacerbation and steroid use. Time Attestation Discharge coordination time: Greater than 30 minutes Quality: Safe Use of Opioids Does Pt have an Active Cancer Diagnosis on the Problem List?: No Quality: Stroke Does the patient have a stroke diagnosis?: No Physical Exam Vital Signs: Vital Signs: Last Vital Signs Temp 98.8 F 04/14/23 03:39 Pulse 67 04/14/23 03:39 Resp 16 04/14/23 03:39 BP 106/55 L 04/14/23 03:39 Pulse Ox 95 04/14/23 03:39 O2 Del Method Room Air 04/14/23 03:39 O2 Flow Rate 2 04/12/23 19:01 BMI result Body Mass Index 37.3 Appearing in no acute distress head is normocephalic atraumatic eyes pupils are PERRLA sclera is anicteric mouth throat mucous membranes are intact and moist neck is supple no lymphadenopathy, no JVD noted lung sounds are clear to auscultation heart regular rate rhythm, clear S1, S2 positive bowel sounds, abdomen is soft, nontender neuro patient is alert x3, no focal deficits Discharge Plan Discharge Anticipated Discharge Date/Time: 04/14/23 07:23 Patient Disposition: Home, Self-Care Discharge Diagnosis: asthma exacerbation Referrals: [facility] [Primary Care Provider] - 1 Week Discharge Medications: New prednisone 10 mg tablet 40 mg PO DIRECTED Qty: 16 0RF Rx Instructions: see taper instructions Continued albuterol sulfate 2.5 mg /3 mL (0.083 %) solution for nebulization 2.5 mg inhalation Q4-6H PRN (Reason: wheezing) albuterol sulfate [Proventil HFA] 90 mcg/actuation HFA aerosol inhaler 2 puff INHALATION Q4-6H PRN (Reason: wheezing) Incruse Ellipta 62.5 mcg/actuation blister with device 1 inh inhalation DAILY montelukast 10 mg tablet 10 mg PO BEDTIME loratadine 10 mg Tablet 10 mg PO DAILY prednisone 20 mg tablet 40 mg PO DAILY 5 Days Qty: 10 0RF Discharge Orders: Discharge Order (Routine); Ordered 04/14/23 Ordered By: Bel Carmen Diet: Advance to usual diet Activity on Discharge: As tolerated Stand Alone Forms: Patient Portal Discharge page Care Plan Goals: Continue using inhalers at home as needed Complete short prednisone taper Health Concerns: asthma exacerbation Plan of Treatment: follow-up with primary care provider as needed Take all medications as prescribed Assessment: see discharge summary
[2023-04-14 07:27] VITALS: PULSE 76; RESP 16; O2SAT 99
[2023-04-14 07:30] VITALS: BP 108/60; PULSE 70; RESP 18; TEMP 36.3; O2SAT 97
--- NOTE | 2023-04-14 09:29 | MHC.CM.PN ---
order for home, self-care. CM acknowledge.
== END 2023-04-14 12:00 | disposition home or self-care (01) ==
LOC: HO.ED 18:28 → HO.EDOVER 20:31 → HO.IMC 21:29
PROVIDERS: Admitting Provider Student in an Organized Health Care Education/Training Program; Emergency Provider Emergency Medicine Emergency Medical Services; PCP Student in an Organized Health Care Education/Training Program; Visit Provider Nurse Practitioner Acute Care
DX: J45.901 Unspecified asthma with (acute) exacerbation (principal); D72.828 Other elevated white blood cell count; R00.0 Tachycardia, unspecified; R06.82 Tachypnea, not elsewhere classified; Z20.822 Contact with and (suspected) exposure to COVID-19; Z20.828 Contact with and (suspected) exposure to other viral communicable diseases; Z23 Encounter for immunization
CPT/HCPCS: 0241U; 36415; 71045; 80048; 80053; 82803; 84702; 85025; 90471; 90686; 94640; 96365; 96366; 96372; 96375; 96376; 99222; 99285; J1650; J2920; J2930; J3475

== ENCOUNTER → 2023-04-12 18:27 | Outpatient (BNV) | payer MEDICAID, SELFPAY | PROVIDERS: Emergency Provider Emergency Medicine Emergency Medical Services; Visit Provider Student in an Organized Health Care Education/Training Program | DX: J45.51 Severe persistent asthma with (acute) exacerbation (principal) | CPT/HCPCS: 99222; 99232; 99239 ==

== ENCOUNTER 2023-04-22 04:56 | Emergency (ER) | payer MEDICAID, SELFPAY ==
--- NOTE | 2023-04-22 | ECG_ITS ---
Test Reason : dyspnea Blood Pressure : / mmHG Vent. Rate : 121 BPM Atrial Rate : 121 BPM P-R Int : 124 ms QRS Dur : 072 ms QT Int : 320 ms P-R-T Axes : 079 070 059 degrees QTc Int : 454 ms Sinus tachycardia Biatrial enlargement Nonspecific ST abnormality Inferior leads Lateral leads Abnormal ECG When compared with ECG of 10-APR-2023 00:39, No significant change was found Referred By: Connie Shelton Electronically Signed By:FLORENCE FITZPATRICK MD
[2023-04-22 04:57] VITALS: BP 131/95; PULSE 121; RESP 20; TEMP 36.8; O2SAT 99; BMI 34.9
--- NOTE | 2023-04-22 05:13 | ED_ITS ---
HPI - SOB/Dyspnea General Chief Complaint: Dyspnea Stated Complaint: asthma Time Seen by Provider: 04/22/23 05:07 Source: patient Mode of arrival: ambulatory Limitations: no limitations History of Present Illness HPI Narrative: Patient come to the emergency room complaining of shortness of breath/asthma exacerbation. Patient has been having asthma exasperation for couple of days, not responding well to nebulization treatments. Patient denies cough, no fever chills Related Data Home Medications Medication Instructions Recorded Confirmed albuterol sulfate 2.5 mg/3 mL 2.5 mg inhalation Q4-6H PRN 10/30/22 04/12/23 (0.083 %) solution for nebulization wheezing albuterol sulfate 90 mcg/actuation 2 puff inhalation Q4-6H PRN 10/30/22 04/12/23 aerosol inhaler (Proventil HFA) wheezing loratadine 10 mg tablet 10 mg PO DAILY 10/30/22 04/12/23 montelukast 10 mg tablet 10 mg PO BEDTIME 10/30/22 04/12/23 umeclidinium 62.5 mcg/actuation 1 inh inhalation DAILY 10/30/22 04/12/23 blister powder for inhalation (Incruse Ellipta) Previous Rx's Medication Instructions Recorded prednisone 10 mg tablet 40 mg (4 x 10 mg) PO DIRECTED 04/14/23 #16 tabs prednisone 20 mg tablet 40 mg (2 x 20 mg) PO DAILY 5 days 04/14/23 #10 tabs albuterol sulfate 2.5 mg/3 mL 2.5 mg (3 mL) inhalation Q4-6H PRN 04/22/23 (0.083 %) solution for nebulization shortness of breath or wheezing #75 mL albuterol sulfate 90 mcg/actuation 2 puff inhalation Q4-6H PRN 04/22/23 aerosol inhaler bronchospasm #8.5 grams prednisone 50 mg tablet 50 mg PO DAILY #5 tabs 04/22/23 Allergies Allergy/AdvReac Type Severity Reaction Status Date / Time No Known Allergies Allergy Verified 04/22/23 05:00 Review of Systems 2 Review of Systems: Constitutional : No Weight loss, No Fever, No Chills, No Night Sweats, No Fatigue, No Malaise ENT/Mouth : No Hearing loss, No Ear Pain, No Nasal Congestion, No Sinus Pain, No Hoarseness, No sore throat, No Rhinorrhea, No Swallowing Difficulty Eyes: No Eye Pain, No Swelling, No Redness, No Foreign Body, No Discharge, No Vision Changes Cardiovascular : No Chest Pain, No SOB, No Dyspnea on Exertion, No Orthopnea, No Edema, No Palpitations Respiratory : No Cough, No Sputum, complaining of wheezing, chest tightness, shortness of breath Gastrointestinal : No Nausea, No Vomiting, No Diarrhea, No Constipation, No abdominal Pain, No Hematochezia, No Melena Genitourinary : no irregular bleeding, No Dysuria, No Urinary Frequency, No Hematuria, No Urinary Incontinence, No Urgency, No Flank Pain, No Urinary Flow Changes, No Hesitancy Musculoskeletal : No joint pain, No Myalgias, No Joint Swelling Skin : No Skin Lesions, No rash Neuro : No Weakness, No Numbness, No Paresthesias, No Loss of Consciousness, No Dizziness, No Headache Psych : No Anxiety/Panic, No Depression, No SI/HI/AH/VH, No Social Issues, Heme/Lymph: No Bruising, No Bleeding,No Lymphadenopathy Endocrine : No Polyuria, No Polydipsia, No Temperature Intolerance [facility] Past Medical History Medical History Asthma Social History Social History Alcohol intake: never Patient Tobacco Use Status: Never used Tobacco Smoked in Last 30 Days: No Second Hand Smoke Exposure: No Use of substances other than those prescribed or required for medical reasons: No Advance Directives: No Advance Directives Information Provided: No Patient : No service: No Current occupational status: employed Physical Exam 2 Vital Signs: Vital Signs: Last Vital Signs Temp 98.1 F 04/22/23 06:02 Pulse 121 H 04/22/23 06:06 Resp 14 04/22/23 06:06 BP 133/77 04/22/23 06:02 Pulse Ox 94 04/22/23 06:02 O2 Del Method Room Air 04/22/23 06:02 BMI result Body Mass Index 34.9 Const: Other: Appearance: Alert. Oriented X3. No acute distress. Eyes: Pupils equal, round and reactive to light. ENT: Pharynx normal. Neck: Normal inspection. Neck supple. No lymph nodes noted. No crepitus CVS: Normal heart rate and rhythm. Pulses normal. Normal S1 and S2 Respiratory: Patient tachypneic, bilaterally wheezing, decreased breath sounds bilaterally, oxygen saturation 99% on room air Abdomen: Soft and nontender. No rigidity. No distention. Skin: Skin warm and clammy. Normal skin color. Normal skin turgor. Extremities: No lower extremity edema. No Lacerations. No Rash Neuro: Oriented X 3. No motor deficit. No sensory deficit. Moving all extremities. No slurred speech. CN 2 through 12 grossly intact Psych: calm, cooperative, normal affect Course Course Course Narrative: -labs pending -patient receiving an hour long nebulization treatment, IV Solu-Medrol and magnesium Medications Administered Generic Name Dose Route Start Last Admin Trade Name Freq PRN Reason Stop Dose Admin Magnesium Sulfate 2 gm in 50 mls @ 25 mls/hr 04/22/23 05:11 04/22/23 05:18 Magnesium Sulfate/H2o IV 04/22/23 07:10 25 mls/hr ONCE ONE Administration Discontinued Medications Generic Name Dose Route Start Last Admin Trade Name Freq PRN Reason Stop Dose Admin Albuterol Sulfate 10 mg 04/22/23 05:11 04/22/23 05:16 Albuterol Sulfate (0.083%) 2.5 Mg/3 Ml Vial.Neb INHALE 04/22/23 05:12 10 mg ONCE ONE Administration Albuterol Sulfate 10 mg 04/22/23 05:59 04/22/23 06:06 Albuterol Sulfate (0.083%) 2.5 Mg/3 Ml Vial.Neb INHALE 04/22/23 06:00 10 mg ONCE ONE Administration Methylprednisolone Sodium Succinate 125 mg 04/22/23 05:11 04/22/23 05:18 Methylprednisolone Sod Succ 125 Mg/2 Ml Vial IVPUSH 04/22/23 05:12 125 mg ONCE ONE Administration Medical Decision Making Medical Decision Making MDM Narrative: -patient received 2 hour long treatments, IV magnesium and Solu-Medrol. Patient breathing more comfortably. No longer wheezing, patient was ambulated around the emergency room, oxygen saturation 95% steady with no shortness of breath or desaturation. -discussed with the patient whether she feels okay to go home or if she believe she needs to stay in the hospital. Patient states that she feels well to go home. Differential Diagnosis Differential Diagnoses: The differential diagnosis associated with the presentation includes (Asthma, viral infection, COVID, influenza) Admission/Observation Consideration of admission/observation: Escalation of care including admission/observation considered Lab Data MDM Lab Attestation statement: I reviewed the patient's lab results. 04/22/23 05:28 04/22/23 05:28 Labs: Lab Results 04/22/23 04/22/23 Range/Units 05:28 05:34 WBC 12.5 H (4.8-10.8) X10*3/uL RBC 4.76 (4.20-5.50) X10*6/uL Hgb 13.5 (12.0-16.0) g/dl Hct 39.7 (37.0-47.0) % MCV 83.4 (80.0-98.0) fL MCH 28.4 (27.0-33.0) pg MCHC 34.0 (31.0-35.0) g/dl RDW 12.0 (11.0-16.0) % Plt Count 239 (160-400) X10*3/uL MPV 9.3 L (9.4-12.3) fL Immature Gran % (Auto) 0.6 H (0.0-0.4) % Neut % (Auto) 70.6 (45-73) % Lymph % (Auto) 20.8 (20-40) % [place] % (Auto) 4.5 (2-11) % Eos % (Auto) 3.0 (0-4) % Baso % (Auto) 0.5 (0-2) % Lymph # (Auto) 2.6 (1.2-4.9) X10*3/uL [place] # (Auto) 0.6 (0.1-1.2) X10*3/uL Eos # (Auto) 0.4 (0.0-0.4) X10*3/uL Baso # (Auto) 0.1 (0.0-0.2) X10*3/uL Abs Immat Gran (auto) 0.07 H (0.00-0.03) X10*3/uL Absolute Neuts (auto) 8.9 H (2.0-8.3) x10*3/uL Absolute Nucleated RBC 0.000 (0.0-0.012) X10*3/uL Nucleated RBC % (auto) 0.0 (0.0-0.2) /100WBC VBG pH 7.43 (7.32-7.43) VBG pCO2 35 mmHg VBG pO2 89 mmHg VBG HCO3 24 (22-26) mmol/L VBG O2 Saturation 98.0 % VBG Base Excess 0.4 mmol/L Sodium 142 (135-145) mmol/L Potassium 3.5 (3.3-5.1) mmol/L Chloride 106 (96-108) mmol/L Carbon Dioxide 23 (22-29) mmol/L Anion Gap 17 (12-20) BUN 11 (9-16) mg/dL Creatinine 0.84 (0.5-1.4) mg/dL Estim Creat Clear Calc 117.8 Estimated GFR > 60 Random Glucose 132 H (60-115) mg/dL Calcium 9.2 (8.4-10.2) mg/dL Total Bilirubin 0.5 (0.0-1.0) mg/dL AST 13 (5-31) U/L ALT 16 (0-31) U/L Alkaline Phosphatase 53 (39-117) U/L Total Protein 7.1 (6.5-8.0) g/dL Albumin 4.2 (3.5-5.0) g/dL COVID-19 ([facility]ARGRET) Negative (Negative) COVID-19 Clin Com See Note Influenza Type A ([place]) Negative (Negative) Influenza Type B ([place]) Negative (Negative) Influenza A & B Note See Note Critical Care Time Critical Care Time Critical Care Time: Yes Total Critical Care Time: 75 Attestation: I have personally provided critical care time. Time includes review of lab data, radiology results, discussion with consultants, and monitoring for potential decompensation. Intervention performed as documented. Discharge Plan Discharge Clinical Impression: Asthma exacerbation Patient Disposition: Home, Self-Care Instructions: Asthma (ED) Additional Instructions: Please follow-up with your primary care physician tomorrow. If you have any worsening or new symptoms, please return to the emergency room or call 911 Prescriptions: New albuterol sulfate 90 mcg/actuation HFA aerosol inhaler 2 puff inhalation Q4-6H PRN (Reason: bronchospasm) Qty: 8.5 0RF albuterol sulfate 2.5 mg /3 mL (0.083 %) solution for nebulization 2.5 mg inhalation Q4-6H PRN (Reason: shortness of breath or wheezing) Qty: 75 0RF prednisone 50 mg tablet 50 mg PO DAILY Qty: 5 0RF No Action albuterol sulfate 2.5 mg /3 mL (0.083 %) solution for nebulization 2.5 mg inhalation Q4-6H PRN (Reason: wheezing) albuterol sulfate [Proventil HFA] 90 mcg/actuation HFA aerosol inhaler 2 puff INHALATION Q4-6H PRN (Reason: wheezing) Incruse Ellipta 62.5 mcg/actuation blister with device 1 inh inhalation DAILY montelukast 10 mg tablet 10 mg PO BEDTIME loratadine 10 mg Tablet 10 mg PO DAILY prednisone 10 mg tablet 40 mg PO DIRECTED Qty: 16 0RF Rx Instructions: see taper instructions prednisone 20 mg tablet 40 mg PO DAILY 5 Days Qty: 10 0RF
[2023-04-22] MEDS: Albuterol Sulfate (0.083%) 2.5 MG/3 ML VIAL.NEB 10 MG INHALE ×2 (05:16→06:06)
[2023-04-22] MEDS: methylPREDNISolone Sod Succ 125 MG/2 ML VIAL IVPUSH (05:18)
[2023-04-22] MEDS: Magnesium Sulfate/H2O 2 GM/50 ML PIGGYBACK IV (05:18)
--- NOTE | 2023-04-22 05:32 | MHC.EDTECH ---
Patient came in from triage,changed into hospital attire and placed on the color television console monitor, EKG taken per order and signed by doctor. Labs,Covid,and Flu obtained and sent to lab.Belonging list completed and copy placed in chart.
[2023-04-22 05:36] LABS: MANUAL DIFF FLAG NO
[2023-04-22 05:37] LABS: Basophils Absolute Auto 0.1 X10*3/uL (0.0-0.2); Basophils Percent Auto 0.5 % (0-2); Eosinophils Absolute Auto 0.4 X10*3/uL (0.0-0.4); Hematocrit 39.7 % (37.0-47.0); Hemoglobin 13.5 g/dl (12.0-16.0); Imm Gran Abs Auto 0.07 X10*3/uL (0.00-0.03); Imm Gran Pct Auto 0.6 % (0.0-0.4); Lymphocytes Absolute Auto 2.6 X10*3/uL (1.2-4.9); Lymphocytes Percent Auto 20.8 % (20-40); Mean Corpuscular Hemoglobin 28.4 pg (27.0-33.0); Mean Corpuscular Volume 83.4 fL (80.0-98.0); Mean Platelet Volume 9.3 fL (9.4-12.3); Monocytes Absolute Auto 0.6 X10*3/uL (0.1-1.2); Monocytes Percent Auto 4.5 % (2-11); Neutrophils Absolute Auto 8.9 x10*3/uL (2.0-8.3); Neutrophils Percent Auto 70.6 % (45-73); Platelet Count 239 X10*3/uL (160-400); Red Blood Count 4.76 X10*6/uL (4.20-5.50); White Blood Count 12.5 X10*3/uL (4.8-10.8)
[2023-04-22 05:39] LABS: Venous Blood Gas Refer to POC result
[2023-04-22 05:40] LABS: VBG Base Excess 0.4 mmol/L; VBG HCO3 24 mmol/L (22-26); VBG pCO2 35 mmHg; VBG pH 7.43 (7.32-7.43); VBG pO2 89 mmHg
[2023-04-22 05:50] VITALS: PULSE 129; RESP 30; O2SAT 95
[2023-04-22 05:50] LABS: Alanine Aminotransferase 16 U/L (0-31); Albumin Level 4.2 g/dL (3.5-5.0); Alkaline Phosphatase 53 U/L (39-117); Anion Gap 17 (12-20); Aspartate Amino Transferase 13 U/L (5-31); Bilirubin Total 0.5 mg/dL (0.0-1.0); Blood Urea Nitrogen 11 mg/dL (9-16); COVID-19 Test Negative (Negative); Calcium 9.2 mg/dL (8.4-10.2); Carbon Dioxide 23 mmol/L (22-29); Chloride 106 mmol/L (96-108); Creatinine Clr Calc Pharmacy 117.8; Estimated Glomerular Filt Rate > 60; Glucose Random 132 mg/dL (60-115); IDNOW Serial# 08D9AD1C; IDNOW Serial# BCCEAD1C; Influenza A Negative (Negative); Influenza B2 Negative (Negative); Potassium 3.5 mmol/L (3.3-5.1); Sodium 142 mmol/L (135-145); Total Protein 7.1 g/dL (6.5-8.0)
--- NOTE | 2023-04-22 05:51 | PC.NURSE ---
pt a&ox4, respirations even and unlabored, pt reporting shortness of breath, chest pain and wheezing when she woke up. pt reports using at home inhalers prior to arrival without relief. pt [place] [facility] [place] pt has expiratory rhonchi noted. pt sinus tachy on monitor 125-130, pt previously has had treatment from respiratory therapy.
[2023-04-22 06:02] VITALS: BP 133/77; PULSE 117; RESP 18; TEMP 36.7; O2SAT 94
--- NOTE | 2023-04-22 06:03 | MHC.EDTECH ---
Hourly rounds and vitals completed,call [facility] within reach
[2023-04-22 06:06] VITALS: PULSE 121; RESP 14; O2SAT 93
--- NOTE | 2023-04-22 06:53 | MHC.EDTECH ---
Ambulate patient sats are 95% without any difficult,per MD request
[2023-04-22 07:33] VITALS: PULSE 130; RESP 18; O2SAT 98
== END 2023-04-22 07:34 | disposition home or self-care (01) ==
PROVIDERS: Student in an Organized Health Care Education/Training Program; Emergency Provider Emergency Medicine
DX: J45.901 Unspecified asthma with (acute) exacerbation (principal); R06.02 Shortness of breath; Z79.899 Other long term (current) drug therapy; Z11.52 Encounter for screening for COVID-19
CPT/HCPCS: 36415; 80053; 82803; 85025; 87502; 87635; 93005; 96374; 96375; 99284; 99285; J2930; J3475

== ENCOUNTER 2023-05-05 22:54 | Emergency (ER) | payer MEDICAID, SELFPAY ==
[2023-05-05 23:00] VITALS: PULSE 111; RESP 22; TEMP 37.1; O2SAT 94; BMI 38.2
[2023-05-05] MEDS: methylPREDNISolone Sod Succ 125 MG/2 ML VIAL IVPUSH (23:06)
[2023-05-05] MEDS: Magnesium Sulfate/D5W 1 GM/100 ML PIGGYBACK IV (23:09)
[2023-05-05] MEDS: Albuterol Sulfate 7.5 MG, Albuterol/Iprat 2.5/0.5MG 3 ML 3 ML INHALE (23:13)
[2023-05-05 23:58] VITALS: PULSE 104; RESP 24; O2SAT 94
[2023-05-06 00:22] LABS: Influenza A PCR NEGATIVE (Negative); Influenza B PCR NEGATIVE (Negative); Resp Syncy Virus RNA Qual PCR NEGATIVE (Negative); SARS COV2 PCR INHOUSE NEGATIVE (Negative)
--- NOTE | 2023-05-06 00:44 | ED_ITS ---
HPI - General Adult General Chief complaint: Dyspnea Stated complaint: ASTHMA ATTACK Time Seen by Provider: 05/05/23 22:57 Source: patient, RN notes reviewed and old records reviewed Mode of arrival: ambulatory Limitations: no limitations History of Present Illness HPI narrative: 23-year-old female presents for evaluation of shortness of breath. Patient reports a history of asthma. She follows with pulmonology, Dr. Moe She also reports having followed up with ?someone at [facility] in the past. ? She states that she is on multiple inhalers but does not use them every day. She does use her albuterol nebulizer Patient states that she felt well all day. She states that when she was changing her cat's litter at around 8:00 p.m. she started to feel short of breath with wheezing No relief with home therapy Denies any fevers, chills Related Data Home Medications Medication Instructions Recorded Confirmed albuterol sulfate 2.5 mg/3 mL 2.5 mg inhalation Q4-6H PRN 10/30/22 04/12/23 (0.083 %) solution for nebulization wheezing albuterol sulfate 90 mcg/actuation 2 puff inhalation Q4-6H PRN 10/30/22 04/12/23 aerosol inhaler (Proventil HFA) wheezing loratadine 10 mg tablet 10 mg PO DAILY 10/30/22 04/12/23 montelukast 10 mg tablet 10 mg PO BEDTIME 10/30/22 04/12/23 umeclidinium 62.5 mcg/actuation 1 inh inhalation DAILY 10/30/22 04/12/23 blister powder for inhalation (Incruse Ellipta) Previous Rx's Medication Instructions Recorded prednisone 10 mg tablet 40 mg (4 x 10 mg) PO DIRECTED 04/14/23 #16 tabs prednisone 20 mg tablet 40 mg (2 x 20 mg) PO DAILY 5 days 04/14/23 #10 tabs albuterol sulfate 2.5 mg/3 mL 2.5 mg (3 mL) inhalation Q4-6H PRN 04/22/23 (0.083 %) solution for nebulization shortness of breath or wheezing #75 mL albuterol sulfate 90 mcg/actuation 2 puff inhalation Q4-6H PRN 04/22/23 aerosol inhaler bronchospasm #8.5 grams prednisone 50 mg tablet 50 mg PO DAILY #5 tabs 04/22/23 prednisone 20 mg tablet 40 mg (2 x 20 mg) PO DAILY #10 tabs 05/06/23 Allergies Allergy/AdvReac Type Severity Reaction Status Date / Time No Known Allergies Allergy Verified 04/22/23 05:00 Review of Systems Constitutional: Constitutional: Denies chills and Denies fever(s) ENT: Denies sore throat Cardiovascular: Cardiovascular: Denies chest pain and Reports dyspnea Respiratory: Respiratory: Reports cough, Reports dyspnea and Reports wheezing Gastrointestinal: Gastrointestinal: Denies abdominal pain, Denies nausea and Denies vomiting Genitourinary: Genitourinary: Denies difficulty voiding Musculoskeletal: Musculoskeletal: Denies back pain Allergic/Immunologic: Allergic/Immunologic: Reports wheezing PMFSH Past Medical History Medical History Asthma Social History Social History Alcohol intake: never Patient Tobacco Use Status: Never used Tobacco Smoked in Last 30 Days: No Second Hand Smoke Exposure: No Use of substances other than those prescribed or required for medical reasons: Yes Substance Use Type: Marijuana Substance Use Frequency: Chronic Longstanding Advance Directives: No Advance Directives Information Provided: No Patient : No service: No Current occupational status: employed Physical Exam ED Vital Signs: Vital Signs - 24 hr 05/05/23 23:00 05/05/23 23:58 Temperature 98.7 F Pulse Rate 111 H 104 H Respiratory Rate 22 H 24 H Pulse Oximetry 94 Oxygen Delivery Method Room Air BMI result Body Mass Index 38.2 Const General: healthy appearing, comfortable, no acute distress, alert and awake Nutritional Appearance: well nourished Orientation/consciousness: patient oriented x3 HENMT Head: Yes normocephalic and Yes atraumatic Eyes Eyelids: Yes eyelids normal Conjunctivae: conjunctivae normal Sclerae: sclerae normal Corneas: corneas normal Pupils: Equal, round and reactive pupils present EOM: EOMs intact bilaterally Neck Neck: Yes full ROM Resp Effort & Inspection: abnormal respiratory effort (Increased inspiratory effort), able to speak in complete sentences, audible wheezes and labored Auscultation: not clear to auscultation bilaterally and wheezes (Diffuse inspiratory and expiratory) Skin General skin exam: elasticity normal Neuro General: patient oriented x3 Cranial nerves: Yes Equal, round and reactive pupils present and Yes Bilaterally intact EOM present Cognition (Neuro): normal cognition Extrem Other: Moving all extremities well without any obvious deformities Course Reevaluation(s) Reevaluation #1: Patient's oxygen saturation has been maintaining 97-98%. She reports feeling much better still has some slight wheeze on exam, however she is to for discharge at this time Time: 00:49 Medications Administered Discontinued Medications Generic Name Dose Route Start Last Admin Trade Name [place] PRN Reason Stop Dose Admin Albuterol Sulfate 7.5 mg/ 0 mg 05/05/23 23:09 05/05/23 23:13 Albuterol/Ipratropium 3 ml INHALE 05/05/23 23:10 1 each ONCE ONE Administration Magnesium Sulfate/Dextrose 1 gm in 100 mls @ 100 mls/hr 05/05/23 22:59 05/05/23 23:09 Magnesium Sulfate/D5w IV 05/05/23 23:58 100 mls/hr ONCE ONE Administration Methylprednisolone Sodium Succinate 125 mg 05/05/23 22:59 05/05/23 23:06 Methylprednisolone Sod Succ 125 Mg/2 Ml Vial IVPUSH 05/05/23 23:00 125 mg ONCE ONE Administration Medical Decision Making Medical Decision Making MDM Narrative: 23-year-old female with strong history of asthma and frequent ED presentations for similar presents for evaluation of shortness of breath and wheezing. Was most recently here on 04/22/2023. She reports feeling well since then up until earlier this evening when she was changing her cat's litter. This was likely the cause of her asthma exacerbation. She was treated with high-dose nebuliz ers, Solu-Medrol and magnesium. I will hold chest x-ray at this time as this appeared to have a specific environmental trigger and she denies any fevers. Viral swab negative Differential Diagnosis Differential Diagnoses: The differential diagnosis associated with the presentation includes Asthma exacerbation Bronchitis Pneumonia Viral syndrome Lab Data Labs: Lab Results 05/05/23 Range/Units 23:37 Influenza Type A (PCR) NEGATIVE (Negative) Influenza Type B (PCR) NEGATIVE (Negative) RSV RNA Qual (PCR) NEGATIVE (Negative) SARS-CoV-2 RNA (RT-PCR) NEGATIVE (Negative) Discharge Plan Discharge Clinical Impression: Acute asthma exacerbation Patient Disposition: Home, Self-Care Instructions: Asthma (ED) Additional Instructions: Continue to use your inhalers as prescribed. Take prednisone 40 mg daily for the next 5 days. 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 Return for new or worsening symptoms Prescriptions: New prednisone 20 mg tablet 40 mg PO DAILY Qty: 10 0RF No Action albuterol sulfate 2.5 mg /3 mL (0.083 %) solution for nebulization 2.5 mg inhalation Q4-6H PRN (Reason: wheezing) albuterol sulfate [Proventil HFA] 90 mcg/actuation HFA aerosol inhaler 2 puff INHALATION Q4-6H PRN (Reason: wheezing) Incruse Ellipta 62.5 mcg/actuation blister with device 1 inh inhalation DAILY montelukast 10 mg tablet 10 mg PO BEDTIME loratadine 10 mg Tablet 10 mg PO DAILY albuterol sulfate 90 mcg/actuation HFA aerosol inhaler 2 puff inhalation Q4-6H PRN (Reason: bronchospasm) Qty: 8.5 0RF albuterol sulfate 2.5 mg /3 mL (0.083 %) solution for nebulization 2.5 mg inhalation Q4-6H PRN (Reason: shortness of breath or wheezing) Qty: 75 0RF prednisone 50 mg tablet 50 mg PO DAILY Qty: 5 0RF prednisone 10 mg tablet 40 mg PO DIRECTED Qty: 16 0RF Rx Instructions: see taper instructions prednisone 20 mg tablet 40 mg PO DAILY 5 Days Qty: 10 0RF
[2023-05-06 02:02] VITALS: PULSE 95; RESP 20; O2SAT 96
== END 2023-05-06 02:12 | disposition home or self-care (01) ==
PROVIDERS: Physician Assistant; Emergency Provider Internal Medicine
DX: J45.901 Unspecified asthma with (acute) exacerbation (principal); R06.02 Shortness of breath; Z79.899 Other long term (current) drug therapy
CPT/HCPCS: 0241U; 94640; 96365; 96375; 99284; 99285; J2930; J3475

== ENCOUNTER 2023-05-15 14:20 | Outpatient (REF) | payer MEDICAID, SELFPAY ==
[2023-05-16 11:56] LABS: BV Int Neg Control Negative (Negative); BV Int Pos Control Positive (Positive)
== END 2023-05-15 14:21 | disposition home or self-care (01) ==
LOC: HO.HHCLNP 14:20
PROVIDERS: Visit Provider Advanced Practice Midwife
DX: N89.8 Other specified noninflammatory disorders of vagina (principal)
CPT/HCPCS: 87480; 87510; 87660

== ENCOUNTER 2023-05-21 08:41 | Observation (INO) | payer MEDICAID, SELFPAY ==
[2023-05-21] VITALS (12 sets, daily range): BP systolic 116–128; BP diastolic 57–104; PULSE 99–132; RESP 12–24; TEMP 36.6–36.8; O2SAT 91–98; BMI 33.9
--- NOTE | ~2023-05-21 | XR_ITS ---
EXAMINATION: XR CHEST CLINICAL INFORMATION: Shortness of breath COMPARISON: Portable chest 04/12/2023 TECHNIQUE: AP upright portable view of the chest was obtained. 9:30 AM FINDINGS: The appearance of the cardiomediastinal silhouette is within normal limits. No focal consolidation, interstitial pulmonary edema or pneumothorax. No pleural effusion. No acute osseous abnormality. Visualized upper abdomen is within normal limits. XR/XR chest 1V IMPRESSION: No acute cardiopulmonary disease.
--- NOTE | 2023-05-21 08:52 | ED_ITS ---
HPI - General Adult General Chief complaint: Dyspnea Stated complaint: diff breathing Time Seen by Provider: 05/21/23 08:48 Source: patient Mode of arrival: ambulatory Limitations: no limitations History of Present Illness HPI narrative: 23-year-old female with asthma presents today for difficulty breathing. Patient states her shortness of breath started this morning upon waking. She used her rescue inhaler once today with no relief. She reports chest tightness, wheeze, and shortness of breath. She denies recent URIs. She has never been intubated for an asthma exacerbation before. No nausea, vomiting, abdominal pain. No nasal congestion or chest congestion. No sore throat. No fevers. Related Data Home Medications Medication Instructions Recorded Confirmed albuterol sulfate 2.5 mg/3 mL 2.5 mg inhalation Q4-6H PRN 10/30/22 04/12/23 (0.083 %) solution for nebulization wheezing albuterol sulfate 90 mcg/actuation 2 puff inhalation Q4-6H PRN 10/30/22 04/12/23 aerosol inhaler (Proventil HFA) wheezing loratadine 10 mg tablet 10 mg PO DAILY 10/30/22 04/12/23 montelukast 10 mg tablet 10 mg PO BEDTIME 10/30/22 04/12/23 umeclidinium 62.5 mcg/actuation 1 inh inhalation DAILY 10/30/22 04/12/23 blister powder for inhalation (Incruse Ellipta) Previous Rx's Medication Instructions Recorded prednisone 10 mg tablet 40 mg (4 x 10 mg) PO DIRECTED 04/14/23 #16 tabs prednisone 20 mg tablet 40 mg (2 x 20 mg) PO DAILY 5 days 04/14/23 #10 tabs albuterol sulfate 2.5 mg/3 mL 2.5 mg (3 mL) inhalation Q4-6H PRN 04/22/23 (0.083 %) solution for nebulization shortness of breath or wheezing #75 mL albuterol sulfate 90 mcg/actuation 2 puff inhalation Q4-6H PRN 04/22/23 aerosol inhaler bronchospasm #8.5 grams prednisone 50 mg tablet 50 mg PO DAILY #5 tabs 04/22/23 prednisone 20 mg tablet 40 mg (2 x 20 mg) PO DAILY #10 tabs 05/06/23 Allergies Allergy/AdvReac Type Severity Reaction Status Date / Time No Known Allergies Allergy Verified 04/22/23 05:00 Review of Systems 2 Review of Systems: Constitutional : No Fever, No Chills ENT/Mouth : No Hoarseness, No sore throat, No Rhinorrhea Eyes: No Redness, No Discharge, No Vision Changes Cardiovascular : No Chest Pain, + SOB, + Dyspnea on Exertion, No Edema Respiratory : no Cough, No Sputum, +Wheezing, Gastrointestinal : No Nausea, No Vomiting, No Diarrhea, No abdominal Pain Genitourinary : No Dysuria, No Hematuria Musculoskeletal : No joint pain, No Myalgias Skin : No rash Neuro : No Weakness, No Numbness, No Headache Psych : No anxiety, depression All other systems reviewed and are negative [facility] Past Medical History Medical History Asthma Social History Social History Alcohol intake: never Patient Tobacco Use Status: Never used Tobacco Second Hand Smoke Exposure: No Substance Use Type: Marijuana Advance Directives: No Advance Directives Information Provided: Yes service: No Current occupational status: employed Physical Exam ED Vital Signs: Vital Signs - 24 hr 05/21/23 09:01 05/21/23 09:03 05/21/23 09:21 Temperature Pulse Rate 121 H 122 H 132 H Respiratory Rate 24 H 24 H 24 H Blood Pressure 128/104 H Pulse Oximetry 95 Oxygen Delivery Method Room Air 05/21/23 10:06 05/21/23 10:12 05/21/23 11:06 Temperature 97.8 F Pulse Rate 125 H 114 H 104 H Respiratory Rate 12 14 18 Blood Pressure 128/68 Pulse Oximetry 97 96 Oxygen Delivery Method Room Air Room Air BMI result Body Mass Index 33.9 Appearance: Alert.? Oriented X3. Uncomfortable on the exam table. Handling secretions well. Speaking in 3-4 word sentences. Head: Normocephalic, atraumatic, no step-offs or deformities Eyes: Pupils equal, round and reactive to light.? ENT: Pharynx normal.? Neck: Normal inspection.? Neck supple.? CVS: Tachycardic with regular rhythm.? Pulses normal.? Respiratory: Tachypneic. Pursed lip breathing.?Poor air movement. Diminished breath sounds and wheezes throughout. Abdomen: Soft and nontender.? Skin: Skin warm and dry.? Normal skin color.? Normal skin turgor.? Extremities: No lower extremity edema.? No calf ttp. 5/5 strength to bilateral upper and lower extremities Course Reevaluation(s) Reevaluation #1: CBC unremarkable. Chemistry low potassium 3.2 will give oral potassium. Glucose elevated likely secondary to steroids. Flu/COVID/RSV negative. Chest x-ray unremarkable. Negative D-dimer I went back in to re-evaluate patient she is saturating 90% with a heart rate of 120, states she is feeling better however still having wheezing. Despite multiple nebulizing treatments, magnesium and Solu-Medrol. Plan at this time hospital admission Time: 11:35 Medications Administered Discontinued Medications Generic Name Dose Route Start Last Admin Trade Name Freq PRN Reason Stop Dose Admin Albuterol Sulfate 5 mg/ 7.5 mg 05/21/23 09:12 05/21/23 09:21 Albuterol Sulfate 2.5 mg INHALE 05/21/23 09:13 7.5 mg ONCE ONE Administration Albuterol Sulfate 2.5 mg/ 0 mg 05/21/23 08:54 05/21/23 09:00 Albuterol/Ipratropium 3 ml INHALE 05/21/23 08:55 1 dose ONCE ONE Administration Albuterol Sulfate 2.5 mg/ 0 mg 05/21/23 09:07 05/21/23 09:15 Albuterol/Ipratropium 3 ml INHALE 05/21/23 09:08 Not Given ONCE ONE Levalbuterol HCl 2.5 mg/ 0 mg 05/21/23 11:02 05/21/23 11:05 Ipratropium [place] 0.5 mg INHALE 05/21/23 11:03 5 dose ONCE ONE Administration Magnesium Sulfate 2 gm in 50 mls @ 25 mls/hr 05/21/23 08:49 05/21/23 09:14 Magnesium Sulfate/H2o IV 05/21/23 10:48 25 mls/hr ONCE ONE Administration Levalbuterol HCl 5 mg 05/21/23 09:17 05/21/23 09:20 Levalbuterol Hcl 1.25 Mg/3 Ml Vial.Neb INHALE 05/21/23 09:18 5 mg ONCE ONE Administration Methylprednisolone Sodium Succinate 125 mg 05/21/23 08:49 05/21/23 09:14 Methylprednisolone Sod Succ 125 Mg/2 Ml Vial IVPUSH 05/21/23 08:50 125 mg ONCE ONE Administration Medical Decision Making Medical Decision Making [facility] Narrative: 23-year-old female with asthma presents with difficulty breathing PE: Pursed lip breathing, handling secretions well. Speaking in 3-4 word sentences. Diminished breath sounds and wheezes throughout. Likely asthma exacerbation, bronchitis secondary to viral etiology unlikely PE, pneumonia, TN, pneumothorax, pleural effusion, acute respiratory distress syndrome, impending respiratory failure Plan: IV magnesium and salumedrol, nebulizer treatment, CXR, labs, viral testing Differential Diagnosis Differential Diagnoses: The differential diagnosis associated with the presentation includes Likely asthma exacerbation, bronchitis secondary to viral etiology unlikely PE, pneumonia, TN, pneumothorax, pleural effusion, acute respiratory distress syndrome, impending respiratory failure Admission/Observation Consideration of admission/observation: Escalation of care including admission/observation considered likely Lab Data [facility] Lab Attestation statement: I reviewed the patient's lab results. 05/21/23 09:48 05/21/23 10:34 Labs: Lab Results 05/21/23 05/21/23 05/21/23 Range/Units 09:48 09:55 09:59 WBC 9.0 (4.8-10.8) X10*3/uL RBC 4.31 (4.20-5.50) X10*6/uL Hgb 12.5 (12.0-16.0) g/dl Hct 37.4 (37.0-47.0) % MCV 86.8 (80.0-98.0) fL MCH 29.0 (27.0-33.0) pg MCHC 33.4 (31.0-35.0) g/dl RDW 12.8 (11.0-16.0) % Plt Count 225 (160-400) X10*3/uL MPV 9.7 (9.4-12.3) fL Immature Gran % (Auto) 0.4 (0.0-0.4) % Neut % (Auto) 52.7 (45-73) % Lymph % (Auto) 34.4 (20-40) % [place] % (Auto) 8.2 (2-11) % Eos % (Auto) 3.5 (0-4) % Baso % (Auto) 0.8 (0-2) % Lymph # (Auto) 3.1 (1.2-4.9) X10*3/uL [place] # (Auto) 0.7 (0.1-1.2) X10*3/uL Eos # (Auto) 0.3 (0.0-0.4) X10*3/uL Baso # (Auto) 0.1 (0.0-0.2) X10*3/uL Abs Immat Gran (auto) 0.04 H (0.00-0.03) X10*3/uL Absolute Neuts (auto) 4.7 (2.0-8.3) x10*3/uL Absolute Nucleated RBC 0.000 (0.0-0.012) X10*3/uL Nucleated RBC % (auto) 0.0 (0.0-0.2) /100WBC PT 12.2 (11.1-13.3) SEC INR 1.0 (0.9-1.1) D-Dimer High Sensitivty < 150 NG/ML VBG pH 7.43 (7.32-7.43) VBG pCO2 34 mmHg VBG pO2 171 mmHg VBG HCO3 23 (22-26) mmol/L VBG O2 Saturation 100.0 % VBG Base Excess -0.1 mmol/L Sodium (135-145) mmol/L Potassium (3.3-5.1) mmol/L Chloride (96-108) mmol/L Carbon Dioxide (22-29) mmol/L Anion Gap (12-20) BUN (9-16) mg/dL Creatinine (0.5-1.4) mg/dL Estim Creat Clear Calc Estimated GFR Random Glucose (60-115) mg/dL Calcium (8.4-10.2) mg/dL Magnesium (1.6-2.6) mg/dL Total Bilirubin (0.0-1.0) mg/dL AST (5-31) U/L ALT (0-31) U/L Alkaline Phosphatase (39-117) U/L Total Protein (6.5-8.0) g/dL Albumin (3.5-5.0) g/dL Influenza Type A (PCR) NEGATIVE (Negative) Influenza Type B (PCR) NEGATIVE (Negative) RSV RNA Qual (PCR) NEGATIVE (Negative) SARS-CoV-2 RNA (RT-PCR) NEGATIVE (Negative) 05/21/23 Range/Units 10:34 WBC (4.8-10.8) X10*3/uL RBC (4.20-5.50) X10*6/uL Hgb (12.0-16.0) g/dl Hct (37.0-47.0) % MCV (80.0-98.0) fL MCH (27.0-33.0) pg MCHC (31.0-35.0) g/dl RDW (11.0-16.0) % Plt Count (160-400) X10*3/uL MPV (9.4-12.3) fL Immature Gran % (Auto) (0.0-0.4) % Neut % (Auto) (45-73) % Lymph % (Auto) (20-40) % [place] % (Auto) (2-11) % Eos % (Auto) (0-4) % Baso % (Auto) (0-2) % Lymph # (Auto) (1.2-4.9) X10*3/uL [place] # (Auto) (0.1-1.2) X10*3/uL Eos # (Auto) (0.0-0.4) X10*3/uL Baso # (Auto) (0.0-0.2) X10*3/uL Abs Immat Gran (auto) (0.00-0.03) X10*3/uL Absolute Neuts (auto) (2.0-8.3) x10*3/uL Absolute Nucleated RBC (0.0-0.012) X10*3/uL Nucleated RBC % (auto) (0.0-0.2) /100WBC PT (11.1-13.3) SEC INR (0.9-1.1) D-Dimer High Sensitivty NG/ML VBG pH (7.32-7.43) VBG pCO2 mmHg VBG pO2 mmHg VBG HCO3 (22-26) mmol/L VBG O2 Saturation % VBG Base Excess mmol/L Sodium 142 (135-145) mmol/L Potassium 3.2 L (3.3-5.1) mmol/L Chloride 108 (96-108) mmol/L Carbon Dioxide 23 (22-29) mmol/L Anion Gap 14 (12-20) BUN 12 (9-16) mg/dL Creatinine 0.84 (0.5-1.4) mg/dL Estim Creat Clear Calc 120.1 Estimated GFR > 60 Random Glucose 291 H (60-115) mg/dL Calcium 8.3 L D (8.4-10.2) mg/dL Magnesium 2.3 (1.6-2.6) mg/dL Total Bilirubin 0.1 (0.0-1.0) mg/dL AST 13 (5-31) U/L ALT 17 (0-31) U/L Alkaline Phosphatase 44 (39-117) U/L Total Protein 6.2 L (6.5-8.0) g/dL Albumin 3.7 (3.5-5.0) g/dL Influenza Type A (PCR) (Negative) Influenza Type B (PCR) (Negative) RSV RNA Qual (PCR) (Negative) SARS-CoV-2 RNA (RT-PCR) (Negative) Independent Interpretation I performed an independent interpretation of an: Plain X-Ray (unremarkable ) Radiology Impression Discussion of test interpretation with radiology: I have reviewed the radiologist's reading. Tests considered The following testing was considered but not selected: CTA considered negative D-dimer however. Chronic Conditions Patient?s care impacted by: Other (Asthma, obesity) Critical Care Time Critical Care Time Critical Care Time: Yes Total Critical Care Time: 35 Attestation: I attest to this time spent taking care of the patient, obtaining history, physical, reviewing labs, imaging, speaking to my attending Discharge Plan Discharge Clinical Impression: Asthma with status asthmaticus Patient Disposition: Admitted As Inpatient Prescriptions: No Action albuterol sulfate 2.5 mg /3 mL (0.083 %) solution for nebulization 2.5 mg inhalation Q4-6H PRN (Reason: wheezing) albuterol sulfate [Proventil HFA] 90 mcg/actuation HFA aerosol inhaler 2 puff INHALATION Q4-6H PRN (Reason: wheezing) Incruse Ellipta 62.5 mcg/actuation blister with device 1 inh inhalation DAILY montelukast 10 mg tablet 10 mg PO BEDTIME loratadine 10 mg Tablet 10 mg PO DAILY albuterol sulfate 90 mcg/actuation HFA aerosol inhaler 2 puff inhalation Q4-6H PRN (Reason: bronchospasm) Qty: 8.5 0RF albuterol sulfate 2.5 mg /3 mL (0.083 %) solution for nebulization 2.5 mg inhalation Q4-6H PRN (Reason: shortness of breath or wheezing) Qty: 75 0RF prednisone 50 mg tablet 50 mg PO DAILY Qty: 5 0RF prednisone 20 mg tablet 40 mg PO DAILY Qty: 10 0RF prednisone 10 mg tablet 40 mg PO DIRECTED Qty: 16 0RF Rx Instructions: see taper instructions prednisone 20 mg tablet 40 mg PO DAILY 5 Days Qty: 10 0RF
[2023-05-21] MEDS: Albuterol Sulfate 2.5 MG, Albuterol/Iprat 2.5/0.5MG 3 ML 3 ML INHALE (09:00)
[2023-05-21] MEDS: Magnesium Sulfate/H2O 2 GM/50 ML PIGGYBACK IV (09:14)
[2023-05-21] MEDS: methylPREDNISolone Sod Succ 125 MG/2 ML VIAL IVPUSH (09:14)
[2023-05-21] MEDS: levalbuterol HCL 1.25 MG/3 ML VIAL.NEB 5 MG INHALE (09:20)
[2023-05-21] MEDS: Albuterol Sulfate 5 MG, Albuterol Sulfate (0.083%) 2.5 MG 7.5 MG INHALE (09:21)
--- NOTE | 2023-05-21 09:26 | PC.NURSE ---
presented from waiting room for difficulty breathing, hx asthma. states that she woke up this morning as such. denies sick contacts at home stating that this sometimes just happens. speaking in short sentences, tachypneic and diaphoretic. respiratory at bedside. iv established, medicated per the MAR. at this time, patient feels minimal relief however states she thinks she is improving. oxygen remains 95-97%, tachycardic in the 130's.
[2023-05-21 09:58] LABS: MANUAL DIFF FLAG NO
[2023-05-21 10:02] LABS: Basophils Absolute Auto 0.1 X10*3/uL (0.0-0.2); Basophils Percent Auto 0.8 % (0-2); Eosinophils Absolute Auto 0.3 X10*3/uL (0.0-0.4); Eosinophils Percent Auto 3.5 % (0-4); Hematocrit 37.4 % (37.0-47.0); Hemoglobin 12.5 g/dl (12.0-16.0); Imm Gran Abs Auto 0.04 X10*3/uL (0.00-0.03); Imm Gran Pct Auto 0.4 % (0.0-0.4); Lymphocytes Absolute Auto 3.1 X10*3/uL (1.2-4.9); Lymphocytes Percent Auto 34.4 % (20-40); Mean Corpuscular HGB Conc 33.4 g/dl (31.0-35.0); Mean Corpuscular Volume 86.8 fL (80.0-98.0); Mean Platelet Volume 9.7 fL (9.4-12.3); Monocytes Absolute Auto 0.7 X10*3/uL (0.1-1.2); Monocytes Percent Auto 8.2 % (2-11); Neutrophils Absolute Auto 4.7 x10*3/uL (2.0-8.3); Neutrophils Percent Auto 52.7 % (45-73); Platelet Count 225 X10*3/uL (160-400); Red Blood Count 4.31 X10*6/uL (4.20-5.50); Red Cell Distribution Width 12.8 % (11.0-16.0)
[2023-05-21 10:04] LABS: VBG Base Excess -0.1 mmol/L; VBG HCO3 23 mmol/L (22-26); VBG pCO2 34 mmHg; VBG pH 7.43 (7.32-7.43); VBG pO2 171 mmHg
--- NOTE | 2023-05-21 10:05 | PC.NURSE ---
continues to report improvement - stating she still feels tight but is starting to feel better.
[2023-05-21 10:06] LABS: Venous Blood Gas Refer to POC result
[2023-05-21 10:11] LABS: D Dimer High Sensitivity < 150 NG/ML
[2023-05-21 10:16] LABS: Prothrombin Time 12.2 SEC (11.1-13.3)
[2023-05-21 10:42] LABS: Influenza A PCR NEGATIVE (Negative); Influenza B PCR NEGATIVE (Negative); Resp Syncy Virus RNA Qual PCR NEGATIVE (Negative); SARS COV2 PCR INHOUSE NEGATIVE (Negative)
[2023-05-21 11:00] LABS: Alanine Aminotransferase 17 U/L (0-31); Albumin Level 3.7 g/dL (3.5-5.0); Alkaline Phosphatase 44 U/L (39-117); Anion Gap 14 (12-20); Aspartate Amino Transferase 13 U/L (5-31); Bilirubin Total 0.1 mg/dL (0.0-1.0); Blood Urea Nitrogen 12 mg/dL (9-16); Calcium 8.3 mg/dL (8.4-10.2); Carbon Dioxide 23 mmol/L (22-29); Chloride 108 mmol/L (96-108); Creatinine Clr Calc Pharmacy 120.1; Estimated Glomerular Filt Rate > 60; Glucose Random 291 mg/dL (60-115); Magnesium 2.3 mg/dL (1.6-2.6); Potassium 3.2 mmol/L (3.3-5.1); Sodium 142 mmol/L (135-145); Total Protein 6.2 g/dL (6.5-8.0)
[2023-05-21] MEDS: levalbuterol HCL 2.5 MG, Ipratropium Bromide 0.5 MG INHALE (11:05)
--- NOTE | 2023-05-21 12:06 | PHA.MEDREC ---
Pharmacy Consult ? Medication Reconciliation Pharmacy has completed the medication reconciliation with the patient and rx claims, patient confirmed list and said she only takes prednisone for asthma exacerbation.
[2023-05-21] MEDS: Potassium Chloride Packet 20 MEQ PACKET PO (12:14)
--- NOTE | 2023-05-21 12:35 | P.HPHOSP_ITS ---
History of Present Illness Date of Service: 05/21/23 Attending physician on admission: Rica Lujan Chief Complaint: sob.wheezing 23-year-old female with severe persistent allergic asthma presented to the ED earlier this morning for evaluation of shortness of breath, wheezing, and chest tightness that started this morning. The patient reports she has also had a dry cough but denies any fevers, chills, sore throat, sinus pressure, congestion, abdominal pain, nausea, vomiting, lightheadedness, chest pressure. She is not oxygen dependent at home. Denies any sick contacts. States this morning she used her albuterol nebulizer several times without improvement in symptoms so presented to the ED. upon questioning, she is not compliant with maintenance inhalers and utilizes albuterol inhaler multiple times daily. On review of chart, she follows with [facility] pulmonology and has not been seen in over a year and has missed appointments. She was previously on Xolair injections, last administered 06/2022. States she had not received further injections because she was not called for appt. She was hospitalized last month for her asthma but has never been intubated and has had near monthly ER visits for asthma exacerbation. She does not smoke cigarettes of marijuana. No illicit drug use or regular alcohol use. Last PFT 2020 showed severe persistent asthma with moderate COPD at [facility]. Spirometry with flow volume loop at [facility] 12/2021 revealed obstructive ventilatory defect with severe persistent symptom burden and frequent exacerbations (multiple per month). 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 Eosinophilic phenotype. No IgE level testing available. On arrival, pt tachycardic, likely 2/2 albuterol use and tachypneic to 24. Afebrile, no hypoxia. No leukocytosis or eosinophilia. D-dimer below detectable limits. VBG reassuring with pH 7.43, pCO2 34, bicarb 23. Renal function baseline, electrolyte levels normal except for potassium of 3.2. Glucose 291. A CXR negative for any acute cardiopulmonary abnormality. Has received 125mg IV methylprednisolone and 5 updrafts with albuterol, DuoNeb, levalbuterol as well as 2 g IV magnesium and 20 mEq potassium chloride p.o. without significant improvement in symptoms. Patient has been maintaining oximetry 90-95% on room air. Review of Systems 2 Review of Systems: General: No fevers, malaise, unintentional weight loss HEENT: No blurred vision, diplopia. No sore throat, nasal congestion, rhinorrhea, sinus pain, ear pain Cardiovascular: +chest tightness. No chest pressure, palpitations, or leg edema Respiratory: +sob, +wheezing, +cough. GI: No abdominal pain, nausea, vomiting, diarrhea : No dysuria, hematuria, increased urinary frequency MSK: No myalgia, back pain Neuro: No headaches, weakness, paresthesias Skin: No rashes or lesions [facility] Medical History Asthma Social History Alcohol intake: never Patient Tobacco Use Status: Never used Tobacco Second Hand Smoke Exposure: No Substance Use Type: Marijuana Advance Directives: No Advance Directives Information Provided: Yes service: No Current occupational status: employed Meds Allergies Allergy/AdvReac Type Severity Reaction Status Date / Time No Known Allergies Allergy Verified 04/22/23 05:00 Active Medications: Current Medications Acetaminophen (Acetaminophen 325 Mg Tablet) 650 mg PO Q6H PRN PRN Reason: Pain, Mild (Pain Scale 1-3) Albuterol Sulfate (Albuterol Sulfate (0.083%) 2.5 Mg/3 Ml Vial.Neb) 2.5 mg INHALE Q2H PRN PRN Reason: Shortness of Breath/Wheezing Albuterol/Ipratropium (Albuterol/Iprat 2.5/0.5mg 3 Ml Ampul.Neb) 3 ml INHALE RQ4H WHILE AWAKE KELLY Enoxaparin Sodium (Enoxaparin Sodium 40 Mg/0.4 Ml Syringe) 40 mg SUBCUT Q24H KELLY Guaifenesin (Guaifenesin 200 Mg/10 Ml 10 Ml Liquid) 10 ml PO Q4H PRN PRN Reason: Cough Methylprednisolone Sodium Succinate (Methylprednisolone Sod Succ 40 Mg/Ml Vial) 40 mg IVPUSH Q12H KELLY Ondansetron HCl (Ondansetron Hcl 4 Mg/2 Ml Vial) 4 mg IVPUSH Q8H PRN PRN Reason: Nausea and Vomiting Senna (Sennosides 8.6 Mg Tablet) 17.2 mg PO BEDTIME PRN PRN Reason: Constipation Sodium Chloride (0.9 % Sodium Chloride Flush 3 Ml Syringe) 3 ml IVFLUSH QSHIFT [facility] Home Medications Medication Instructions Recorded Confirmed Last Taken Type albuterol sulfate 2.5 mg/3 mL 2.5 mg inhalation Q4-6H PRN 10/30/22 05/21/23 04/12/23 History (0.083 %) solution for nebulization wheezing loratadine 10 mg tablet 10 mg PO DAILY 10/30/22 05/21/23 04/12/23 History montelukast 10 mg tablet 10 mg PO DAILY 10/30/22 05/21/23 04/11/23 History umeclidinium 62.5 mcg/actuation 1 inh inhalation DAILY 10/30/22 05/21/23 04/12/23 History blister powder for inhalation (Incruse Ellipta) fluticasone propionate 230 2 puff inhalation Q12H 05/21/23 05/21/23 Unknown History mcg-salmeterol 21 mcg/actuation HFA inhaler (Advair HFA) Physical Exam 2 Vital Signs and Narrative: Vital Signs: Last Vital Signs Temp 97.8 F 05/21/23 10:12 Pulse 104 H 05/21/23 11:06 Resp 18 05/21/23 11:06 BP 128/68 05/21/23 10:12 Pulse Ox 91 L 05/21/23 11:42 O2 Del Method Room Air 05/21/23 11:42 BMI result Body Mass Index 33.9 Constitutional - Awake and Alert, pale, No apparent distress Eyes - PERRLA, EOMI Cardiovascular - S1S2, RRR, No edema Respiratory - Normal lung expansion, Normal respiratory effort, No respiratory distress, diminished lower lobes bilaterally with diffuse expiratory wheezing Gastrointestinal - NT / ND; +BS; No rebound or guarding Extremities - no calf tenderness bilaterally, no swelling Skin - Warm/Dry Neurological - Alert & oriented x3 Psychological - Appropriate affect Results Labs 05/21/23 09:48 05/21/23 10:34 Labs: Laboratory Results - last 24 hr 05/21/23 05/21/23 05/21/23 09:48 09:55 09:59 MCV 86.8 MCH 29.0 MCHC 33.4 RDW 12.8 Plt Count 225 MPV 9.7 Immature Gran % (Auto) 0.4 Neut % (Auto) 52.7 Lymph % (Auto) 34.4 [place] % (Auto) 8.2 Eos % (Auto) 3.5 Baso % (Auto) 0.8 Lymph # (Auto) 3.1 [place] # (Auto) 0.7 Eos # (Auto) 0.3 Baso # (Auto) 0.1 Abs Immat Gran (auto) 0.04 H Absolute Neuts (auto) 4.7 Absolute Nucleated RBC 0.000 Nucleated RBC % (auto) 0.0 PT 12.2 INR 1.0 D-Dimer High Sensitivty < 150 VBG pH 7.43 VBG pCO2 34 VBG pO2 171 VBG HCO3 23 VBG O2 Saturation 100.0 VBG Base Excess -0.1 Anion Gap Estim Creat Clear Calc Estimated GFR Random Glucose Calcium Magnesium Total Bilirubin AST ALT Alkaline Phosphatase Total Protein Albumin Influenza Type A (PCR) NEGATIVE Influenza Type B (PCR) NEGATIVE RSV RNA Qual (PCR) NEGATIVE SARS-CoV-2 RNA (RT-PCR) NEGATIVE 05/21/23 10:34 MCV MCH MCHC RDW Plt Count MPV Immature Gran % (Auto) Neut % (Auto) Lymph % (Auto) [place] % (Auto) Eos % (Auto) Baso % (Auto) Lymph # (Auto) [place] # (Auto) Eos # (Auto) Baso # (Auto) Abs Immat Gran (auto) Absolute Neuts (auto) Absolute Nucleated RBC Nucleated RBC % (auto) PT INR D-Dimer High Sensitivty VBG pH VBG pCO2 VBG pO2 VBG HCO3 VBG O2 Saturation VBG Base Excess Anion Gap 14 Estim Creat Clear Calc 120.1 Estimated GFR > 60 Random Glucose 291 H Calcium 8.3 L D Magnesium 2.3 Total Bilirubin 0.1 AST 13 ALT 17 Alkaline Phosphatase 44 Total Protein 6.2 L Albumin 3.7 Influenza Type A (PCR) Influenza Type B (PCR) RSV RNA Qual (PCR) SARS-CoV-2 RNA (RT-PCR) Imaging Radiologist's Impressions: Impressions Chest X-Ray 05/21/23 09:30 IMPRESSION: No acute cardiopulmonary disease. Assessment and Plan (1) Severe persistent allergic asthma: Status: Acute Plan 23 year old female with history of severe persistent asthma who has been noncompliant with maintenance inhalers and Xolair injections to be observed for acute asthma exacerbation. # acute asthma exacerbation -poorly-controlled severe persistent allergic asthma at baseline noncompliant with maintenance inhalers, Xolair injections, and pulmonology follow-up ([facility]) -[facility] pul spirometry with flow volume loop 12/22: obstructive ventilatory defect with severe persistent symptom burden and frequent exacerbations (multiple per month). 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 Eosinophilic phenotype. No IgE level testing available. -CXR negative -negative for COVID-19, influenza, RSV. Check full viral respiratory panel -no eosinophilia -IV methylprednisolone 40 mg b.i.d. -DuoNebs q.4h while awake -albuterol p.r.n. -guaifenesin p.r.n. for cough -continue Claritin, Singulair -resume maintenance inhalers, encourage compliance -outpt follow up with [facility] pul, resume xolair injections # acute hypokalemia -secondary to albuterol use -repleted in the ED -follow lytes DVT prophylaxis-Lovenox Full code Quality Stroke Does the patient have a stroke diagnosis?: No VTE Prior VTE?: No VTE Risk Level:: Medical - moderate - high VTE Device Contraindication: Treatment Not Indicated VTE Drug Contraindication: N/A - Med Ordered
[2023-05-21 13:15] LABS: Estimated Average Glucose 120 mg/dL; Hemoglobin A1c % 5.8 % (<6.0)
[2023-05-21] MEDS: Albuterol/Iprat 2.5/0.5MG 3 ML AMPUL.NEB INHALE ×2 (15:32→19:39)
[2023-05-21] MEDS: Tiotropium Bromide 2.5 mcg 1 PUFF/2.5 MCG MIST.INHAL 2 PUFF INHALE (17:37)
[2023-05-21] MEDS: Fluticasone/Vilanterol 200/25 BLST.W.DEV 1 PUFF INHALE (17:37)
[2023-05-21 18:32] LABS: Glucose, Whole Blood 207 mg/dL (60-115)
[2023-05-21] MEDS: 0.9 % Sodium Chloride Flush 3 ML SYRINGE IVFLUSH (18:39)
[2023-05-21] MEDS: methylPREDNISolone Sod Succ 40 MG/ML VIAL IVPUSH (18:39)
[2023-05-21] MEDS: Insulin Lispro 100 UNIT/ML 3 ML VIAL SUBCUT ×2 (18:40→22:13)
[2023-05-21 21:45] LABS: Glucose, Whole Blood 281 mg/dL (60-115)
--- NOTE | 2023-05-21 22:25 | PC.NURSE ---
This development writer assumed care of this Pt at 1900. pt A&Ox4, speaking in full sentences, reports chest tightness when breathing and back pain. Pt states feeling better then when I came in . SpO2 95% on RA, RR 20, lung sounds clear. Pt ambulated independently to with steady gait.
[2023-05-22] MEDS: 0.9 % Sodium Chloride Flush 3 ML SYRINGE IVFLUSH ×2 (00:28→08:53)
[2023-05-22] MEDS: methylPREDNISolone Sod Succ 40 MG/ML VIAL IVPUSH (05:38)
[2023-05-22 05:44] VITALS: BP 112/52; PULSE 92; RESP 20; O2SAT 93
[2023-05-22] MEDS: guaiFENesin 200 MG/10 ML 10 ML LIQUID PO (05:56)
--- NOTE | 2023-05-22 06:00 | PC.NURSE ---
Pt requesting breathing tx after ambulating to the BR, Pt medicated per MAR for cough.
[2023-05-22] MEDS: Albuterol Sulfate (0.083%) 2.5 MG/3 ML VIAL.NEB INHALE (06:07)
[2023-05-22 06:08] VITALS: PULSE 95; RESP 12; O2SAT 94
[2023-05-22 06:46] LABS: MANUAL DIFF FLAG NO
[2023-05-22 06:47] LABS: Basophils Percent Auto 0.1 % (0-2); Hematocrit 37.5 % (37.0-47.0); Hemoglobin 12.6 g/dl (12.0-16.0); Imm Gran Abs Auto 0.14 X10*3/uL (0.00-0.03); Imm Gran Pct Auto 0.9 % (0.0-0.4); Mean Corpuscular HGB Conc 33.6 g/dl (31.0-35.0); Mean Corpuscular Hemoglobin 28.8 pg (27.0-33.0); Mean Corpuscular Volume 85.8 fL (80.0-98.0); Monocytes Absolute Auto 0.8 X10*3/uL (0.1-1.2); Neutrophils Absolute Auto 14.5 x10*3/uL (2.0-8.3); Platelet Count 284 X10*3/uL (160-400); Red Blood Count 4.37 X10*6/uL (4.20-5.50); Red Cell Distribution Width 13.1 % (11.0-16.0); White Blood Count 16.4 X10*3/uL (4.8-10.8)
[2023-05-22 07:08] LABS: Anion Gap 15 (12-20); Blood Urea Nitrogen 12 mg/dL (9-16); Calcium 9.5 mg/dL (8.4-10.2); Carbon Dioxide 21 mmol/L (22-29); Chloride 107 mmol/L (96-108); Estimated Glomerular Filt Rate > 60; Glucose Random 252 mg/dL (60-115); Magnesium 2.1 mg/dL (1.6-2.6); Potassium 4.4 mmol/L (3.3-5.1); Sodium 139 mmol/L (135-145)
[2023-05-22] MEDS: Albuterol/Iprat 2.5/0.5MG 3 ML AMPUL.NEB INHALE (08:08)
[2023-05-22] MEDS: Fluticasone/Vilanterol 200/25 BLST.W.DEV 1 PUFF INHALE (08:09)
[2023-05-22] MEDS: Tiotropium Bromide 2.5 mcg 1 PUFF/2.5 MCG MIST.INHAL 2 PUFF INHALE (08:09)
[2023-05-22 08:10] VITALS: PULSE 101; RESP 16; O2SAT 96
[2023-05-22 08:48] LABS: Glucose, Whole Blood 310 mg/dL (60-115)
[2023-05-22 08:50] VITALS: BP 124/69; PULSE 105; RESP 20; TEMP 36.9; O2SAT 95
[2023-05-22] MEDS: Montelukast Sodium 10 MG TABLET PO (08:51)
[2023-05-22] MEDS: Insulin Lispro 100 UNIT/ML 3 ML VIAL SUBCUT (08:51)
[2023-05-22] MEDS: Loratadine 10 MG TABLET PO (08:51)
[2023-05-22 09:18] LABS: Adenovirus PCR Not Detected (Not Detect.); Bordetella parapertussis PCR Not Detected (Not Detect.); Bordetella pertussis PCR Not Detected (Not Detect.); Chlamydia pneumoniae PCR Not Detected (Not Detect.); Coronavirus 229E PCR Not Detected (Not Detect.); Coronavirus HKU1 PCR Not Detected (Not Detect.); Coronavirus NL63 PCR Not Detected (Not Detect.); Coronavirus OC43 PCR Not Detected (Not Detect.); Human metapneumovirus PCR Not Detected (Not Detect.); Influenza A PCR Not Detected (Not Detect.); Influenza B PCR Not Detected (Not Detect.); Mycoplasma pneumoniae PCR Not Detected (Not Detect.); Parainfluenza 1 PCR Not Detected (Not Detect.); Parainfluenza 2 PCR Not Detected (Not Detect.); Parainfluenza 3 PCR Not Detected (Not Detect.); Parainfluenza 4 PCR Not Detected (Not Detect.); RSV PCR Not Detected (Not Detect.); Rhino/Enterovirus PCR Not Detected (Not Detect.)
[2023-05-22 09:49] LABS: SARS-CoV-2 PCR Not Detected (Not Detect.)
--- NOTE | 2023-05-22 09:59 | MHC.CM.PN ---
PT REPORTS SHE LIVES AT HOME WITH FAMILY SHE IS INDEPENDENT WITH CARE AND HAS NO SERVICES SHE HAS A NEBULIZER FOR DME HCP ON FILE PCP: LARRY NASSAR OBSERVATION NOTICE DELIVERED DCP: HOME NO SERVICES VIA FAMILY TRANSPORT
--- NOTE | 2023-05-22 10:33 | P.DS_ITS ---
DS: Providers Provider Date of Service: 05/22/23 Date of admission: 05/21/23 12:30 Date of discharge: 05/22/23 Primary care physician: Unknown Physician Admitting clinician: Eleni Cleaning Attending physician on admission: Rica Lujan Attending physician on discharge: Carlos Sosa Discharging clinician: Eleni Cleaning DS: Diagnosis Discharge Diagnosis (1) Severe persistent allergic asthma: Status: Acute DS: Summary Hospital Course Hospital Course: HPI on admission by this provider 05/21: 23-year-old female with severe persistent allergic asthma presented to the ED earlier this morning for evaluation of shortness of breath, wheezing, and chest tightness that started this morning. The patient reports she has also had a dry cough but denies any fevers, chills, sore throat, sinus pressure, congestion, abdominal pain, nausea, vomiting, lightheadedness, chest pressure. She is not oxygen dependent at home. Denies any sick contacts. States this morning she used her albuterol nebulizer several times without improvement in symptoms so presented to the ED. upon questioning, she is not compliant with maintenance inhalers and utilizes albuterol inhaler multiple times daily. On review of chart, she follows with [facility] pulmonology and has not been seen in over a year and has missed appointments. She was previously on Xolair injections, last administered 06/2022. States she had not received further injections because she was not called for appt. She was hospitalized last month for her asthma but has never been intubated and has had near monthly ER visits for asthma exacerbation. She does not smoke cigarettes of marijuana. No illicit drug use or regular alcohol use. Last PFT 2020 showed severe persistent asthma with moderate COPD at [facility]. Spirometry with flow volume loop at [facility] 12/2021 revealed obstructive ventilatory defect with severe persistent symptom burden and frequent exacerbations (multiple per month). 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 Eosinophilic phenotype. No IgE level testing available. On arrival, pt tachycardic, likely 2/2 albuterol use and tachypneic to 24. Afebrile, no hypoxia. No leukocytosis or eosinophilia. D-dimer below detectable limits. VBG reassuring with pH 7.43, pCO2 34, bicarb 23. Renal function baseline, electrolyte levels normal except for potassium of 3.2. Glucose 291. A CXR negative for any acute cardiopulmonary abnormality. Has received 125mg IV methylprednisolone and 5 updrafts with albuterol, DuoNeb, levalbuterol as well as 2 g IV magnesium and 20 mEq potassium chloride p.o. without significant improvement in symptoms. Patient has been maintaining oximetry 90-95% on room air. Hospital course: Hospital course relatively uneventful. Patient observed overnight for severe persistent asthma exacerbation likely secondary to noncompliance with maintenance medication and pulmonology follow-up. She was treated with IV steroids, scheduled nebulizer treatments with great improvement in symptoms. She developed steroid-induced hyperglycemia up to 310. Hemoglobin A1c was checked and she was found to be prediabetic with A1c of 5.8%. Point of care glucose was monitored throughout stay and hyperglycemia was treated with Humalog on sliding scale. Patient was counseled on low carbohydrate diet. She will be discharged with a 5 day course of glipizide 2.5 mg twice daily with meals. She is also prescribed a glucometer and testing supplies and advised to check fasting glucose daily. Also counseled on signs and symptoms of hypoglycemia and advised to drink juice should glucose levels be less than 70 and advised to contact PCP. She is prescribed 40mg prednisone daily x5 days. Discussed that recurrent use of steroids will increase the likelihood she progresses to type 2 diabetes. Strongly advised she schedule follow-up soon with pulmonology at [facility] and resume all maintenance inhalers, refills provided. Continue use of albuterol as needed for shortness of breath and wheezing. Follow-up with PCP soon. Status at Discharge Functional status at discharge: independent ambulation Overall status at discharge: patient is progressing back to baseline Time Attestation Discharge coordination time: Greater than 30 minutes Quality: Safe Use of Opioids Does Pt have an Active Cancer Diagnosis on the Problem List?: No Quality: Stroke Does the patient have a stroke diagnosis?: No Physical Exam Vital Signs: Vital Signs: Last Vital Signs Temp 98.4 F 05/22/23 08:50 Pulse 105 H 05/22/23 08:50 Resp 20 05/22/23 08:50 BP 124/69 05/22/23 08:50 Pulse Ox 95 05/22/23 08:50 O2 Del Method Room Air 05/22/23 08:50 BMI result Body Mass Index 33.9 Constitutional - Awake and Alert, No apparent distress Eyes - PERRLA, EOMI Cardiovascular - S1S2, RRR, No edema Respiratory - Normal lung expansion, Normal respiratory effort, No respiratory distress, scattered expiratory wheezing Extremities - no calf tenderness bilaterally, no swelling Skin - Warm/Dry Neurological - Alert & oriented x3 Psychological - Appropriate affect DS: Data Data Completed and Pending Labs on day of discharge: Laboratory Results - last 24 hr 05/21/23 05/21/23 05/21/23 09:48 10:34 15:57 WBC RBC Hgb Hct MCV MCH MCHC RDW Plt Count MPV Immature Gran % (Auto) Neut % (Auto) Lymph % (Auto) [place] % (Auto) Eos % (Auto) Baso % (Auto) Lymph # (Auto) [place] # (Auto) Eos # (Auto) Baso # (Auto) Abs Immat Gran (auto) Absolute Neuts (auto) Absolute Nucleated RBC Nucleated RBC % (auto) Sodium 142 Potassium 3.2 L Chloride 108 Carbon Dioxide 23 Anion Gap 14 BUN 12 Creatinine 0.84 Estim Creat Clear Calc 120.1 Estimated GFR > 60 POC Glucose Random Glucose 291 H Estimat Average Glucose 120 Hemoglobin A1c % 5.8 Calcium 8.3 L D Magnesium 2.3 Total Bilirubin 0.1 AST 13 ALT 17 Alkaline Phosphatase 44 Total Protein 6.2 L Albumin 3.7 Respiratory Panel [place] See Note Adenovirus (Rapid PCR) Not Detected B.pert (TEM-PCR) Not Detected B.parapertussis DNA PCR Not Detected C. pneumoniae DNA (PCR) Not Detected Coronavirus OC43 (PCR) Not Detected Coronavirus HKU1 (PCR) Not Detected Coronavirus 229E (PCR) Not Detected Coronavirus NL63 (PCR) Not Detected Human Metapneumovir PCR Not Detected Influenza A (RT-PCR) Not Detected Influenza Type A (PCR) NEGATIVE Influenza B (RT-PCR) Not Detected Influenza Type B (PCR) NEGATIVE M. pneumoniae (PCR) Not Detected Parainfluenza 1 (PCR) Not Detected Parainfluenza 2 (PCR) Not Detected Parainfluenza 3 (PCR) Not Detected Parainfluenza 4 (PCR) Not Detected RSV (PCR) Not Detected RSV RNA Qual (PCR) NEGATIVE Entero/Rhino (PCR) Not Detected SARS-CoV-2 RNA (RT-PCR) NEGATIVE Not Detected 05/21/23 05/21/23 05/22/23 18:00 21:41 05:35 WBC 16.4 H RBC 4.37 Hgb 12.6 Hct 37.5 MCV 85.8 MCH 28.8 MCHC 33.6 RDW 13.1 Plt Count 284 D MPV 10.0 Immature Gran % (Auto) 0.9 H Neut % (Auto) 88.0 H Lymph % (Auto) 6.0 L [place] % (Auto) 5.0 Eos % (Auto) 0.0 Baso % (Auto) 0.1 Lymph # (Auto) 1.0 L [place] # (Auto) 0.8 Eos # (Auto) 0.0 Baso # (Auto) 0.0 Abs Immat Gran (auto) 0.14 H Absolute Neuts (auto) 14.5 H Absolute Nucleated RBC 0.000 Nucleated RBC % (auto) 0.0 Sodium 139 Potassium 4.4 D Chloride 107 Carbon Dioxide 21 L Anion Gap 15 BUN 12 Creatinine 0.77 Estim Creat Clear Calc 131.0 Estimated GFR > 60 POC Glucose 207 H 281 H Random Glucose 252 H Estimat Average Glucose Hemoglobin A1c % Calcium 9.5 D Magnesium 2.1 Total Bilirubin AST ALT Alkaline Phosphatase Total Protein Albumin Respiratory Panel [place] Adenovirus (Rapid PCR) B.pert (TEM-PCR) B.parapertussis DNA PCR C. pneumoniae DNA (PCR) Coronavirus OC43 (PCR) Coronavirus HKU1 (PCR) Coronavirus 229E (PCR) Coronavirus NL63 (PCR) Human Metapneumovir PCR Influenza A (RT-PCR) Influenza Type A (PCR) Influenza B (RT-PCR) Influenza Type B (PCR) M. pneumoniae (PCR) Parainfluenza 1 (PCR) Parainfluenza 2 (PCR) Parainfluenza 3 (PCR) Parainfluenza 4 (PCR) RSV (PCR) RSV RNA Qual (PCR) Entero/Rhino (PCR) SARS-CoV-2 RNA (RT-PCR) 05/22/23 08:44 WBC RBC Hgb Hct MCV MCH MCHC RDW Plt Count MPV Immature Gran % (Auto) Neut % (Auto) Lymph % (Auto) [place] % (Auto) Eos % (Auto) Baso % (Auto) Lymph # (Auto) [place] # (Auto) Eos # (Auto) Baso # (Auto) Abs Immat Gran (auto) Absolute Neuts (auto) Absolute Nucleated RBC Nucleated RBC % (auto) Sodium Potassium Chloride Carbon Dioxide Anion Gap BUN Creatinine Estim Creat Clear Calc Estimated GFR POC Glucose 310 H Random Glucose Estimat Average Glucose Hemoglobin A1c % Calcium Magnesium Total Bilirubin AST ALT Alkaline Phosphatase Total Protein Albumin Respiratory Panel [place] Adenovirus (Rapid PCR) B.pert (TEM-PCR) B.parapertussis DNA PCR C. pneumoniae DNA (PCR) Coronavirus OC43 (PCR) Coronavirus HKU1 (PCR) Coronavirus 229E (PCR) Coronavirus NL63 (PCR) Human Metapneumovir PCR Influenza A (RT-PCR) Influenza Type A (PCR) Influenza B (RT-PCR) Influenza Type B (PCR) M. pneumoniae (PCR) Parainfluenza 1 (PCR) Parainfluenza 2 (PCR) Parainfluenza 3 (PCR) Parainfluenza 4 (PCR) RSV (PCR) RSV RNA Qual (PCR) Entero/Rhino (PCR) SARS-CoV-2 RNA (RT-PCR) Discharge Plan Discharge Anticipated Discharge Date/Time: 05/22/23 10:27 Patient Disposition: Home, Self-Care Discharge Diagnosis: asthma exacerbation Referrals: Physician,Unknown J [Primary Care Provider] - 1 Week Discharge Medications: New prednisone 20 mg tablet 40 mg PO DAILY Qty: 10 0RF (DME) FreeStyle Lite Strips Strip Qty: 100 0RF Rx Instructions: Test four times a day or as directed. (DME) blood-glucose meter [FreeStyle Lite Meter] Kit Qty: 1 0RF Rx Instructions: As Directed alcohol swabs Pads, Medicated 1 pad TOPICAL QIDACHS Qty: 100 0RF Rx Instructions: Use four times a day or as directed. (DME) lancets [FreeStyle Lancets] 28 gauge misc Qty: 100 0RF Rx Instructions: Test four times a day or as directed. glipizide 2.5 mg tablet 2.5 mg PO BID Qty: 10 0RF Continued albuterol sulfate 2.5 mg /3 mL (0.083 %) solution for nebulization 2.5 mg inhalation Q4-6H PRN (Reason: wheezing) loratadine 10 mg Tablet 10 mg PO DAILY albuterol sulfate 90 mcg/actuation HFA aerosol inhaler 2 puff inhalation Q4-6H PRN (Reason: bronchospasm) Qty: 8.5 0RF montelukast 10 mg tablet 10 mg PO DAILY Qty: 30 1RF fluticasone propion-salmeterol [Advair HFA] 230-21 mcg/actuation HFA aerosol inhaler 2 puff INHALATION Q12H Qty: 12 1RF Incruse Ellipta 62.5 mcg/actuation blister with device 1 inh inhalation DAILY Qty: 1 1RF Discharge Orders: Discharge Order (Routine); Ordered 05/22/23 Ordered By: Eleni Cleaning Diet: Advance to usual diet Activity on Discharge: As tolerated Stand Alone Forms: Patient Portal Discharge page Care Plan Goals: Prevent further exacerbations through compliance with maintenance medications and pulmonology follow up Health Concerns: Severe persistent asthma Plan of Treatment: Severe persistent asthma -Take advair, incruse ellipta, and singulair on a daily basis as prescribed -Use albuterol/nebs as needed -SCHEDULE FOLLOW UP SOON WITH [facility] AND TO CONSIDER RESUMING XOLAIR INJECTIONS -Take prednisone 40mg daily x 5 days -Follow up with pcp Hyperglycemia- due to steroids. You are prediabetic -Your A1c (a test used to diagnose diabetes) is 5.8% consistent with prediabetes. If the A1c elevates to 6.5%, you are considered diabetic. -Prediabetes is reversible with diet low in carbohydrates/sugar. -Blood sugars high, partially related to steroid use -Take glipizide 2.5mg twice daily WITH MEALS x5 days while taking prednisone only. Check fasting sugars, goal between 90-130. If you feel lightheaded/dizzy or blurred vision or shakiness, check your sugar. If less than 70, drink juice and call pcp -Repeated prednisone/steroid use increases sugars and could result in diabetes. Follow up with pulmonology soon to better control asthma and prevent recurrent steroid use Assessment: See above. See discharge summary Patient Instructions: Prediabetes (DC) Discharge Date/Time: 05/22/23 11:03
[2023-05-22 10:59] VITALS: BP 117/66; PULSE 97; RESP 20; TEMP 36.9; O2SAT 97
== END 2023-05-22 11:03 | disposition home or self-care (01) ==
LOC: HO.ED 11:37 → HO.EDOVER 12:37
PROVIDERS: Internal Medicine; Physician Assistant; Admitting Provider Physician Assistant; Emergency Provider Emergency Medicine; PCP Internal Medicine; Visit Provider Physician Assistant
DX: J45.51 Severe persistent asthma with (acute) exacerbation (principal); E87.6 Hypokalemia; R73.9 Hyperglycemia, unspecified; R07.89 Other chest pain; R06.00 Dyspnea, unspecified; R00.0 Tachycardia, unspecified; Z20.822 Contact with and (suspected) exposure to COVID-19; Z20.828 Contact with and (suspected) exposure to other viral communicable diseases
CPT/HCPCS: 0241U; 36415; 71045; 80048; 80053; 82803; 82947; 83036; 83735; 85025; 85379; 85610; 87633; 94640; 96365; 96366; 96375; 96376; 99221; 99285; J2920; J2930; J3475

== ENCOUNTER → 2023-05-21 12:30 | Outpatient (BNV) | payer MEDICAID, SELFPAY | PROVIDERS: Admitting Provider Physician Assistant; Emergency Provider Emergency Medicine; Visit Provider Physician Assistant | DX: J45.50 Severe persistent asthma, uncomplicated (principal) | CPT/HCPCS: 99223; 99239 ==

== ENCOUNTER 2023-05-30 08:25 | Emergency (ER) | payer MEDICAID, SELFPAY ==
--- NOTE | ~2023-05-30 | XR_ITS ---
EXAMINATION: XR CHEST CLINICAL INFORMATION: Asthma. Shortness of breath. COMPARISON: None available. TECHNIQUE: Frontal view of the chest was obtained. FINDINGS: No pneumothorax. Lungs clear. Heart and pulmonary vessels are normal. XR/XR chest 1V IMPRESSION: No active disease.
[2023-05-30 08:31] VITALS: BP 121/65; PULSE 120; RESP 24; TEMP 36.4; O2SAT 95; BMI 34.9
[2023-05-30] MEDS: Albuterol Sulfate 7.5 MG, Albuterol/Iprat 2.5/0.5MG 3 ML 3 ML INHALE (08:46)
[2023-05-30 08:47] VITALS: PULSE 119; RESP 24; O2SAT 95
--- NOTE | 2023-05-30 08:49 | ED_ITS ---
HPI - SOB/Dyspnea General Chief Complaint: Dyspnea Stated Complaint: asthlma diff breathing Time Seen by Provider: 05/30/23 08:37 Source: patient Mode of arrival: ambulatory Limitations: no limitations History of Present Illness HPI Narrative: Is a 23-year-old female history of asthma recently hospitalized at this facility presenting shortness of breath that started about an hour ago, she reports she was hospitalized here recently she is on oral steroids and takes inhalers regularly. Followed by pulmonology Dr. Moe. Denies cp, fevers, chills, cough, nausea, vomiting, abd pain Speaking in very short sentences on arrival and anxious. Related Data Home Medications Medication Instructions Recorded Confirmed albuterol sulfate 2.5 mg/3 mL 2.5 mg inhalation Q4-6H PRN 10/30/22 05/21/23 (0.083 %) solution for nebulization wheezing loratadine 10 mg tablet 10 mg PO DAILY 10/30/22 05/21/23 folic acid 800 mcg tablet 0.8 mg PO DAILY 05/30/23 Previous Rx's Medication Instructions Recorded blood sugar diagnostic (FreeStyle #100 ea 05/22/23 Lite Strips) blood-glucose meter (FreeStyle #1 ea 05/22/23 Lite Meter kit) fluticasone propionate 230 2 puff inhalation Q12H #12 grams 05/22/23 mcg-salmeterol 21 mcg/actuation HFA inhaler (Advair HFA) glipizide 2.5 mg tablet 2.5 mg PO BID #10 tabs 05/22/23 lancets 28 gauge (FreeStyle #100 ea 05/22/23 Lancets) montelukast 10 mg tablet 10 mg PO DAILY #30 tabs 05/22/23 umeclidinium 62.5 mcg/actuation 1 inh inhalation DAILY #1 ea 05/22/23 blister powder for inhalation (Incruse Ellipta) albuterol sulfate 90 mcg/actuation 2 inh inhalation Q4-6H PRN 05/30/23 breath activated powder inhaler shortness of breath or wheezing #1 ea prednisone 20 mg tablet 40 mg (2 x 20 mg) PO DAILY 5 days 05/30/23 #10 tabs Allergies Allergy/AdvReac Type Severity Reaction Status Date / Time No Known Allergies Allergy Verified 04/22/23 05:00 Review of Systems 2 Review of Systems: Constitutional : No Weight loss, No Fever, No Chills, No Fatigue, No Malaise ENT/Mouth : No sore throat, No Rhinorrhea Eyes: No Eye Pain, No Swelling, No Redness Cardiovascular : No Chest Pain, + SOB, No Dyspnea on Exertion, No Orthopnea, No Edema, No Palpitations Respiratory : No Cough, No Sputum, + Wheezing Gastrointestinal : No Nausea, No Vomiting, No Diarrhea, No Constipation, No abdominal Pain, No Hematochezia, No Melena Genitourinary : No Dysuria, No Urinary Frequency, No Hematuria, Musculoskeletal : No joint pain, No Myalgias, No Joint Swelling Skin : No Skin Lesions, No rash Neuro : No Weakness, No Numbness, No Dizziness, No Headache Psych : No Anxiety/Panic, No Depression All other systems reviewed and are negative Yes all other systems are reviewed and are negative [facility] Past Medical History Attestation statement: The following information was validated with the patient. Source: old records reviewed and nursing notes reviewed Medical History Severe persistent allergic asthma Asthma with status asthmaticus Asthma Social History Social History Alcohol intake: never Patient Tobacco Use Status: Never used Tobacco Second Hand Smoke Exposure: No Substance Use Type: Marijuana Advance Directives: No service: No Current occupational status: employed Physical Exam 2 Vital Signs: Vital Signs: Last Vital Signs Temp 98.1 F 05/30/23 13:46 Pulse 114 H 05/30/23 13:46 Resp 23 H 05/30/23 13:46 BP 98/49 L 05/30/23 13:46 Pulse Ox 95 05/30/23 13:46 O2 Del Method Room Air 05/30/23 13:46 BMI result Body Mass Index 34.9 Tachypneic and tachycardic Appearance: Alert.? Oriented X3.? Moderate to severe respiratory distress speaking in full short sentences 2-3 words, tripoding, intercostal retractions. Anxious appearing.? Head: Normocephalic, atraumatic, no step-offs or deformities Eyes: Pupils equal, round and reactive to light.? ENT: Pharynx normal.? Neck: Normal inspection.? Neck supple.? CVS: rapid regular rythem likely sinus tach rate 120s ? Pulses normal.? Respiratory: + moderate to severe respiratory distress.? Breath sounds diffuse bilateral expiratory wheezing.? Abdomen: Soft and nontender.? Skin: Skin warm and dry.? Normal skin color.? Normal skin turgor.? Extremities: No lower extremity edema.? No calf ttp. 5/5 strength to bilateral upper and lower extremities Neuro: Oriented X 3.? No motor deficit.? No sensory deficit. CN 2-12 intact Course Reevaluation(s) Reevaluation #1: CBC unremarkable. Chemistry low potassium, oral repletion ordered. Chest x-ray no active disease. Flu/COVID/RSV pending. Patient just receive 2nd treatment. Looking much better. Resting in her bed. No labored breathing. Reports she is feeling much better. Time: 10:32 Reevaluation #2: Ambulatory O2 88-89% on ambulation. Time: 12:07 Reevaluation #3: Patient feeling better however is saturating 93-95% on room air. Looking to admit patient as she did desat when ambulating. Patient agreeable to this. Will discuss with hospitalist Time: 12:57 Additional Reevaluation(s): Hospitalist came down to evaluate patient, patient states she has an interview and is unable to stay in the hospital she states she is feeling much better hospitalist evaluated patient she is 98% on room air, well appearing, sounds much better. Patient to be discharged home. She is currently on oral steroids. Educated patient on diagnosis and treatment plan, answered all question, patient verbalizes understanding. At this time patient will be discharged home, advised to return with new or worsening symptoms. Educated on worrisome signs and symptoms and when to return. At this time I feel comfortable discharge home. Medications Administered Discontinued Medications Generic Name Dose Route Start Last Admin Trade Name Freq PRN Reason Stop Dose Admin Albuterol Sulfate 2.5 mg/ 5 mg 05/30/23 10:06 05/30/23 10:09 Albuterol Sulfate 2.5 mg INHALE 05/30/23 10:07 5 mg ONCE ONE Administration Albuterol Sulfate 7.5 mg/ 0 mg 05/30/23 08:45 05/30/23 08:46 Albuterol/Ipratropium 3 ml INHALE 05/30/23 08:46 2.5 each ONCE ONE Administration Fentanyl 25 mcg 05/30/23 08:48 05/30/23 09:10 Fentanyl Citrate/Pf 100 Mcg/2 Ml Vial IVPUSH 05/30/23 08:49 25 mcg ONCE ONE Administration Protocol Magnesium Sulfate 2 gm in 50 mls @ 25 mls/hr 05/30/23 08:37 05/30/23 09:30 Magnesium Sulfate/H2o IV 05/30/23 10:36 Infused ONCE ONE Infusion Methylprednisolone Sodium Succinate 125 mg 05/30/23 08:37 05/30/23 09:07 Methylprednisolone Sod Succ 125 Mg/2 Ml Vial IVPUSH 05/30/23 08:38 125 mg ONCE ONE Administration Potassium Chloride 40 meq 05/30/23 10:07 05/30/23 10:52 Potassium Chloride Packet 20 Meq Packet PO 05/30/23 10:08 40 meq ONCE ONE Administration Medical Decision Making Medical Decision Making MDM Narrative: 23-year-old female presents with difficulty breathing x1 hour recently admitted to this facility for asthma with status asthmaticus from 05/21 to 05/22/2023. Currently on oral steroids, and multiple inhalers. Taking them as prescribed. Physical exam diffuse expiratory wheezing with moderate to severe respiratory distress speaking in short sentences, anxious appearing. Tachycardic with a heart rate in the 120s. History and physical exam concerning for acute asthma exacerbation with respiratory distress versus viral illness. Unlikely pulmonary embolism, ACS, dissection. Unlikely pneumothorax. Tachycardia likely secondary to acute asthma exacerbation and steroids. Plan at this time labs, viral testing, x-ray will order Solu-Medrol, magnesium, fentanyl to slow down respiratory rate. Differential Diagnosis Differential Diagnoses: The differential diagnosis associated with the presentation includes History and physical exam concerning for acute asthma exacerbation with respiratory distress versus viral illness. Unlikely pulmonary embolism, ACS, dissection. Unlikely pneumothorax. Admission/Observation Consideration of admission/observation: Escalation of care including admission/observation considered likely Lab Data [facility] Lab Attestation statement: I reviewed the patient's lab results. 05/30/23 09:00 05/30/23 09:42 Labs: Lab Results 05/30/23 05/30/23 05/30/23 Range/Units 09:00 09:38 09:42 WBC 9.0 (4.8-10.8) X10*3/uL RBC 4.46 (4.20-5.50) X10*6/uL Hgb 12.8 (12.0-16.0) g/dl Hct 37.9 (37.0-47.0) % MCV 85.0 (80.0-98.0) fL MCH 28.7 (27.0-33.0) pg MCHC 33.8 (31.0-35.0) g/dl RDW 12.6 (11.0-16.0) % Plt Count 248 (160-400) X10*3/uL MPV 9.9 (9.4-12.3) fL Immature Gran % (Auto) 0.4 (0.0-0.4) % Neut % (Auto) 53.5 (45-73) % Lymph % (Auto) 34.3 (20-40) % [place] % (Auto) 8.1 (2-11) % Eos % (Auto) 3.1 (0-4) % Baso % (Auto) 0.6 (0-2) % Lymph # (Auto) 3.1 (1.2-4.9) X10*3/uL [place] # (Auto) 0.7 (0.1-1.2) X10*3/uL Eos # (Auto) 0.3 (0.0-0.4) X10*3/uL Baso # (Auto) 0.1 (0.0-0.2) X10*3/uL Abs Immat Gran (auto) 0.04 H (0.00-0.03) X10*3/uL Absolute Neuts (auto) 4.8 (2.0-8.3) x10*3/uL Absolute Nucleated RBC 0.000 (0.0-0.012) X10*3/uL Nucleated RBC % (auto) 0.0 (0.0-0.2) /100WBC VBG pH (7.32-7.43) VBG pCO2 mmHg VBG pO2 mmHg VBG HCO3 (22-26) mmol/L VBG O2 Saturation % VBG Base Excess mmol/L Sodium 142 (135-145) mmol/L Potassium 3.0 L D (3.3-5.1) mmol/L Chloride 107 (96-108) mmol/L Carbon Dioxide 24 (22-29) mmol/L Anion Gap 14 (12-20) BUN 12 (9-16) mg/dL Creatinine 0.80 (0.5-1.4) mg/dL Estim Creat Clear Calc 123.8 Estimated GFR > 60 Random Glucose 162 H (60-115) mg/dL Calcium 8.8 D (8.4-10.2) mg/dL Total Bilirubin 0.2 (0.0-1.0) mg/dL AST 14 (5-31) U/L ALT 18 (0-31) U/L Alkaline Phosphatase 43 (39-117) U/L Total Protein 6.6 (6.5-8.0) g/dL Albumin 4.1 (3.5-5.0) g/dL Influenza Type A (PCR) NEGATIVE (Negative) Influenza Type B (PCR) NEGATIVE (Negative) RSV RNA Qual (PCR) NEGATIVE (Negative) SARS-CoV-2 RNA (RT-PCR) NEGATIVE (Negative) 05/30/23 Range/Units 09:45 WBC (4.8-10.8) X10*3/uL RBC (4.20-5.50) X10*6/uL Hgb (12.0-16.0) g/dl Hct (37.0-47.0) % MCV (80.0-98.0) fL MCH (27.0-33.0) pg MCHC (31.0-35.0) g/dl RDW (11.0-16.0) % Plt Count (160-400) X10*3/uL MPV (9.4-12.3) fL Immature Gran % (Auto) (0.0-0.4) % Neut % (Auto) (45-73) % Lymph % (Auto) (20-40) % [place] % (Auto) (2-11) % Eos % (Auto) (0-4) % Baso % (Auto) (0-2) % Lymph # (Auto) (1.2-4.9) X10*3/uL [place] # (Auto) (0.1-1.2) X10*3/uL Eos # (Auto) (0.0-0.4) X10*3/uL Baso # (Auto) (0.0-0.2) X10*3/uL Abs Immat Gran (auto) (0.00-0.03) X10*3/uL Absolute Neuts (auto) (2.0-8.3) x10*3/uL Absolute Nucleated RBC (0.0-0.012) X10*3/uL Nucleated RBC % (auto) (0.0-0.2) /100WBC VBG pH 7.39 (7.32-7.43) VBG pCO2 41 mmHg VBG pO2 84 mmHg VBG HCO3 25 (22-26) mmol/L VBG O2 Saturation 98.0 % VBG Base Excess 0.6 mmol/L Sodium (135-145) mmol/L Potassium (3.3-5.1) mmol/L Chloride (96-108) mmol/L Carbon Dioxide (22-29) mmol/L Anion Gap (12-20) BUN (9-16) mg/dL Creatinine (0.5-1.4) mg/dL Estim Creat Clear Calc Estimated GFR Random Glucose (60-115) mg/dL Calcium (8.4-10.2) mg/dL Total Bilirubin (0.0-1.0) mg/dL AST (5-31) U/L ALT (0-31) U/L Alkaline Phosphatase (39-117) U/L Total Protein (6.5-8.0) g/dL Albumin (3.5-5.0) g/dL Influenza Type A (PCR) (Negative) Influenza Type B (PCR) (Negative) RSV RNA Qual (PCR) (Negative) SARS-CoV-2 RNA (RT-PCR) (Negative) Independent Interpretation I performed an independent interpretation of an: Plain X-Ray Radiology Impression Discussion of test interpretation with radiology: I have reviewed the radiologist's reading. Chronic Conditions Patient?s care impacted by: Other (asthma ) Critical Care Time Critical Care Time Critical Care Time: Yes Total Critical Care Time: 35 Attestation: I attest to this time spent taking care of the patient, obtaining history, physical, reviewing labs, imaging, speaking to my attending, speaking to specialist. Discharge Plan Discharge Clinical Impression: Asthma with exacerbation Patient Disposition: Home, Self-Care Instructions: Asthma (ED), Wheezing (ED) Additional Instructions: Take your medications as prescribed. If you were prescribed antibiotics today, it is important that you take your medication to their entirety, do not skip any doses, do not finish them early. Follow-up with your primary care provider this week. Return to the emergency department with new or worsening symptoms. Such as fevers, chills, chest pain, shortness of breath, nausea, vomiting, dizziness, headache, vision changes, lethargy In case of emergency call 911 Prescriptions: New prednisone 20 mg tablet 40 mg PO DAILY 5 Days Qty: 10 0RF albuterol sulfate 90 mcg/actuation aerosol powdr breath activated 2 inh inhalation Q4-6H PRN (Reason: shortness of breath or wheezing) Qty: 1 0RF No Action albuterol sulfate 2.5 mg /3 mL (0.083 %) solution for nebulization 2.5 mg inhalation Q4-6H PRN (Reason: wheezing) loratadine 10 mg Tablet 10 mg PO DAILY folic acid 800 mcg tablet 0.8 mg PO DAILY montelukast 10 mg tablet 10 mg PO DAILY Qty: 30 1RF fluticasone propion-salmeterol [Advair HFA] 230-21 mcg/actuation HFA aerosol inhaler 2 puff INHALATION Q12H Qty: 12 1RF Incruse Ellipta 62.5 mcg/actuation blister with device 1 inh inhalation DAILY Qty: 1 1RF (DME) FreeStyle Lite Strips Strip Qty: 100 0RF Rx Instructions: Test four times a day or as directed. (DME) blood-glucose meter [FreeStyle Lite Meter] Kit Qty: 1 0RF Rx Instructions: As Directed (DME) lancets [FreeStyle Lancets] 28 gauge misc Qty: 100 0RF Rx Instructions: Test four times a day or as directed. glipizide 2.5 mg tablet 2.5 mg PO BID Qty: 10 0RF Referrals: Sasha Parker MD [Primary Care Provider] - 2 days
[2023-05-30] MEDS: methylPREDNISolone Sod Succ 125 MG/2 ML VIAL IVPUSH (09:07)
[2023-05-30] MEDS: fentaNYL citrate/PF 100 MCG/2 ML VIAL 25 MCG IVPUSH (09:10)
[2023-05-30] MEDS: Magnesium Sulfate/H2O 2 GM/50 ML PIGGYBACK IV (09:13)
[2023-05-30 09:16] LABS: MANUAL DIFF FLAG NO
[2023-05-30 09:23] LABS: Basophils Absolute Auto 0.1 X10*3/uL (0.0-0.2); Basophils Percent Auto 0.6 % (0-2); Eosinophils Absolute Auto 0.3 X10*3/uL (0.0-0.4); Eosinophils Percent Auto 3.1 % (0-4); Hematocrit 37.9 % (37.0-47.0); Hemoglobin 12.8 g/dl (12.0-16.0); Imm Gran Abs Auto 0.04 X10*3/uL (0.00-0.03); Imm Gran Pct Auto 0.4 % (0.0-0.4); Lymphocytes Absolute Auto 3.1 X10*3/uL (1.2-4.9); Lymphocytes Percent Auto 34.3 % (20-40); Mean Corpuscular HGB Conc 33.8 g/dl (31.0-35.0); Mean Corpuscular Hemoglobin 28.7 pg (27.0-33.0); Mean Platelet Volume 9.9 fL (9.4-12.3); Monocytes Absolute Auto 0.7 X10*3/uL (0.1-1.2); Monocytes Percent Auto 8.1 % (2-11); Neutrophils Absolute Auto 4.8 x10*3/uL (2.0-8.3); Neutrophils Percent Auto 53.5 % (45-73); Platelet Count 248 X10*3/uL (160-400); Red Blood Count 4.46 X10*6/uL (4.20-5.50); Red Cell Distribution Width 12.6 % (11.0-16.0)
[2023-05-30 09:51] LABS: VBG Base Excess 0.6 mmol/L; VBG HCO3 25 mmol/L (22-26); VBG pCO2 41 mmHg; VBG pH 7.39 (7.32-7.43); VBG pO2 84 mmHg
[2023-05-30 10:04] LABS: Venous Blood Gas Refer to POC result
[2023-05-30 10:05] LABS: Alanine Aminotransferase 18 U/L (0-31); Albumin Level 4.1 g/dL (3.5-5.0); Alkaline Phosphatase 43 U/L (39-117); Anion Gap 14 (12-20); Aspartate Amino Transferase 14 U/L (5-31); Bilirubin Total 0.2 mg/dL (0.0-1.0); Blood Urea Nitrogen 12 mg/dL (9-16); Calcium 8.8 mg/dL (8.4-10.2); Carbon Dioxide 24 mmol/L (22-29); Chloride 107 mmol/L (96-108); Creatinine Clr Calc Pharmacy 123.8; Estimated Glomerular Filt Rate > 60; Glucose Random 162 mg/dL (60-115); Sodium 142 mmol/L (135-145); Total Protein 6.6 g/dL (6.5-8.0)
[2023-05-30] MEDS: Albuterol Sulfate 2.5 MG, Albuterol Sulfate (0.083%) 2.5 MG 5 MG INHALE (10:09)
[2023-05-30 10:10] VITALS: PULSE 113; RESP 18; O2SAT 93
[2023-05-30 10:35] LABS: Influenza A PCR NEGATIVE (Negative); Influenza B PCR NEGATIVE (Negative); Resp Syncy Virus RNA Qual PCR NEGATIVE (Negative); SARS COV2 PCR INHOUSE NEGATIVE (Negative)
[2023-05-30] MEDS: Potassium Chloride Packet 20 MEQ PACKET 40 MEQ PO (10:52)
[2023-05-30 12:15] VITALS: O2SAT 89
--- NOTE | 2023-05-30 12:15 | PC.NURSE ---
patient desat down to 89% during ambulatory trial on room air
[2023-05-30 13:46] VITALS: BP 98/49; PULSE 114; RESP 23; TEMP 36.7; O2SAT 95
--- NOTE | 2023-05-30 13:51 | PM.EVENT ---
Event Note Date of Service: 05/30/23 Event Note: seen and examined for possible admission. patient has a history of allergic asthma and presented with SOB which began after exposure to [place] when cleaning earlier in the day. She had an initial o2 saturation of 89% on room air. She has received breathing treatments and steroids and her breathing has improved. She is resting comfortably with no respiratory distress. She prefers not to stay in the hospital overnight. This was communicated with the ED provider. Time Spent With Patient Time: Total time managing care of this patient today ____ minutes.
== END 2023-06-01 07:46 | disposition home or self-care (01) ==
PROVIDERS: Physician Assistant; Emergency Provider Emergency Medicine; PCP Internal Medicine
DX: J45.901 Unspecified asthma with (acute) exacerbation (principal); R06.02 Shortness of breath; Z79.899 Other long term (current) drug therapy; Z20.822 Contact with and (suspected) exposure to COVID-19; Z20.828 Contact with and (suspected) exposure to other viral communicable diseases
CPT/HCPCS: 0241U; 36415; 71045; 80053; 82803; 85025; 94640; 96365; 96375; 99284; J2930; J3010; J3475

== ENCOUNTER 2023-09-06 02:46 | Emergency (ER) | payer MEDICAID, SELFPAY ==
[2023-09-06 02:58] VITALS: BP 122/86; BP 133/87; PULSE 111; PULSE 97; RESP 18; RESP 19; TEMP 36.9; TEMP 37.1; O2SAT 91; O2SAT 93; BMI 38.3
--- NOTE | 2023-09-06 02:59 | MHC.EDTECH ---
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
--- NOTE | 2023-09-06 03:03 | ED_ITS ---
HPI - Asthma General Chief Complaint: Asthma Stated Complaint: Asthma Attack Time Seen by Provider: 09/06/23 03:02 Source: patient Mode of arrival: ambulatory Limitations: no limitations History of Present Illness HPI Narrative: Patient history of asthma usually stable just prior to arrival noticed severe asthma attack does not remember any provoking cause tried nebulizer treatment at home very tight on arrival saturating 91% at room air has dry cough no upper respiratory symptoms no fever or chills Related Data Home Medications ?Medication ?Instructions ?Recorded ?Confirmed albuterol sulfate 2.5 mg/3 mL 2.5 mg inhalation Q4-6H PRN 10/30/22 05/21/23 (0.083 %) solution for nebulization wheezing loratadine 10 mg tablet 10 mg PO DAILY 10/30/22 05/21/23 folic acid 800 mcg tablet 0.8 mg PO DAILY 05/30/23 Previous Rx's ?Medication ?Instructions ?Recorded blood sugar diagnostic (FreeStyle #100 ea 05/22/23 Lite Strips) blood-glucose meter (FreeStyle #1 ea 05/22/23 Lite Meter kit) fluticasone propionate 230 2 puff inhalation Q12H #12 grams 05/22/23 mcg-salmeterol 21 mcg/actuation HFA inhaler (Advair HFA) glipizide 2.5 mg tablet 2.5 mg PO BID #10 tabs 05/22/23 lancets 28 gauge (FreeStyle #100 ea 05/22/23 Lancets) montelukast 10 mg tablet 10 mg PO DAILY #30 tabs 05/22/23 umeclidinium 62.5 mcg/actuation 1 inh inhalation DAILY #1 ea 05/22/23 blister powder for inhalation (Incruse Ellipta) albuterol sulfate 90 mcg/actuation 2 inh inhalation Q4-6H PRN 05/30/23 breath activated powder inhaler shortness of breath or wheezing #1 ea prednisone 20 mg tablet 40 mg (2 x 20 mg) PO DAILY 5 days 05/30/23 #10 tabs prednisone 20 mg tablet 40 mg (2 x 20 mg) PO DAILY #10 tabs 09/06/23 Allergies Allergy/AdvReac Type Severity Reaction Status Date / Time No Known Allergies Allergy Verified 09/06/23 02:59 Review of Systems 2 Review of Systems: Yes all other systems are reviewed and are negative PMFSH Past Medical History Medical History Severe persistent allergic asthma Asthma with status asthmaticus Asthma Social History Social History Alcohol intake: never Patient Tobacco Use Status: Never used Tobacco Smoked in Last 30 Days: No Second Hand Smoke Exposure: No Use of substances other than those prescribed or required for medical reasons: No Substance Use Type: Marijuana Advance Directives: Yes Advance Directives on File: Yes Advance Directives Date on File: 10/29/22 service: No Current occupational status: employed Physical Exam 2 Vital Signs: Vital Signs: Last Vital Signs Temp 98 F 09/06/23 05:12 Pulse 99 09/06/23 05:12 Resp 18 09/06/23 05:12 BP 118/55 L 09/06/23 05:12 Pulse Ox 96 09/06/23 05:12 O2 Del Method Room Air 09/06/23 05:12 BMI result Body Mass Index 38.3 Appearance: Alert. Oriented X3. Moderate respiratory distress unable to speak full sentences Eyes: PERRLA, No Nystagmus ENT: Pharynx normal. Oral Mucosa moist Neck: Normal inspection. Neck supple. CVS: Normal heart rate and rhythm. Pulses normal. Respiratory: Motor respiratory distress. Equal air entry bilateral, bilateral wheezing and rhonchi equal air entry no rales Abdomen: Soft and nontender. Bowel sounds are present, Skin: Skin warm and dry. Normal skin color. Normal skin turgor. Extremities: No lower extremity edema. No calf tenderness Neuro: Oriented X 3. Medications Administered Discontinued Medications Generic Name Dose Route Start Last Admin Trade Name Freq PRN Reason Stop Dose Admin Albuterol Sulfate 2.5 mg/ 5 mg 09/06/23 03:36 09/06/23 03:38 Albuterol Sulfate 2.5 mg INHALE 09/06/23 03:37 5 mg ONCE ONE Administration Albuterol Sulfate 2.5 mg/ 0 mg 09/06/23 03:18 09/06/23 03:28 Albuterol/Ipratropium 3 ml INHALE 09/06/23 03:19 2.5 dose ONCE ONE Administration Sodium Chloride 1,000 mls @ 999 mls/hr 09/06/23 03:05 09/06/23 04:34 Ns IV 09/06/23 04:05 Infused .Q1H1M ONE Infusion Magnesium Sulfate 2 gm in 50 mls @ 150 mls/hr 09/06/23 03:05 09/06/23 03:40 Magnesium Sulfate/H2o IV 09/06/23 03:24 Infused ONCE ONE Infusion Methylprednisolone Sodium Succinate 125 mg 09/06/23 03:05 09/06/23 03:19 Methylprednisolone Sod Succ 125 Mg/2 Ml Vial IVPUSH 09/06/23 03:06 125 mg ONCE ONE Administration Medical Decision Making Medical Decision Making [facility] Narrative: Patient is status asthmaticus will give continuous nebulizing treatment IV magnesium and steroids 04:44 patient feeling much better saturating 95% at room air discharge patient home advised to take prednisone continue nebulizing treatment Differential Diagnosis Differential Diagnoses: The differential diagnosis associated with the presentation includes Status asthmaticus/asthma Lab Data [facility] Lab Attestation statement: I reviewed the patient's lab results. 09/06/23 03:13 09/06/23 03:13 Labs: Lab Results 09/06/23 Range/Units 03:13 WBC 10.1 (4.8-10.8) X10*3/uL RBC 4.48 (4.20-5.50) X10*6/uL Hgb 12.9 (12.0-16.0) g/dl Hct 37.2 (37.0-47.0) % MCV 83.0 (80.0-98.0) fL MCH 28.8 (27.0-33.0) pg MCHC 34.7 (31.0-35.0) g/dl RDW 11.9 (11.0-16.0) % Plt Count 249 (160-400) X10*3/uL MPV 9.3 L (9.4-12.3) fL Immature Gran % (Auto) 0.2 (0.0-0.4) % Neut % (Auto) 65.7 (45-73) % Lymph % (Auto) 23.1 (20-40) % [place] % (Auto) 6.7 (2-11) % Eos % (Auto) 3.6 (0-4) % Baso % (Auto) 0.7 (0-2) % Lymph # (Auto) 2.3 (1.2-4.9) X10*3/uL [place] # (Auto) 0.7 (0.1-1.2) X10*3/uL Eos # (Auto) 0.4 (0.0-0.4) X10*3/uL Baso # (Auto) 0.1 (0.0-0.2) X10*3/uL Abs Immat Gran (auto) 0.02 (0.00-0.03) X10*3/uL Absolute Neuts (auto) 6.6 (2.0-8.3) x10*3/uL Absolute Nucleated RBC 0.000 (0.0-0.012) X10*3/uL Nucleated RBC % (auto) 0.0 (0.0-0.2) /100WBC Sodium 142 (135-145) mmol/L Potassium 3.2 L (3.3-5.1) mmol/L Chloride 107 (96-108) mmol/L Carbon Dioxide 26 (22-29) mmol/L Anion Gap 12 (12-20) BUN 9 (9-16) mg/dL Creatinine 0.75 (0.5-1.4) mg/dL Estim Creat Clear Calc 138.6 Estimated GFR > 60 Random Glucose 103 (60-115) mg/dL Calcium 9.4 D (8.4-10.2) mg/dL Critical Care Time Critical Care Time Critical Care Time: Yes Total Critical Care Time: 40 Attestation: The patient was critically ill with a high probability of imminent or life threatening deterioration. I spent greater than 45???minutes of discontinuous time evaluating the patient,delivering critical care at the bedside, discussing and evaluating pertinent data with consultants. Critical care time does not include time spent performing separately billable procedures or teaching. Total time spent performing critical care was ?40??minutes. Discharge Plan Discharge Clinical Impression: Asthma with acute exacerbation Patient Disposition: Home, Self-Care Instructions: Asthma (ED) Additional Instructions: Use your nebulizer/inhaler as advised Prednisone as prescribed Report to the ER if increased shortness of breath Prescriptions: New prednisone 20 mg tablet 40 mg PO DAILY Qty: 10 0RF No Action albuterol sulfate 2.5 mg /3 mL (0.083 %) solution for nebulization 2.5 mg inhalation Q4-6H PRN (Reason: wheezing) loratadine 10 mg Tablet 10 mg PO DAILY prednisone 20 mg tablet 40 mg PO DAILY 5 Days Qty: 10 0RF albuterol sulfate 90 mcg/actuation aerosol powdr breath activated 2 inh inhalation Q4-6H PRN (Reason: shortness of breath or wheezing) Qty: 1 0RF folic acid 800 mcg tablet 0.8 mg PO DAILY montelukast 10 mg tablet 10 mg PO DAILY Qty: 30 1RF fluticasone propion-salmeterol [Advair HFA] 230-21 mcg/actuation HFA aerosol inhaler 2 puff INHALATION Q12H Qty: 12 1RF Incruse Ellipta 62.5 mcg/actuation blister with device 1 inh inhalation DAILY Qty: 1 1RF (DME) FreeStyle Lite Strips Strip Qty: 100 0RF Rx Instructions: Test four times a day or as directed. (DME) blood-glucose meter [FreeStyle Lite Meter] Kit Qty: 1 0RF Rx Instructions: As Directed (DME) lancets [FreeStyle Lancets] 28 gauge misc Qty: 100 0RF Rx Instructions: Test four times a day or as directed. glipizide 2.5 mg tablet 2.5 mg PO BID Qty: 10 0RF Interventions: ED Discharge Assessment Last Done: 09/06/23 05:12 Discharge Date/Time: 09/06/23 05:12 Print Language: Citizen Of [place]
[2023-09-06 03:16] LABS: MANUAL DIFF FLAG NO
[2023-09-06 03:18] LABS: Basophils Absolute Auto 0.1 X10*3/uL (0.0-0.2); Basophils Percent Auto 0.7 % (0-2); Eosinophils Absolute Auto 0.4 X10*3/uL (0.0-0.4); Eosinophils Percent Auto 3.6 % (0-4); Hematocrit 37.2 % (37.0-47.0); Hemoglobin 12.9 g/dl (12.0-16.0); Imm Gran Abs Auto 0.02 X10*3/uL (0.00-0.03); Imm Gran Pct Auto 0.2 % (0.0-0.4); Lymphocytes Absolute Auto 2.3 X10*3/uL (1.2-4.9); Lymphocytes Percent Auto 23.1 % (20-40); Mean Corpuscular HGB Conc 34.7 g/dl (31.0-35.0); Mean Corpuscular Hemoglobin 28.8 pg (27.0-33.0); Mean Platelet Volume 9.3 fL (9.4-12.3); Monocytes Absolute Auto 0.7 X10*3/uL (0.1-1.2); Monocytes Percent Auto 6.7 % (2-11); Neutrophils Absolute Auto 6.6 x10*3/uL (2.0-8.3); Neutrophils Percent Auto 65.7 % (45-73); Platelet Count 249 X10*3/uL (160-400); Red Blood Count 4.48 X10*6/uL (4.20-5.50); Red Cell Distribution Width 11.9 % (11.0-16.0); White Blood Count 10.1 X10*3/uL (4.8-10.8)
[2023-09-06] MEDS: 0.9 % Sodium Chloride 1,000 ML 999 ML IV (03:19)
[2023-09-06] MEDS: methylPREDNISolone Sod Succ 125 MG/2 ML VIAL IVPUSH (03:19)
[2023-09-06] MEDS: Magnesium Sulfate/H2O 2 GM/50 ML PIGGYBACK IV (03:19)
[2023-09-06 03:27] VITALS: PULSE 99; RESP 22
[2023-09-06 03:28] VITALS: PULSE 84; RESP 20; O2SAT 94
[2023-09-06] MEDS: Albuterol Sulfate 2.5 MG, Albuterol/Iprat 2.5/0.5MG 3 ML 3 ML INHALE (03:28)
[2023-09-06 03:30] LABS: Anion Gap 12 (12-20); Blood Urea Nitrogen 9 mg/dL (9-16); Calcium 9.4 mg/dL (8.4-10.2); Carbon Dioxide 26 mmol/L (22-29); Chloride 107 mmol/L (96-108); Creatinine Clr Calc Pharmacy 138.6; Estimated Glomerular Filt Rate > 60; Glucose Random 103 mg/dL (60-115); Potassium 3.2 mmol/L (3.3-5.1); Sodium 142 mmol/L (135-145)
[2023-09-06] MEDS: Albuterol Sulfate 2.5 MG, Albuterol Sulfate (0.083%) 2.5 MG 5 MG INHALE (03:38)
[2023-09-06 03:39] VITALS: PULSE 96; RESP 18; O2SAT 92
[2023-09-06 04:23] VITALS: BP 118/55; PULSE 99; RESP 18; TEMP 36.7; O2SAT 96
--- NOTE | 2023-09-06 04:39 | PC.NURSE ---
pt reports feeling better. pt resting comfortably in stretcher. vss. sats 95% on RA. Dr. Trujillo made aware.
[2023-09-06 05:12] VITALS: BP 118/55; PULSE 99; RESP 18; TEMP 36.6; O2SAT 96
== END 2023-09-06 05:12 | disposition home or self-care (01) ==
PROVIDERS: Emergency Provider Internal Medicine
DX: J45.51 Severe persistent asthma with (acute) exacerbation (principal)
CPT/HCPCS: 36415; 80048; 85025; 94640; 96361; 96374; 96375; 99284; 99285; J2919; J2930; J3475

== ENCOUNTER 2023-10-01 14:47 | Outpatient (REF) | payer MEDICAID, SELFPAY ==
[2023-10-01 16:43] LABS: Alanine Aminotransferase 82 U/L (0-31); Albumin Level 4.4 g/dL (3.5-5.0); Alkaline Phosphatase 56 U/L (39-117); Anion Gap 15 (12-20); Aspartate Amino Transferase 37 U/L (5-31); Bilirubin Total 0.7 mg/dL (0.0-1.0); Blood Urea Nitrogen 11 mg/dL (9-16); Calcium 9.5 mg/dL (8.4-10.2); Carbon Dioxide 25 mmol/L (22-29); Chloride 106 mmol/L (96-108); Estimated Glomerular Filt Rate > 60; Glucose Random 108 mg/dL (60-115); Potassium 4.1 mmol/L (3.3-5.1); Sodium 142 mmol/L (135-145); Total Protein 7.4 g/dL (6.5-8.0)
== END 2023-10-01 14:48 | disposition home or self-care (01) ==
LOC: HO.HHCL 14:47
PROVIDERS: Visit Provider Student in an Organized Health Care Education/Training Program
DX: E87.6 Hypokalemia (principal)
CPT/HCPCS: 36415; 80053

== ENCOUNTER 2023-10-07 01:41 | Emergency (ER) | payer MEDICAID, SELFPAY ==
[2023-10-07 02:00] VITALS: BP 123/85; PULSE 99; RESP 24; TEMP 36.1; O2SAT 94; BMI 34.9
[2023-10-07 02:14] VITALS: BP 124/81; PULSE 101; RESP 22; O2SAT 94
--- NOTE | 2023-10-07 02:48 | ED_ITS ---
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 comes here for similar attack started earlier today use nebulizer treatment without much help no chest pain has mild dry cough no fever no chills Related Data Home Medications ?Medication ?Instructions ?Recorded ?Confirmed albuterol sulfate 2.5 mg/3 mL 2.5 mg inhalation Q4-6H PRN 10/30/22 05/21/23 (0.083 %) solution for nebulization wheezing loratadine 10 mg tablet 10 mg PO DAILY 10/30/22 05/21/23 folic acid 800 mcg tablet 0.8 mg PO DAILY 05/30/23 Previous Rx's ?Medication ?Instructions ?Recorded blood sugar diagnostic (FreeStyle #100 ea 05/22/23 Lite Strips) blood-glucose meter (FreeStyle #1 ea 05/22/23 Lite Meter kit) fluticasone propionate 230 2 puff inhalation Q12H #12 grams 05/22/23 mcg-salmeterol 21 mcg/actuation HFA inhaler (Advair HFA) glipizide 2.5 mg tablet 2.5 mg PO BID #10 tabs 05/22/23 lancets 28 gauge (FreeStyle #100 ea 05/22/23 Lancets) montelukast 10 mg tablet 10 mg PO DAILY #30 tabs 05/22/23 umeclidinium 62.5 mcg/actuation 1 inh inhalation DAILY #1 ea 05/22/23 blister powder for inhalation (Incruse Ellipta) albuterol sulfate 90 mcg/actuation 2 inh inhalation Q4-6H PRN 05/30/23 breath activated powder inhaler shortness of breath or wheezing #1 ea prednisone 20 mg tablet 40 mg (2 x 20 mg) PO DAILY 5 days 05/30/23 #10 tabs prednisone 20 mg tablet 40 mg (2 x 20 mg) PO DAILY #10 tabs 09/06/23 prednisone 20 mg tablet 40 mg (2 x 20 mg) PO DAILY #10 tabs 10/07/23 Allergies Allergy/AdvReac Type Severity Reaction Status Date / Time No Known Allergies Allergy Verified 10/07/23 02:04 Review of Systems Review of Systems: Yes all other systems are reviewed and are negative [facility]LY [facility] Past Medical History Medical History Severe persistent allergic asthma Asthma with status asthmaticus Asthma Social History Social History Alcohol intake: never Patient Tobacco Use Status: Never used Tobacco Second Hand Smoke Exposure: No Substance Use Type: Marijuana Advance Directives: Yes Advance Directives on File: Yes Advance Directives Date on File: 10/29/22 Do you have a plan to hurt others: No Plan service: No Current occupational status: employed Physical Exam Vital Signs: Vital Signs: Last Vital Signs Temp 97.0 F 10/07/23 02:00 Pulse 108 H 10/07/23 04:34 Resp 20 10/07/23 04:34 BP 104/46 L 10/07/23 04:34 Pulse Ox 95 10/07/23 04:34 O2 Del Method Room Air 10/07/23 04:34 BMI result Body Mass Index 34.9 Appearance: Alert. Oriented X3. No acute distress. ENT: Pharynx normal. Oral Mucosa moist Neck: Normal inspection. Neck supple. CVS: Normal heart rate and rhythm. Pulses normal. Respiratory: No respiratory distress. Equal air entry bilateral, bilateral wheezing Abdomen: Soft and nontender. Skin: Skin warm and dry. Normal skin color. Normal skin turgor. Extremities: No lower extremity edema. No calf tenderness Neuro: Oriented X 3. Medications Administered Discontinued Medications Generic Name Dose Route Start Last Admin Trade Name Freq PRN Reason Stop Dose Admin Albuterol Sulfate 5 mg/ 0 mg 10/07/23 02:52 10/07/23 03:00 Albuterol/Ipratropium 3 ml INHALE 10/07/23 02:53 7.5 each ONCE ONE Administration Dexamethasone 10 mg 10/07/23 02:52 10/07/23 02:58 Dexamethasone 2 Mg Tablet PO 10/07/23 02:53 10 mg ONCE ONE Administration Medical Decision Making Medical Decision Making MDM Narrative: 05:00 Patient's asthma likely allergic to cats feeling much better after nebulizing treatment and Decadron will discharge patient home advised to continue nebulizer treatment and take prednisone patient is saturating 95% on room air Differential Diagnosis Differential Diagnoses: The differential diagnosis associated with the presentation includes Discharge Plan Discharge Clinical Impression: Asthma with acute exacerbation Patient Disposition: Home, Self-Care Instructions: Asthma (ED) Additional Instructions: New albuterol nebulizer treatment every 4-6 hours as needed Take prednisone as prescribed Report to ER if not better Prescriptions: New prednisone 20 mg tablet 40 mg PO DAILY Qty: 10 0RF No Action albuterol sulfate 2.5 mg /3 mL (0.083 %) solution for nebulization 2.5 mg inhalation Q4-6H PRN (Reason: wheezing) loratadine 10 mg Tablet 10 mg PO DAILY prednisone 20 mg tablet 40 mg PO DAILY 5 Days Qty: 10 0RF albuterol sulfate 90 mcg/actuation aerosol powdr breath activated 2 inh inhalation Q4-6H PRN (Reason: shortness of breath or wheezing) Qty: 1 0RF folic acid 800 mcg tablet 0.8 mg PO DAILY prednisone 20 mg tablet 40 mg PO DAILY Qty: 10 0RF montelukast 10 mg tablet 10 mg PO DAILY Qty: 30 1RF fluticasone propion-salmeterol [Advair HFA] 230-21 mcg/actuation HFA aerosol inhaler 2 puff INHALATION Q12H Qty: 12 1RF Incruse Ellipta 62.5 mcg/actuation blister with device 1 inh inhalation DAILY Qty: 1 1RF (DME) FreeStyle Lite Strips Strip Qty: 100 0RF Rx Instructions: Test four times a day or as directed. (DME) blood-glucose meter [FreeStyle Lite Meter] Kit Qty: 1 0RF Rx Instructions: As Directed (DME) lancets [FreeStyle Lancets] 28 gauge misc Qty: 100 0RF Rx Instructions: Test four times a day or as directed. glipizide 2.5 mg tablet 2.5 mg PO BID Qty: 10 0RF Print Language: Argentine
[2023-10-07] MEDS: dexAMETHasone 2 MG TABLET 10 MG PO (02:58)
[2023-10-07] MEDS: Albuterol Sulfate 5 MG, Albuterol/Iprat 2.5/0.5MG 3 ML 3 ML INHALE (03:00)
[2023-10-07 03:03] VITALS: PULSE 83; RESP 18; O2SAT 96
[2023-10-07 04:34] VITALS: BP 104/46; PULSE 108; RESP 20; O2SAT 95
[2023-10-07 05:19] VITALS: BP 104/46; PULSE 108; RESP 20; TEMP 36.1; O2SAT 95
== END 2023-10-07 05:20 | disposition home or self-care (01) ==
PROVIDERS: Emergency Provider Internal Medicine
DX: J45.901 Unspecified asthma with (acute) exacerbation (principal)
CPT/HCPCS: 94640; 99283; 99284; J8540

== ENCOUNTER 2023-12-30 17:02 | Emergency (ER) | payer MEDICAID, SELFPAY ==
[2023-12-30 17:32] VITALS: BP 127/77; PULSE 75; RESP 16; TEMP 36.6; O2SAT 95; BMI 39.1
--- NOTE | 2023-12-30 17:34 | ED.GENADULT ---
HPI - General Adult General Chief complaint: Vaginal Bleeding Stated complaint: vaginal bleeding ? miscarriage Time Seen by Provider: 12/30/23 21:20 Related Data Home Medications ?Medication ?Instructions ?Recorded ?Confirmed albuterol sulfate 2.5 mg/3 mL 2.5 mg inhalation Q4-6H PRN 10/30/22 05/21/23 (0.083 %) solution for nebulization wheezing loratadine 10 mg tablet 10 mg PO DAILY 10/30/22 05/21/23 folic acid 800 mcg tablet 0.8 mg PO DAILY 05/30/23 Previous Rx's ?Medication ?Instructions ?Recorded blood sugar diagnostic (FreeStyle #100 ea 05/22/23 Lite Strips) blood-glucose meter (FreeStyle #1 ea 05/22/23 Lite Meter kit) fluticasone propionate 230 2 puff inhalation Q12H #12 grams 05/22/23 mcg-salmeterol 21 mcg/actuation HFA inhaler (Advair HFA) glipizide 2.5 mg tablet 2.5 mg PO BID #10 tabs 05/22/23 lancets 28 gauge (FreeStyle #100 ea 05/22/23 Lancets) montelukast 10 mg tablet 10 mg PO DAILY #30 tabs 05/22/23 umeclidinium 62.5 mcg/actuation 1 inh inhalation DAILY #1 ea 05/22/23 blister powder for inhalation (Incruse Ellipta) albuterol sulfate 90 mcg/actuation 2 inh inhalation Q4-6H PRN 05/30/23 breath activated powder inhaler shortness of breath or wheezing #1 ea prednisone 20 mg tablet 40 mg (2 x 20 mg) PO DAILY 5 days 05/30/23 #10 tabs prednisone 20 mg tablet 40 mg (2 x 20 mg) PO DAILY #10 tabs 09/06/23 prednisone 20 mg tablet 40 mg (2 x 20 mg) PO DAILY #10 tabs 10/07/23 Allergies Allergy/AdvReac Type Severity Reaction Status Date / Time No Known Allergies Allergy Verified 12/30/23 17:33 [facility] Past Medical History Medical History Severe persistent allergic asthma Asthma with status asthmaticus Asthma Social History Social History Alcohol intake: never Patient Tobacco Use Status: Never used Tobacco Second Hand Smoke Exposure: No Substance Use Type: Marijuana Advance Directives: Yes Advance Directives on File: Yes Advance Directives Date on File: 10/29/22 service: No Current occupational status: employed Physical Exam ED Vital Signs: Vital Signs - 24 hr 12/30/23 17:32 12/30/23 20:13 Temperature 98 F 97.7 F Pulse Rate 75 62 Respiratory Rate 16 17 Blood Pressure 127/77 140/88 H Pulse Oximetry 95 100 Oxygen Delivery Method Room Air Room Air BMI result Body Mass Index 39.1 Course Course Course Narrative: This is an RME: Additional HPI, ROS, PE not included below will be deferred to primary provider. RME assessment and note performed by: Emelyn Min PA-C This is a [id number] who presents to the emergency department with complaints of vaginal bleeding and suprapubic pain. Patient states that her last menstrual period was a weeks ago, states that she took plan B 6 weeks ago. She states that she has had vaginal bleeding since yesterday, states that it is heavier than normal, states passing clots and having some pain as well. Plan: Labs, UA, further ER evaluation needed. Medical Decision Making Lab Data 12/30/23 21:12 12/30/23 18:31 Labs: Lab Results 12/30/23 12/30/23 Range/Units 18:31 21:12 WBC 10.5 9.7 (4.8-10.8) X10*3/uL RBC 4.58 4.51 (4.20-5.50) X10*6/uL Hgb 13.3 13.2 (12.0-16.0) g/dl Hct 39.0 38.4 (37.0-47.0) % MCV 85.2 85.1 (80.0-98.0) fL MCH 29.0 29.3 (27.0-33.0) pg MCHC 34.1 34.4 (31.0-35.0) g/dl RDW 12.8 12.8 (11.0-16.0) % Plt Count 265 227 (160-400) X10*3/uL MPV 10.2 9.3 L (9.4-12.3) fL Immature Gran % (Auto) 0.3 0.2 (0.0-0.4) % Neut % (Auto) 66.6 57.7 (45-73) % Lymph % (Auto) 22.6 29.9 (20-40) % [place] % (Auto) 5.0 6.2 (2-11) % Eos % (Auto) 4.8 H 5.4 H (0-4) % Baso % (Auto) 0.7 0.6 (0-2) % Lymph # (Auto) 2.4 2.9 (1.2-4.9) X10*3/uL [place] # (Auto) 0.5 0.6 (0.1-1.2) X10*3/uL Eos # (Auto) 0.5 H 0.5 H (0.0-0.4) X10*3/uL Baso # (Auto) 0.1 0.1 (0.0-0.2) X10*3/uL Abs Immat Gran (auto) 0.03 0.02 (0.00-0.03) X10*3/uL Absolute Neuts (auto) 7.0 5.6 (2.0-8.3) x10*3/uL Absolute Nucleated RBC 0.000 0.000 (0.0-0.012) X10*3/uL Nucleated RBC % (auto) 0.0 0.0 (0.0-0.2) /100WBC Sodium 142 (135-145) mmol/L Potassium 3.7 (3.3-5.1) mmol/L Chloride 109 H (96-108) mmol/L Carbon Dioxide 24 (22-29) mmol/L Anion Gap 13 (12-20) BUN 10 (9-16) mg/dL Creatinine 0.84 (0.5-1.4) mg/dL Estim Creat Clear Calc 125.2 Estimated GFR > 60 Random Glucose 82 (60-115) mg/dL Calcium 9.2 (8.4-10.2) mg/dL Total Bilirubin 0.4 (0.0-1.0) mg/dL Direct Bilirubin 0.1 (0.0-0.5) mg/dL AST 21 (5-31) U/L ALT 16 (0-31) U/L Alkaline Phosphatase 54 (39-117) U/L Total Protein 7.0 (6.5-8.0) g/dL Albumin 4.2 (3.5-5.0) g/dL Beta HCG, Quant < 2 mIU/mL Urine Color Dark Yellow Urine Appearance Cloudy Urine pH 5.5 (5.0-9.0) Ur Specific [place] >= 1.030 H (1.005-1.025) Urine Protein 30 (1+) H (Neg-Trace) mg/dL Urine Glucose (UA) Negative (Negative) mg/dL Urine Ketones 40 (Negative) mg/dL Urine Blood Large (3+) H (Negative) Urine Nitrite Negative (Negative) Ur Leukocyte Esterase Trace H (Negative) Urine RBC >20 H (0-2) /HPF Urine WBC 0-5 (0-5) /HPF Ur Squamous Epith Cells 0-2 (0-2) /HPF Urine Bacteria None Seen (None Seen) Hyaline Casts 0-2 (0-2) /LPF Discharge Plan Discharge Clinical Impression: Vaginal bleeding Patient Disposition: Home, Self-Care Instructions: Menorrhagia (ED) Prescriptions: No Action albuterol sulfate 2.5 mg /3 mL (0.083 %) solution for nebulization 2.5 mg inhalation Q4-6H PRN (Reason: wheezing) loratadine 10 mg Tablet 10 mg PO DAILY prednisone 20 mg tablet 40 mg PO DAILY 5 Days Qty: 10 0RF albuterol sulfate 90 mcg/actuation aerosol powdr breath activated 2 inh inhalation Q4-6H PRN (Reason: shortness of breath or wheezing) Qty: 1 0RF folic acid 800 mcg tablet 0.8 mg PO DAILY prednisone 20 mg tablet 40 mg PO DAILY Qty: 10 0RF montelukast 10 mg tablet 10 mg PO DAILY Qty: 30 1RF fluticasone propion-salmeterol [Advair HFA] 230-21 mcg/actuation HFA aerosol inhaler 2 puff INHALATION Q12H Qty: 12 1RF Incruse Ellipta 62.5 mcg/actuation blister with device 1 inh inhalation DAILY Qty: 1 1RF (DME) FreeStyle Lite Strips Strip Qty: 100 0RF Rx Instructions: Test four times a day or as directed. (DME) blood-glucose meter [FreeStyle Lite Meter] Kit Qty: 1 0RF Rx Instructions: As Directed (DME) lancets [FreeStyle Lancets] 28 gauge misc Qty: 100 0RF Rx Instructions: Test four times a day or as directed. glipizide 2.5 mg tablet 2.5 mg PO BID Qty: 10 0RF prednisone 20 mg tablet 40 mg PO DAILY Qty: 10 0RF Referrals: Sasha Elder MD [Primary Care Provider] - 01/01/24 Print Language: Chinese
[2023-12-30 18:36] LABS: MANUAL DIFF FLAG NO
--- NOTE | 2023-12-30 18:45 | MHC.EDTECH ---
PATIENT BLOOD DRAWN AND URINE SAMPLE COLLECTED ALL SENT TO LAB .
[2023-12-30 18:48] LABS: Appearance Urine Cloudy; Color Urine Dark Yellow; Glucose Urine UA Negative (Negative); Leukocyte Esterase Urine Trace (Negative); Nitrite Urine Negative (Negative); PH 5.5 (5.0-9.0); Specific Gravity - Urine >= 1.030 (1.005-1.025); UMIC TRIGGER UACC YES; Urine Blood Large (3+) (Negative); Urine Ketones 40 mg/dL (Negative); Urine Protein 30 (1+) mg/dL (Neg-Trace)
[2023-12-30 19:01] LABS: Bacteria Urine None Seen (None Seen); Hyaline Casts Urine 0-2 /LPF (0-2); RBC Urine >20 /HPF (0-2); Squamous Epithelial Cell Urine 0-2 /HPF (0-2); WBC Urine 0-5 /HPF (0-5)
[2023-12-30 19:06] LABS: Alanine Aminotransferase 16 U/L (0-31); Albumin Level 4.2 g/dL (3.5-5.0); Alkaline Phosphatase 54 U/L (39-117); Anion Gap 13 (12-20); Aspartate Amino Transferase 21 U/L (5-31); Bilirubin Direct 0.1 mg/dL (0.0-0.5); Bilirubin Total 0.4 mg/dL (0.0-1.0); Blood Urea Nitrogen 10 mg/dL (9-16); Calcium 9.2 mg/dL (8.4-10.2); Carbon Dioxide 24 mmol/L (22-29); Chloride 109 mmol/L (96-108); Creatinine Clr Calc Pharmacy 125.2; Estimated Glomerular Filt Rate > 60; Glucose Random 82 mg/dL (60-115); HCG Quantitative < 2 mIU/mL; Potassium 3.7 mmol/L (3.3-5.1); Sodium 142 mmol/L (135-145)
[2023-12-30 19:08] LABS: Basophils Absolute Auto 0.1 X10*3/uL (0.0-0.2); Basophils Percent Auto 0.7 % (0-2); Eosinophils Absolute Auto 0.5 X10*3/uL (0.0-0.4); Eosinophils Percent Auto 4.8 % (0-4); Hemoglobin 13.3 g/dl (12.0-16.0); Imm Gran Abs Auto 0.03 X10*3/uL (0.00-0.03); Imm Gran Pct Auto 0.3 % (0.0-0.4); Lymphocytes Absolute Auto 2.4 X10*3/uL (1.2-4.9); Lymphocytes Percent Auto 22.6 % (20-40); Mean Corpuscular HGB Conc 34.1 g/dl (31.0-35.0); Mean Corpuscular Volume 85.2 fL (80.0-98.0); Mean Platelet Volume 10.2 fL (9.4-12.3); Monocytes Absolute Auto 0.5 X10*3/uL (0.1-1.2); Neutrophils Percent Auto 66.6 % (45-73); Platelet Count 265 X10*3/uL (160-400); Red Blood Count 4.58 X10*6/uL (4.20-5.50); Red Cell Distribution Width 12.8 % (11.0-16.0); White Blood Count 10.5 X10*3/uL (4.8-10.8)
[2023-12-30 20:13] VITALS: BP 140/88; PULSE 62; RESP 17; TEMP 36.5; O2SAT 100
[2023-12-30 21:17] LABS: MANUAL DIFF FLAG NO
[2023-12-30 21:18] LABS: Basophils Absolute Auto 0.1 X10*3/uL (0.0-0.2); Basophils Percent Auto 0.6 % (0-2); Eosinophils Absolute Auto 0.5 X10*3/uL (0.0-0.4); Eosinophils Percent Auto 5.4 % (0-4); Hematocrit 38.4 % (37.0-47.0); Hemoglobin 13.2 g/dl (12.0-16.0); Imm Gran Abs Auto 0.02 X10*3/uL (0.00-0.03); Imm Gran Pct Auto 0.2 % (0.0-0.4); Lymphocytes Absolute Auto 2.9 X10*3/uL (1.2-4.9); Lymphocytes Percent Auto 29.9 % (20-40); Mean Corpuscular HGB Conc 34.4 g/dl (31.0-35.0); Mean Corpuscular Hemoglobin 29.3 pg (27.0-33.0); Mean Corpuscular Volume 85.1 fL (80.0-98.0); Mean Platelet Volume 9.3 fL (9.4-12.3); Monocytes Absolute Auto 0.6 X10*3/uL (0.1-1.2); Monocytes Percent Auto 6.2 % (2-11); Neutrophils Absolute Auto 5.6 x10*3/uL (2.0-8.3); Neutrophils Percent Auto 57.7 % (45-73); Platelet Count 227 X10*3/uL (160-400); Red Blood Count 4.51 X10*6/uL (4.20-5.50); Red Cell Distribution Width 12.8 % (11.0-16.0); White Blood Count 9.7 X10*3/uL (4.8-10.8)
--- NOTE | 2023-12-30 21:28 | ED.FEMALEGU ---
HPI - Female Genitourinary General Chief complaint: Vaginal Bleeding Stated complaint: vaginal bleeding ? miscarriage Time Seen by Provider: 12/30/23 21:20 History of Present Illness HPI Narrative: Patient is a 23-year-old female had a plan B pill taken about 6 weeks ago. Today started having menstrual bleeding. Patient claims she has soaked about 4 pads today. There is no fever no chills. Minimal cramping similar to previous bouts of menstruation. Came to the ED. not on blood thinners. No bleeding disorder. Patient is from home. No dizziness no nausea no vomiting Related Data Home Medications ?Medication ?Instructions ?Recorded ?Confirmed albuterol sulfate 2.5 mg/3 mL 2.5 mg inhalation Q4-6H PRN 10/30/22 05/21/23 (0.083 %) solution for nebulization wheezing loratadine 10 mg tablet 10 mg PO DAILY 10/30/22 05/21/23 folic acid 800 mcg tablet 0.8 mg PO DAILY 05/30/23 Previous Rx's ?Medication ?Instructions ?Recorded blood sugar diagnostic (FreeStyle #100 ea 05/22/23 Lite Strips) blood-glucose meter (FreeStyle #1 ea 05/22/23 Lite Meter kit) fluticasone propionate 230 2 puff inhalation Q12H #12 grams 05/22/23 mcg-salmeterol 21 mcg/actuation HFA inhaler (Advair HFA) glipizide 2.5 mg tablet 2.5 mg PO BID #10 tabs 05/22/23 lancets 28 gauge (FreeStyle #100 ea 05/22/23 Lancets) montelukast 10 mg tablet 10 mg PO DAILY #30 tabs 05/22/23 umeclidinium 62.5 mcg/actuation 1 inh inhalation DAILY #1 ea 05/22/23 blister powder for inhalation (Incruse Ellipta) albuterol sulfate 90 mcg/actuation 2 inh inhalation Q4-6H PRN 05/30/23 breath activated powder inhaler shortness of breath or wheezing #1 ea prednisone 20 mg tablet 40 mg (2 x 20 mg) PO DAILY 5 days 05/30/23 #10 tabs prednisone 20 mg tablet 40 mg (2 x 20 mg) PO DAILY #10 tabs 09/06/23 prednisone 20 mg tablet 40 mg (2 x 20 mg) PO DAILY #10 tabs 10/07/23 Allergies Allergy/AdvReac Type Severity Reaction Status Date / Time No Known Allergies Allergy Verified 12/30/23 17:33 Review of Systems Review of Systems: No chest pain or diaphoresis Yes all other systems are reviewed and are negative COUNT INCLUDES THE [facility] Past Medical History Attestation statement: The following information was validated with the patient. Medical History Severe persistent allergic asthma Asthma with status asthmaticus Asthma Social History Social History Alcohol intake: never Patient Tobacco Use Status: Never used Tobacco Second Hand Smoke Exposure: No Substance Use Type: Marijuana Advance Directives: Yes Advance Directives on File: Yes Advance Directives Date on File: 10/29/22 service: No Current occupational status: employed Physical Exam Vital Signs: Vital Signs: Last Vital Signs Temp 97.7 F 12/30/23 20:13 Pulse 62 12/30/23 20:13 Resp 17 12/30/23 20:13 BP 140/88 H 12/30/23 20:13 Pulse Ox 100 12/30/23 20:13 O2 Del Method Room Air 12/30/23 20:13 BMI result Body Mass Index 39.1 Appearance: Alert. Oriented X3. No acute distress. Eyes: Pupils equal, round and reactive to light. ENT: Pharynx normal. Neck: Normal inspection. Neck supple. No lymph nodes noted. No crepitus CVS: Normal heart rate and rhythm. Pulses normal. Normal S1 and S2 Respiratory: No respiratory distress. Breath sounds normal. No Wheezing. No rales Abdomen: Soft and nontender. No rigidity. No distention. good BS x4 Skin: Skin warm and dry. Normal skin color. Normal skin turgor. Extremities: No lower extremity edema. Neurovascular intact to all extremities. No Lacerations. No Rash Neuro: Oriented X 3. No motor deficit. No sensory deficit. Moving all extermities. No slurred speech Medical Decision Making Medical Decision Making MDM Narrative: Well-appearing no acute distress. Patient's test is negative. Hemoglobin is baseline at 13. No evidence for anemia. No evidence for ectopic no evidence for related issues. Will discharge patient home. Close follow-up on an outpatient basis. Differential Diagnosis Differential Diagnoses: The differential diagnosis associated with the presentation includes Anemia, ectopic , miscarriage Admission/Observation Consideration of admission/observation: Escalation of care including admission/observation considered Patient's symptom improved no need for admission Consult Healthcare Provider Management of the patient was discussed with: Primary Care Provider Lab Data MDM Lab Attestation statement: I reviewed the patient's lab results. 12/30/23 21:12 12/30/23 18:31 Labs: Lab Results 12/30/23 12/30/23 Range/Units 18:31 21:12 WBC 10.5 9.7 (4.8-10.8) X10*3/uL RBC 4.58 4.51 (4.20-5.50) X10*6/uL Hgb 13.3 13.2 (12.0-16.0) g/dl Hct 39.0 38.4 (37.0-47.0) % MCV 85.2 85.1 (80.0-98.0) fL MCH 29.0 29.3 (27.0-33.0) pg MCHC 34.1 34.4 (31.0-35.0) g/dl RDW 12.8 12.8 (11.0-16.0) % Plt Count 265 227 (160-400) X10*3/uL MPV 10.2 9.3 L (9.4-12.3) fL Immature Gran % (Auto) 0.3 0.2 (0.0-0.4) % Neut % (Auto) 66.6 57.7 (45-73) % Lymph % (Auto) 22.6 29.9 (20-40) % [place] % (Auto) 5.0 6.2 (2-11) % Eos % (Auto) 4.8 H 5.4 H (0-4) % Baso % (Auto) 0.7 0.6 (0-2) % Lymph # (Auto) 2.4 2.9 (1.2-4.9) X10*3/uL [place] # (Auto) 0.5 0.6 (0.1-1.2) X10*3/uL Eos # (Auto) 0.5 H 0.5 H (0.0-0.4) X10*3/uL Baso # (Auto) 0.1 0.1 (0.0-0.2) X10*3/uL Abs Immat Gran (auto) 0.03 0.02 (0.00-0.03) X10*3/uL Absolute Neuts (auto) 7.0 5.6 (2.0-8.3) x10*3/uL Absolute Nucleated RBC 0.000 0.000 (0.0-0.012) X10*3/uL Nucleated RBC % (auto) 0.0 0.0 (0.0-0.2) /100WBC Sodium 142 (135-145) mmol/L Potassium 3.7 (3.3-5.1) mmol/L Chloride 109 H (96-108) mmol/L Carbon Dioxide 24 (22-29) mmol/L Anion Gap 13 (12-20) BUN 10 (9-16) mg/dL Creatinine 0.84 (0.5-1.4) mg/dL Estim Creat Clear Calc 125.2 Estimated GFR > 60 Random Glucose 82 (60-115) mg/dL Calcium 9.2 (8.4-10.2) mg/dL Total Bilirubin 0.4 (0.0-1.0) mg/dL Direct Bilirubin 0.1 (0.0-0.5) mg/dL AST 21 (5-31) U/L ALT 16 (0-31) U/L Alkaline Phosphatase 54 (39-117) U/L Total Protein 7.0 (6.5-8.0) g/dL Albumin 4.2 (3.5-5.0) g/dL Beta HCG, Quant < 2 mIU/mL Urine Color Dark Yellow Urine Appearance Cloudy Urine pH 5.5 (5.0-9.0) Ur Specific [place] >= 1.030 H (1.005-1.025) Urine Protein 30 (1+) H (Neg-Trace) mg/dL Urine Glucose (UA) Negative (Negative) mg/dL Urine Ketones 40 (Negative) mg/dL Urine Blood Large (3+) H (Negative) Urine Nitrite Negative (Negative) Ur Leukocyte Esterase Trace H (Negative) Urine RBC >20 H (0-2) /HPF Urine WBC 0-5 (0-5) /HPF Ur Squamous Epith Cells 0-2 (0-2) /HPF Urine Bacteria None Seen (None Seen) Hyaline Casts 0-2 (0-2) /LPF Independent Historian Clinical information obtained from an independent historian. History obtained from or confirmed by: Friend Tests considered The following testing was considered but not selected: No need for ultrasound as patient's test was negative Prescription Management I considered prescription management with: Pain Medication No need for pain medication patient will take [id number] medications Discharge Plan Discharge Clinical Impression: Vaginal bleeding Patient Disposition: Home, Self-Care Instructions: Menorrhagia (ED) Prescriptions: No Action albuterol sulfate 2.5 mg /3 mL (0.083 %) solution for nebulization 2.5 mg inhalation Q4-6H PRN (Reason: wheezing) loratadine 10 mg Tablet 10 mg PO DAILY prednisone 20 mg tablet 40 mg PO DAILY 5 Days Qty: 10 0RF albuterol sulfate 90 mcg/actuation aerosol powdr breath activated 2 inh inhalation Q4-6H PRN (Reason: shortness of breath or wheezing) Qty: 1 0RF folic acid 800 mcg tablet 0.8 mg PO DAILY prednisone 20 mg tablet 40 mg PO DAILY Qty: 10 0RF montelukast 10 mg tablet 10 mg PO DAILY Qty: 30 1RF fluticasone propion-salmeterol [Advair HFA] 230-21 mcg/actuation HFA aerosol inhaler 2 puff INHALATION Q12H Qty: 12 1RF Incruse Ellipta 62.5 mcg/actuation blister with device 1 inh inhalation DAILY Qty: 1 1RF (DME) FreeStyle Lite Strips Strip Qty: 100 0RF Rx Instructions: Test four times a day or as directed. (DME) blood-glucose meter [FreeStyle Lite Meter] Kit Qty: 1 0RF Rx Instructions: As Directed (DME) lancets [FreeStyle Lancets] 28 gauge misc Qty: 100 0RF Rx Instructions: Test four times a day or as directed. glipizide 2.5 mg tablet 2.5 mg PO BID Qty: 10 0RF prednisone 20 mg tablet 40 mg PO DAILY Qty: 10 0RF Referrals: Sasha Elder MD [Primary Care Provider] - 01/01/24 Print Language: Nepalese
[2023-12-30 21:35] VITALS: BP 140/88; PULSE 62; RESP 17; TEMP 36.5; O2SAT 100
== END 2023-12-30 21:35 | disposition home or self-care (01) ==
PROVIDERS: Physician Assistant; Physician Assistant Medical; Emergency Provider Emergency Medicine Emergency Medical Services; PCP Student in an Organized Health Care Education/Training Program
DX: N93.9 Abnormal uterine and vaginal bleeding, unspecified (principal); R25.2 Cramp and spasm; Z79.899 Other long term (current) drug therapy
CPT/HCPCS: 36415; 80048; 80076; 81001; 81003; 84702; 85025; 99283

== ENCOUNTER 2024-05-04 14:36 | Outpatient (REF) | payer MEDICAID, SELFPAY ==
[2024-05-04 18:18] LABS: CT PCR NOT DETECTED (Not Detect.); NG PCR NOT DETECTED (Not Detect.)
[2024-05-05 04:00] LABS: Syphilis Screen Nonreactive (Nonreactive)
[2024-05-05 04:13] LABS: HIV AB/AG Nonreactive (Nonreactive); HIV Num 1 0.05 S/CO (0.00-0.99)
== END 2024-05-04 14:37 | disposition home or self-care (01) ==
LOC: HO.HHCL 14:36
PROVIDERS: Visit Provider Advanced Practice Midwife
DX: Z11.3 Encounter for screening for infections with a predominantly sexual mode of transmission (principal); Z11.4 Encounter for screening for human immunodeficiency virus [HIV]
CPT/HCPCS: 86780; 87389; 87491; 87591

== ENCOUNTER 2024-09-14 11:45 | Outpatient (REF) | payer MEDICAID, SELFPAY ==
--- OUTSIDE RECORDS SUMMARY | 2024-09-14 13:46 | XMS_ITS | Encounter Summary ---
Author Organization [employer] Address [address] [place] [address] [address] [place] [address] Care Team Providers Care Pmo Business Analyst Name Role Phone Sasha Elder MD Primary Care Pro vider Reason for Visit * Reason Comments Med Refill Encounter Details Date Type Department Care Team (Late st Contact Info) Description 02/28/2024 Refill [facility] [address] [place] [address] Sasha Elder MD [address] [place] [address] Social History Tobacco Use Types Packs/Day Years Used Date Smoking Tobacco: Never Passive Smoke Exposure: Never Smokeless Tobacco: Never Alcohol Use Standard Drinks/Week Comments Yes 0 (1 standard drink = 0.6 oz pur e alcohol) social Depression Answer Date Recorded Patient Health Questionnaire-9 Score 21 07/05/2023 Patient Health Questionnaire-9 Score 21 07/05/2023 Last PHQ-9: Questionnaire Data Not on file 0 07/05/2023 Housing Stability Answer Date Recorded What is your housing situation today? I have catie salcedo 04/15/[address] you li ve. Do you have problems with any of the following? None of the above 04/15/2023 Food Insecurity Answer Date Recorded Within the past 12 months, y ou worried that your food would run out before you got money to buy more: Never True 04/15/2023 Within the past 12 months,th e food you bought just didn't last and you didn't have enough money to get more: Never True Transportation Answer Date Recorded In the past 12 months, has l ack of transportation kept you from medical appts, meetings, work or from getting things needed for daily living? No 04/15/2023 Utilities Answer Date Recorded In the past 12 months, has t he electric, gas, oil or water company threatened to shut off services in your home? No 04/15/2023 Depression Answer Date Recorded Patient Health Questionnaire-2 Score 6 07/05/2023 Internet Access Answer Date Recorded Internet Access Q1 Yes 03/03/2024 Internet Access Q2 Not on file 03/03/2024 Comments No Sex and Gender Information Value Date Recorded Sex Assigned at Female 04/02/2022 10:15 AM EDT Legal Sex Female 10:15 AM EDT Gender Identity Female 02/20/2023 3:36 PM EDT Sexual Orientation Straight 02/20/2023 3: 36 PM EDT documented as of this encounter Plan of Treatment Not on file documented as of this encounter Visit Diagnoses Not on filedocumented in this encounter Additional Health Concerns Assessment Noted Time PHQ-9 Depression Total Score: 21 024 1:52 PM EST documented as of this encounter Care Teams Pmo Business Analyst Relationship Specialty Start Date End Date aSsha Elder MD [address] [place] [id number] PCP - General Internal Medicine 12/10/22 documented as of this encounter
--- OUTSIDE RECORDS SUMMARY | 2024-09-14 13:46 | XMS_ITS | Clinical Summary ---
Author Organization [facility] Address [address] [place] [address] Care Team Providers Care Industrial Roofer Name Role Phone Unavailable Primary Care Provider Unavailabl e Social History Tobacco Use Types Packs/Day Years Used Date Smoking Tobacco: Never Assessed Sex and Gender Information Value Date Recorded Sex Assigned at Not on file Gender Identity Not on file Sexual Orientation Not on file Plan of Treatment Health Maintenance Due Date Last Done Comments Hepatitis C Virus Screening 1999 HIV Screening 2012 HPV Vaccines (1 - 3-dose series) 2014 DTaP/Tdap/Td Vaccines (1 - Tdap) 2018 Hepatitis B Vaccines (1 of 3 - 19+ 3-dose series) 2018 COVID-19 Vaccine ( - 2023-2 5 season) 2024 Pneumococcal Vaccine: Pediat raymond (0-5 Years) and At-Risk Patients (6 to 49 Years) Aged Out No longer eligible b ased on patient's age to complete this topic
--- OUTSIDE RECORDS SUMMARY | 2024-09-14 13:46 | XMS_ITS | Encounter Summary ---
Author Organization [employer] Address [address] [place] [address] 7 [place] [address] Care Team Providers Care Senior Technologist Name Role Phone Sasha Elder MD Primary Care Pro vider Reason for Visit * Reason Comments Gynecologic Exam Encounter Details Date Type Department Care Team (Latest Contact Info) Description 09/14/2024 11:00 AM EDT Procedure Visit [facility] [address] [place] [address] Heather Mancuso CNM [address] [place] [address] Cervical cancer screening (Primary Dx); Procreative management Social History Tobacco Use Types Packs/Day Years Used Date Smoking Tobacco: Never Passive Smoke Exposure: Never Smokeless Tobacco: Never Alcohol Use Standard Drinks/Week Comments Not Currently 0 (1 standard drink = 0.6 oz pur e alcohol) social Depression Answer Date Recorded Patient Health Questionnaire-9 Score 21 07/05/2023 Patient Health Questionnaire-9 Score 21 07/05/2023 Last PHQ-9: Questionnaire Data Not on file 0 07/05/2023 Housing Stability Answer Date Recorded What is your housing situation today? I have catiebunny salcedo 04/15/[address] you [...] PM EDT documented as of this encounter Last Filed Vital Signs Vital Sign Reading Time Taken Comments Blood Pressure 122/80 09/14/2024 11:06 AM EDT Pulse 83 09/14/2024 11:06 AM EDT Temperature 36.6 ??C (97.8 ??F) 09/14/2024 11:06 AM E DT Respiratory Rate 16 09/14/2024 11:06 AM EDT Oxygen Saturation 98% 09/14/2024 11:06 AM EDT Inhaled Oxygen Concentration - - Weight 95.9 kg (211 lb 6.4 oz) 09/14/2024 11:06 AM EDT Height 165.1 cm (5' 5 ) 09/14/2024 11:06 AM EDT Body Mass Index 35.18 09/14/2024 11:06 AM EDT documented in this encounter Progress Notes * Heather Mancuso CNM - 09/14/2024 11:00 AM EDT Subjective Patient ID: Mariia Servin is a 24 y.o. 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 Last visit with me 05/2024. HIV, syphilis, Gonorrhea/Chlamydia neg, Hep B/C ordered, not run. Steffany with 11RF rx'd 05/2024. No change in partner, 1 AMAB partner. No safety concerns. Thinking about getting at some point. Not actively trying now, but would be okay if it happened. Partner is 26, in good health, has not fathered any children. Mariia has cat and dog at home. Reviewed precautions for litter box/picking up feces. Would like breast and pelvic exam today. Positive chlamydia 09/2021. Nexplanon removed 06/2020. Monthly menses, no heavy flow, cramping manageable. Notes typical premenstrual symptoms (eg, breasttenderness) Review of Systems Genitourinary: Negative for dyspareunia, dysuria, frequency, genital sores, hematuria, menstrual problem, pelvic pain, urgency, vaginal bleeding, vaginal discharge and vaginal pain. No abnormal pap, no abnormal bleeding, no breast mass, no nipple discharge Objective BP 122/80 (BP Location: Left arm, Patient Position: Sitting, BP Cuff Size: Large adult) Pulse 83 Temp 97.8 ??F (36.6 ??C) (Temporal) Resp 16 Ht 5' 5 (1.651 m) Wt 211 lb 6.4 oz (95.9 kg) LMP 08/21/2024 (Approximate) SpO2 98% BMI 35.18 kg/m?? Physical Exam Constitutional: Appearance: Normal appearance. Chest: Breasts: Right: Normal. No swelling, bleeding, inverted nipple, mass, nipple discharge, skin change or tenderness. Left: Normal. No swelling, bleeding, inverted nipple, mass, nipple discharge, skin change or tenderness. Genitourinary: General: Normal vulva. Labia: Right: No rash, tenderness, lesion or injury. Left: No rash, tenderness, lesion or injury. Vagina: Normal. No signs of injury and foreign body. No vaginal discharge, erythema, tenderness, bleeding or lesions. Cervix: No cervical motion tenderness, discharge, friability, lesion, erythema, cervical bleeding or eversion. Uterus: Normal. Not enlarged and not tender. Adnexa: Right adnexa normal and left adnexa normal. Right: No mass, tenderness or fullness. Left: No mass, tenderness or fullness. Lymphadenopathy: Upper Body: Right upper body: No supraclavicular or axillary adenopathy. Left upper body: No supraclavicular or axillary adenopathy. Neurological: Mental Status: She is alert. Psychiatric: Mood and Affect: Mood normal. Behavior: Behavior normal. Assessment/Plan Diagnoses and all orders for this visit: Cervical cancer screening - Pap Smear Pap 3y if normal. Will call with results. Hepatitis labslips printed. She will get these done today. Procreative management Reviewed preconception counseling. She would like sent in and will also fill steffany rx for future use. Urged toxin avoidance if trying to get for both self and partner. Reviewed that there is no amount of alcohol that is safe in , so best to avoid alcohol while trying to get . Report missed menses. Report irregular periods, or if not after 6 months. Reviewed that we do not offer care, but can refer to provider of her choice. Local options include [facility], [facility], [facility]. [facility] [place], but [facility] happen at [facility]. May return any time if interested in other control options. Other orders - Vit-Fe Fumarate-FA ( Plus) 27-1 MG tablet; One tablet by mouth daily documented in this encounter Plan of Treatment Scheduled Orders Name Type Priority Associated Diagnoses Orde r Schedule Pap Smear Pathology and Cytology Routine Cervical cancer screening Ordered: 09/14/2024 documented as of this encounter Visit Diagnoses Diagnosis Cervical cancer screening- Primary Screening for malignant neoplasm of the cervix Procreative management documented in this encounter Additional Health Concerns Assessment Noted Time PHQ-9 Depression Total Score: 21 024 1:52 PM EST documented as of this encounter Care Teams Senior Technologist Relationship Specialty Start Date End Date Sasha Elder MD [address] [place] [id number] PCP - General Internal Medicine 12/10/22 documented as of this encounter
--- OUTSIDE RECORDS SUMMARY | 2024-09-14 13:46 | XMS_ITS | Encounter Summary ---
Author Organization [employer] Address [address] [place] [address] Care Team Providers Care Technical Operations Manager Name Role Phone Sasha Elder MD Primary Care Pro vider Encounter Details Date Type Department Care Team (Latest Contact Info) Description 09/14/2024 Travel Social History Tobacco Use Types Packs/Day Years [...] documented as of this encounter Care Teams Technical Operations Manager Relationship Specialty Start Date End Date Sasha Elder MD [address] [place] [id number] PCP - General Internal Medicine 12/10/22 documented as of this encounter
--- OUTSIDE RECORDS SUMMARY | 2024-09-14 13:46 | XMS_ITS | Clinical Summary ---
Author Organization [employer] Address [address] [place] [address] 7 [place] [address] Care Team Providers Care Forging Machine Hand Name Role Phone Sasha Elder MD Primary Care Pro vider Allergies No known active allergies Medications * This document contains information received from the source organization and may not represent a complete record from that organization. hydrOXYzine HCl (Atarax) 10 MG tablet Take 1 tablet (10 mg) by mouth if needed at bedtime for itching. 30 tablet 3 Active Incruse Ellipta 62.5 MCG/ACT aerosol powder Take 1 puff by mouth 1 (one) time each day at the same time. 1 each 2 3 Active montelukast (Singulair) 10 MG tablet Take 1 tablet (10 mg) by mouth in the morning. 90 tablet 3 Active ketoconazole (NIZOral) 2 % shampoo APPLY TOPICALLY TWICE A WEEK DIRECTED 120 mL 4 Active Advair HFA 230-21 MCG/ACT inhaler INHALE 2 PUFFS EVERY TWELVE HOURS. RINSE MOUTH AFTER USING. 12 g 2 4 Active ulipristal (Steffany) 30 mg tablet Take one tablet by mouth up to five days after sex. Do not use more than once per menstrual cycle. If repeat dose is needed in same cycle, please contact prescriber. 1 tablet 11 4 Active albuterol (2.5 MG/3ML) 0.083% nebulizer solution INHALE 1 AMPULE USING A NEBULIZER EVERY 6 HOURS NEEDED FOR WHEEZING OR SHORTNESS OF BREATH 90 mL 1 4 Active albuterol (Ventolin HFA) 108 (90 Base) MCG/ACT inhaler INHALE 1 PUFF BY MOUTH FOUR TIMES DAILY NEEDED FOR WHEEZING OR SHORTNESS OF BREATH 18 g 2 4 Active Vit-Fe Fumarate-FA ( Plus) 27-1 MG tablet One tablet by mouth daily 30 tablet 11 5 Active Active Problems Problem Noted Date Diagnosed Date Obesity 02/20/2023 Anxiety 02/20/2023 Assessment & Plan (03/13/2023 2:12 PM EDT): Patient with symptoms of anxiety and bipolar disorder. No risk for self-harm, SI or HI. Reason for visit was to assess symptoms and provide status referral. Mariia is using coping skills discussed during first BE. Pt completed the intake process with [facility] for individual therapy and had first session on 03/08. Provided psychoeducation around ways to cope when having anxiety episodes and discussed smart steps to reach short-term goals At this time Mariia Servin meets criteria for Visit Diagnoses: Problem List Items Addressed This Visit Other Anxiety Bipolar 2 disorder ([facility]/HCC) Patient ready to address current needs Yes Strengths include resilience to accomplish goals PLAN: 1. Follow up with [facility]: Not recommended for follow-up 2. Patient goal is to find a job and start individual therapy. 3. Behavioral Recommendations a. Referral for OP with [facility] (in placed) b. Medication management c. Incorporate mindfulness techniques into daily routine Depression, unspecified 02/20/2023 Health care maintenance 02/20/2023 Uncontrolled moderate persistent asthma 07/22/19 22 Allergic rhinitis 03/06/2012 Resolved Problems Problem Noted Date Diagnosed Date Resolved Date Rash 02/20/2023 10/01/2023 Bipolar 2 disorder 02/20/2023 4 Assessment & Plan (03/13/2023 2:13 PM EDT): Patient with symptoms of anxiety and bipolar disorder. No risk for self-harm, SI or HI. Reason for visit was to assess symptoms and provide status referral. Mariia is using coping skills discussed during first BE. Pt completed the intake process with [facility] for individual therapy and had first session on 03/08. Provided psychoeducation around ways to cope when having anxiety episodes and discussed smart steps to reach short-term goals At this time Mariia Servin meets criteria for Visit Diagnoses: Problem List Items Addressed This Visit Other Anxiety Bipolar 2 disorder (CMS/HCC) Patient ready to address current needs Yes Strengths include resilience to accomplish goals PLAN: 1. Follow up with [facility]: Not recommended for follow-up 2. Patient goal is to find a job and start individual therapy. 3. Behavioral Recommendations a. Referral for OP with [facility] (in [facility]) b. Medication management c. Incorporate mindfulness techniques into daily routine Assessment & Plan (02/25/2023 3:10 PM EDT): Patient with symptoms of sleep disturbance, fatigued, poor appetite. ALVERTO-7 was also administered, patient scored 16 showing symptoms of nervousness, over-worrying, trouble relaxing, restlessness, irritability and fearfulness. Mariia reported two major depressive episodes and symptoms of grandiosity, decreased need for sleep, excessive talking, racing thoughts and excessive involvement in sex. Symptoms occur nearly everyday and have been present for the last two months indicating a severe impact on social and occupational functioning. Symptoms are presented in the context of losing her job recently and experiencing severe anxiety episodes. Patient will benefit from receiving OP individual therapy and a referral for psychiatry for medication management. At this time Mariia eSrvin meets criteria for Visit Diagnoses: Problem List Items Addressed This Visit Other Anxiety Bipolar 2 disorder (CMS/HCC) - Primary Relevant Orders Referral to Behavioral Health Patient ready to address current needs Yes Strengths include resilience to accomplish goals PLAN: 1. Follow up with [facility]: Not recommended for follow-up 2. Patient goal is to find a job, lose weight and start individual therapy 3. Behavioral Recommendations a. Referral for OP individual therapy b. Medication management c. Incorporate mindfulness techniques and set up smart goals. Overweight 03/08/2016 02/20/2023 Encounters Date Type Department Care Team Description 09/14/2024 11:00 AM EDT Procedure Visit [facility] [address] [place] [address] Heather Mancuso CNM Cervical cancer screening (Primary Dx); Procreative management 09/14/2024 Travel 08/14/2024 Population Health Risk Score [facility] (C3) [address] [id number] Provider, Population Health Generic 07/03/2024 Travel from Last 3 Months Immunizations Name Administration Dates Next Due DTaP 01/31/2004, 0,1999,,1999 HPV 9-Valent 12/15/2014 HPV, Quadrivalent 03/06/2012,02/09/2011 Hep A, ped/adol, 2 dose 04/02/2016,12/15/2014 Hep B, Adolescent or Pediatric 03/26/2000,1999,1999 Hib (HbOC) 1999, 0,1999,05/30 IPV 01/31/2004, 0,1999,05/30 Influenza injectable quadriv alent preservative free 04/13/2023,02/20/2023,04/26/2019,04/03,03/08/2016 Influenza, IIV3, injectable 02/09/2011 Influenza, Split (incl. khai fied surface antigen) 02/18/2013,03/06/2012 MMR 01/31/2004,03/26/2000 Meningococcal MCV4P ACYW-135 03/08/2016 Meningococcal MPSV4 02/09/2011 Pneumococcal Conjugate PCV 20 10/01/2023 Pneumococcal Conjugate PCV 7 09/24/2001,12/19/19 00 Pneumococcal Polysaccharide PPSV23 04/26/2019 TD (adult), 2 Lf tetanus tox oid, preservative free, adsorbed 02/09/2011 Tdap 04/24/2023,02/09/2011 Varicella 02/09/2011,03/26/2000 Family History Medical History Relation Name Comments Asthma Father's Sister Breast cancer Neg Hx Colon cancer Neg Hx Ovarian cancer Neg Hx Relation Name Status Comments Father's Sister Social History Tobacco Use Types Packs/Day Years Used Date Smoking Tobacco: Never Passive Smoke Exposure: Never Smokeless Tobacco: Never Tobacco Cessation:Counseling Given: Not Answered Alcohol Use Standard Drinks/Week Comments Not Currently [...] Orientation Straight 02/20/2023 3: 36 PM EDT Last Filed Vital Signs Vital Sign Reading [...] Mass Index 35.18 09/14/2024 11:06 AM EDT Plan of Treatment Health Maintenance Due Date Last Done Comments Alcohol/Substance Use Screening 2011 Depression Monitoring 01/03/2024 07/05/2023, 024 COVID-19 Vaccine ( season) 2024 Influenza Vaccine (#1) 2024 , 02/20/2023, 04/26/2019, Additional history exists Depression Screening 07/05/2024 07/05/2023, 07/05/19 Pap Smear 09/06/2024 09/06/2021 SDOH Screening 09/23/2024 09/24/2023 Family Planning (PISQ) 09/14/2025 09/14/2024 Tobacco Screening 09/14/2025 09/14/2024 Lipid Panel 02/21/2028 02/20/2023 DTaP/Tdap/Td Vaccines (7 - Td or Tdap) 04/24/2033 04/24/2023, 02/09/2011, 02/09/2011, Additional history exists Zoster Vaccines (1 of 2) 2049 RSV Patients and Patients Aged 60 years or older (1 - 1-dose 75+ series) 2074 HIB Vaccines Aged Out 1999, 09/02, 1999, Additional history exists No longer eligible based on patient's age to complete this topic Hepatitis B Vaccines Completed 03/26/2000, 1999, 1999 IPV Vaccines Completed 01/31/2004, 09/02, 1999, Additional history exists HPV Vaccines Completed 12/15/2014, 09/2011, 02/09/2011 Meningococcal Vaccine Completed 03/08/2016, 011 Hepatitis A Vaccines Completed 04/02/2016, 12/16/19 15 Hepatitis C Screening Completed 09/08/2021 Pneumococcal Vaccine: Pediatrics (0 to 5 Years) and At-Risk Patients (6 to 49) Years) Completed 10/01/2023, 04/26/2019, 09/24/2001, Additional history exists HIV Screening Completed 05/04/2024, 09/08/2021 RSV under 20 months Aged Out No longe r eligible based on patient's age to complete this topic Rotavirus Vaccines Aged Out No longer eligible based on patient's age to complete this topic Procedures Procedure Name Priority Date/Time Associated Diagnosis Comments HIV 1/2 ANTIGEN/ANTIBODY, FOURTH GENERATION W/RFL Routine 05/04/2024 2:38 PM EST Screening examination for venereal disease LIPID PANEL, STANDARD Routine 02/20/2023 4:52 PM EDT Health care maintenance ZZZ HISTORICAL HEPATITIS C AB W/REFL TO HCV RNA, QN, PCR Routine 09/08/2021 10:50 AM EDT THINPREP IMAGING SYSTEM PAP Routine 09/06/2021 12:00 AM EDT from Last 3 Months or Most Recently Relevant to Health Maintenance Results * HIV-1/2 Antigen and Antibodies, Fourth Generation, with Reflexes (05/04/2024 2:38 PM EST) [facility] HIV AB/AG Nonreactive Nonreactive [facility] Comment:HIV-1 p24 Ag and/or HIV-1/HIV-2 Ab not detected.A test result that is nonreactive does not exclude thepossibility of exposure to or infection with HIV-1 and/orHIV-2. Nonreactive results in this assay for individualswith prior exposure to HIV-1 and/or HIV-2 may be due toantigen and antibody levels that are below the limit ofdetection of this assay.The [employer] HIV Ag/Ab Combo assay result andsupplemental assay results should be interpreted inconjunction with the patient's clinical presentation,history and other laboratory results. If the results areinconsistent with clinical evidence, additional testing issuggested to confirm the result. Blood Venous blood specimen / Unknown 05/04/2024 2:38 PM EST 05/04/2024 4:14 PM EST Heather Mancuso [facility] LAB BLOOD ORDERABLES Bel l Result [facility] [address] [place] [address] [phone] * (ABNORMAL) Lipid Panel, Standard (02/20/2023 4:52 PM EDT) Triglycerides 79 <150 mg/dL [facility] Comment:Desirable Triglyceri de: less than 150 mg/dLBorderline High Triglyceride 150-199 mg/dLHigh Triglyceride: 200-499 mg/dLVery High Triglyceride: greater than or equal to 5OO mg/dL Cholesterol 174 <200 mg/dL [facility] Comment:Desirable Cholestero l: less than 200 mg/dLBorderline High Cholesterol: 200-239 mg/dLHigh Cholesterol: greater than 239 mg/dL LDL Cholesterol Calculated 100(H) <100 mg/dL [facility] Comment:Desirable LDL: less than 100 mg/dLNear Optimal/Above Optimal LDL: 110- 129 mg/dLBorderline High LDL: 130-159 mg/dLHigh LDL: 160-189 mg/dLVery High LDL: greater than or equal to 190 mg/dL HDL Cholesterol 59 >40 mg/dL [facility] Comment:Desirable HDL: great er than 40 mg/dL Note: This HDL assay may give artificially low results in patients with liver disease. Blood Venous blood specimen / Unknown 02/20/2023 4:52 PM EDT 02/20/2023 5:25 PM EDT Sasha Redman MD LAB BLOOD ORDERAB LES Final Result [facility] [address] [place] [address] [phone] * HEPATITIS C AB W/REFL TO HCV RNA, QN, PCR (09/08/2021 10:50 AM EDT) HEPATITIS C ANTIBODY NON-REACT [facility] NON-REACT [facility] INDEX 0.01 <1.00 [facility] Comment: ?? HCV antibody was non-reactive. There is no laboratory ?? evidence of HCV infection. ?? In most cases, no further action is required. However, if recent HCV exposure is suspected, a test for HCV RNA (test code 36019) is suggested. ?? For additional information please refer to http://education.G-CON/faq/HNP31x1 (This link is being provided for informational/ educational purposes only.) ?? 09/08/2021 10:5 0 AM EDT us Kalli Aguilera NP HISTORICAL/NON ORDERABLE LABS F inal Result Performing Organization Address [facility] de Phone Number [facility] [address] [place] [address], * THINPREP TIS PAP (09/06/2021 12:00 AM EDT) Clinical Information: None given [facility] COMMENT SEE COMMENT [facility] Comment: EXPLANATORY NOTE: ? The Pap is a screening test for cervical cancer. It is ?? not a diagnostic test and is subject to false negative ?? and false positive results. It is most reliable when a ?? satisfactory sample, regularly obtained, is submitted ?? with relevant clinical findings and history, and when ?? the Pap result is evaluated along with historic and ?? current clinical information. ?? COMMENT: This Pap test has been evaluated with computer assisted technology. [facility] Grinder Hand : SEE COMMENT [facility] Comment: [facility], CT(ASCP) CT screening location: [address] ??[address] Interpretation/R esult: Negative for intraepithelial lesion or malignancy. [facility] LMP: NONE GIVEN [facility] Prev. BX: NONE [facility]IV[facility] Prev. PAP: NONE [facility]IV[facility] SOURCE: None given [facility] Statement Of Adequacy: SEE COMMENT [facility] Comment: Satisfactory for evaluation. Endocervical/transformation zone component absent. Age and/or menstrual status not provided 09/06/2021 us Kalli Aguilera NP LAB PATHOLOGY ORDERABLES Final Result [facility] [address] [place] [address], from Last 3 Months or Most Recently Relevant to Health Maintenance Insurance [facility] C3 Care Teams Forging Machine Hand Relationship Specialty Start Date End Date Sasha Elder MD [address] [place] [address] PCP - General Internal Medicine 12/10/22
[2024-09-14 14:04] LABS: Alanine Aminotransferase 13 U/L (0-31); Albumin Level 4.1 g/dL (3.5-5.0); Alkaline Phosphatase 49 U/L (39-117); Anion Gap 9 (12-20); Aspartate Amino Transferase 19 U/L (5-31); Bilirubin Total 0.3 mg/dL (0.0-1.0); Blood Urea Nitrogen 13 mg/dL (9-16); Calcium 8.9 mg/dL (8.4-10.2); Carbon Dioxide 26 mmol/L (22-29); Chloride 111 mmol/L (96-108); Estimated Glomerular Filt Rate > 60; Glucose Random 93 mg/dL (60-115); Potassium 3.7 mmol/L (3.3-5.1); Sodium 142 mmol/L (135-145); Total Protein 6.6 g/dL (6.5-8.0)
[2024-09-14 14:08] LABS: HBS Num1 1.52 mIU/mL (0-7.99); HBc Num1 0.09 S/CO (0.00-0.79); HBsAGNum1 0.38 S/CO (0.00-0.99); Hepatitis B Core Antibody Nonreactive (Nonreactive); Hepatitis B Surface Antigen Negative (Negative); ~HepC Num1 0.08 S/CO (0.00-0.79); ~Hepatitis B Surface Antibody NONREACTIVE (Nonreactive); ~Hepatitis C Antibody Nonreactive (Nonreactive)
== END 2024-09-14 11:46 | disposition home or self-care (01) ==
LOC: HO.HHCL 11:45
PROVIDERS: Student in an Organized Health Care Education/Training Program; Visit Provider Advanced Practice Midwife
DX: R74.01 Elevation of levels of liver transaminase levels (principal); Z11.3 Encounter for screening for infections with a predominantly sexual mode of transmission
CPT/HCPCS: 36415; 80053; 86704; 86706; 86803; 87340

== ENCOUNTER 2024-09-14 18:05 | Outpatient (REF) | payer MEDICAID, SELFPAY ==
--- OUTSIDE RECORDS SUMMARY | 2024-09-14 18:41 | XMS_ITS | Clinical Summary ---
Author Organization [employer] Address [address] [place] [address] 7 [place] [address] Care Team Providers Care Secretary Specialist Name Role Phone Sasha Elder MD Primary [...] BE. Pt completed the intake process with [facility] for individual therapy and had first session on 03/08. Provided psychoeducation around ways to cope when having anxiety episodes and discussed smart steps to reach short-term goals At this time Mariia Servin meets criteria for Visit Diagnoses: Problem List Items Addressed This Visit Other Anxiety Bipolar 2 disorder ([facility]/HCC) Patient ready to address current needs Yes Strengths include resilience to accomplish goals PLAN: 1. Follow up with [facility]: Not recommended for follow-up 2. Patient goal is to find a job and start individual therapy. 3. Behavioral Recommendations a. Referral for OP with [facility] (in placed) b. Medication management c. Incorporate [...] BE. Pt completed the intake process with [facility] for individual therapy and had first session [...] accomplish goals PLAN: 1. Follow up with [facility]: Not recommended for follow-up 2. Patient goal is to find a job and start individual therapy. 3. Behavioral Recommendations a. Referral for OP with [facility] (in [facility]) b. Medication management c. Incorporate [...] for medication management. At this time Mariia Servin meets criteria for Visit Diagnoses: Problem List Items Addressed This Visit Other Anxiety Bipolar 2 disorder (CMS/HCC) - Primary Relevant Orders Referral to Behavioral Health Patient ready to address current needs Yes Strengths include resilience to accomplish goals PLAN: 1. Follow up with [facility]: Not recommended for follow-up 2. Patient goal is to find a job, lose weight and start individual therapy 3. Behavioral Recommendations a. Referral for OP individual therapy b. Medication management c. Incorporate mindfulness techniques and set up smart goals. Overweight 03/08/2016 02/20/2023 Encounters Date Type Department Care Team Description 09/14/2024 11:00 AM EDT Procedure Visit [facility] [address] [place] [address] Heather Mancuso CNM Cervical cancer screening (Primary Dx); Procreative management 09/14/2024 Travel 08/14/2024 Population Health Risk Score [facility] (C3) [address] [id number] Provider, Population Health Generic 07/03/2024 [...] Hepatitis A Vaccines Completed 04/02/2016, 12/16/19 15 Pneumococcal Vaccine: Pediatrics (0 to 5 Years) and At-Risk Patients (6 to 49) Years) Completed 10/01/2023, 04/26/2019, 09/24/2001, Additional history exists HIV Screening Completed 05/04/2024, 09/08/2021 Hepatitis C Screening Completed 09/14/2024, 022 RSV under 20 months Aged Out No longe r eligible based on patient's age to complete this topic Rotavirus Vaccines Aged Out No longer eligible based on patient's age to complete this topic Procedures Procedure Name Priority Date/Time Associated Diagnosis Comments HEPATITIS C AB W/REFL TO HCV RNA, QN, PCR Routine 09/14/2024 11:46 AM EDT Screening examination for venereal disease HEPATITIS B SURFACE ANTIGEN, EIA Routine 09/14/2024 11:46 AM EDT Screening examination for venereal disease HEPATITIS B SURFACE ANTIBODY, QUALITATIVE Routine 09/14/2024 11:46 AM EDT Screening examination for venereal disease HEPATITIS B CORE AB TOTAL Routine 09/14/2024 11:46 AM EDT Screening examination for venereal disease COMPREHENSIVE METABOLIC PANEL Routine 09/14/2024 11:46 AM EDT Transaminitis HIV 1/2 ANTIGEN/ANTIBODY, FOURTH GENERATION W/RFL Routine 05/04/2024 2:38 PM EST Screening examination for venereal disease LIPID PANEL, STANDARD Routine 02/20/2023 4:52 PM EDT Health care maintenance THINPREP IMAGING SYSTEM PAP Routine 09/06/2021 12:00 AM EDT from Last 3 Months or Most Recently Relevant to Health Maintenance Results * Hepatitis C Antibody with Reflex to HCV, RNA, Quantitative, Real-Time PCR (09/14/2024 11:46 AM EDT) Hepatitis C Antibody Nonreactive Nonreactive [facility] Comment:Antibodies to HCV no t detected; does not exclude early acuteHCV infection. Blood Venous blood specimen / Unknown 09/14/2024 11:46 AM EDT 09/14/2024 1:19 PM EDT us Heather Mancuso [facility] BLOOD ORDERABLES Bel l Result Performing Organization Address City/[facility]/ZIP Co de Phone Number [facility] [address] [place] [phone] * Hepatitis B surface antigen, EIA (09/14/2024 11:46 AM EDT) Hepatitis B Surface Ag Negative Negative [facility] Blood Venous blood specimen / Unknown 09/14/2024 11:46 AM EDT 09/14/2024 1:19 PM EDT Heather Mancuso [facility] BLOOD ORDERABLES Bel l Result Performing Organization Address [facility] Co de Phone Number [facility] [address] [place] [phone] * Hepatitis B Core Antibody, Total (09/14/2024 11:46 AM EDT) Pathologist [facility] Hepatitis B Core Antibody Nonreactive Nonreactive [facility] Blood Venous blood specimen / Unknown 09/14/2024 11:46 AM EDT 09/14/2024 1:19 PM EDT [facility] Bel l Result Performing Organization Address City/[facility] Co de Phone Number [facility] [address] [place] [phone] * Hepatitis B Surface Antibody, Qualitative (09/14/2024 11:46 AM EDT) ~Hepatitis B Surface Antibody NONREACTIVE Nonreactive [facility] Comment:Nonreactive: < 8.00 mIU/mL Blood Venous blood specimen / Unknown 09/14/2024 11:46 AM EDT 09/14/2024 1:19 PM EDT Heather Mancuso CNM LAB BLOOD ORDERABLES Bel l Result [facility] [address] [place] [phone] * (ABNORMAL) Comprehensive Metabolic Panel (09/14/2024 11:46 AM EDT) Sodium 142 135 - 145 mmol/L [facility] Potassium 3.7 3.3 - 5.1 mmol/L [facility] Chloride 111(H) 96 - 108 mmol/L [facility] Carbon Dioxide 26 22 - 29 mmol/L [facility] Anion Gap 9(L) 12 - 20 [facility] Urea Nitrogen (BUN) 13 9 - 16 mg/dL [facility] Creatinine, Serum 0.85 0.5 - 1.4 mg/dL [facility] Estimated Glomerular Filt Rate >60 [facility] Comment:Chronic Kidney Disea se: Estimated GFR < 60 mL/min/1.48h7Eeqrwi Kidney Disease: Estimated GFR < 15 mL/min/1.73m2 Glucose 93 60 - 115 mg/dL [facility] Calcium 8.9 8.4 - 10.2 mg/dL [facility] Bilirubin, Total 0.3 0.0 - 1.0 mg/dL [facility] Aspartate Amino Transferase 19 5 - 31 U/L [facility] Alanine Aminotransferase 13 0 - 31 U/L [facility] Total Protein 6.6 6.5 - 8.0 g/dL [facility] Albumin Level 4.1 3.5 - 5.0 g/dL [facility] Alkaline Phosphatase 49 39 - 117 U/L [facility] Blood Venous blood specimen / Unknown 09/14/2024 11:46 AM EDT 09/14/2024 1:19 PM EDT us Sasha Redman MD LAB BLOOD ORDERAB LES Final Result Performing Organization Address City/[facility]/ZIP Co de Phone Number [facility] [address] [place] [phone] * HIV-1/2 Antigen and Antibodies, Fourth Generation, with Reflexes (05/04/2024 2:38 PM EST) HIV AB/AG Nonreactive Nonreactive [facility] Comment:HIV-1 p24 Ag and/or HIV-1/HIV-2 Ab not detected.A test result that is nonreactive does not exclude thepossibility of exposure to or infection with HIV-1 and/orHIV-2. Nonreactive results in this assay for individualswith prior exposure to HIV-1 and/or HIV-2 may be due toantigen and antibody levels that are below the limit ofdetection of this assay.The [employer] HIV Ag/Ab Combo assay result andsupplemental assay results should be interpreted inconjunction with the patient's clinical presentation,history and other laboratory results. If the results areinconsistent with clinical evidence, additional testing issuggested to confirm the result. Blood Venous blood specimen / Unknown 05/04/2024 2:38 PM EST 05/04/2024 4:14 PM EST us Heather Mancuso [facility] BLOOD ORDERABLES Bel l Result [facility] [address] [place] [phone] * (ABNORMAL) Lipid Panel, Standard (02/20/2023 4:52 PM EDT) Triglycerides 79 <150 mg/dL [facility] Comment:Desirable Triglyceri de: less than 150 mg/dLBorderline High Triglyceride 150-199 mg/dLHigh Triglyceride: 200-499 mg/dLVery High Triglyceride: greater than or equal to 5OO mg/dL Cholesterol 174 <200 mg/dL [facility] Comment:Desirable Cholestero l: less than 200 mg/dLBorderline High Cholesterol: 200-239 mg/dLHigh Cholesterol: greater than 239 mg/dL LDL Cholesterol Calculated 100(H) <100 mg/dL [facility] Comment:Desirable LDL: less than 100 mg/dLNear Optimal/Above Optimal LDL: 110- 129 mg/dLBorderline High LDL: 130-159 mg/dLHigh LDL: 160-189 mg/dLVery High LDL: greater than or equal to 190 mg/dL HDL Cholesterol 59 >40 mg/dL [facility] Comment:Desirable HDL: great er than 40 mg/dL Note: This HDL assay may give artificially low results in patients with liver disease. Blood Venous blood specimen / Unknown 02/20/2023 4:52 PM EDT 02/20/2023 5:25 PM EDT us Sasha Redman MD LAB BLOOD ORDERAB LES Final Result [facility] [address] [place] [phone] * THINPREP TIS PAP (09/06/2021 12:00 AM EDT) Clinical Information: None given [facility] COMMENT SEE COMMENT [facility]OUNDAT[facility] ON [...] has been evaluated with computer assisted technology. [facility] Field Gauger : SEE COMMENT [facility] Comment: [facility], CT(ASCP) CT screening location: [address] ??[phone] Interpretation/R esult: Negative for intraepithelial lesion or malignancy. [facility] LMP: NONE GIVEN [facility] N LAB SYSTEM Prev. BX: NONE GIVEN [facility] LAB SYSTEM Prev. PAP: NONE GIVEN FOUNDAT[facility] ON LAB SYSTEM SOURCE: None given [facility] N LAB SYSTEM Statement Of Adequacy: SEE COMMENT [facility] Comment: Satisfactory for evaluation. Endocervical/transformation zone component absent. Age and/or menstrual status not provided 09/06/2021 us Kalli Aguilera CONCRETE CRUSHER LOADER OPERATOR LAB PATHOLOGY ORDERABLES Final Result [facility] [address] from Last 3 Months or Most Recently Relevant to Health Maintenance Insurance [email or web address] C3 Care Teams Secretary Specialist Relationship Specialty Start Date End Date Sasha Elder MD [address] [place] [address] PCP - General Internal Medicine 12/10/22
--- OUTSIDE RECORDS SUMMARY | 2024-09-14 18:41 | XMS_ITS | Encounter Summary ---
Author Organization [employer] Address [address] [place] [address] 7 [place] [address] Care Team Providers Care Cloud Solutions Architect Name Role Phone Sasha Elder MD Primary Care Pro vider Reason for Visit * Reason Comments Gynecologic Exam Encounter Details Date Type Department Care Team (Latest Contact Info) Description 09/14/2024 11:00 AM EDT Procedure Visit [facility]INE [address] [place] [address] Heather Mancuso CNM [address] [place] [address] Cervical cancer screening (Primary Dx); Procreative management [...] a 24 y.o. 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 Last visit with [...] provider of her choice. Local options include [facility], [facility], [facility]. [facility] offers care, but births happen at [facility]. May return any time if interested [...] documented as of this encounter Care Teams Cloud Solutions Architect Relationship Specialty Start Date End Date Sasha Elder MD [address] [place] [phone] PCP - General Internal Medicine 12/10/22 documented as of this encounter
--- OUTSIDE RECORDS SUMMARY | 2024-09-14 18:41 | XMS_ITS | Encounter Summary ---
Author Organization [employer] Address [address] [facility] [address]t [place] [address] Care Team Providers Care Zigzag Elastic Attacher Name Role Phone Sasha Elder MD Primary [...] documented as of this encounter Care Teams Zigzag Elastic Attacher Relationship Specialty Start Date End Date Sasha Elder MD [address] [place] [phone] PCP - General Internal Medicine 12/10/22 documented as of this encounter
--- OUTSIDE RECORDS SUMMARY | 2024-09-14 18:41 | XMS_ITS | Clinical Summary ---
Author Organization [facility] Address [address] [place] [address] Care Team Providers Care Hall Porter Name Role Phone Unavailable Primary Care Provider [...]
--- OUTSIDE RECORDS SUMMARY | 2024-09-14 18:41 | XMS_ITS | Encounter Summary ---
Author Organization [employer] Address [address] [place] [address] 7 [place] [address] Care Team Providers Care Secretary Book Keeper Name Role Phone Sasha Elder MD Primary Care Pro vider Reason for Visit * Reason Comments Med Refill Encounter Details Date Type Department Care Team (Late st Contact Info) Description 02/28/2024 Refill [facility] [address] [place] [address] Sasha Elder MD [address] [place] [address] Social History Tobacco Use Types Packs/Day Years [...] documented as of this encounter Care Teams Secretary Book Keeper Relationship Specialty Start Date End Date Sasha Elder MD [address] [place] [phone] PCP - General Internal Medicine 12/10/22 documented as of this encounter
== END 2024-09-14 18:06 | disposition home or self-care (01) ==
LOC: HO.HHCLNP 18:05
PROVIDERS: Visit Provider Advanced Practice Midwife
DX: Z12.4 Encounter for screening for malignant neoplasm of cervix (principal)
CPT/HCPCS: 88175

== ENCOUNTER 2024-11-13 15:58 | Outpatient (REF) | payer MEDICAID, SELFPAY ==
[2024-11-13 18:03] LABS: MANUAL DIFF FLAG NO
[2024-11-13 18:14] LABS: Basophils Absolute Auto 0.1 X10*3/uL (0.0-0.2); Basophils Percent Auto 0.4 % (0-2); Eosinophils Percent Auto 0.3 % (0-4); Hemoglobin 12.4 g/dl (12.0-16.0); Imm Gran Abs Auto 0.06 X10*3/uL (0.00-0.03); Imm Gran Pct Auto 0.4 % (0.0-0.4); Lymphocytes Absolute Auto 1.2 X10*3/uL (1.2-4.9); Lymphocytes Percent Auto 8.5 % (20-40); Mean Corpuscular HGB Conc 33.5 g/dl (31.0-35.0); Mean Corpuscular Hemoglobin 27.7 pg (27.0-33.0); Mean Corpuscular Volume 82.8 fL (80.0-98.0); Mean Platelet Volume 10.3 fL (9.4-12.3); Monocytes Absolute Auto 0.8 X10*3/uL (0.1-1.2); Monocytes Percent Auto 5.7 % (2-11); Monotest Negative (Negative); Neutrophils Absolute Auto 11.6 x10*3/uL (2.0-8.3); Neutrophils Percent Auto 84.7 % (45-73); Platelet Count 228 X10*3/uL (160-400); Red Blood Count 4.47 X10*6/uL (4.20-5.50); White Blood Count 13.7 X10*3/uL (4.8-10.8)
== END 2024-11-13 15:59 | disposition home or self-care (01) ==
LOC: HO.HHCL 15:58
PROVIDERS: Visit Provider Nurse Practitioner
DX: J35.8 Other chronic diseases of tonsils and adenoids (principal)
CPT/HCPCS: 36415; 85025; 86308; 87070; 87147